=== PATIENT | female | born 1935 | race Caucasian/White ===

== ENCOUNTER 2018-02-09 14:30 | Outpatient (RCR) | payer MEDICARE, SELFPAY ==
--- NOTE | 2018-01-19 15:13 | PTTR_ITS ---
DATE: 01/19/18 SUBJECTIVE: Rosemarie indicates she is noting improvement in her left foot pain , but continues to get the numbness in the leg itself. Unfortunately, had a very bad night with left foot pain last night. Is not sure what caused this. She had been sick with vomiting and cold chills after her last P.T. session, but was better the next day. OBJECTIVE: Manual therapy: ([id number]). Soft tissue stretching of the left hamstrings, IT bands and piriformis. Hook lying lumbar rotational stretch as well as single knee to chest and unilateral leg pulls in supine and soft tissue mobs throughout the left glute medius and QL region. Tendon massage was applied along the lumbar vertebrae, iliac crest and sacral border on the left while in right side lying. Also, rec'd Grade 2 PA mobs throughout the lumbar vertebrae. * x Ultrasound - (x 8 mins) - [id number]: applied to the left glute medius / piriformis region @3 megahertz 50% duty cycle @1.0 watt per cm sq while in right side lying with a pillow between her knees and under her head. * * Ended with moist heat x10 min. to the low back and left buttock while in side lying at no charge. Direct treatment time: 35 min. Total treatment time: 45 min. SG/gc
--- NOTE | 2018-01-23 15:16 | PTTR_ITS ---
DATE: 01/23/18 SUBJECTIVE: Rosemarie reports pain in her left foot as well as her upper back on the left side today. OBJECTIVE: Manual therapy: ([id number]). With patient in supine, performed hamstring, ITB, and piriformis stretching on the left, as well as hooklying lumbar rotation stretching, SKTC stretching, and unilateral leg pulls, bilaterally. With patient in prone, performed STM throughout left lumbar paraspinals, glute med and QL regions. * [X] Ultrasound - (x 8 mins) - [id number][1]: With patient in prone, applied to left glute med and piriformis at 3 MHz, 50% duty cycle, 1.0 w/cm2 x8 minutes. Ends with MHP to low back in seated position x10 minutes, at no charge. Direct treatment time: 40 minutes Total treatment time: 50 minutes
--- NOTE | 2018-01-26 15:05 | PTTR_ITS ---
DATE: 01/26/18 SUBJECTIVE: Rosemarie indicates she has been getting a lot of pain into her left foot again. Is frustrated with this. Had been feeling as though she was doing better. The pain has been particularly worse the past 3 days. OBJECTIVE: Manual therapy: ([id number]). Did receive mobilization of the lumbopelvic region consisting of left hamstring , IT band and piriformis stretching as well as hook lying rotational stretch. Single knee to chest and unilateral leg pulls were performed while in the supine position. She did transition to prone where she received Grade 2 PA mobs to the lumbar vertebrae as well as soft tissue mobilization throughout the left QL and glutes. * x Ultrasound - (x 8 mins) - [id number]: applied to the left piriformis / gluteal region x8 min. @3 megahertz @1.0 watt per cm sq continuous duty cycle. She tolerated this very well today. This was done prior to the soft tissue mobilizations. * Ended with moist heat to the low back while seated at no charge. Direct treatment time: 40 minutes Total treatment time: 50 minutes SG/gc
--- NOTE | 2018-01-31 13:46 | PTTR_ITS ---
DATE: 01/31/18 SUBJECTIVE: Rosemarie states that her back is hurting at times. She continues to have left foot pain/numbness. Reports less twinges in her hip/buttock region. OBJECTIVE: Manual therapy: ([id number]). lumbopelvic stretching including SKTC, rotation in hooklying. Stretching of hamstrings, ITB, piriformis in various positions. LE distractions via leg pulls. She went into prone and received STM of low back and buttock region. CFM over left paraspinals, pelvic brim and sacral border. PRT's of iliocostalis lumborum and glut medius/ piriformis region. Myofascial stretching t/o entire low back and buttock region. She ended with MHP to low back in seated position x 10 min. * x Ultrasound - (x 8 mins) - [id number]: to left glut/ pelvic brim at 3 MHZ and 1.0 w/cm2. Direct treatment time: 45 min Total treatment time: 55 min.
--- NOTE | 2018-02-03 09:52 | PTTR_ITS ---
DATE: 02/03/18 Co treatment with LUCÍA StoverT: OBJECTIVE: Manual therapy: ([id number]). STM t/o left posterior hip with focus on piriformis and glut medius using PRT' s. I also worked into left iliocostalis lumborum. CFM of thoracic and lumbar paraspinals, pelvic brim and sacral border. Myofascial stretching t/o entire low back and pelvic brim. She declined the need for MHP today. Direct treatment time: 20 min Total treatment time: 20 min
--- NOTE | 2018-02-03 11:00 | PN_ITS ---
DATE: February 03, 2018 REFERRING: Dr. Rios REFERRING PROVIDER DIAGNOSIS:: R LBP w/sciatica PHYSICAL THERAPY DIAGNOSIS: REPORTING PERIOD (for progress note and discharge note only): 01/04/18 to SUBJECTIVE: Rosemarie states that she finds greater ease with cleaning the litter box for her cat. Still hasn't done much baking as the weather has been too hot. Does report less intense pain in the L glut. Continues to complain of L thoracolumbar region pain, also continues to complain of L foot discomfort and feeling as though she is rolling on the inside of her arch. Continues to complain of pain and paresthesias in the L foot. OBJECTIVE: See for recheck. ROM: AROM remains unchanged compared to time of I.E. Essentially painfree throughout flexion/extension, sidebending and rotation. She does have great toe extension weakness on the L. Good dorsiflexion and plantar flexion strength. Continues to use her Gabapentin. Treatment: Manual Therapy [id number]: LE distraction via leg pulls on the L, Mulligan style SLR followed by some gentle PA mobs in prone. Then performed Ultrasound [id number]: Applied at 3mhz, 1.0 w/cm2 continuous to the L piriformis. Also fabricated her accommodative type orthotics at no charge incorporating a small scaphoid pad and medial rearfoot post on the L. Standardized Measure: Scores 54% on MOLBPDQ. ASSESSMENT: Overall patient progressing with functional mobility, particularly with changing the litter box which was one of her goals. She has MET STG1-3 established at I.E. (See below). LTG still remains appropriate and she is progressing towards. G-Codes (add modifier after appropriate code): Patient's primary functional limitation is in the category of: __x__ Changing and maintaining body position: [id number] Projected goal: __x__ Changing and maintaining body position: [id number] STG: __6__ weeks. 1: Decrease L buttock pain by 50%. 2: Patient perform sit to stand transfer without pain. 3: Patient independent in a HEP. LTG: __10__ weeks. 1: Independent with self-maintenance program PLAN: Continue with current POC, will integrate more cervical stabilization and hip stabilization strengthening in subsequent visits. She was issued orthotics today and was told how to break them in. Will re-check those when she comes in next visit. MM/dl
--- NOTE | 2018-02-09 11:45 | PTTR_ITS ---
DATE: 02/09/18 SUBJECTIVE: Rosemarie states that she is doing a little better regarding her hip and back. She continues to c/o foot/ ankle pain. She is unable to wear her orthotics as she does not have proper shoes to put them in. I did recommend she purchase a pair of sneakers that tie. OBJECTIVE: Manual therapy: ([id number]). lumbopelvic stretching including SKTC, rotation in hooklying. LE distractions via leg pulls. Stretching of hamstrings, ITB, piriformis. She went into prone and received STM t/o low back and buttock on left. PRT's of iliocostalis lumborum and QL as well as glut medius and piriformis. CFM over pelvic brim, sacral border and bilateral paraspinals. Myofascial stretching t/o entire low back.She declined the need for MHP today. Direct treatment time: 30 min Total treatment time: 30 min.
== END 2018-02-17 23:59 | disposition home or self-care (01) ==
LOC: PT 14:30
PROVIDERS: PCP Family Medicine; Referring Provider Family Medicine; Visit Provider Family Medicine
DX: M54.42 Lumbago with sciatica, left side (principal); M51.16 Intervertebral disc disorders with radiculopathy, lumbar region
CPT/HCPCS: 97035; 97140

== ENCOUNTER 2018-07-17 01:01 | Outpatient (CLI) | payer MEDICARE, SELFPAY ==
--- NOTE | 2018-07-17 08:34 | DI.US_ITS ---
SYMPTOM/DIAGNOSIS: ABD PAIN RT SIDE, WT LOSS R63.4 R10.9 ABDOMEN ULTRASOUND: Comparison is made with CT dated 24 September 2013. There is mild dilatation of the abdominal aorta 2.5 cm There is mural thrombus as well as mural calcifications. There is no significant change from the previous abdomen CT. Numerous tiny cysts are noted in both kidneys. No hydronephrosis is seen. The spleen is normal in size. The gallbladder is unremarkable without evidence of stones or wall thickening. The liver is normal in size and echogenicity. IMPRESSION: abdominal aortic aneurysm containing thrombus measuring 2.5 cm. Bilateral renal cysts.
== END 2018-07-17 01:21 ==
PROVIDERS: PCP Family Medicine; Visit Provider Family Medicine
DX: R63.4 Abnormal weight loss (principal); R10.31 Right lower quadrant pain; I71.4 Abdominal aortic aneurysm, without rupture; N28.1 Cyst of kidney, acquired
CPT/HCPCS: 76700

== ENCOUNTER 2018-09-22 16:46 | Inpatient (IN) | payer MEDICARE, SELFPAY ==
[2018-09-22] VITALS (9 sets, daily range): BP systolic 134–153; BP diastolic 70–90; PULSE 64–94; RESP 4–22; TEMP 36.3–37.2; O2SAT 81–96
--- NOTE | 2018-09-22 17:01 | NUR.NOTE ---
pt seen by dr Rios today fo a followup on pneumonia. PT had increasing shortness of breath and symptoms were not resolving. PT states she was told to go to ED for chest xray
--- NOTE | 2018-09-22 17:06 | DI.RAD_ITS ---
SYMPTOM/DIAGNOSIS: COUGH WITH SPUTUM, SUSPECT PNEUMONIA FRONTAL AND LATERAL CHEST: Comparison is made with 08/23/17. Heart size and pulmonary vasculature appear stable. The lungs are hyperinflated with flattened diaphragms and increased AP diameter consistent with underlying COPD. There are prominent interstitial markings seen in the lungs bilaterally which appear stable and likely reflects chronic interstitial disease. On the lateral view, there is question of an increased opacity in the lung base posteriorly. This may be due to chronic scarring or atelectasis. A developing pneumonia cannot be excluded. Thoracic degenerative changes appear stable. IMPRESSION: Question of a new infiltrate in the lung base posteriorly as appreciated on the lateral view. This may represent atelectasis or scarring. Pneumonia cannot be excluded. Please correlate clinically.
--- NOTE | 2018-09-22 17:14 | W.ED.GENAD ---
Discharge Plan Disposition Patient Disposition: [facility] INPATIENT Condition: Stable Discharge Details Chief Complaint: RespSymp Clinical Impression: Pneumonia Primary Care Provider: Calvin Rios ED Provider: Teodoro Mg Home Meds and New Rx's Prescriptions: No Action Myrbetriq 25 mg tablet extended release 24 hr 25 mg PO DAILY RF: 0 nicotine [Nicoderm CQ] 7 mg/24 hr patch 24 hour 1 patch TD Q24H RF: 0 cefuroxime axetil 250 mg tablet 250 mg PO Q12H Qty: 14 RF: 0 prednisone 20 mg tablet 40 mg PO DAILY Qty: 10 RF: 0 albuterol sulfate [ProAir HFA] 90 mcg/actuation HFA aerosol inhaler 2 puff Inhalation Q4H PRN RF: 0 baclofen 10 mg tablet 5 mg PO QID PRN (Reason: muscle spasm) Qty: 60 RF: 1 lidocaine 5 % ointment 1 applic Topical Q4H Qty: 37.5 RF: 5 triamcinolone acetonide 0.1 % cream 1 applic Topical BID PRN (Reason: eczema) Qty: 45 RF: 1 omeprazole 20 mg capsule,delayed release(DR/EC) 20 mg PO DAILY Qty: 90 RF: 3 cyanocobalamin (vitamin B-12) 1,000 MCG/1 ML solution 1,000 mcg IM Q 2 MOS. RF: 0 aspirin [Aspirin Low-Strength] 81 MG tablet,chewable 81 mg PO DAILY Qty: 90 RF: 4 Compact Compressor Nebulizer 1 EACH kit 1 ea Miscellaneous Q6H PRN Qty: 1 RF: 0 Aerochamber Plus Flow-Vu 1 EACH spacer 1 ea Miscellaneous BID Qty: 1 RF: 0 gabapentin 100 MG capsule 100 mg PO HS RF: 0 trazodone 50 MG tablet 25 mg PO HS PRNQty: 30 RF: 2 benzonatate 100 MG capsule 1 - 2 cap PO TID PRNQty: 30 RF: 1 gabapentin 800 mg tablet 800 mg PO TID Qty: 270 RF: 3 ipratropium-albuterol 0.5 mg-3 mg(2.5 mg base)/3 mL solution for nebulization 3 ml Inhalation Q6H PRN Qty: 90 RF: 4 Medical Decision Making This is a pleasant 83-year-old female with a past medical history of chronic tobacco abuse and COPD who presents with a week of cough with brown and matt colored sputum. She was on 3 days of cefuroxime and steroids by her PCP, but had no improvement of her symptoms with this and was actually worsening. At recheck her O2 was in the 80s, PCP sent her in for further evaluation and admission. Exam demonstrates mild hypoxemia with oxygen at 81 on room air, coarse breath sounds, concern is for COPD as well as pneumonia. We will get a chest x-ray, evaluate for cardiac etiology, treat for COPD exacerbation, and most likely admit pending labs and imaging for failed outpatient management of community-acquired pneumonia. 7:05 PM Patient's laboratory workup has returned, after the breathing treatment she is feeling much better, O2 saturation is now 95% instead of the 81% but it was on arrival. Personal review of the chest x-ray demonstrates what I feel to be pneumonia, she does have normal WBC count, but she does have a left shift, lactate normal, troponin is normal, EKG shows some J-point elevations but no evidence of true STEMI or tombs stoning. I started the patient on Levaquin for her community-acquired pneumonia, I have discussed the case with Dr. Cornelius, he agrees with the assessment and plan. I have extensively reviewed the treatment plan with the patient. I have addressed all patient concerns at this time. I have also discussed the plan with the admitting physician and they agree with the current assessment and plan and have agreed to assume responsibility for the patient. All parties demonstrate verbal understanding and agreement with our assessment and plan at this time. FINDINGS: Lungs: There is stable chronic pulmonary hyperinflation and flattening of the hemidiaphragms. There is stable increased AP diameter of the chest. Findings compatible with COPD. There is increased hyperlucency to the pulmonary parenchyma, stable, and related to emphysema. Stable interstitial pattern, favoring chronic lung changes. There is an area of increased density in the posterior lung base, presumably on the left lower lobe, only seen on the lateral film. No acute interstitial or airspace disease otherwise grossly noted. Pleural space: Unremarkable. No pleural effusion. No pneumothorax. Heart/Mediastinum: Stable cardiac mediastinal silhouette. Bones/joints: No acute skeletal abnormality is grossly noted. IMPRESSION: Area of increased density in the posterior lung base, presumably in the left lower lobe, which could be related to an area of atelectasis or scarring, however developing airspace disease is not excluded and should be entertained in the appropriate clinical setting. Otherwise, stable COPD/emphysema. EKG 17: 45 Rate 88, intervals normal, sinus rhythm, 1 mm elevation in V2 and 2 mm elevation in V3, however these appear to be J-point elevation, with no tombstone, no reciprocal depression, no T wave inversions, no Q waves, in the setting of no chest pain. No evidence of true STEMI, morphology is inconsistent with D Barros waves HPI General Date/Time Provider Initiated Documentation: 09/22/18 17:06. HPI Narrative: This is an 83-year-old female with past medical history of COPD, chronic tobacco use, who presents today for evaluation of cough. Patient states that for the last week she has had a cough with productive brown and matt sputum. She is slightly short of breath with this. She denies any fever or chills. She does admit to mild chest pain in the epigastric region, but denies any cardiac disease. She has been on 3 days of cefuroxime by her PCP, as well as 3 days of steroids and she has had worsening of her symptoms with this. On reevaluation today in the clinic she was noted to be 89% on room air, and he was concerned and sent the patient in for evaluation in the ER for admission. Patient denies any other complaints. She denies any recent admission within the last 90 days. No other modifying factors. She denies any recent surgery, IV illicit drug use or pertinent family history Related Data Home Medications Medication Instructions Recorded Confirmed cyanocobalamin (vitamin B-12) 1,000 mcg IM Q 2 MOS. vial 10/27/12 09/22/18 aspirin [Aspirin Low-Strength] 81 mg PO DAILY #90 tab-cap 08/07/13 09/22/18 Compact Compressor Nebulizer #1 kit 03/11/15 09/22/18 inhalational spacing device #1 misc 09/16/17 09/22/18 [Aerochamber Plus Flow-Vu] gabapentin 100 mg PO HS 12/28/17 09/22/18 benzonatate 1 - 2 cap PO TID PRN #30 tab-cap 01/02/18 09/22/18 trazodone 25 mg PO HS PRN #30 tab-cap 01/02/18 09/22/18 gabapentin 800 mg tablet 800 mg PO TID #270 tab-cap 05/01/18 09/22/18 ipratropium-albuterol 0.5 mg-3 3 ml INHALATION Q6H PRN #90 ml 05/03/18 09/22/18 mg(2.5 mg base)/3 mL nebulization soln baclofen 10 mg tablet 5 mg PO QID PRN #60 tab 05/17/18 09/22/18 lidocaine 5 % topical ointment 1 applic TOPICAL Q4H #37.5 gm 05/17/18 09/22/18 triamcinolone acetonide 0.1 % 1 applic TOPICAL BID PRN #45 gm 05/17/18 09/22/18 topical cream omeprazole 20 mg capsule,delayed 20 mg PO DAILY #90 tab-cap 07/11/18 09/22/18 release cefuroxime axetil 250 mg tablet 250 mg PO Q12H #14 tab 09/19/18 09/22/18 mirabegron ER 25 mg 25 mg PO DAILY tab 09/19/18 09/22/18 tablet,extended release 24 hr nicotine 7 mg/24 hr daily 1 patch TD Q24H each 09/19/18 09/22/18 transdermal patch prednisone 20 mg tablet 40 mg PO DAILY #10 tab 09/19/18 09/22/18 albuterol sulfate HFA 90 2 puff INHALATION Q4H PRN inhaler 09/22/18 09/22/18 mcg/actuation aerosol inhaler Previous Rx's Medication Instructions Recorded inhalational spacing device #1 misc 09/16/17 [Aerochamber Plus Flow-Vu] gabapentin 800 mg tablet 800 mg PO TID #270 tab-cap 05/01/18 ipratropium-albuterol 0.5 mg-3 3 ml INHALATION Q6H PRN #90 ml 05/03/18 mg(2.5 mg base)/3 mL nebulization soln baclofen 10 mg tablet 5 mg PO QID PRN #60 tab 05/17/18 lidocaine 5 % topical ointment 1 applic TOPICAL Q4H #37.5 gm 05/17/18 triamcinolone acetonide 0.1 % 1 applic TOPICAL BID PRN #45 gm 05/17/18 topical cream omeprazole 20 mg capsule,delayed 20 mg PO DAILY #90 tab-cap 07/11/18 release cefuroxime axetil 250 mg tablet 250 mg PO Q12H #14 tab 09/19/18 prednisone 20 mg tablet 40 mg PO DAILY #10 tab 09/19/18 Allergies Allergy/AdvReac Type Severity Reaction Status Date / Time Penicillins Allergy Intermediate Unverified 09/22/18 17:13 roflumilast [From Daliresp] AdvReac Severe H/, Unverified 09/22/18 17:13 STOMACH PAIN, COLD tramadol AdvReac Severe Nausea, Unverified 09/22/18 17:13 dizziness amitriptyline AdvReac Intermediate DROWSINESS Unverified 09/22/18 17:13 fluticasone propionate AdvReac Intermediate EPISTAXIS Unverified 09/22/18 17:13 [From Flonase] hydrocodone AdvReac Intermediate Nausea Unverified 09/22/18 17:13 lorazepam AdvReac Intermediate decreased Unverified 09/22/18 17:13 mental status imipramine AdvReac Mild INSOMNIA Unverified 09/22/18 17:13 clarithromycin AdvReac Unknown INTOLERANT Unverified 09/22/18 17:13 tetracycline AdvReac Unknown INTOLERANT Unverified 09/22/18 17:13 General Stated Complaint: RespSymp MARCIAL: 4 Review of Systems Review of Systems All systems reviewed & are unremarkable except as noted in HPI and below PFSH Medical History COPD (chronic obstructive pulmonary disease) Cataract Closed fracture of clavicle Complex regional pain syndrome i of lower limb, bilateral Degenerative disc disease, cervical Headache Hearing loss History of shingles Idiopathic peripheral neuropathy Perforation of tympanic membrane Peripheral neuralgia Peripheral vascular disease Seborrheic keratosis Skin lesion of face Smoker Tinea unguium Surgical History Abdominal hysterectomy (~1975) Appendectomy Extraction of cataract Social History Smoking/Tobacco Use Status: Current every day Tobacco Type: cigarettes Years smoked: 50 Alcohol Intake: never Drug use: Never Substance use type: does not use Do you feel safe at home: Yes Do you feel safe in your relationship?: Yes Exam Narrative Exam Narrative: 1.Const: Elderly, cachectic appearing. 2.Eyes: PERRL, no conjunctival injection, and symmetrical lids. 3.ENT: Atraumatic external nose and ears. Moist MM. Neck: Symmetric, trachea midline, No thyromegaly. 4.CVS: +S1/S2, No murmurs or gallops. Peripheral pulses 2+ and equal in all extremities. Brisk capillary refill in all extremities. 5.RESP: Notable wheezes and diminished breath sounds throughout, minimal crackles in the bases bilaterally. 6.GI: Soft, Nontender/Nondistended, No hepatosplenomegaly. No guarding or rebound. 7.MSK: Normocephalic/Atraumatic, Extremities w/o deformity or ttp No cyanosis or clubbing, Normal movement of all extremities 8.Skin: Warm, Dry. No rashes or lesions. 9.Neuro: oven drier tender II-XII grossly intact. Sensation grossly intact, no focal neurologic deficits. 10.Psych: (AAO) x3. Appropriate mood and affect Course Vital Signs Temperature 36.6 C 09/22/18 17:03 Pulse 91 H 09/22/18 17:03 Respiratory Rate 22 09/22/18 17:03 Pulse Oximetry 81 L 09/22/18 17:03 Temperature 36.6 C 09/22/18 17:03 Temperature Source Skin 09/22/18 17:03 Pulse 91 H 09/22/18 17:03 Respiratory Rate 22 09/22/18 17:03 Blood Pressure Position Sitting 09/22/18 17:03 Pulse Oximetry 81 L 09/22/18 17:03 Oxygen Delivery Method Room Air 09/22/18 17:03 Oxygen Flow Rate 0 09/22/18 17:03 Pain Level 0 09/22/18 17:03 Comment 09/22/18 17:03 Lab/Test Results Lab/Test Results: 09/22/18 17:07 Blood Blood Culture - Pending 09/22/18 17:07 Blood Blood Culture - Pending
[2018-09-22 17:32] LABS: Lactate-non-spesis 0.9 mmol/l (0.6-1.4)
[2018-09-22 18:00] LABS: Abs Immature Grans 0.01 k/cumm (0.0-0.09); Absolute Basophil Count 0.02 k/cumm (0.0-0.2); Absolute Eosinophil Count 0.03 k/cumm (0.0-0.7); Absolute Lymphocyte Count 0.86 k/cumm (1.2-3.4); Absolute Neutrophil Count 7.29 k/cumm (1.2-6.7); Basophils % 0.2; Eosinophils % 0.3; HCT 47.3 % (36.0-46.0); HGB 15.4 g/dL (12.0-15.5); Immature Grans % 0.1; Lymphocytes % 9.4; Mean Corp. HGB Concentration 32.6 g/dL (32.0-36.0); Mean Corpuscular Hemoglobin 31.4 pg (27.0-33.0); Mean Corpuscular Volume 96.3 fL (80-95); Mean Platelet Volume 10.6 fL (8.0-11.0); Monocytes % 9.9; Neutrophils % 80.1; Platelet Count 169 x1000/uL (130-400); RBC 4.91 m/cumm (4.00-5.20); RBC Distribution Width 13.4 % (11.7-14.6); White Blood Cell Count 9.11 k/cumm (4.4-10.8)
[2018-09-22 18:04] LABS: Troponin I < 0.02 ng/mL (0.00-0.06)
[2018-09-22 18:07] LABS: ALT 25 U/L (12-78); AST 17 U/L (15-37); Albumin 3.3 g/dL (3.4-5.0); Alkaline Phosphatase 102 U/L (46-116); Anion Gap 6.4 mmol/L (3-11); BUN 14 mg/dL (7-18); Bilirubin, Total 0.5 mg/dL (0.2-1.0); CO2 31.6 mmol/L (21.0-32.0); CREATININE 0.61 mg/dL (0.55-1.02); Calcium 9.1 mg/dL (8.5-10.1); Chloride 101 mmol/L (98-107); Glucose 112 mg/dL (70-100); Potassium 3.9 mmol/L (3.5-5.1); Sodium 139 mmol/L (136-145); Total Protein 7.2 g/dL (6.4-8.2)
[2018-09-22] MEDS: Albuterol/Ipratropium 3 ML UPD VIAL UPD ×2 (18:13→22:23)
[2018-09-22] MEDS: methylPREDNISolone SUCC 125 MG VIAL IVP (18:13)
--- NOTE | 2018-09-22 19:05 | DI.VRAD_ITS ---
EXAM: XR Chest, 2 Views EXAM DATE/TIME: 09/22/2018 5:07 PM CLINICAL HISTORY: 83 years old, female; Signs and symptoms; Cough; Patient HX: Cough with sputum for 1 week; Additional info: Suspected pneumonia TECHNIQUE: Imaging protocol: XR of the chest, 2 views. COMPARISON: CR CHEST 2 VIEWS PA,LAT 08/23/2017 11:28 AM FINDINGS: Lungs: There is stable chronic pulmonary hyperinflation and flattening of the hemidiaphragms. There is stable increased AP diameter of the chest. Findings compatible with COPD. There is increased hyperlucency to the pulmonary parenchyma, stable, and related to emphysema. Stable interstitial pattern, favoring chronic lung changes. There is an area of increased density in the posterior lung base, presumably on the left lower lobe, only seen on the lateral film. No acute interstitial or airspace disease otherwise grossly noted. Pleural space: Unremarkable. No pleural effusion. No pneumothorax. Heart/Mediastinum: Stable cardiac mediastinal silhouette. Bones/joints: No acute skeletal abnormality is grossly noted. IMPRESSION: Area of increased density in the posterior lung base, presumably in the left lower lobe, which could be related to an area of atelectasis or scarring, however developing airspace disease is not excluded and should be entertained in the appropriate clinical setting. Otherwise, stable COPD/emphysema. Dictated and Authenticated by: Melvin Fry MD. Ordering:FRANSISCO Valerio MD
--- NOTE | 2018-09-22 19:15 | HPE_ITS ---
Date of service: 09/22/18 Time of Service: 19:14 Assessment and Plan (1) Community acquired pneumonia: Start date: 09/22/18 Current visit: Yes Status: Acute This is an 83-year-old lady who has had a one-week history of worsening respiratory symptoms having failed outpatient therapy for respiratory infection and COPD exacerbation. She has no onset hypoxemia and has been smoking up to her acute illness. She will be admitted for oxygen supplementation as we treat her acute probable left lower lobe community-acquired pneumonia with Levaquin IV. Follow-up chest x-ray will be done as indicated. She is a DNR/DNI this will be respected. Qualifiers: Laterality: left Lung location: lower lobe of lung Qualified Code(s): J18.1 - Lobar pneumonia, unspecified organism (2) COPD (chronic obstructive pulmonary disease): Start date: 09/22/18 Current visit: No Status: Acute Patient will be treated with IV Solu-Medrol and aggressive nebulizer treatments with oxygen supplementation. She will be continued on a NicoDerm patch. Qualifiers: COPD type: COPD with acute exacerbation Qualified Code(s): J44.1 - Chronic obstructive pulmonary disease with (acute) exacerbation (3) Smoker: Current visit: No Status: Chronic NicoDerm patch and expect that the patient will have increase plugging and sputum production having just stopped smoking with his acute illness. Long-term counseling on permanent tobacco cessation before discharge. History of Present Illness Chief Complaint: Hypoxemia with continued cough Narrative: This is an 83-year-old lady who continued to smoke up to 1 week ago who began to have increased cough with production of matt brown sputum and was treated Ceftin and oral steroids for outpatient COPD exacerbation with at least bronchitis. She has multiple allergies prompting the use of the cephalosporin rather than the usual treatment for outpatient bronchitis or pneumonia. Despite treatment she worsened and with follow-up at her PCP office she was noted to be hypoxemic. She was sent to the ED for evaluation and workup revealed possible left lower lobe pneumonia by chest x-ray but no elevation in white count, no fever and minimal tachypnea. On oxygen she was much more comfortable. She was slightly confused at the time I interviewed her but comfortable sitting in a recliner chair. She denies any hemoptysis and did not have respiratory distress. She denies any palpitations or chest pain and had no GI complaints. She has had no fever chills during this last week. In the ED she was on Levaquin IV and admitted with O2 supplement, respiratory treatments and IV steroids. [facility] Medical History COPD (chronic obstructive pulmonary disease) Cataract Closed fracture of clavicle Complex regional pain syndrome i of lower limb, bilateral Degenerative disc disease, cervical Headache Hearing loss History of shingles Idiopathic peripheral neuropathy Perforation of tympanic membrane Peripheral neuralgia Peripheral vascular disease Seborrheic keratosis Skin lesion of face Smoker Tinea unguium Surgical History Abdominal hysterectomy (~1975) Appendectomy Extraction of cataract Social History Smoking/Tobacco Use Status: Current every day Tobacco Type: cigarettes Years smoked: 50 Alcohol Intake: never Drug use: Never Substance use type: does not use Do you feel safe at home: Yes Do you feel safe in your relationship?: Yes Meds Home Medications Medication Instructions Recorded Confirmed Type cyanocobalamin (vitamin B-12) 1,000 mcg IM Q 2 MOS. vial 10/27/12 09/22/18 History aspirin [Aspirin Low-Strength] 81 mg PO DAILY #90 tab-cap 08/07/13 09/22/18 History Compact Compressor Nebulizer #1 kit 03/11/15 09/22/18 History inhalational spacing device #1 misc 09/16/17 09/22/18 Rx [Aerochamber Plus Flow-Vu] gabapentin 100 mg PO HS 12/28/17 09/22/18 History benzonatate 1 - 2 cap PO TID PRN #30 tab-cap 01/02/18 09/22/18 History trazodone 25 mg PO HS PRN #30 tab-cap 01/02/18 09/22/18 History gabapentin 800 mg tablet 800 mg PO TID #270 tab-cap 05/01/18 09/22/18 Rx ipratropium-albuterol 0.5 mg-3 3 ml INHALATION Q6H PRN #90 ml 05/03/18 09/22/18 Rx mg(2.5 mg base)/3 mL nebulization soln baclofen 10 mg tablet 5 mg PO QID PRN #60 tab 05/17/18 09/22/18 Rx lidocaine 5 % topical ointment 1 applic TOPICAL Q4H #37.5 gm 05/17/18 09/22/18 Rx triamcinolone acetonide 0.1 % 1 applic TOPICAL BID PRN #45 gm 05/17/18 09/22/18 Rx topical cream omeprazole 20 mg capsule,delayed 20 mg PO DAILY #90 tab-cap 07/11/18 09/22/18 Rx release cefuroxime axetil 250 mg tablet 250 mg PO Q12H #14 tab 09/19/18 09/22/18 Rx mirabegron ER 25 mg 25 mg PO DAILY tab 09/19/18 09/22/18 History tablet,extended release 24 hr nicotine 7 mg/24 hr daily 1 patch TD Q24H each 09/19/18 09/22/18 History transdermal patch prednisone 20 mg tablet 40 mg PO DAILY #10 tab 09/19/18 09/22/18 Rx albuterol sulfate HFA 90 2 puff INHALATION Q4H PRN inhaler 09/22/18 09/22/18 History mcg/actuation aerosol inhaler Allergies Allergy/AdvReac Type Severity Reaction Status Date / Time Penicillins Allergy Intermediate Unverified 09/22/18 17:13 roflumilast [From Daliresp] AdvReac Severe H/, Unverified 09/22/18 17:13 STOMACH PAIN, COLD tramadol AdvReac Severe Nausea, Unverified 09/22/18 17:13 dizziness amitriptyline AdvReac Intermediate DROWSINESS Unverified 09/22/18 17:13 fluticasone propionate AdvReac Intermediate EPISTAXIS Unverified 09/22/18 17:13 [From Flonase] hydrocodone AdvReac Intermediate Nausea Unverified 09/22/18 17:13 lorazepam AdvReac Intermediate decreased Unverified 09/22/18 17:13 mental status imipramine AdvReac Mild INSOMNIA Unverified 09/22/18 17:13 clarithromycin AdvReac Unknown INTOLERANT Unverified 09/22/18 17:13 tetracycline AdvReac Unknown INTOLERANT Unverified 09/22/18 17:13 Exam Narrative Exam Narrative: General: Patient is pleasantly confused fidgeting with her IV and oxygen tubing at the time of my exam. She is oriented at least to person and place. She is in no acute distress. She appears appropriate for age. HEENT: Patient is wearing a wig, normocephalic, face with coarsened features. Eyes reveal pupils equal and reactive to light symmetrically and extraocular movement intact. Sclera anicteric. Oropharynx with dry oral mucosa. Ears normal. Neck: Supple without JVD. Back: Severely kyphotic with decreased range of motion. No CVA tenderness. Heart: Distant heart sounds, regular rate and rhythm without murmurs or gallops appreciated. Lungs: Poor aeration diffusely with diffuse coarse rhonchi and coarse crackles without focalization. Increased expiratory phase with diffuse expiratory wheeze, especially with cough. Breast: Not examined. Abdomen: Scaphoid, soft and nontender with no palpable masses or hepatosplenomegaly. Bowel sounds positive in all quadrants. Genitalia and rectal exam: Deferred. Extremities: Without clubbing, cyanosis or pitting edema. Muscle wasting diffusely with no joint swelling. Decreased range of motion in all joints. Skin: Decreased turgor, diffuse actinic changes over sun exposed areas with rough texture. Pale, warm and dry. Neuro: Decreased short-term memory, no focalizing motor deficits. Cranial nerves II through XII grossly intact. Results Imaging Imaging Studies: XR Chest, 2 Views EXAM DATE/TIME: 09/22/2018 5:07 PM CLINICAL HISTORY: 83 years old, female; Signs and symptoms; Cough; Patient HX: Cough with sputum for 1 week; Additional info: Suspected pneumonia TECHNIQUE: Imaging protocol: XR of the chest, 2 views. COMPARISON: CR CHEST 2 VIEWS PA,LAT 08/23/2017 11:28 AM FINDINGS: Lungs: There is stable chronic pulmonary hyperinflation and flattening of the hemidiaphragms. There is stable increased AP diameter of the chest. Findings compatible with COPD. There is increased hyperlucency to the pulmonary parenchyma, stable, and related to emphysema. Stable interstitial pattern, favoring chronic lung changes. There is an area of increased density in the posterior lung base, presumably on the left lower lobe, only seen on the lateral film. No acute interstitial or airspace disease otherwise grossly noted. Pleural space: Unremarkable. No pleural effusion. No pneumothorax. Heart/Mediastinum: Stable cardiac mediastinal silhouette. Bones/joints: No acute skeletal abnormality is grossly noted. IMPRESSION: Area of increased density in the posterior lung base, presumably in the left lower lobe, which could be related to an area of atelectasis or scarring, however developing airspace disease is not excluded and should be entertained in the appropriate clinical setting. Otherwise, stable COPD/emphysema. Dictated and Authenticated by: Melvin Fry MD. Labs : 09/22/18 17:36 09/22/18 17:22 Laboratory Results - last 24 hr 09/22/18 09/22/18 09/22/18 17:22 17:22 17:36 WBC 9.11 RBC 4.91 Hgb 15.4 Hct 47.3 H MCV 96.3 H MCH 31.4 MCHC 32.6 RDW 13.4 Plt Count 169 MPV 10.6 Immature Gran % 0.1 Neutrophils % 80.1 Lymphocytes % 9.4 Monocytes % 9.9 Eosinophils % 0.3 Basophils % 0.2 Absolute Neutrophils 7.29 H Absolute Lymphocytes 0.86 L Absolute Monocytes 0.90 H Absolute Eosinophils 0.03 Absolute Basophils 0.02 Sodium 139 Potassium 3.9 Chloride 101 Carbon Dioxide 31.6 Anion Gap 6.4 BUN 14 Creatinine 0.61 Estimated GFR/1.73 m2 >= 60.00 Glucose 112 H Lactate 0.9 Calcium 9.1 Total Bilirubin 0.5 AST 17 ALT 25 Alkaline Phosphatase 102 Troponin I Total Protein 7.2 Albumin 3.3 L 09/22/18 17:36 WBC RBC Hgb Hct MCV MCH MCHC RDW Plt Count MPV Immature Gran % Neutrophils % Lymphocytes % Monocytes % Eosinophils % Basophils % Absolute Neutrophils Absolute Lymphocytes Absolute Monocytes Absolute Eosinophils Absolute Basophils Sodium Potassium Chloride Carbon Dioxide Anion Gap BUN Creatinine Estimated GFR/1.73 m2 Glucose Lactate Calcium Total Bilirubin AST ALT Alkaline Phosphatase Troponin I < 0.02 Total Protein Albumin Last Vital Signs Temp 37.2 C 09/22/18 18:45 Pulse 94 H 09/22/18 18:45 Resp 18 09/22/18 18:45 BP 134/70 09/22/18 18:45 Pulse Ox 95 09/22/18 18:45
[2018-09-22 19:37] LABS: Magnesium 1.8 mg/dL (1.8-2.4)
[2018-09-22] MEDS: levoFLOXacin 750 MG/150 ML BAG 100 MG IVPB (20:13)
[2018-09-22] MEDS: Gabapentin 800 MG TAB PO (22:23)
[2018-09-22] MEDS: Gabapentin 100 MG CAP PO (22:23)
[2018-09-22] MEDS: Heparin 5,000 UNITS/ML VIAL 5000 UNITS SC (22:24)
[2018-09-22] MEDS: Normal Saline 1,000 ML 80 ML IV (22:39)
[2018-09-23] VITALS (11 sets, daily range): BP systolic 106–139; BP diastolic 56–82; PULSE 61–94; RESP 4–20; TEMP 36.1–37; O2SAT 87–96
[2018-09-23] MEDS: methylPREDNISolone SUCC 125 MG VIAL 80 MG IVP ×3 (01:54→19:12)
[2018-09-23] MEDS: Albuterol/Ipratropium 3 ML UPD VIAL UPD ×3 (04:14→18:07)
[2018-09-23] MEDS: Heparin 5,000 UNITS/ML VIAL 5000 UNITS SC ×3 (05:37→21:42)
[2018-09-23 07:02] LABS: HCT 44.5 % (36.0-46.0); HGB 14.1 g/dL (12.0-15.5); Mean Corp. HGB Concentration 31.7 g/dL (32.0-36.0); Mean Corpuscular Hemoglobin 30.8 pg (27.0-33.0); Mean Corpuscular Volume 97.2 fL (80-95); Mean Platelet Volume 10.9 fL (8.0-11.0); Platelet Count 157 x1000/uL (130-400); RBC 4.58 m/cumm (4.00-5.20); RBC Distribution Width 13.2 % (11.7-14.6); White Blood Cell Count 4.81 k/cumm (4.4-10.8)
[2018-09-23 07:14] LABS: ALT 18 U/L (12-78); AST 14 U/L (15-37); Albumin 2.7 g/dL (3.4-5.0); Alkaline Phosphatase 84 U/L (46-116); Anion Gap 6.3 mmol/L (3-11); BUN 16 mg/dL (7-18); Bilirubin, Total 0.4 mg/dL (0.2-1.0); CO2 30.7 mmol/L (21.0-32.0); Calcium 8.5 mg/dL (8.5-10.1); Chloride 104 mmol/L (98-107); Glucose 124 mg/dL (70-100); Potassium 4.2 mmol/L (3.5-5.1); Sodium 141 mmol/L (136-145); Total Protein 6.5 g/dL (6.4-8.2)
[2018-09-23] MEDS: Aspirin 81 MG CHEW PO (08:24)
[2018-09-23] MEDS: Gabapentin 800 MG TAB PO ×3 (08:24→17:58)
[2018-09-23] MEDS: Omeprazole 20 MG CAPCR PO (08:24)
[2018-09-23] MEDS: Normal Saline 1,000 ML 80 ML IV (11:19)
--- NOTE | 2018-09-23 12:23 | PT.INIE ---
Date of service: 09/23/18 Time of Service: 10:45 PT Notes Inpatient Physical Therapy Evaluation Date: 09/23/18 Referring Doctor: Lynne Olivera PT Orders: PT CONSULT: Improve function Precautions: Standard Patient Profile/Admitting Diagnosis: Is received for this 83-year-old female with a history of mild respiratory issues she was being monitored by her primary physician for an acute respiratory illness however after failing with conservative therapy she was admitted for O2 supplementation and monitoring. She was diagnosed with a community-acquired pneumonia. PMHX: Medical History COPD (chronic obstructive pulmonary disease) Cataract Closed fracture of clavicle Complex regional pain syndrome i of lower limb, bilateral Degenerative disc disease, cervical Headache Hearing loss History of shingles Idiopathic peripheral neuropathy Perforation of tympanic membrane Peripheral neuralgia Peripheral vascular disease Seborrheic keratosis Skin lesion of face Smoker Tinea unguium Surgical History Abdominal hysterectomy (~1975) Appendectomy Extraction of cataract Social History/Home Situation: Lives alone in a trailer in [place] Equipment Owned/DME: Patient utilizes a cane at baseline but also has a walker that she utilizes but not that often due to it getting stuck on her rug at times Subjective: Patient states she might be feeling a little bit better today Objective: Patient is sitting in her recliner with an IV present through the upper extremity on supplemental O2 delivered via nasal cannula Mental Status: Well oriented and alert to person place and time Pain: 0 out of 10 ROM: Right Upper Extremity: Within functional limits Left Upper Extremity: Within functional limits Right Lower Extremity: Within functional limits Left Lower Extremity: Within functional limits Strength: Right Upper Extremity: 4Plus out of 5 globally Left Upper Extremity: 4Plus out of 5 globally Right Lower Extremity: 4Plus out of 5 globally Left Lower Extremity: 4Plus out of 5 globally Bed Mobility/Transfers: Applicable as patient was sitting up Sit-stand: Contact-guard assist Stand-sit: Contact-guard assist Gait: Patient ambulates up to 10 feet which is the limit of her in room oxygen hose she utilizes cane in the right upper extremity and is contact-guard Balance: Static Sitting: Normal Dynamic Sitting: Good Static Standing: Good Dynamic Standing: fair Special Tests: Mobility Limitations Standardized Measure [facility]-PAC 6 clicks Basic Mobility Inpatient Short Form: Raw Score: 18 Standardized Score: 43.63 CMS Score: 46.58 CMS Modifier: CK Informed Consent/Education: Patient instructed in purpose of PT consult and plan of care. Treatment: Performing a light exercise program with corrective instruction can observe flow sheet ASSESSMENT: Patient is a 83-year-old female with a history of respiratory issues Admitted with community acquired pneumonia Patient presents with the following impairment level findings: Difficulty with transferring, ambulation intolerance, activity tolerance below baseline Pt will benefit from skilled therapy intervention in order to remedy their functional limitations and restore patient to a more appropriate and stable functional level. Impairments are contributing to the following functional limitations: AMPAC score 46.58% Patient is assessed as a moderate complexity initial evaluation 45648 based on the following: History: see above Examination: see above Presentation: Evolving Decision Making: Moderate based on the AMPAC score of 46.58% Goals: Goals X1 week 1. Supine-Sit independent and restored to baseline 2. Sit-Supine independent and restored to baseline 3. Sit-Stand independent and restored to baseline 4. Stand-Sit independent and restored to baseline 5. Bed-Chair independent and restored to baseline 6. Gait independent to 100 feet with cane and restored to baseline Plan of Care/Treatment Plan: 1-2x/day, 7 days/week x 1 week. Plan of care has been reviewed with the [employer] SAL[employer]GER providing the service under Physical Therapy direction. Initiate Physical Therapy intervention for strengthening, bed mobility, transfers, gait, stairs, balance training, use of assistive device. DISCHARGE RECOMMENDATIONS: To home once medically stable TREATMENT CODE/TIME: Moderate complexity initial evaluation 22591 10:45am 15 minutes of direct patient care
--- NOTE | 2018-09-23 12:32 | PHARADMIT ---
Addendum entered by Darrel Butterfield III 09/27/18 16:42: Pharmacy Note Subjective Objective BP-148/85 HR-96 K+4.5 Mag-1.8 SCr- 0.8 WBC-9.47 Wgt-38.4 kg (up) BM Yesterday Assessment Levaquin continues, Lasix DC'd. Heparin SC for DVT proph Plan Addendum entered by Lisa Waddell 09/25/18 17:10: Pharmacy Note Subjective taking a little longer to bounce back per morning report Objective HR-98 other VS okay mag-2.9(up) WBC-12.58(up) Assessment duonebs changed to Q4H prn furosemide ordered 20 mg IVP BID guaifenesin ordered 600 mg BID levofloxacin continues (day 4) blood cultures no growth @48 hours Plan continue to watch VS labs and for med changes (IV to PO abx) Original Note: Admission Pharmacy Clinical Review CAP, COPD EXACERBATION-Smoker Code Status DNR/DNI Current Weight 36.5 kg Renally Cleared and Narrow Therapeutic Index Meds CrCl~31.24 QTc Value / Action Taken QTC 433: Levaquin/Trazodone BP Control, Fever BP 139/82 Afebrile Electrolytes reviewed K+ 4.2, Mag 1.8 DVT Prophylaxis Heparin SC Opiate Usage / Scheduled Bowel Regimen Ordered none Plt/SCr for Heparin / Enoxaparin Plt 157 SCr 0.7 INR for Warfarin H/H stable, WBC/Bands H/H 14.1/44.5 WBC 4.81 Antibiotic appropriateness Levaquin 750mg IV Q48h (renal adjustment) Cultures and Sensitivities Blood pending Flu: negative Surgical ABX d/c within 24 hr DM control / Insulin Dosing BG 124 Heart Failure (Check EF%) (IDA's, B-Block, Diuretics) none IV to PO Switch Home Meds Reviewed Pt's own Mybertriq 25mg-not here at this time, med IS on order for Tuesday09/25/18 Home Meds Not Ordered Ceftin as outpt recently, Pletal, Vit B12, Comments Nutrition consult for BMI 14.7 IV Steroids reduced today Neurontin dose needs clarification
--- NOTE | 2018-09-23 13:39 | PGE_ITS ---
Date of Service Date of service: 09/23/18 Time of Service: 13:39 Assessment and Plan (1) Community acquired pneumonia: Start date: 09/23/18 Start time: 13:30 Current visit: Yes Status: Acute This is an 83-year-old lady who has had a one-week history of worsening respiratory symptoms having failed outpatient therapy for respiratory infection and COPD exacerbation. She is a smoker last cigarette prior to admission, she was started on levaquin after failing a trial of ceftin on outpatient therapy. She does have non oxygen dependent COPD which is exacerbated at this time with wheezing and SOB. She was started on solumedrol 80 mg IV q 8 hours, updraft q 4 hours with albuterol q2. Wean off of oxygen as she is 93% on 1 L. Qualifiers: Laterality: left Lung location: lower lobe of lung Qualified Code(s): J18.1 - Lobar pneumonia, unspecified organism (2) COPD (chronic obstructive pulmonary disease): Start date: 09/23/18 Start time: 13:35 Current visit: No Status: Acute Patient will be treated with IV Solu-Medrol and aggressive nebulizer treatments. She will be continued on a NicoDerm patch. Qualifiers: COPD type: COPD with acute exacerbation Qualified Code(s): J44.1 - Chronic obstructive pulmonary disease with (acute) exacerbation (3) Smoker: Start date: 09/23/18 Start time: 13:35 Current visit: No Status: Chronic NicoDerm patch and expect that the patient will have increase plugging and sputum production having just stopped smoking with his acute illness. Long-term counseling on permanent tobacco cessation before discharge. (4) Peripheral vascular disease: Start date: 09/23/18 Start time: 13:35 Current visit: No Status: Acute Chronic smoker with numbness and pain to feet and fingers in the setting of PVD. Continue gabapentin for PVD (5) Malnourished: Start date: 09/23/18 Start time: 13:37 Current visit: Yes Status: Acute BMI of 14. She does believe she eats enough however, appears malnourished. Nutrition consult placed. (6) DVT prophylaxis: Start date: 09/23/18 Start time: 13:38 Current visit: Yes Status: Acute Heparin Subcu (7) Advance directive in chart: Start date: 09/23/18 Start time: 13:38 Current visit: Yes Status: Acute DNR/DNI Subjective Patient reports: feels better Interval history since last seen: Ms. Burgess is an 83 y.o F with PMH of COPD, PVD, Tobacco abuse, admitted to [facility] for CAP with COPD exacerbation. After failing outpatient therapy on a course of ceftiane PO for CAP she arrived to [facility] Emergency department SOB with hypoxia. She was admitted and started on levaquin IV with steroids. Today she is feeling much better, she is able to breath better and complete full sentences. She is 93% on 1 liter and we will obtain a RA sat. She smoked up until admission, and is currently wearing a nicoderm patch. Inspiratory and expiratory wheezing heard continue, nebs, updrafts, steroids, and antibiotics. Omeprazole for GERD. She does c/o numbness and pain to toes and fingers she has PVD and currently on gabapentin, continue dose. Exam Const General: cooperative and no acute distress Nutritional Appearance: underweight Orientation: alert, awake and oriented x3 Eyes Pupils: PERRL Neck Lymphatic: no lymphadenopathy noted and no lymphedema noted Chest Chest: normal inspection of the chest Resp Effort & Inspection: able to speak in complete sentences and abnormal respiratory pattern Auscultation: rhonchi and wheezes expiratory wheezes and inspiratory wheezes Cardio Jugular venous pressure: no JVD Rate: regular rate Rhythm: regular rhythm Heart Sounds: S1 normal and S2 normal GI Inspection: normal to inspection Auscultation: hyperactive bowel sounds Skin General skin exam: no rashes or lesions noted Neuro General: alert, awake and oriented x3 Objective Objective Clinical Data: Abnormal lab results 09/22/18 09/22/18 09/23/18 Range/Units 17:22 17:36 06:30 Hct 47.3 H (36.0-46.0) % MCV 96.3 H (80-95) fL MCHC (32.0-36.0) g/dL Absolute Neutrophils 7.29 H (1.2-6.7) k/cumm Absolute Lymphocytes 0.86 L (1.2-3.4) k/cumm Absolute Monocytes 0.90 H (0.11-0.7) k/cumm Glucose 112 H 124 H (70-100) mg/dL AST 14 L (15-37) U/L Albumin 3.3 L 2.7 L (3.4-5.0) g/dL 09/23/18 Range/Units 06:30 Hct (36.0-46.0) % MCV 97.2 H (80-95) fL MCHC 31.7 L (32.0-36.0) g/dL Absolute Neutrophils (1.2-6.7) k/cumm Absolute Lymphocytes (1.2-3.4) k/cumm Absolute Monocytes (0.11-0.7) k/cumm Glucose (70-100) mg/dL AST (15-37) U/L Albumin (3.4-5.0) g/dL Vital Signs Temperature 36.1 C L 09/23/18 07:48 Temperature Source Tympanic 09/23/18 07:48 Pulse 74 09/23/18 07:48 Pulse Rhythm Regular 09/23/18 08:00 Respiratory Rate 18 09/23/18 07:48 Respiratory Effort 09/23/18 08:00 Respiratory Depth Shallow 09/23/18 08:00 Respiratory Pattern Tachypnea 09/23/18 08:00 Blood Pressure 139/82 09/23/18 07:48 Blood Pressure Mean 106 09/22/18 20:02 Blood Pressure Position Sitting 09/22/18 17:03 Pulse Oximetry 93 L 09/23/18 10:35 Oxygen Delivery Method Nasal Cannula 09/23/18 10:35 Oxygen Flow Rate 1 09/23/18 10:35 Pain Level 0 09/22/18 17:03 Comment 09/22/18 17:03 Intake & Output 09/22/18 09/23/18 09/23/18 23:59 11:59 23:59 Intake Total 1500 / 1500 Output Total 300 / 300 600 / 600 Balance -300 / -300 900 / 900 Weight 38.555 kg 36.5 kg Intake: IV 1150 / 1150 Oral 350 / 350 Output: Urine 300 / 300 600 / 600 Other: Urine Color Yellow Yellow Urine Appearance Clear Clear Voiding Methods Bedside Commode Bedside Commode Laboratory Results WBC 4.81 k/cumm (4.4-10.8) D 09/23/18 06:30 RBC 4.58 m/cumm (4.00-5.20) 09/23/18 06:30 Hgb 14.1 g/dL (12.0-15.5) 09/23/18 06:30 Hct 44.5 % (36.0-46.0) 09/23/18 06:30 MCV 97.2 fL (80-95) H 09/23/18 06:30 MCH 30.8 pg (27.0-33.0) 09/23/18 06:30 MCHC 31.7 g/dL (32.0-36.0) L 09/23/18 06:30 RDW 13.2 % (11.7-14.6) 09/23/18 06:30 Plt Count 157 x1000/uL (130-400) 09/23/18 06:30 MPV 10.9 fL (8.0-11.0) 09/23/18 06:30 Immature Gran % 0.1 09/22/18 17:36 Neutrophils % 80.1 09/22/18 17:36 Lymphocytes % 9.4 09/22/18 17:36 Monocytes % 9.9 09/22/18 17:36 Eosinophils % 0.3 09/22/18 17:36 Basophils % 0.2 09/22/18 17:36 Absolute Neutrophils 7.29 k/cumm (1.2-6.7) H 09/22/18 17:36 Absolute Lymphocytes 0.86 k/cumm (1.2-3.4) L 09/22/18 17:36 Absolute Monocytes 0.90 k/cumm (0.11-0.7) H 09/22/18 17:36 Absolute Eosinophils 0.03 k/cumm (0.0-0.7) 09/22/18 17:36 Absolute Basophils 0.02 k/cumm (0.0-0.2) 09/22/18 17:36 Sodium 141 mmol/L (136-145) 09/23/18 06:30 Potassium 4.2 mmol/L (3.5-5.1) 09/23/18 06:30 Chloride 104 mmol/L (98-107) 09/23/18 06:30 Carbon Dioxide 30.7 mmol/L (21.0-32.0) 09/23/18 06:30 Anion Gap 6.3 mmol/L (3-11) 09/23/18 06:30 BUN 16 mg/dL (7-18) 09/23/18 06:30 Creatinine 0.70 mg/dL (0.55-1.02) 09/23/18 06:30 Estimated GFR/1.73 m2 >= 60.00 (mL/min/1.73m2) 09/23/18 06:30 Glucose 124 mg/dL (70-100) H 09/23/18 06:30 Lactate 0.9 mmol/l (0.6-1.4) 09/22/18 17:22 Calcium 8.5 mg/dL (8.5-10.1) 09/23/18 06:30 Magnesium 1.8 mg/dL (1.8-2.4) 09/22/18 17:36 Total Bilirubin 0.4 mg/dL (0.2-1.0) 09/23/18 06:30 AST 14 U/L (15-37) L 09/23/18 06:30 ALT 18 U/L (12-78) 09/23/18 06:30 Alkaline Phosphatase 84 U/L (46-116) 09/23/18 06:30 Troponin I < 0.02 ng/mL (0.00-0.06) 09/22/18 17:36 Total Protein 6.5 g/dL (6.4-8.2) 09/23/18 06:30 Albumin 2.7 g/dL (3.4-5.0) L 09/23/18 06:30
[2018-09-23] MEDS: Milk of Magnesia 30 ML CUP PO (13:43)
[2018-09-23] MEDS: Docusate Sodium 100 MG CAP PO (13:43)
[2018-09-23] MEDS: Benzonatate 200 MG CAP PO (16:30)
[2018-09-23] MEDS: Polyethylene Glycol 3350 17 GM PACKET PO (16:30)
[2018-09-23] MEDS: Acetaminophen 500 MG TAB 1000 MG PO (16:32)
--- NOTE | 2018-09-23 17:20 | PDOC.CMIN ---
Care Management Initial Assess REASON FOR HOSPITALIZATION:: CAP, COPD Exacerbation PAST MEDICAL HISTORY/PAST SURGICAL HISTORY:: COPD, Cataract, Closed fracture of clavicle, Complex regional pain syndrome of lower limb, bilateral, Degenerative disc disease, cervical, Headache, Hearing loss, History of shingles, Idiopathic peripheral neuropathy, Perforation of tympanic membrane, Peripheral neuralgia, Peripheral vascular disease, Seborrheic keratosis, Skin lesion of face, Smoker, Tinea unguium. Abdominal hysterectomy, Appendectomy, Extraction of cataract PREVIOUS FUNCTIONAL STATUS/SOCIAL/FAMILY SUPPORTS:: Daniel resides in her own trailor at [employer] [facility] in [place], [place] with her big orange cat Rommel. She has been for 23 years. She has a son, Bucky who lives in [place], [place] and daughter, Estefania who lives in [facility] and who Rosemarie reports is quite supportive. 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 She has her own car and drove to the doctors office which she shares her provider was not impressed with she reports calling Estefania to drive her to the hospital. Rosemarie reports she has been struggling with not feeling well for the last few monthes and has been able to do less and less with her ADLs. CURRENT FUNCTIONAL STATUS:: Rosemarie is sitting up in her chair, she smiles and is pleasant in interaction. She is forthcoming with information. ADVANCE DIRECTIVES:: None on file at [facility]. Has patient been provided with information about the portal?: Yes Did the patient sign up for the portal?: No CODE STATUS:: DNR/DNI INSURANCE COVERAGE / FINANCIAL ISSUES:: Medicare CURRENT HOME/COMMUNITY SERVICES/EQUIPMENT:: No current services or equipment at this time. PRIMARY CARE PHYSICIAN:: Calvin Rios POTENTIAL DISCHARGE NEEDS:: Follow up appointment with PCP. Evaluation for increased service supports. PATIENT/FAMILY EDUCATION NEEDS:: Review of discharge instructions, discuss Ask Me Three. ANTICIPATED BARRIERS TO DISCHARGE:: None identified at this time. TRANSPORTATION:: Via private vehicle with her daughter, Estefania Roberson. PLAN:: Rosemarie will continue to be closely monitored, and evaluated for further needs. Anticipate she will discharge home when ready per MD. She will follow up with her PCP and plan of care as prescribed. Rosemarie will transport home via private vehicle with her daughter, Estefania.
--- NOTE | 2018-09-23 18:50 | INITIAL_ITS ---
Care Management Initial Assess REASON FOR HOSPITALIZATION:: CAP, COPD Exacerbation PAST MEDICAL HISTORY/PAST SURGICAL HISTORY:: COPD, Cataract, Closed fracture of clavicle, Complex regional pain syndrome of lower limb, bilateral, Degenerative disc disease, cervical, Headache, Hearing loss, History of shingles, Idiopathic peripheral neuropathy, Perforation of tympanic membrane, Peripheral neuralgia, Peripheral vascular disease, Seborrheic keratosis, Skin lesion of face, Smoker, Tinea unguium. Abdominal hysterectomy, Appendectomy, Extraction of cataract PREVIOUS FUNCTIONAL STATUS/SOCIAL/FAMILY SUPPORTS:: Daniel resides in her own trailor at [employer] [facility] in [place], [place] with her big orange cat Rommel. She has been for 23 years. She has a son, Bucky who lives in [place], [place] and daughter, Estefania who lives in [facility] and who Rosemarie reports is quite supportive. 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 She has her own car and drove to the doctors office which she shares her provider was not impressed with she reports calling Estefania to drive her to the hospital. Rosemarie reports she has been struggling with not feeling well for the last few monthes and has been able to do less and less with her ADLs. CURRENT FUNCTIONAL STATUS:: Rosemarie is sitting up in her chair, she smiles and is pleasant in interaction. She is forthcoming with information. ADVANCE DIRECTIVES:: None on file at [facility]. Has patient been provided with information about the portal?: Yes Did the patient sign up for the portal?: No CODE STATUS:: DNR/DNI INSURANCE COVERAGE / FINANCIAL ISSUES:: Medicare CURRENT HOME/COMMUNITY SERVICES/EQUIPMENT:: No current services or equipment at this time. PRIMARY CARE PHYSICIAN:: Calvin Rios POTENTIAL DISCHARGE NEEDS:: Follow up appointment with PCP. Evaluation for increased service supports. PATIENT/FAMILY EDUCATION NEEDS:: Review of discharge instructions, discuss Ask Me Three. ANTICIPATED BARRIERS TO DISCHARGE:: None identified at this time. TRANSPORTATION:: Via private vehicle with her daughter, Estefania Roberson. PLAN:: Rosmearie will continue to be closely monitored, and evaluated for further needs. Anticipate she will discharge home when ready per MD. She will follow up with her PCP and plan of care as prescribed. Rosemarie will transport home via private vehicle with her daughter, Estefania.
[2018-09-23] MEDS: Normal Saline Flush 10 ML SYR IV (19:13)
[2018-09-24] VITALS (11 sets, daily range): BP systolic 106–151; BP diastolic 68–80; PULSE 74–98; RESP 4–28; TEMP 36.3–36.7; O2SAT 90–97
[2018-09-24] MEDS: Normal Saline 1,000 ML 80 ML IV ×2 (00:25→13:29)
[2018-09-24] MEDS: Albuterol/Ipratropium 3 ML UPD VIAL UPD ×5 (04:01→23:51)
[2018-09-24] MEDS: methylPREDNISolone SUCC 125 MG VIAL 80 MG IVP ×3 (04:06→19:26)
[2018-09-24] MEDS: Normal Saline Flush 10 ML SYR IV ×3 (04:06→19:27)
[2018-09-24] MEDS: Heparin 5,000 UNITS/ML VIAL 5000 UNITS SC ×3 (06:40→22:01)
[2018-09-24 07:07] LABS: Abs Immature Grans 0.02 k/cumm (0.0-0.09); Absolute Lymphocyte Count 0.43 k/cumm (1.2-3.4); Absolute Monocyte Count 0.48 k/cumm (0.11-0.7); HCT 43.3 % (36.0-46.0); HGB 13.7 g/dL (12.0-15.5); Immature Grans % 0.2; Lymphocytes % 3.7; Mean Corp. HGB Concentration 31.6 g/dL (32.0-36.0); Mean Corpuscular Hemoglobin 31.1 pg (27.0-33.0); Mean Corpuscular Volume 98.2 fL (80-95); Mean Platelet Volume 10.6 fL (8.0-11.0); Monocytes % 4.2; Neutrophils % 91.9; Platelet Count 166 x1000/uL (130-400); RBC 4.41 m/cumm (4.00-5.20); RBC Distribution Width 13.3 % (11.7-14.6)
[2018-09-24 07:14] LABS: White Blood Cell Count 11.53 k/cumm (4.4-10.8)
[2018-09-24 07:21] LABS: Anion Gap 5.8 mmol/L (3-11); BUN 18 mg/dL (7-18); CO2 29.2 mmol/L (21.0-32.0); CREATININE 0.65 mg/dL (0.55-1.02); Chloride 107 mmol/L (98-107); Glucose 113 mg/dL (70-100); Magnesium 2.1 mg/dL (1.8-2.4); Potassium 4.3 mmol/L (3.5-5.1); Sodium 142 mmol/L (136-145)
[2018-09-24] MEDS: Docusate Sodium 100 MG CAP PO ×2 (07:38→13:39)
[2018-09-24] MEDS: Gabapentin 800 MG TAB PO ×3 (07:38→18:25)
[2018-09-24] MEDS: Aspirin 81 MG CHEW PO (07:38)
[2018-09-24] MEDS: Omeprazole 20 MG CAPCR PO (07:38)
--- NOTE | 2018-09-24 08:25 | PDOC.CMPRO ---
Care Management Progress Note S/O: Rosemarie was sitting in her chair when CM entered the room. She remains pleasant in interaction and reports she does not historically have home O2; she is almost back to baseline and currently weaning off O2. She did become SOB with exertion working with PT and required significant recovery time. She is a current everyday smoker who reports a month of worsening illness. CM will continue to follow. A: 83 year old female admitted to [facility] 09/22/18 for CAP, COPD Exacerbation P: Rosemarie will continue to be closely monitored, and evaluated for further needs. Anticipate she will discharge home when ready per MD. She will follow up with her PCP and plan of care as prescribed. Rosemarie will transport home via private vehicle with her daughter, Estefania.
--- NOTE | 2018-09-24 08:28 | CMPROGNOTE_ITS ---
Care Management Progress Note S/O: Rosemarie was sitting in her chair when CM entered the room. She remains pleasant in interaction and reports she does not historically have home O2; she is almost back to baseline and currently weaning off O2. She did become SOB with exertion working with PT and required significant recovery time. She is a current everyday smoker who reports a month of worsening illness. CM will continue to follow. A: 83 year old female admitted to [facility] 09/22/18 for CAP, COPD Exacerbation P: Rosemarie will continue to be closely monitored, and evaluated for further needs. Anticipate she will discharge home when ready per MD. She will follow up with her PCP and plan of care as prescribed. Rosemarie will transport home via private vehicle with her daughter, Estefania.
--- NOTE | 2018-09-24 12:04 | W.PM.PROGNOT ---
Date of Service Date of service: 09/24/18 Time of Service: 12:16 Assessment and Plan (1) Community acquired pneumonia: Start date: 09/24/18 Start time: 12:06 Current visit: Yes Status: Acute CAP with COPD exacerbation, Levaquin dose 2. Pt does endorse cough with small amount of sputum production. Sputum culture ordered. Blood cultures with no growth after 24 hours continue levaquin, she is requiring 1 L of oxygen at this time and she does appear to have SOB with talking and moving though she states she is breathing better. Purse lipped breathing has been encouraged, symbicort has been added, she is using the acapella, continue IV steroids, nebs and updraft. Qualifiers: Laterality: left Lung location: lower lobe of lung Qualified Code(s): J18.1 - Lobar pneumonia, unspecified organism (2) COPD (chronic obstructive pulmonary disease): Start date: 09/24/18 Start time: 12:15 Current visit: No Status: Acute see above Qualifiers: COPD type: COPD with acute exacerbation Qualified Code(s): J44.1 - Chronic obstructive pulmonary disease with (acute) exacerbation (3) Smoker: Start date: 09/24/18 Start time: 12:15 Current visit: No Status: Chronic NicoDerm patch, continue counseling on smoking cessation (4) Peripheral vascular disease: Start date: 09/24/18 Start time: 12:15 Current visit: No Status: Acute Continue gabapentin for PVD (5) Malnourished: Start date: 09/24/18 Start time: 12:15 Current visit: Yes Status: Acute BMI of 14. She does believe she eats enough however, appears malnourished. Nutrition consult placed. (6) DVT prophylaxis: Start date: 09/24/18 Start time: 12:16 Current visit: Yes Status: Acute Heparin Subcu (7) Advance directive in chart: Start date: 09/24/18 Start time: 12:16 Current visit: Yes Status: Acute DNR/DNI (8) Constipation: Start date: 09/24/18 Start time: 12:16 Current visit: Yes Status: Acute Unable to have a BM. Miralax BID with senokot and hold for loose stools. Subjective Patient reports: feels better Interval history since last seen: Ms. Burgess is an 83 y.o F with PMH of COPD, PVD, Tobacco abuse, admitted to [facility] for CAP with COPD exacerbation. After failing outpatient therapy on a course of ceftiane PO for CAP she arrived to [facility] Emergency department SOB with hypoxia. She was admitted and started on levaquin IV with steroids. Today she states she is feeling better, she did have a bout this am where she became SOB but per her it corrected with 1 L oxygen and she now feeling better. Her lungs have expiratory and inspiratory wheezing, with course rhonchi; she appears to have labored breathing when sitting and after talking though she states she feels better and her breathing is better. Her oxygen level is 90 on RA and 93 on 1 L. Symbicort has been added to her treatment continue with nebs, steroids and updrafts for COPD continue with levaquin for CAP. She did c/o constipation mirlax was scheduled BID, and senakot added until having loose stool. She is denies CP, SOB at this time, n/v/d. Exam Const General: cooperative and no acute distress Nutritional Appearance: underweight Orientation: alert, awake and oriented x3 Eyes Pupils: PERRL Neck Lymphatic: no lymphadenopathy noted and no lymphedema noted Chest Chest: normal inspection of the chest Resp Effort & Inspection: abnormal respiratory pattern, cough and uses accessory muscles Auscultation: rhonchi and wheezes expiratory wheezes and inspiratory wheezes Cardio Jugular venous pressure: no JVD Rate: regular rate Rhythm: regular rhythm Heart Sounds: S1 normal and S2 normal GI Inspection: normal to inspection Auscultation: hyperactive bowel sounds Skin General skin exam: no rashes or lesions noted Neuro General: alert, awake and oriented x3 Objective Objective Clinical Data: Abnormal lab results 09/24/18 09/24/18 Range/Units 06:50 06:50 WBC 11.53 H D (4.4-10.8) k/cumm MCV 98.2 H (80-95) fL MCHC 31.6 L (32.0-36.0) g/dL Absolute Neutrophils 10.60 H (1.2-6.7) k/cumm Absolute Lymphocytes 0.43 L (1.2-3.4) k/cumm Glucose 113 H (70-100) mg/dL Calcium 8.0 L (8.5-10.1) mg/dL Vital Signs Temperature 36.3 C L 09/24/18 07:41 Temperature Source Tympanic 09/24/18 07:41 Pulse 85 09/24/18 07:41 Pulse Rhythm Regular 09/24/18 07:30 Respiratory Rate 18 09/24/18 07:41 Respiratory Effort Incrsd Work of Breathing 09/24/18 07:30 Respiratory Depth Shallow 09/24/18 07:30 Respiratory Pattern Normal 09/24/18 07:30 Blood Pressure 151/76 H 09/24/18 07:41 Blood Pressure Mean 106 09/22/18 20:02 Blood Pressure Position Sitting 09/22/18 17:03 Pulse Oximetry 90 L 09/24/18 08:00 Oxygen Delivery Method Room Air 09/24/18 08:00 Oxygen Flow Rate 0 09/24/18 08:00 Pain Level 0 09/23/18 17:32 Comment 09/22/18 17:03 Intake & Output 09/23/18 09/24/18 09/24/18 23:59 11:59 23:59 Intake Total 2042.000 / 3542.000 280 / 280 Output Total 600 / 600 Balance 2042.000 / 2942.000 -320 / -320 Weight 38.9 kg Intake: IV 1002.000 / 2152.000 Oral 1040 / 1390 280 / 280 Output: Urine 600 / 600 Other: Urine Color Yellow Urine Appearance Clear Urine Odor Normal Comment appeared cloudy but tissuemixed in urine Voiding Methods Bedside Commode Laboratory Results WBC 11.53 k/cumm (4.4-10.8) H D 09/24/18 06:50 RBC 4.41 m/cumm (4.00-5.20) 09/24/18 06:50 Hgb 13.7 g/dL (12.0-15.5) 09/24/18 06:50 Hct 43.3 % (36.0-46.0) 09/24/18 06:50 MCV 98.2 fL (80-95) H 09/24/18 06:50 MCH 31.1 pg (27.0-33.0) 09/24/18 06:50 MCHC 31.6 g/dL (32.0-36.0) L 09/24/18 06:50 RDW 13.3 % (11.7-14.6) 09/24/18 06:50 Plt Count 166 x1000/uL (130-400) 09/24/18 06:50 MPV 10.6 fL (8.0-11.0) 09/24/18 06:50 Immature Gran % 0.2 09/24/18 06:50 Neutrophils % 91.9 09/24/18 06:50 Lymphocytes % 3.7 09/24/18 06:50 Monocytes % 4.2 09/24/18 06:50 Eosinophils % 0.0 09/24/18 06:50 Basophils % 0.0 09/24/18 06:50 Absolute Neutrophils 10.60 k/cumm (1.2-6.7) H 09/24/18 06:50 Absolute Lymphocytes 0.43 k/cumm (1.2-3.4) L 09/24/18 06:50 Absolute Monocytes 0.48 k/cumm (0.11-0.7) 09/24/18 06:50 Absolute Eosinophils 0.00 k/cumm (0.0-0.7) 09/24/18 06:50 Absolute Basophils 0.00 k/cumm (0.0-0.2) 09/24/18 06:50 Sodium 142 mmol/L (136-145) 09/24/18 06:50 Potassium 4.3 mmol/L (3.5-5.1) 09/24/18 06:50 Chloride 107 mmol/L (98-107) 09/24/18 06:50 Carbon Dioxide 29.2 mmol/L (21.0-32.0) 09/24/18 06:50 Anion Gap 5.8 mmol/L (3-11) 09/24/18 06:50 BUN 18 mg/dL (7-18) 09/24/18 06:50 Creatinine 0.65 mg/dL (0.55-1.02) 09/24/18 06:50 Estimated GFR/1.73 m2 >= 60.00 (mL/min/1.73m2) 09/24/18 06:50 Glucose 113 mg/dL (70-100) H 09/24/18 06:50 Lactate 0.9 mmol/l (0.6-1.4) 09/22/18 17:22 Calcium 8.0 mg/dL (8.5-10.1) L 09/24/18 06:50 Magnesium 2.1 mg/dL (1.8-2.4) 09/24/18 06:50 Total Bilirubin 0.4 mg/dL (0.2-1.0) 09/23/18 06:30 AST 14 U/L (15-37) L 09/23/18 06:30 ALT 18 U/L (12-78) 09/23/18 06:30 Alkaline Phosphatase 84 U/L (46-116) 09/23/18 06:30 Troponin I < 0.02 ng/mL (0.00-0.06) 09/22/18 17:36 Total Protein 6.5 g/dL (6.4-8.2) 09/23/18 06:30 Albumin 2.7 g/dL (3.4-5.0) L 09/23/18 06:30
--- NOTE | 2018-09-24 12:20 | PT.INTREAT ---
Date of service: 09/24/18 Time of Service: 12:20 PT Notes Inpatient Physical Therapy Treatment Note [facility] Date: 09/24/18 PRECAUTIONS: Fall SUBJECTIVE: Rosemarie states that she woke up not feeling well this morning, although is agreeable to participate in PT. OBJECTIVE: PAIN: No c/o pain BED MOBILITY/TRANSFERS Sit-stand: SBA Stand-sit: SBA GAIT Assistive Device: IV Pole Weight bearing: Full Assist: CGA Distance: 40' x2 Deviation: Standing rest x3, SOB VITALS: SaO2: 92% on RA at rest; 86-89% on RA with gait; 85-93% on RA after gait THEREX: Refused ASSESSMENT: Patient tolerated session significant c/o SOB with gait training. Patient required significant recovery time for SOB and for vitals signs to normalize. Patient would benefit from continued gait and transfer training as well as general conditioning for improved activity tolerance and mobility. PLAN: Continue with PT's POC TREATMENT CODE/TIME: 15 minutes; [id number]
[2018-09-24] MEDS: Senna TAB 1 TAB PO (13:39)
[2018-09-24] MEDS: Milk of Magnesia 30 ML CUP PO (13:40)
[2018-09-24] MEDS: Budesonide/Formoterol 80/4.5 6.9 GM 60 PUFF INH IH (19:26)
[2018-09-24] MEDS: Polyethylene Glycol 3350 17 GM PACKET PO (19:27)
[2018-09-24] MEDS: levoFLOXacin 750 MG/150 ML BAG 100 MG IVPB (19:37)
[2018-09-25] VITALS (19 sets, daily range): BP systolic 128–162; BP diastolic 72–91; PULSE 56–101; RESP 2–28; TEMP 35.8–36.8; O2SAT 86–100
[2018-09-25] MEDS: Acetaminophen 500 MG TAB 1000 MG PO ×2 (01:25→23:38)
[2018-09-25] MEDS: Milk of Magnesia 30 ML CUP PO (01:25)
[2018-09-25] MEDS: Docusate Sodium 100 MG CAP PO ×2 (01:26→07:28)
[2018-09-25] MEDS: Albuterol 2.5 MG/3 ML INH SOLN VIAL UPD (01:30)
[2018-09-25] MEDS: Normal Saline Flush 10 ML SYR IV ×4 (03:35→19:45)
[2018-09-25] MEDS: methylPREDNISolone SUCC 125 MG VIAL 80 MG IVP ×3 (03:35→19:45)
[2018-09-25] MEDS: Normal Saline 1,000 ML 80 ML IV (03:35)
[2018-09-25] MEDS: Albuterol/Ipratropium 3 ML UPD VIAL UPD ×5 (06:37→22:55)
[2018-09-25 07:10] LABS: Abs Immature Grans 0.05 k/cumm (0.0-0.09); Absolute Lymphocyte Count 0.33 k/cumm (1.2-3.4); Absolute Neutrophil Count 11.79 k/cumm (1.2-6.7); HCT 44.3 % (36.0-46.0); HGB 13.9 g/dL (12.0-15.5); Immature Grans % 0.4; Lymphocytes % 2.6; Mean Corp. HGB Concentration 31.4 g/dL (32.0-36.0); Mean Corpuscular Volume 98.7 fL (80-95); Mean Platelet Volume 10.5 fL (8.0-11.0); Monocytes % 3.3; Neutrophils % 93.7; Platelet Count 180 x1000/uL (130-400); RBC 4.49 m/cumm (4.00-5.20); RBC Distribution Width 13.5 % (11.7-14.6); White Blood Cell Count 12.58 k/cumm (4.4-10.8)
[2018-09-25 07:14] LABS: Absolute Monocyte Count 0.42 k/cumm (0.11-0.7)
[2018-09-25 07:18] LABS: Anion Gap 5.1 mmol/L (3-11); BUN 22 mg/dL (7-18); CO2 30.9 mmol/L (21.0-32.0); CREATININE 0.75 mg/dL (0.55-1.02); Calcium 8.3 mg/dL (8.5-10.1); Chloride 105 mmol/L (98-107); Glucose 146 mg/dL (70-100); Magnesium 2.9 mg/dL (1.8-2.4); Potassium 4.5 mmol/L (3.5-5.1); Sodium 141 mmol/L (136-145)
[2018-09-25] MEDS: Polyethylene Glycol 3350 17 GM PACKET PO ×2 (07:28→19:46)
[2018-09-25] MEDS: Gabapentin 800 MG TAB PO ×3 (07:28→18:04)
[2018-09-25] MEDS: Aspirin 81 MG CHEW PO (07:28)
[2018-09-25] MEDS: Omeprazole 20 MG CAPCR PO (07:28)
[2018-09-25] MEDS: Budesonide/Formoterol 80/4.5 6.9 GM 60 PUFF INH IH ×2 (08:19→19:45)
[2018-09-25] MEDS: guaiFENesin 600 MG TABCR PO ×2 (10:39→19:46)
--- NOTE | 2018-09-25 11:00 | DI.RAD_ITS ---
SYMPTOMS/DIAGNOSIS: RALES, ? PULMONARY EDEMA PORTABLE AP CHEST: Comparison 08/23/17 and 09/22/18. The heart size and pulmonary vasculature are stable. The lungs are hyperinflated consistent with underlying COPD. No infiltrates or effusions are identified. Chronic interstitial disease is present which appears stable given the slight changes in technique. The bones appear intact. IMPRESSION: No acute pulmonary process.
[2018-09-25] MEDS: Furosemide 40 MG/4 ML VIAL IVP (11:32)
--- NOTE | 2018-09-25 11:55 | W.NUTCONSULT ---
Date of service: 09/25/18 Time of Service: 11:55 Nutritional Consult ASSESSMENT: Ms. Burgess is eating 75-100% of her meals on her regular diet. She orders a good balance including sweets. Today she has her regular lunch meal and a piece of chocolate cake. Ms. Burgess orders cola with her meals. In her room, there is a 20 oz. bottle of cola, marshmellow cakes, and a large bag of chips (not from [facility] canned food reconditioning inspector of course) She is 63 and 38.9 kg. Her BMI is 15.7 kg/m2 consistent with underweight. She has obvious loss of muscle mass and fat on appearance. Her estimated energy needs for anabolism as well as her increased needs with COPD are 1556 kcal/day (40 kcal/kg/day). Her estimated protein needs are 58 grams per day (1.5g/kg/day) NUTRITIONAL DIAGNOSIS: Moderate malnutrition based on evidence of fat and muscle wasting using AND/ASPEN guidelines for diagnosing malnutrition. INTERVENTION: Spoke with Ms. Burgess about the importance of prioritizing foods that are nutrient dense and putting the alexandra, chips and pastries aside for after she eats her meal and supplements. We discussed adding magic cups to her trays as well as [employer] Instant Breakfast. She reports that she is amenable to trying these supplements. She states that she understands the rationale for prioritizing nutrient dense foods and saving the less nutrients dense foods for after. Note: magic cups will available to us tomorrow 09/26/18. We will still add high calorie, high protein supplements to her meals throughout today. MONITORING AND EVALUATION: 1. Will monitor her weight and PO intake. Will monitor her acceptance of various supplements including magic cups. 2. Will evaluate nutrition care plan ongoing and adjust as needed. Time Spent in Nutritional Counseling and Treatment: SHIKHA
--- NOTE | 2018-09-25 12:12 | NS.NUTBLAN_ITS ---
Date of service: 09/25/18 Time of Service: 11:55 Nutritional Consult ASSESSMENT: Ms. Burgess is eating 75-100% of her meals on her regular diet. She orders a good balance including sweets. Today she has her regular lunch meal and a piece of chocolate cake. Ms. Burgess orders cola with her meals. In her room, there is a 20 oz. bottle of cola, marshmellow cakes, and a large bag of chips (not from [facility] food crops farm hand of course) She is 63 and 38.9 kg. Her BMI is 15.7 kg/m2 consistent with underweight. She has obvious loss of muscle mass and fat on appearance. Her estimated energy needs for anabolism as well as her increased needs with COPD are 1556 kcal/day (40 kcal/kg/day). Her estimated protein needs are 58 grams per day (1.5g/kg/day) NUTRITIONAL DIAGNOSIS: Moderate malnutrition based on evidence of fat and muscle wasting using AND/ASPEN guidelines for diagnosing malnutrition. INTERVENTION: Spoke with Ms. Burgess about the importance of prioritizing foods that are nutrient dense and putting the alexandra, chips and pastries aside for after she eats her meal and supplements. We discussed adding magic cups to her trays as well as [place] Instant Breakfast. She reports that she is amenable to trying these supplements. She states that she understands the rationale for prioritizing nutrient dense foods and saving the less nutrients dense foods for after. Note: magic cups will available to us tomorrow 09/26/18. We will still add high calorie, high protein supplements to her meals throughout today. MONITORING AND EVALUATION: 1. Will monitor her weight and PO intake. Will monitor her acceptance of various supplements including magic cups. 2. Will evaluate nutrition care plan ongoing and adjust as needed. Time Spent in Nutritional Counseling and Treatment: SHIKHA
--- NOTE | 2018-09-25 12:30 | MERGE_ITS ---
*[facility]* *[facility]* [address] [place] [address] Date of study: 09/25/2018 Transthoracic Echocardiography M-mode, complete 2D, complete spectral Doppler, and color Doppler *STUDY CONCLUSIONS* Summary: 1. Left ventricle: The cavity size was normal. Systolic function was hyperdynamic. The estimated ejection fraction was 65-70%. Diastolic parameters were normal. There was no evidence of elevated ventricular filling pressure by Doppler parameters. 2. Aortic valve: There was very mild stenosis. Peak velocity (S): 1.6m/sec. Mean gradient (S): 5.8mm Hg. VTI ratio of LVOT to aortic valve: 0.58. Valve area (VTI): 1.3cm^2. 3. Mitral valve: There was mild regurgitation. 4. Right ventricle: The cavity size was normal. Wall thickness was normal. Systolic function was normal. 5. Atrial septum: No defect or patent foramen ovale was identified. 6. Tricuspid valve: There was moderate regurgitation. 7. Pulmonary arteries: Pulmonary systolic pressure was in the range of 50mm Hg to 60mm Hg. 8. Inferior vena cava: The vessel was patent and normal in size. The respirophasic diameter changes were in the normal range (greater than or equal to 50%), consistent with normal central venous pressure. *PATIENT PRESENTATION* Height: 157.5cm ((62in) ) S/D Pressure: 160 / 91 Weight: 38.6kg ((84.8lb) ) BSA: 1.29m^2 Test start time: 12:30 PM. Test stop time: 01:40 PM. PERFORMING Unknown CONSULTING Rios, Calvin J. PERFORMING [facility] ORE MINER RT Zenaida (R)(CT), [facility] ORDERING Jarod Lynne REFERRING Lynne Olivera *PROCEDURE DATA* Procedure information: The patient was identified by two identifiers. This study was interpreted by [facility]. Pertinent images and digital data are archived for permanent storage and are available for subsequent review. No prior study was available for comparison. Study status: Routine. Transthoracic echocardiography. M-mode, complete 2D, complete spectral Doppler, and color Doppler. A Transthoracic Echocardiogram was performed. Scanning was performed from the parasternal, apical, subcostal, and suprasternal notch acoustic windows. Images were obtained using an [id number] cardiac ultrasound machine. Image quality was adequate. Study completion: The patient tolerated the procedure well. History: PMH: CHF ?? *CARDIAC ANATOMY* Left ventricle: The cavity size was normal. Systolic function was hyperdynamic. The estimated ejection fraction was 65-70%. The tissue Doppler parameters were normal. Diastolic parameters were normal. There was no evidence of elevated ventricular filling pressure by Doppler parameters. Aortic valve: Mildly thickened, mildly calcified leaflets. Doppler: There was very mild stenosis. There was no regurgitation. VTI ratio of LVOT to aortic valve: 0.58. Valve area (VTI): 1.3cm^2. Indexed valve area (VTI): 1cm^2/m^2. Peak velocity ratio of LVOT to aortic valve: 0.6. Valve area (Vmax): 1.4cm^2. Indexed valve area (Vmax): 1.1cm^2/m^2. Mean velocity ratio of LVOT to aortic valve: 0.63. Valve area (Vmean): 1.4cm^2. Indexed valve area (Vmean): 1.1cm^2/m^2. Mean gradient (S): 5.8mm Hg. Peak gradient (S): 10.6mm Hg. Aorta: Aortic root: The aortic root was normal in size. Mitral valve: Doppler: There was no evidence for stenosis. There was mild regurgitation. Valve area by pressure half-time: 4cm^2. Indexed valve area by pressure half-time: 3.1cm^2/m^2. Peak gradient (D): 2.5mm Hg. Left atrium: The atrium was normal in size. Atrial septum: No defect or patent foramen ovale was identified. Right ventricle: The cavity size was normal. Wall thickness was normal. Systolic function was normal. Pulmonic valve: Doppler: There was no evidence for stenosis. There was mild regurgitation. Peak gradient (S): 5.2mm Hg. Tricuspid valve: Doppler: There was moderate regurgitation. Pulmonary artery: Poorly visualized. Pulmonary systolic pressure was in the range of 50mm Hg to 60mm Hg. Right atrium: The atrium was normal in size. Pericardium: There was no pericardial effusion. Systemic veins: Inferior vena cava: Well visualized. The vessel was patent and normal in size. The respirophasic diameter changes were in the normal range (greater than or equal to 50%), consistent with normal central venous pressure. Measurements Left ventricle Value Reference LV ID, ED, PLAX 3.6 cm 3.5 - 6.0 LV ID, ES, PLAX (L) 1.9 cm 2.1 - 4.0 LV PW thickness, ED, PLAX 0.8 cm LV end-diastolic volume, 1-p A2C 54 ml LV ejection fraction, 1-p A2C 70 % LV end-diastolic volume, 1-p A4C 33 ml LV ejection fraction, 1-p A4C 71 % LV e', lateral 0.102 m/sec LV E/e', lateral 8 LV e', medial 0.082 m/sec LV E/e', medial 10 LV e', average 0.092 m/sec LV E/e', average 9 Ventricular septum Value Reference IVS thickness, ED, PLAX 0.7 cm LVOT Value Reference LVOT ID, A-P 1.7 cm LVOT area 2.3 cm^2 LVOT peak velocity, S 0.98 m/sec LVOT mean velocity, S 0.72 m/sec LVOT VTI, S 19.0 cm LVOT peak gradient, S 3.8 mm Hg LVOT mean gradient, S 2.3 mm Hg Stroke volume (SV), LVOT DP 44 ml Stroke index (SV/bsa), LVOT DP 34 ml/m^2 Aortic valve Value Reference Aortic valve peak velocity, S 1.6 m/sec Aortic valve mean velocity, S 1.14 m/sec Aortic valve VTI, S 33.0 cm Aortic mean gradient, S 5.8 mm Hg Aortic peak gradient, S 10.6 mm Hg VTI ratio, LVOT/AV 0.58 Aortic valve area, VTI 1.3 cm^2 Velocity ratio, peak, LVOT/AV 0.6 Aortic valve area, peak velocity 1.4 cm^2 Velocity ratio, mean, LVOT/AV 0.63 Aortic valve area, mean velocity 1.4 cm^2 Aortic valve area/bsa, mean velocity 1.1 cm^2/m^2 Aorta Value Reference Aortic root ID, ED 2.7 cm Left atrium Value Reference LA ID, A-P, ES 2.8 cm LA ID/bsa, A-P 2.2 cm/m^2 <=2.2 LA area, ES, A4C 17.3 cm^2 8.8 - 23.4 LA area, ES, A2C 15 cm^2 LA volume/bsa, ES, 1-p A4C 38 ml/m^2 LA volume, ES, 2-p 43 ml LA volume/bsa, ES, 2-p 33 ml/m^2 LA/aortic root ratio 1.04 Mitral valve Value Reference Mitral E-wave peak velocity 0.79 m/sec Mitral A-wave peak velocity 0.56 m/sec Mitral deceleration time 189 ms 150 - 230 Mitral pressure half-time 55 ms Mitral peak gradient, D 2.5 mm Hg Mitral E/A ratio, peak 1.41 Mitral valve area, PHT, DP 4 cm^2 Tricuspid valve Value Reference Tricuspid regurg peak velocity 3.7 m/sec Tricuspid peak RV-RA gradient 54.7 mm Hg Right atrium Value Reference RA area, ES, A4C 11.1 cm^2 8.3 - 19.5 Pulmonic valve Value Reference Pulmonic peak gradient, S 5.2 mm Hg Legend: (L) and (H) bijal values outside specified reference range. I have personally reviewed the images and have reviewed and edited the reported findings. Electronically signed by Brandon Mcfarlane MD 09/25/2018 14:24
--- NOTE | 2018-09-25 13:53 | CHAPLAIN ---
Rosemarie was sitting up in her chair when I visited. She said she is worried that her feet are swollen and thinks it's because she hasn't been moving around as much as she does at home. She said her daughter will likely be in after work, and talked about looking forward to getting home after being her for the weekend, although she said she didn't think she'd be discharged today.
[2018-09-25] MEDS: Heparin 5,000 UNITS/ML VIAL 5000 UNITS SC ×2 (14:13→21:32)
--- NOTE | 2018-09-25 14:29 | DI.US_ITS ---
SYMPTOMS/DIAGNOSIS: EDEMA, COMMUNITY-ACQUIRED PNEUMONIA BILATERAL LOWER EXTREMITY ULTRASOUND: The deep veins of both lower extremities were performed. They show normal compression, augmentation and color flow. There is no evidence of a deep venous thrombus in either lower extremity. The saphenofemoral junctions appear unremarkable bilaterally. IMPRESSION: No evidence of a deep venous thrombus in either lower extremity.
--- NOTE | 2018-09-25 15:29 | PDOC.CMPRO ---
Care Management Progress Note S/O: Rosemarie was sitting in her chair when CM entered the room. She continues to be SOB with exertion, requiring significant recovery time. She is a current everyday smoker who reports a month of worsening illness. Per MD, she has worsening CHF and will continue to be closely monitored. CM will continue to follow. A: 83 year old female admitted to [facility] 09/22/18 for CAP, COPD Exacerbation P: Rosemarie will continue to be closely monitored, and evaluated for further needs. Anticipate she will discharge home when ready per MD. She will follow up with her PCP and plan of care as prescribed. Rosemarie will transport home via private vehicle with her daughter, Estefania.
[2018-09-25] MEDS: Furosemide 20 MG/2 ML VIAL IVP (15:57)
--- NOTE | 2018-09-25 15:57 | OT.INIE ---
Occupational Therapy Notes Inpatient Occupational Therapy Evaluation Date: 09/25/18 Referring Doctor:Lynne Olivera NP OT Orders: Improve function Precautions: Fall, Standard PATIENT PROFILE/ADMITTING DIAGNOSIS: Pt is an 83 year old female admitted to [facility] for mild respiratory issues which she was being followed by her PCP for. She was diagnosed with a community-acquired pneumonia. Past Medical History: Medical History COPD (chronic obstructive pulmonary disease) Cataract Closed fracture of clavicle Complex regional pain syndrome i of lower limb, bilateral Degenerative disc disease, cervical Headache Hearing loss History of shingles Idiopathic peripheral neuropathy Perforation of tympanic membrane Peripheral neuralgia Peripheral vascular disease Seborrheic keratosis Skin lesion of face Smoker Tinea unguium Surgical History Abdominal hysterectomy (~1975) Appendectomy Extraction of cataract Social History/Home Situation: Pt lives alone in a mobile home. She has 3 steps to enter with (B) railings. She states that she is totally (I) with all ADLs/IADLs at baseline with tub/shower combination. She is still actively driving in the community. Equipment owned/DME: Cane SUBJECTIVE: Pt was sitting in chair when OT arrived. She states that she is tired and has been through multiple tests today already. She is agreeable to OT session. OBJECTIVE: General Observation: O2 nasal cannula Mental Status: A&Ox3 Pain: no c/o pain ROM: RUE WFL L UE WFL STRENGTH: RUE 4+/5 throughout globally LUE 4+/5 throughout globally FUNCTIONAL MOBILITY/ADLS: Sit-Stand (S) Stand-sit (S) Pt denies ADLs as she has been under going multiple tests today. She states that she is too tired to perform them at this time. BALANCE: Static sitting Normal Dynamic Sitting Normal Static Standing Good Dynamic Standing NT SPECIAL TESTS: Daily Activity Limitations Standardized Measure [facility] AM PAC ?6 clicks? Daily Activity Inpatient Short Form: Raw score: 21 Standardized score: 44.27 CMS score: 32.79% INFORMED CONSENT/EDUCATION: Pt instructed in purpose of OT Consult and plan of care. ASSESSMENT: Patient is a 83-year-old female referred to occupational therapy services with diagnosis of community acquired pneumonia. Patient presents with clinical signs and symptoms consistent with dx, as demonstrated by the following impairment level findings/ functional limitations: decreased functional activity tolerance, O2 nasal cannula for functional mobility, decreased functional mobility, decreased (I) in ADLs in standing position. AMPAC score 21, CMS score 32.79% Patient is assessed as a Moderate 48815 complexity based on the following: History: See Above Examination: See Above Presentation: Evolving Decision Making: AMPAC score 21, CMS score 32.79% GOALS Goals x1 week 1. Transfers (I) 2. Dressing (I) 3. Bathing (I) standing at the sink 4. Toileting (I) on toilet 5. Eating (I) 6. Grooming (I) standing at the sink for teeth and hair brushing PLAN OF CARE/TREATMENT PLAN: 1x/day, 5 days/ week x 1week Initiate Occupational Therapy Services for bathing, dressing, grooming, toileting, eating, transfer training. DISCHARGE RECOMMENDATIONS Home when medically cleared per MD TREATMENT TIME/MINUTES/CODES 99121, 25 minutes (1:35) Yulia Shipley OTR/L [facility]
--- NOTE | 2018-09-25 16:08 | OTIE_ITS ---
Occupational Therapy Notes Inpatient Occupational Therapy Evaluation Date: 09/25/18 Referring Doctor:Lynne Olivera NP OT Orders: Improve function Precautions: Fall, Standard PATIENT PROFILE/ADMITTING DIAGNOSIS: Pt is an 83 year old female admitted to [facility] for mild respiratory issues which she was being followed by her PCP for. She was diagnosed with a community-acquired pneumonia. Past Medical History: Medical History COPD (chronic obstructive pulmonary disease) Cataract Closed fracture of clavicle Complex regional pain syndrome i of lower limb, bilateral Degenerative disc disease, cervical Headache Hearing loss History of shingles Idiopathic peripheral neuropathy Perforation of tympanic membrane Peripheral neuralgia Peripheral vascular disease Seborrheic keratosis Skin lesion of face Smoker Tinea unguium Surgical History Abdominal hysterectomy (~1975) Appendectomy Extraction of cataract Social History/Home Situation: Pt lives alone in a mobile home. She has 3 steps to enter with (B) railings. She states that she is totally (I) with all ADLs/IADLs at baseline with tub/shower combination. She is still actively driving in the community. Equipment owned/DME: Cane SUBJECTIVE: Pt was sitting in chair when OT arrived. She states that she is tired and has been through multiple tests today already. She is agreeable to OT session. OBJECTIVE: General Observation: O2 nasal cannula Mental Status: A&Ox3 Pain: no c/o pain ROM: RUE WFL L UE WFL STRENGTH: RUE 4+/5 throughout globally LUE 4+/5 throughout globally FUNCTIONAL MOBILITY/ADLS: Sit-Stand (S) Stand-sit (S) Pt denies ADLs as she has been under going multiple tests today. She states that she is too tired to perform them at this time. BALANCE: Static sitting Normal Dynamic Sitting Normal Static Standing Good Dynamic Standing NT SPECIAL TESTS: Daily Activity Limitations Standardized Measure [facility] AM PAC ?6 clicks? Daily Activity Inpatient Short Form: Raw score: 21 Standardized score: 44.27 CMS score: 32.79% INFORMED CONSENT/EDUCATION: Pt instructed in purpose of OT Consult and plan of c are. ASSESSMENT: Patient is a 83-year-old female referred to occupational therapy services with diagnosis of community acquired pneumonia. Patient presents with clinical signs and symptoms consistent with dx, as demonstrated by the following impairment level findings/ functional limitations: decreased functional activity tolerance, O2 nasal cannula for functional mobility, decreased functional mobility, decreased (I) in ADLs in standing position. AMPAC score 21, CMS score 32.79% Patient is assessed as a Moderate 97638 complexity based on the following: History: See Above Examination: See Above Presentation: Evolving Decision Making: AMPAC score 21, CMS score 32.79% GOALS Goals x1 week 1. Transfers (I) 2. Dressing (I) 3. Bathing (I) standing at the sink 4. Toileting (I) on toilet 5. Eating (I) 6. Grooming (I) standing at the sink for teeth and hair brushing PLAN OF CARE/TREATMENT PLAN: 1x/day, 5 days/ week x 1week Initiate Occupational Therapy Services for bathing, dressing, grooming, toileting, eating, transfer training. DISCHARGE RECOMMENDATIONS Home when medically cleared per MD TREATMENT TIME/MINUTES/CODES 94357, 25 minutes (1:35) Yulia Shipley OTR/L [facility]
--- NOTE | 2018-09-25 16:08 | PT.INTREAT ---
Date of service: 09/25/18 Time of Service: 16:08 PT Notes 09/25/18 Inpatient Physical Therapy SUBJECTIVE: Rosemarie states that she is not feeling much better today. OBJECTIVE: Patient refused gait training in afternoon. See ther ex portion of this note for ther ex completed in p.m.. PAIN: No c/o pain BED MOBILITY/TRANSFERS Sit-stand: SBA Stand-sit: SBA GAIT Assistive Device: SPC/IV Pole Weight bearing: Full Assist: CGA Distance: 40' Deviation: SOB THEREX: Patient completed an UE and LE strengthening program, in a seated position, as per flow sheet. Patient was able to tolerate a slight progression in her ther ex program. Patient requires rest breaks between exercises due to SOB. VITALS: Session completed in collaboration with Respiratory Therapy, please see their note for specific vital sign details. ASSESSMENT: Patient continues to demonstrate significant SB and increased fatigue with activity. She was able to tolerate a progression in ther ex, although continues to require rest breaks between exercises due to increased fatigue and SOB. Patient would benefit from continued conditioning for improved activity tolerance and cardiovascular endurance. PLAN: Continue with PTs POC TREATMENT CODE/TIME: Session 1: 30 minutes; [id number], [id number] Session 2: 15 minutes; [id number]
--- NOTE | 2018-09-25 16:12 | PTTR_ITS ---
Date of service: 09/25/18 Time of Service: 16:08 PT Notes 09/25/18 Inpatient Physical Therapy SUBJECTIVE: Rosemarie states that she is not feeling much better today. OBJECTIVE: Patient refused gait training in afternoon. See ther ex portion of this note for ther ex completed in p.m.. PAIN: No c/o pain BED MOBILITY/TRANSFERS Sit-stand: SBA Stand-sit: SBA GAIT Assistive Device: SPC/IV Pole Weight bearing: Full Assist: CGA Distance: 40' Deviation: SOB THEREX: Patient completed an UE and LE strengthening program, in a seated position, as per flow sheet. Patient was able to tolerate a slight progression in her ther ex program. Patient requires rest breaks between exercises due to SOB. VITALS: Session completed in collaboration with Respiratory Therapy, please see their note for specific vital sign details. ASSESSMENT: Patient continues to demonstrate significant SB and increased fatigue with activity. She was able to tolerate a progression in ther ex, mariana stewart continues to require rest breaks between exercises due to increased fatigue and SOB. Patient would benefit from continued conditioning for improved activity tolerance and cardiovascular endurance. PLAN: Continue with PTs POC TREATMENT CODE/TIME: Session 1: 30 minutes; [id number], [id number] Session 2: 15 minutes; [id number]
--- NOTE | 2018-09-25 16:54 | PGE_ITS ---
Documented by User: Lynne Olivera NP 09/25/18 17:03 Date of Service Date of service: 09/25/18 Time of Service: 17:03 Assessment and Plan (1) Community acquired pneumonia: Start date: 09/25/18 Start time: 16:43 Current visit: Yes Status: Acute CAP with COPD exacerbation, Levaquin dose 2. Continues to have cough with no sputum production. Afebrile, no growth on blood cultures after 48 hours. 96% at this time on 1 L, RT to wean to room air. Lung sounds with crackles this am, rhonchi, given 40 mg lasix IV, reevaluation of lungs no crackles with scattered wheezing and course rhonchi, continue steroid dose, nebs, updrafts, symbicort. Qualifiers: Laterality: left Lung location: lower lobe of lung Qualified Code(s): J18.1 - Lobar pneumonia, unspecified organism (2) CHF (congestive heart failure): Start date: 09/25/18 Start time: 16:48 Current visit: Yes Status: Chronic RT concerned with patient breathing this am, she had crackles and edema to bilateral ankles, pt evaluated and a stat CXR, echo, doppler U/S, ordered. Telemetry placed, 40 mg IV lasix given. Echo with EF 65-70%. Pulmonary pressure 50-60% with tricuspid regurgitation. D-dimer, bnp, and trops ordered not resulted at this time. CXR not significant for any acute pulmonary process, given pt clinical symptoms and elevated pressure, consider acute diastolic heart failure. Relieve with 40 mg lasix IV, 20 mg IV lasix ordered BID and will titrate up if needed. (3) COPD (chronic obstructive pulmonary disease): Start date: 09/25/18 Start time: 16:54 Current visit: No Status: Acute see above Qualifiers: COPD type: COPD with acute exacerbation Qualified Code(s): J44.1 - Chronic obstructive pulmonary disease with (acute) exacerbation (4) Smoker: Start date: 09/25/18 Start time: 16:58 Current visit: No Status: Chronic NicoDerm patch, continue counseling on smoking cessation (5) Peripheral vascular disease: Start date: 09/25/18 Start time: 16:58 Current visit: No Status: Acute Continue gabapentin for PVD (6) Malnourished: Start date: 09/25/18 Start time: 16:58 Current visit: Yes Status: Acute BMI of 15. She does believe she eats enough however, appears malnourished. Asked for a magic cup on every tray to help with calorie intake. (7) DVT prophylaxis: Start date: 09/25/18 Start time: 17:00 Current visit: Yes Status: Acute Heparin Subcu (8) Advance directive in chart: Start date: 09/25/18 Start time: 17:00 Current visit: Yes Status: Acute DNR/DNI (9) Constipation: Start date: 09/25/18 Start time: 17:01 Current visit: Yes Status: Acute Three large BMs today. Subjective Patient reports: feels better Interval history since last seen: Ms. Burgess is an 83 y.o F with PMH of COPD, PVD, Tobacco abuse, admitted to [facility] for CAP with COPD exacerbation. After failing outpatient therapy on a course of ceftiane PO for CAP she arrived to [facility] Emergency department SOB with hypoxia. She was admitted and started on levaquin IV with steroids. Today she had a bout with severe SOB with Respiratory therapy concerning for fluid overload. She did have crackles bilaterally lungs in all robins, she did have edema to bilateral ankles and feet. A stat CXR was ordered with echo and 40 mg of Lasix IV. She was also placed on daily lasix 20 mg IV bid slowly and will increase if needed. Echo with EF of 65-70%, pulmonary systolic pressure in range of 50-60's with moderate tricuspid regurgitation. Doppler u/s results pending. D-dimer ordered and will follow up when resulted. Telemetry ordered in setting of acute CHF with no history and COPD. Reevaluation of patient after lasix and testing, lung sounds without crackles, breathing better, slight scattered expiratory wheezing. Edema to bilateral extremities decreased, non-pitting. IVF discontinued. Continue steroids at this time. Continue neb treatments, updrafts and levaquin, afebrile, no growth on blood cultures after 48 hours. WBC slightly elevated though patient is on high dose steroids. She denies chest pain, sob, dizziness, n/v/d/. Exam Const General: cooperative and no acute distress Nutritional Appearance: underweight Orientation: alert, awake and oriented x3 Eyes Pupils: PERRL Neck Lymphatic: no lymphadenopathy noted and no lymphedema noted Chest Chest: normal inspection of the chest Resp Effort & Inspection: abnormal respiratory pattern, cough and uses accessory muscles Auscultation: rhonchi and wheezes expiratory wheezes and scattered wheezes Other: Did have crackles that resolved with 40 mg IV lasix Cardio Jugular venous pressure: no JVD Rate: regular rate Rhythm: regular rhythm Heart Sounds: S1 normal and S2 normal GI Inspection: normal to inspection Auscultation: hyperactive bowel sounds Skin General skin exam: no rashes or lesions noted Neuro General: alert, awake and oriented x3 Objective Objective Clinical Data: Abnormal lab results 09/25/18 09/25/18 Range/Units 06:50 06:50 WBC 12.58 H (4.4-10.8) k/cumm MCV 98.7 H (80-95) fL MCHC 31.4 L (32.0-36.0) g/dL Absolute Neutrophils 11.79 H (1.2-6.7) k/cumm Absolute Lymphocytes 0.33 L (1.2-3.4) k/cumm BUN 22 H (7-18) mg/dL Glucose 146 H (70-100) mg/dL Calcium 8.3 L (8.5-10.1) mg/dL Magnesium 2.9 H (1.8-2.4) mg/dL Vital Signs Temperature 36.8 C 09/25/18 16:12 Temperature Source Tympanic 09/25/18 16:12 Pulse 98 H 09/25/18 16:12 Pulse Rhythm Regular 09/25/18 15:15 Respiratory Rate 19 09/25/18 16:12 Respiratory Effort Incrsd Work of Breathing 09/25/18 15:15 Respiratory Depth Deep 09/25/18 15:15 Respiratory Pattern Irregular 09/25/18 15:15 Blood Pressure 137/89 09/25/18 16:12 Blood Pressure Mean 106 09/22/18 20:02 Blood Pressure Position Sitting 09/22/18 17:03 Pulse Oximetry 96 09/25/18 16:12 Oxygen Delivery Method Nasal Cannula 09/25/18 16:12 Oxygen Flow Rate 2 09/25/18 15:15 Pain Level 0 09/23/18 17:32 Comment 09/22/18 17:03 Intake & Output 09/24/18 09/25/18 09/25/18 23:59 11:59 23:59 Intake Total 2884.667 / 3164.667 1075.999 / 1075.999 Output Total 800 / 1400 900 / 1350 450 / 1350 Balance 2084.667 / 1764.667 175.999 / -274.001 -450 / -274.001 Intake: IV 1654.667 / 8867.779 0876.999 / 1075.999 Oral 1230 / 1510 Output: Urine 800 / 1400 900 / 1350 450 / 1350 Other: Urine Color Yellow Yellow Straw Urine Appearance Clear Clear Clear Urine Odor Strong Normal None Comment pt missed the hat with a large void - second hat put in toilet Stool Size Moderate Stool Characteristics Soft Liquid Voiding Methods Toilet Bedside Commode Bedside Commode Laboratory Results WBC 12.58 k/cumm (4.4-10.8) H 09/25/18 06:50 RBC 4.49 m/cumm (4.00-5.20) 09/25/18 06:50 Hgb 13.9 g/dL (12.0-15.5) 09/25/18 06:50 Hct 44.3 % (36.0-46.0) 09/25/18 06:50 MCV 98.7 fL (80-95) H 09/25/18 06:50 MCH 31.0 pg (27.0-33.0) 09/25/18 06:50 MCHC 31.4 g/dL (32.0-36.0) L 09/25/18 06:50 RDW 13.5 % (11.7-14.6) 09/25/18 06:50 Plt Count 180 x1000/uL (130-400) 09/25/18 06:50 MPV 10.5 fL (8.0-11.0) 09/25/18 06:50 Immature Gran % 0.4 09/25/18 06:50 Neutrophils % 93.7 09/25/18 06:50 Lymphocytes % 2.6 09/25/18 06:50 Monocytes % 3.3 09/25/18 06:50 Eosinophils % 0.0 09/25/18 06:50 Basophils % 0.0 09/25/18 06:50 Absolute Neutrophils 11.79 k/cumm (1.2-6.7) H 09/25/18 06:50 Absolute Lymphocytes 0.33 k/cumm (1.2-3.4) L 09/25/18 06:50 Absolute Monocytes 0.42 k/cumm (0.11-0.7) 09/25/18 06:50 Absolute Eosinophils 0.00 k/cumm (0.0-0.7) 09/25/18 06:50 Absolute Basophils 0.00 k/cumm (0.0-0.2) 09/25/18 06:50 Sodium 141 mmol/L (136-145) 09/25/18 06:50 Potassium 4.5 mmol/L (3.5-5.1) 09/25/18 06:50 Chloride 105 mmol/L (98-107) 09/25/18 06:50 Carbon Dioxide 30.9 mmol/L (21.0-32.0) 09/25/18 06:50 Anion Gap 5.1 mmol/L (3-11) 09/25/18 06:50 BUN 22 mg/dL (7-18) H 09/25/18 06:50 Creatinine 0.75 mg/dL (0.55-1.02) 09/25/18 06:50 Estimated GFR/1.73 m2 >= 60.00 (mL/min/1.73m2) 09/25/18 06:50 Glucose 146 mg/dL (70-100) H 09/25/18 06:50 Lactate 0.9 mmol/l (0.6-1.4) 09/22/18 17:22 Calcium 8.3 mg/dL (8.5-10.1) L 09/25/18 06:50 Magnesium 2.9 mg/dL (1.8-2.4) H 09/25/18 06:50 Total Bilirubin 0.4 mg/dL (0.2-1.0) 09/23/18 06:30 AST 14 U/L (15-37) L 09/23/18 06:30 ALT 18 U/L (12-78) 09/23/18 06:30 Alkaline Phosphatase 84 U/L (46-116) 09/23/18 06:30 Troponin I < 0.02 ng/mL (0.00-0.06) 09/22/18 17:36 Total Protein 6.5 g/dL (6.4-8.2) 09/23/18 06:30 Albumin 2.7 g/dL (3.4-5.0) L 09/23/18 06:30 Documented by User: Annie Peguero MD 09/26/18 19:07
[2018-09-25 18:07] LABS: NT-proBNP 1947 pg/mL
[2018-09-25 18:14] LABS: Troponin I < 0.02 ng/mL (0.00-0.06)
[2018-09-25 18:17] LABS: D-Dimer 680 ng/mlFEU (<500)
[2018-09-26] VITALS (16 sets, daily range): BP systolic 112–142; BP diastolic 68–82; PULSE 70–129; RESP 2–19; TEMP 36–37.1; O2SAT 89–94
[2018-09-26] MEDS: Normal Saline Flush 10 ML SYR IV ×4 (02:36→19:13)
[2018-09-26] MEDS: Albuterol/Ipratropium 3 ML UPD VIAL UPD ×6 (02:36→21:57)
[2018-09-26] MEDS: methylPREDNISolone SUCC 125 MG VIAL 80 MG IVP (02:36)
[2018-09-26] MEDS: Heparin 5,000 UNITS/ML VIAL 5000 UNITS SC ×3 (06:34→21:57)
[2018-09-26 07:35] LABS: Abs Immature Grans 0.02 k/cumm (0.0-0.09); Absolute Basophil Count 0.01 k/cumm (0.0-0.2); Absolute Eosinophil Count 0.02 k/cumm (0.0-0.7); Absolute Lymphocyte Count 0.41 k/cumm (1.2-3.4); Absolute Monocyte Count 0.43 k/cumm (0.11-0.7); Absolute Neutrophil Count 8.02 k/cumm (1.2-6.7); Basophils % 0.1; Eosinophils % 0.2; HCT 45.7 % (36.0-46.0); HGB 14.4 g/dL (12.0-15.5); Immature Grans % 0.2; Lymphocytes % 4.6; Mean Corp. HGB Concentration 31.5 g/dL (32.0-36.0); Mean Corpuscular Hemoglobin 30.7 pg (27.0-33.0); Mean Corpuscular Volume 97.4 fL (80-95); Mean Platelet Volume 10.8 fL (8.0-11.0); Monocytes % 4.8; Neutrophils % 90.1; Platelet Count 178 x1000/uL (130-400); RBC 4.69 m/cumm (4.00-5.20); RBC Distribution Width 13.7 % (11.7-14.6); White Blood Cell Count 8.91 k/cumm (4.4-10.8)
[2018-09-26 07:41] LABS: Anion Gap 1.6 mmol/L (3-11); BUN 25 mg/dL (7-18); CO2 37.4 mmol/L (21.0-32.0); CREATININE 0.71 mg/dL (0.55-1.02); Calcium 8.4 mg/dL (8.5-10.1); Chloride 102 mmol/L (98-107); Glucose 149 mg/dL (70-100); Magnesium 2.2 mg/dL (1.8-2.4); Potassium 4.2 mmol/L (3.5-5.1); Sodium 141 mmol/L (136-145)
[2018-09-26] MEDS: Budesonide/Formoterol 80/4.5 6.9 GM 60 PUFF INH IH ×2 (07:49→19:10)
[2018-09-26] MEDS: Furosemide 20 MG/2 ML VIAL IVP ×2 (09:06→15:35)
[2018-09-26] MEDS: guaiFENesin 600 MG TABCR PO ×2 (09:06→19:12)
[2018-09-26] MEDS: Gabapentin 800 MG TAB PO ×3 (09:06→17:34)
[2018-09-26] MEDS: Polyethylene Glycol 3350 17 GM PACKET PO ×2 (09:06→19:12)
[2018-09-26] MEDS: Aspirin 81 MG CHEW PO (09:06)
[2018-09-26] MEDS: Acetaminophen 500 MG TAB 1000 MG PO ×2 (09:06→19:12)
[2018-09-26] MEDS: Omeprazole 20 MG CAPCR PO (09:06)
[2018-09-26] MEDS: Mirabegron 25 MG TABCR PO (10:20)
--- NOTE | 2018-09-26 10:41 | PDOC.CMPRO ---
Care Management Progress Note S/O-Met with Rosemarie today. She was sitting up in her chair having a breathing RX. She reports starting to feel better, but still is SOB with exertion. She reports she does not have O2 at home. Discussion with her re possible short term services from to monitor lung status, and meals on wheels. She has had both of these services in past, and has agreed to both. Contacted [facility] and gave referral information. Referral for MOW faxed to [facility]. A-83 yo woman admitted with CAP, COPD exacerbation. P-She will be discharged home as per MD with referral to HH and MOW. Her daughter Estefania will transport.
--- NOTE | 2018-09-26 10:45 | OT.INTREAT ---
Date of service: 09/26/18 Time of Service: 09:50 Occupational Therapy Notes Occupational Therapy Inpatient Treatment Note Date: 09/26/18 PRECAUTIONS: Fall, Standard SUBJECTIVE: Pt was sitting on the commode when OT arrived. She was agreeable to OT session but states that she would like to go home. OBJECTIVE: FUNCTIONAL MOBILITY Sit-stand: (S) Stand-sit: (S) Bed-Chair: (S) Chair-bed: (S) BATHING: Sitting in chair with max (A) set up was performed with nursing prior to OT arrival. DRESSING: Lower Extremity: In standing pt was able to (I) pull up personal pants with good dynamic standing balance and (I). TOILETING: Device: Commode Assist: (I) ASSESSMENT/PLAN: Pt presents with decreased functional activity tolerance. She is tired and weak after washing up. Functionally, she is able to perform bathing routine in sitting. On the commode she was able to perform this (I) with ideal technique and safety awareness. Pt is overall progressing with (I) in ADLS. OT will continue OT services for increased functional activity tolerance, energy conservation techniques and overall functional (I) in ADLs. TREATMENT CODES/TIME: 31854, 20 minutes (09:50) Yulia Shipley OTR/[facility]
--- NOTE | 2018-09-26 10:51 | OTTR_ITS ---
Date of service: 09/26/18 Time of Service: 09:50 Occupational Therapy Notes Occupational Therapy Inpatient Treatment Note Date: 09/26/18 PRECAUTIONS: Fall, Standard SUBJECTIVE: Pt was sitting on the commode when OT arrived. She was agreeable to OT session but states that she would like to go home. OBJECTIVE: FUNCTIONAL MOBILITY Sit-stand: (S) Stand-sit: (S) Bed-Chair: (S) Chair-bed: (S) BATHING: Sitting in chair with max (A) set up was performed with nursing prior to OT arrival. DRESSING: Lower Extremity: In standing pt was able to (I) pull up personal pants with good dynamic standing balance and (I). TOILETING: Device: Commode Assist: (I) ASSESSMENT/PLAN: Pt presents with decreased functional activity tolerance. She is tired and weak after washing up. Functionally, she is able to perform bathing routine in sitting. On the commode she was able to perform this (I) with ideal technique and safety awareness. Pt is overall progressing with (I) in ADLS. OT will continue OT services for increased functional activity tolerance, energy conservation techniques and overall functional (I) in ADLs. TREATMENT CODES/TIME: 98202, 20 minutes (09:50) Yulia Shipley OTR/[facility]
[2018-09-26] MEDS: methylPREDNISolone SUCC 125 MG VIAL 60 MG IVP (12:26)
--- NOTE | 2018-09-26 13:06 | PT.INNT ---
Date of service: 09/26/18 Time of Service: 13:06 PT Notes 09/26/18 Patient refused morning PT session, stating that she did not feel well. Nsg notified. Will attempt to resume PT services this afternoon.
--- NOTE | 2018-09-26 13:34 | CMPROGNOTE_ITS ---
Care Management Progress Note S/O-Met with Rosemarie today. She was sitting up in her chair having a breathing RX. She reports starting to feel better, but still is SOB with exertion. She reports she does not have O2 at home. Discussion with her re possible short term services from to monitor lung status, and meals on wheels. She has had both of these services in past, and has agreed to both. Contacted [facility] and gave referral information. Referral for MOW faxed to [facility]. A-83 yo woman admitted with CAP, COPD exacerbation. P-She will be discharged home as per MD with referral to HH and MOW. Her daughter Estefania will transport.
--- NOTE | 2018-09-26 15:32 | PT.INTREAT ---
Date of service: 09/26/18 Time of Service: 15:32 PT Notes Inpatient Physical Therapy Treatment Note [facility] Date: 09/26/17 PRECAUTIONS: Fall SUBJECTIVE: Rosemarie reporting that she still does not feel well, that she has a significant headache this afternoon and that she feels hot. OBJECTIVE: PAIN: No c/o pain BED MOBILITY/TRANSFERS Sit-stand: SBA Stand-sit: SBA GAIT Assistive Device: FWW Weight bearing: Full Assist: SBA Distance: 30' x2 Deviation: Seated rest x1, SOB VITALS: SaO2: 92-93% on 1.5L O2 via NC with post-activity THEREX: Refused ASSESSMENT: Patient tolerated session with c/o SOB with activity. Patient would benefit from continued conditioning for improved cardiovascular endurance and activity tolerance. PLAN: Continue with PT's POC TREATMENT CODE/TIME: Session 1: 20 minutes; [id number]
--- NOTE | 2018-09-26 19:07 | W.PM.PROGNOT ---
Date of Service Date of service: 09/26/18 Time of Service: 15:30 Assessment and Plan (1) CHF (congestive heart failure): Current visit: Yes Status: Acute Likely acute/iatrogenic. Echo with preserved EF, and the patient was on IVF. Her pulmonary hypertension, seen on echo, may be an artificial finding in light of fluid overload - she could benefit from repeat Echo as outpatient. For now, I feel she has completed her IV lasix therapy today. Will reassess in am. (2) Community acquired pneumonia: Current visit: Yes Status: Resolved Resolved. Off abx Qualifiers: Laterality: left Lung location: lower lobe of lung Qualified Code(s): J18.1 - Lobar pneumonia, unspecified organism (3) COPD with acute exacerbation: Current visit: Yes Status: Acute Continue to taper steroids. Continue symbicort, scheduled and prn nebs, as well as antitussives. (4) Smoker: Current visit: No Status: Chronic Advised to quit. Provide nicotine replacement (5) Peripheral vascular disease: Current visit: No Status: Acute Smoking cessation essential. Continue asa Check lipids tomorrow am (6) DVT prophylaxis: Current visit: Yes Status: Acute heparin SC (7) Discharge planning issues: Current visit: Yes Status: Acute DNR/DNI Expected to be discharged home tomorrow Subjective Interval history since last seen: Ms Burgess states she is not ready to go home today but will be tomorrow. Her breathing is almost at its baseline. Her legs look a lot better to her. She denies dizziness, chest pain, nausea, vomiting. Exam Narrative Exam Narrative: Genera: frail elderly female, hard of hearing HEENT: EOMI, MMM Heart: RRR, no m/r/g Lungs: Very diminished breath sounds B GI: abdomen is soft, nontender, nondistneded Extremities: trace edema BLE's, no clubbing or cyanosis Objective Objective Clinical Data: Abnormal lab results 09/26/18 09/26/18 Range/Units 06:38 06:38 MCV 97.4 H (80-95) fL MCHC 31.5 L (32.0-36.0) g/dL Absolute Neutrophils 8.02 H (1.2-6.7) k/cumm Absolute Lymphocytes 0.41 L (1.2-3.4) k/cumm Carbon Dioxide 37.4 H (21.0-32.0) mmol/L Anion Gap 1.6 L (3-11) mmol/L BUN 25 H (7-18) mg/dL Glucose 149 H (70-100) mg/dL Calcium 8.4 L (8.5-10.1) mg/dL Vital Signs Temperature 36.3 C L 09/26/18 15:38 Temperature Source Tympanic 09/26/18 15:38 Pulse 102 H 09/26/18 17:00 Pulse Rhythm Regular 09/26/18 15:15 Respiratory Rate 18 09/26/18 15:38 Respiratory Effort 09/26/18 15:15 Respiratory Depth Deep 09/26/18 15:15 Respiratory Pattern Irregular 09/26/18 15:15 Blood Pressure 142/82 H 09/26/18 15:38 Blood Pressure Mean 106 09/22/18 20:02 Blood Pressure Position Sitting 09/22/18 17:03 Pulse Oximetry 94 L 09/26/18 15:38 Oxygen Delivery Method Nasal Cannula 09/26/18 15:38 Oxygen Flow Rate 2 09/26/18 15:38 Pain Level 4 09/26/18 09:06 Comment 09/22/18 17:03 Intake & Output 09/25/18 09/26/18 09/26/18 23:59 11:59 23:59 Intake Total 540 / 1615.999 670 / 1600 930 / 1600 Output Total 850 / 1750 450 / 450 Balance -310 / -134.001 670 / 1150 480 / 1150 Weight 37.4 kg Intake: IV Oral 540 / 540 660 / 1590 930 / 1590 Output: Urine 850 / 1750 450 / 450 Other: Urine Color Straw Yellow Pale Urine Appearance Clear Clear Clear Urine Odor None None Comment pt missed the hat with a large void - second hat put in toilet Stool Size Small Small Stool Characteristics Soft Soft Formed Brown Voiding Methods Toilet Toilet Bedside Commode Laboratory Results WBC 8.91 k/cumm (4.4-10.8) 09/26/18 06:38 RBC 4.69 m/cumm (4.00-5.20) 09/26/18 06:38 Hgb 14.4 g/dL (12.0-15.5) 09/26/18 06:38 Hct 45.7 % (36.0-46.0) 09/26/18 06:38 MCV 97.4 fL (80-95) H 09/26/18 06:38 MCH 30.7 pg (27.0-33.0) 09/26/18 06:38 MCHC 31.5 g/dL (32.0-36.0) L 09/26/18 06:38 RDW 13.7 % (11.7-14.6) 09/26/18 06:38 Plt Count 178 x1000/uL (130-400) 09/26/18 06:38 MPV 10.8 fL (8.0-11.0) 09/26/18 06:38 Immature Gran % 0.2 09/26/18 06:38 Neutrophils % 90.1 09/26/18 06:38 Lymphocytes % 4.6 09/26/18 06:38 Monocytes % 4.8 09/26/18 06:38 Eosinophils % 0.2 09/26/18 06:38 Basophils % 0.1 09/26/18 06:38 Absolute Neutrophils 8.02 k/cumm (1.2-6.7) H 09/26/18 06:38 Absolute Lymphocytes 0.41 k/cumm (1.2-3.4) L 09/26/18 06:38 Absolute Monocytes 0.43 k/cumm (0.11-0.7) 09/26/18 06:38 Absolute Eosinophils 0.02 k/cumm (0.0-0.7) 09/26/18 06:38 Absolute Basophils 0.01 k/cumm (0.0-0.2) 09/26/18 06:38 D-Dimer 680 ng/mlFEU (<500) H 09/25/18 17:03 Sodium 141 mmol/L (136-145) 09/26/18 06:38 Potassium 4.2 mmol/L (3.5-5.1) 09/26/18 06:38 Chloride 102 mmol/L (98-107) 09/26/18 06:38 Carbon Dioxide 37.4 mmol/L (21.0-32.0) H 09/26/18 06:38 Anion Gap 1.6 mmol/L (3-11) L 09/26/18 06:38 BUN 25 mg/dL (7-18) H 09/26/18 06:38 Creatinine 0.71 mg/dL (0.55-1.02) 09/26/18 06:38 Estimated GFR/1.73 m2 >= 60.00 (mL/min/1.73m2) 09/26/18 06:38 Glucose 149 mg/dL (70-100) H 09/26/18 06:38 Lactate 0.9 mmol/l (0.6-1.4) 09/22/18 17:22 Calcium 8.4 mg/dL (8.5-10.1) L 09/26/18 06:38 Magnesium 2.2 mg/dL (1.8-2.4) 09/26/18 06:38 Total Bilirubin 0.4 mg/dL (0.2-1.0) 09/23/18 06:30 AST 14 U/L (15-37) L 09/23/18 06:30 ALT 18 U/L (12-78) 09/23/18 06:30 Alkaline Phosphatase 84 U/L (46-116) 09/23/18 06:30 Troponin I < 0.02 ng/mL (0.00-0.06) 09/25/18 17:03 NT-Pro-B Natriuret Pep 1947 pg/mL (-299) H 09/25/18 17:03 Total Protein 6.5 g/dL (6.4-8.2) 09/23/18 06:30 Albumin 2.7 g/dL (3.4-5.0) L 09/23/18 06:30
[2018-09-27] VITALS (17 sets, daily range): BP systolic 104–146; BP diastolic 65–90; PULSE 64–113; RESP 8–20; TEMP 35.5–36.5; O2SAT 83–98
[2018-09-27] MEDS: Normal Saline Flush 10 ML SYR IV ×2 (00:11→12:02)
[2018-09-27] MEDS: methylPREDNISolone SUCC 125 MG VIAL 60 MG IVP ×2 (00:12→12:01)
[2018-09-27] MEDS: Acetaminophen 500 MG TAB 1000 MG PO ×3 (02:11→15:48)
[2018-09-27] MEDS: Albuterol/Ipratropium 3 ML UPD VIAL UPD ×6 (02:16→21:17)
[2018-09-27] MEDS: Heparin 5,000 UNITS/ML VIAL 5000 UNITS SC ×3 (06:15→21:17)
[2018-09-27 06:52] LABS: Abs Immature Grans 0.03 k/cumm (0.0-0.09); Absolute Lymphocyte Count 0.61 k/cumm (1.2-3.4); Absolute Monocyte Count 0.31 k/cumm (0.11-0.7); Absolute Neutrophil Count 8.52 k/cumm (1.2-6.7); HCT 45.9 % (36.0-46.0); HGB 14.6 g/dL (12.0-15.5); Immature Grans % 0.3; Lymphocytes % 6.4; Mean Corp. HGB Concentration 31.8 g/dL (32.0-36.0); Mean Corpuscular Volume 97.5 fL (80-95); Mean Platelet Volume 10.6 fL (8.0-11.0); Monocytes % 3.3; Platelet Count 183 x1000/uL (130-400); RBC 4.71 m/cumm (4.00-5.20); RBC Distribution Width 13.8 % (11.7-14.6); White Blood Cell Count 9.47 k/cumm (4.4-10.8)
[2018-09-27 07:13] LABS: Anion Gap 4.3 mmol/L (3-11); BUN 34 mg/dL (7-18); CO2 36.7 mmol/L (21.0-32.0); Calcium 8.3 mg/dL (8.5-10.1); Chloride 102 mmol/L (98-107); Cholesterol 161 mg/dL (50-200); Glucose 131 mg/dL (70-100); HDL Cholesterol 62 mg/dL (40-60); LDL CHOLESTEROL 76 mg/dL (<100); Magnesium 1.8 mg/dL (1.8-2.4); Potassium 4.5 mmol/L (3.5-5.1); Sodium 143 mmol/L (136-145); Triglyceride 90 mg/dL (30-150)
[2018-09-27] MEDS: Budesonide/Formoterol 80/4.5 6.9 GM 60 PUFF INH IH ×2 (07:15→19:58)
[2018-09-27] MEDS: Baclofen 10 MG TAB 5 MG PO (08:28)
[2018-09-27] MEDS: Mirabegron 25 MG TABCR PO (08:29)
[2018-09-27] MEDS: Omeprazole 20 MG CAPCR PO (08:29)
[2018-09-27] MEDS: Gabapentin 800 MG TAB PO ×3 (08:29→17:57)
[2018-09-27] MEDS: Aspirin 81 MG CHEW PO (08:29)
[2018-09-27] MEDS: guaiFENesin 600 MG TABCR PO ×2 (08:29→19:58)
--- NOTE | 2018-09-27 10:39 | PDOC.CMPRO ---
Care Management Progress Note S/O: Rosemarie was lying in bed when CM met with her. She reported being agreeable to MOW referral, [facility] skilled services if recommended upon discharge and was unsure if she would require new home O2 upon discharge; as she does continue to require O2 at this time. She also requested support in acquiring a cane. CM will continue to follow. A: 83 year old female admitted to [facility] 09/22/18 for CAP, COPD Exacerbation P: Rosemarie will continue to be closely monitored, and evaluated for further needs. Anticipate she will discharge home when ready per MD. She will follow up with her PCP and plan of care as prescribed. Anticipate new orders for [facility], possible home O2 and MOW. Rosemarie will transport home via private vehicle with her daughter, Estefania.
--- NOTE | 2018-09-27 10:42 | CMPROGNOTE_ITS ---
Care Management Progress Note S/O: Rosemarie was lying in bed when CM met with her. She reported being agreeable to MOW referral, [facility] skilled services if recommended upon discharge and was unsure if she would require new home O2 upon discharge; as she does continue to require O2 at this time. She also requested support in acquiring a cane. CM will continue to follow. A: 83 year old female admitted to [facility] 09/22/18 for CAP, COPD Exacerbation P: Rosemarie will continue to be closely monitored, and evaluated for further needs. Anticipate she will discharge home when ready per MD. She will follow up with her PCP and plan of care as prescribed. Anticipate new orders for [facility], possible home O2 and MOW. Rosemarie will transport home via private vehicle with her daughter, Estefania.
--- NOTE | 2018-09-27 11:46 | OT.INTREAT ---
Date of service: 09/27/18 Time of Service: 09:50 Occupational Therapy Notes Occupational Therapy Inpatient Treatment Note Date: 09/27/18 PRECAUTIONS: Fall, standard SUBJECTIVE: Pt was lying in bed when OT arrived. She was agreeable to OT session and states that she did not sleep well last night. OBJECTIVE: PAIN:c/o pain in her (R) leg and states she feels it from the bed. FUNCTIONAL MOBILITY Sit-stand: (S) Stand-sit: (S) BATHING: Sitting on side of the bed with max (A) set up Upper Body: (I) with increased time for performance. Lower Body: (I) DRESSING: Upper Extremity: (I) donning and doffinghospital gown. Lower Extremity: (I) donning and doffing personal pants x2 GROOMING: Standing at sink with FWW and SBA, pt was able to (I) brush her teeth and hair. ASSESSMENT/PLAN: Pt is demonstrating increased activity tolerance. She is able to perform her ADLs with increased (I) and OT will continue to progress pts ADLs to her baseline level of function. TREATMENT CODES/TIME: 72948, 15 minutes (09:50) Yulia Shipley OTR/[facility]
--- NOTE | 2018-09-27 11:51 | OTTR_ITS ---
Date of service: 09/27/18 Time of Service: 09:50 Occupational Therapy Notes Occupational Therapy Inpatient Treatment Note Date: 09/27/18 PRECAUTIONS: Fall, standard SUBJECTIVE: Pt was lying in bed when OT arrived. She was agreeable to OT session and states that she did not sleep well last night. OBJECTIVE: PAIN:c/o pain in her (R) leg and states she feels it from the bed. FUNCTIONAL MOBILITY Sit-stand: (S) Stand-sit: (S) BATHING: Sitting on side of the bed with max (A) set up Upper Body: (I) with increased time for performance. Lower Body: (I) DRESSING: Upper Extremity: (I) donning and doffinghospital gown. Lower Extremity: (I) donning and doffing personal pants x2 GROOMING: Standing at sink with FWW and SBA, pt was able to (I) brush her teeth and hair. ASSESSMENT/PLAN: Pt is demonstrating increased activity tolerance. She is able to perform her ADLs with increased (I) and OT will continue to progress pts ADLs to her baseline level of function. TREATMENT CODES/TIME: 98689, 15 minutes (09:50) Yulia Shipley OTR/[facility]
[2018-09-27] MEDS: levoFLOXacin 750 MG/150 ML BAG 100 MG IVPB (12:02)
--- NOTE | 2018-09-27 16:29 | PT.INTREAT ---
Date of service: 09/27/18 Time of Service: 16:29 PT Notes Inpatient Physical Therapy Treatment Note [facility] Date: 09/27/18 PRECAUTIONS: Monitor SaO2, Fall SUBJECTIVE: Rosemarie states that she is feeling a little better than yesterday. OBJECTIVE: PAIN: No complaints of pain BED MOBILITY/TRANSFERS Supine-sit: I Sit-supine: I Sit-stand: SBA in a.m.; S in p.m. Stand-sit: SBA in a.m.; S in p.m. GAIT Assistive Device: FWW Weight bearing: Full Assist: SBA Distance: 50' x2 in a.m.; 150' in p.m. Deviation: Slow pace VITALS: Session 1: performed in collaboration with RT, please see their note for specifics; Session 2: SaO2: 88-94% on 2L O2 via NC with activity THEREX: Patient completed a LE strengthening program, as per flow sheet. ASSESSMENT: Patient continues to c/o increased fatigue and SOB with activity. Patient would benefit from continued conditioning for improved cardiovascular endurance and activity tolerance. PLAN: Continue with PTs POC TREATMENT CODE/TIME: Session 1: 25 minutes; 73826, 53388 Session 2: 15 minutes; 41664
--- NOTE | 2018-09-27 16:33 | PTTR_ITS ---
Date of service: 09/27/18 Time of Service: 16:29 PT Notes Inpatient Physical Therapy Treatment Note [facility] Date: 09/27/18 PRECAUTIONS: Monitor SaO2, Fall SUBJECTIVE: Rosemarie states that she is feeling a little better than yesterday. OBJECTIVE: PAIN: No complaints of pain BED MOBILITY/TRANSFERS Supine-sit: I Sit-supine: I Sit-stand: SBA in a.m.; S in p.m. Stand-sit: SBA in a.m.; S in p.m. GAIT Assistive Device: FWW Weight bearing: Full Assist: SBA Distance: 50' x2 in a.m.; 150' in p.m. Deviation: Slow pace VITALS: Session 1: performed in collaboration with RT, please see their note for specifics; Session 2: SaO2: 88-94% on 2L O2 via NC with activity THEREX: Patient completed a LE strengthening program, as per flow sheet. ASSESSMENT: Patient continues to c/o increased fatigue and SOB with activity. Patient would benefit from continued conditioning for improved cardiovascular endurance and activity tolerance. PLAN: Continue with PTs POC TREATMENT CODE/TIME: Session 1: 25 minutes; [id number], [id number] Session 2: 15 minutes; [id number]
--- NOTE | 2018-09-27 17:06 | CHAPLAIN ---
Rosemarie is hoping to be discharged soon. She said she is tried from sitting around. She's been passing the time by watching tv.
[2018-09-27] MEDS: Polyethylene Glycol 3350 17 GM PACKET PO (19:58)
--- NOTE | 2018-09-27 20:17 | W.PM.PROGNOT ---
Date of Service Date of service: 09/27/18 Time of Service: 11:45 Assessment and Plan (1) Nonsustained paroxysmal supraventricular tachycardia: Current visit: Yes Status: Acute D/c symbicort. Start low dose of lopressor. (2) CHF (congestive heart failure): Current visit: Yes Status: Acute Likely acute/iatrogenic. Presently euvolemic. Echo with preserved EF, and the patient was on IVF. Her pulmonary hypertension, seen on echo, may be an artificial finding in light of fluid overload - she could benefit from repeat Echo as outpatient. (3) Community acquired pneumonia: Current visit: Yes Status: Resolved Resolved. Off abx Qualifiers: Laterality: left Lung location: lower lobe of lung Qualified Code(s): J18.1 - Lobar pneumonia, unspecified organism (4) COPD with acute exacerbation: Current visit: Yes Status: Acute Continue to taper steroids. D/c symbicort in light of SVT; continue scheduled and prn nebs, as well as antitussives. (5) Smoker: Current visit: No Status: Chronic Advised to quit. Provide nicotine replacement (6) Peripheral vascular disease: Current visit: No Status: Acute Smoking cessation essential. Continue asa Lipids at goal (7) DVT prophylaxis: Current visit: Yes Status: Acute heparin SC (8) Discharge planning issues: Current visit: Yes Status: Acute DNR/DNI Expected to be discharged home tomorrow Subjective Interval history since last seen: Ms Burgess states she had Left leg pain today - but she admits she has sciatica. She does also endorse a little bit of L-sided lower back pain. She has had several episodes of SVT - one 8 beats, one 9 beats. She was asymptomatic of this. She thinks her breathing is back to her baseline. Denies dizziness, chest pain, nausea, vomiting. She is ok with going home tomorrow. Exam Narrative Exam Narrative: Genera: frail elderly female, hard of hearing HEENT: EOMI, MMM Heart: RRR, no m/r/g Lungs: Very diminished breath sounds B GI: abdomen is soft, nontender, nondistended Extremities: trace edema BLE's, no clubbing or cyanosis Objective Objective Clinical Data: Abnormal lab results 09/27/18 09/27/18 Range/Units 06:15 06:15 MCV 97.5 H (80-95) fL MCHC 31.8 L (32.0-36.0) g/dL Absolute Neutrophils 8.52 H (1.2-6.7) k/cumm Absolute Lymphocytes 0.61 L (1.2-3.4) k/cumm Carbon Dioxide 36.7 H (21.0-32.0) mmol/L BUN 34 H D (7-18) mg/dL Glucose 131 H (70-100) mg/dL Calcium 8.3 L (8.5-10.1) mg/dL HDL Cholesterol 62 H (40-60) mg/dL Vital Signs Temperature 35.7 C L 09/27/18 19:32 Temperature Source Tympanic 09/27/18 19:32 Pulse 90 09/27/18 19:32 Pulse Rhythm Regular 09/27/18 18:21 Respiratory Rate 20 09/27/18 19:32 Respiratory Effort 09/27/18 18:21 Respiratory Depth Shallow 09/27/18 18:21 Respiratory Pattern Normal 09/27/18 18:21 Blood Pressure 138/76 09/27/18 19:32 Blood Pressure Mean 106 09/22/18 20:02 Blood Pressure Position Sitting 09/22/18 17:03 Pulse Oximetry 93 L 09/27/18 19:32 Oxygen Delivery Method Nasal Cannula 09/27/18 19:32 Oxygen Flow Rate 1 09/27/18 19:32 Pain Level 0 09/27/18 14:02 Comment 09/27/18 03:05 Intake & Output 09/26/18 09/27/18 09/27/18 23:59 11:59 23:59 Intake Total 930 / 1600 510 / 1260 750 / 1260 Output Total 450 / 450 600 / 750 150 / 750 Balance 480 / 1150 -90 / 510 600 / 510 Weight 38.4 kg Intake: Oral 930 / 1590 510 / 1260 750 / 1260 Output: Urine 450 / 450 600 / 750 150 / 750 Other: Urine Color Yellow Yellow Straw Urine Appearance Clear Clear Clear Urine Odor None Normal None Comment GUESTIMATED AMT Voiding Methods Bedside Commode Bedside Commode Bedside Commode Laboratory Results WBC 9.47 k/cumm (4.4-10.8) 09/27/18 06:15 RBC 4.71 m/cumm (4.00-5.20) 09/27/18 06:15 Hgb 14.6 g/dL (12.0-15.5) 09/27/18 06:15 Hct 45.9 % (36.0-46.0) 09/27/18 06:15 MCV 97.5 fL (80-95) H 09/27/18 06:15 MCH 31.0 pg (27.0-33.0) 09/27/18 06:15 MCHC 31.8 g/dL (32.0-36.0) L 09/27/18 06:15 RDW 13.8 % (11.7-14.6) 09/27/18 06:15 Plt Count 183 x1000/uL (130-400) 09/27/18 06:15 MPV 10.6 fL (8.0-11.0) 09/27/18 06:15 Immature Gran % 0.3 09/27/18 06:15 Neutrophils % 90.0 09/27/18 06:15 Lymphocytes % 6.4 09/27/18 06:15 Monocytes % 3.3 09/27/18 06:15 Eosinophils % 0.0 09/27/18 06:15 Basophils % 0.0 09/27/18 06:15 Absolute Neutrophils 8.52 k/cumm (1.2-6.7) H 09/27/18 06:15 Absolute Lymphocytes 0.61 k/cumm (1.2-3.4) L 09/27/18 06:15 Absolute Monocytes 0.31 k/cumm (0.11-0.7) 09/27/18 06:15 Absolute Eosinophils 0.00 k/cumm (0.0-0.7) 09/27/18 06:15 Absolute Basophils 0.00 k/cumm (0.0-0.2) 09/27/18 06:15 D-Dimer 680 ng/mlFEU (<500) H 09/25/18 17:03 Sodium 143 mmol/L (136-145) 09/27/18 06:15 Potassium 4.5 mmol/L (3.5-5.1) 09/27/18 06:15 Chloride 102 mmol/L (98-107) 09/27/18 06:15 Carbon Dioxide 36.7 mmol/L (21.0-32.0) H 09/27/18 06:15 Anion Gap 4.3 mmol/L (3-11) 09/27/18 06:15 BUN 34 mg/dL (7-18) H D 09/27/18 06:15 Creatinine 0.80 mg/dL (0.55-1.02) 09/27/18 06:15 Estimated GFR/1.73 m2 >= 60.00 (mL/min/1.73m2) 09/27/18 06:15 Glucose 131 mg/dL (70-100) H 09/27/18 06:15 Lactate 0.9 mmol/l (0.6-1.4) 09/22/18 17:22 Calcium 8.3 mg/dL (8.5-10.1) L 09/27/18 06:15 Magnesium 1.8 mg/dL (1.8-2.4) 09/27/18 06:15 Total Bilirubin 0.4 mg/dL (0.2-1.0) 09/23/18 06:30 AST 14 U/L (15-37) L 09/23/18 06:30 ALT 18 U/L (12-78) 09/23/18 06:30 Alkaline Phosphatase 84 U/L (46-116) 09/23/18 06:30 Troponin I < 0.02 ng/mL (0.00-0.06) 09/25/18 17:03 NT-Pro-B Natriuret Pep 1947 pg/mL (-299) H 09/25/18 17:03 Total Protein 6.5 g/dL (6.4-8.2) 09/23/18 06:30 Albumin 2.7 g/dL (3.4-5.0) L 09/23/18 06:30 Triglycerides 90 mg/dL (30-150) 09/27/18 06:15 Total Cholesterol 161 mg/dL (50-200) 09/27/18 06:15 LDL Cholesterol Direct 76 mg/dL (<100) 09/27/18 06:15 HDL Cholesterol 62 mg/dL (40-60) H 09/27/18 06:15
[2018-09-27] MEDS: Metoprolol 12.5 MG TAB PO (21:17)
[2018-09-28] VITALS (19 sets, daily range): BP systolic 110–133; BP diastolic 67–84; PULSE 68–187; RESP 8–24; TEMP 36–37.3; O2SAT 84–96
[2018-09-28] MEDS: Acetaminophen 500 MG TAB 1000 MG PO (00:06)
[2018-09-28] MEDS: Normal Saline Flush 10 ML SYR IV (00:06)
[2018-09-28] MEDS: methylPREDNISolone SUCC 125 MG VIAL 60 MG IVP (00:07)
[2018-09-28] MEDS: Mylanta Suspension 30 ML CUP PO (02:37)
[2018-09-28] MEDS: Albuterol/Ipratropium 3 ML UPD VIAL UPD ×4 (02:38→16:12)
[2018-09-28] MEDS: Heparin 5,000 UNITS/ML VIAL 5000 UNITS SC ×2 (06:09→15:03)
[2018-09-28 07:09] LABS: Abs Immature Grans 0.05 k/cumm (0.0-0.09); Absolute Lymphocyte Count 0.67 k/cumm (1.2-3.4); Absolute Monocyte Count 0.46 k/cumm (0.11-0.7); Absolute Neutrophil Count 11.48 k/cumm (1.2-6.7); HCT 45.2 % (36.0-46.0); HGB 14.6 g/dL (12.0-15.5); Immature Grans % 0.4; Lymphocytes % 5.3; Mean Corp. HGB Concentration 32.3 g/dL (32.0-36.0); Mean Corpuscular Hemoglobin 31.4 pg (27.0-33.0); Mean Corpuscular Volume 97.2 fL (80-95); Mean Platelet Volume 10.6 fL (8.0-11.0); Monocytes % 3.6; Neutrophils % 90.7; Platelet Count 185 x1000/uL (130-400); RBC 4.65 m/cumm (4.00-5.20); RBC Distribution Width 13.9 % (11.7-14.6); White Blood Cell Count 12.66 k/cumm (4.4-10.8)
[2018-09-28 07:33] LABS: Anion Gap 3.6 mmol/L (3-11); BUN 27 mg/dL (7-18); CO2 33.4 mmol/L (21.0-32.0); CREATININE 0.66 mg/dL (0.55-1.02); Calcium 8.2 mg/dL (8.5-10.1); Chloride 101 mmol/L (98-107); Glucose 132 mg/dL (70-100); Potassium 4.8 mmol/L (3.5-5.1); Sodium 138 mmol/L (136-145)
[2018-09-28] MEDS: Budesonide/Formoterol 80/4.5 6.9 GM 60 PUFF INH IH (08:08)
[2018-09-28] MEDS: Gabapentin 800 MG TAB PO ×3 (08:47→17:24)
[2018-09-28] MEDS: Metoprolol 12.5 MG TAB PO ×2 (08:47→20:50)
[2018-09-28] MEDS: Mirabegron 25 MG TABCR PO (08:47)
[2018-09-28] MEDS: Omeprazole 20 MG CAPCR PO (08:47)
[2018-09-28] MEDS: guaiFENesin 600 MG TABCR PO ×2 (08:47→20:26)
[2018-09-28] MEDS: Aspirin 81 MG CHEW PO (08:47)
[2018-09-28] MEDS: Nicotine 14 MG/24 HR PATCH TD (08:58)
--- NOTE | 2018-09-28 09:54 | PDOC.CMPRO ---
Care Management Progress Note S/O: Rosemarie was lying in bed when CM met with her. She remains agreeable to MOW referral, [facility] skilled services if recommended upon discharge and home O2 upon discharge, if needed. Per MD, Rosemarie remains inpatient due to tachycardia; as MD will order cardiology consult which is unavailable today. CM will continue to follow. A: 83 year old female admitted to [facility] 09/22/18 for CAP, COPD Exacerbation P: Rosemarie will continue to be closely monitored, and evaluated for further needs. Anticipate she will discharge home when ready per MD. She will follow up with her PCP and plan of care as prescribed. Anticipate new orders for [facility], possible home O2 and MOW, FWW per PT and MD recommendations. Rosemarie will transport home via private vehicle with her daughter, Estefania.
--- NOTE | 2018-09-28 10:06 | CMPROGNOTE_ITS ---
Care Management Progress Note S/O: Rosemarie was lying in bed when CM met with her. She remains agreeable to MOW referral, [facility] skilled services if recommended upon discharge and home O2 upon discharge, if needed. Per MD, Rosemarie remains inpatient due to tachycardia; as MD will order cardiology consult which is unavailable today. CM will continue to follow. A: 83 year old female admitted to [facility] 09/22/18 for CAP, COPD Exacerbation P: Rosemarie will continue to be closely monitored, and evaluated for further needs. Anticipate she will discharge home when ready per MD. She will follow up with her PCP and plan of care as prescribed. Anticipate new orders for [facility], possible home O2 and MOW, FWW per PT and MD recommendations. Rosemarie will transport home via private vehicle with her daughter, Estefania.
--- NOTE | 2018-09-28 10:30 | OT.INDS ---
Date of service: 09/28/18 Time of Service: 09:10 Occupational Therapy Notes Occupational Therapy Inpatient Discharge Summary Date: 09/28/18 Dates of Service: 09/25/18-09/28/18 Referring Doctor:Lynne Olivera NP OT Orders: Improve function Precautions: Fall, Standard PATIENT PROFILE/ADMITTING DIAGNOSIS: Pt is an 83 year old female admitted to [facility] for mild respiratory issues which she was being followed by her PCP for. She was diagnosed with a community-acquired pneumonia. Past Medical History: Medical History COPD (chronic obstructive pulmonary disease) Cataract Closed fracture of clavicle Complex regional pain syndrome i of lower limb, bilateral Degenerative disc disease, cervical Headache Hearing loss History of shingles Idiopathic peripheral neuropathy Perforation of tympanic membrane Peripheral neuralgia Peripheral vascular disease Seborrheic keratosis Skin lesion of face Smoker Tinea unguium Surgical History Abdominal hysterectomy (~1975) Appendectomy Extraction of cataract Social History/Home Situation: Pt lives alone in a mobile home. She has 3 steps to enter with (B) railings. She states that she is totally (I) with all ADLs/IADLs at baseline with tub/shower combination. She is still actively driving in the community. Equipment owned/DME: Cane SUBJECTIVE: Pt was standing at her sink in the bathroom with ASSEMBLER MECHANICAL ORDNANCE when OT arrived. She was agreeable to OT session. OBJECTIVE: General Observation: O2 nasal cannula Mental Status: A&Ox3 Pain: no c/o pain ROM: RUE WFL L UE WFL STRENGTH: RUE 4+/5 throughout globally LUE 4+/5 throughout globally FUNCTIONAL MOBILITY/ADLS: Sit-Stand (S) Stand-sit (S) Bathing- Standing at sink with Fww (I) with face, (B) UE, sitting in chair (I) abdomen, (B) LE, max (A) back, min (A) hair. Dressing- (I) don and doff personal shirt with ideal technique in sitting position, (I) donning and doffing (B) LE. Grooming- standing at sink with FWW (I) brushing teeth Toileting- (I) on toilet BALANCE: Static sitting Normal Dynamic Sitting Normal Static Standing Good Dynamic Standing NT ASSESSMENT: Patient is a 83-year-old female referred to occupational therapy services with diagnosis of community acquired pneumonia. Pt was seen for 4 skilled OT services. She is functionally able to perform all ADLs (I). She has decreased functional activity tolerance. She states she is going home today. Pt is receptive to education and training provided. OT did discuss with pt energy conservation techniques which she states she is too tired to worry about at this time but was able to verbalize them post session. Pt states that she is planning to return home today. GOALS- Pt has met all goals. 1. Transfers (I) 2. Dressing (I) 3. Bathing (I) standing at the sink 4. Toileting (I) on toilet 5. Eating (I) 6. Grooming (I) standing at the sink for teeth and hair brushing PLAN OF CARE/TREATMENT PLAN: Discharge photo optics technician OT services. DISCHARGE RECOMMENDATIONS Home when medically cleared per MD TREATMENT TIME/MINUTES/CODES [id number], 25 minutes (09:10) [facility]
--- NOTE | 2018-09-28 10:38 | OTDS_ITS ---
Date of service: 09/28/18 Time of Service: 09:10 Occupational Therapy Notes Occupational Therapy Inpatient Discharge Summary Date: 09/28/18 Dates of Service: 09/25/18-09/28/18 Referring Doctor:Lynne Olivera NP OT Orders: Improve function Precautions: Fall, Standard PATIENT PROFILE/ADMITTING DIAGNOSIS: Pt is an 83 year old female admitted to [facility] for mild respiratory issues which she was being followed by her PCP for. She was diagnosed with a community-acquired pneumonia. Past Medical History: Medical History COPD (chronic obstructive pulmonary disease) Cataract Closed fracture of clavicle Complex regional pain syndrome i of lower limb, bilateral Degenerative disc disease, cervical Headache Hearing loss History of shingles Idiopathic peripheral neuropathy Perforation of tympanic membrane Peripheral neuralgia Peripheral vascular disease Seborrheic keratosis Skin lesion of face Smoker Tinea unguium Surgical History Abdominal hysterectomy (~1975) Appendectomy Extraction of cataract Social History/Home Situation: Pt lives alone in a mobile home. She has 3 steps to enter with (B) railings. She states that she is totally (I) with all ADLs/IADLs at baseline with tub/shower combination. She is still actively driving in the community. Equipment owned/DME: Cane SUBJECTIVE: Pt was standing at her sink in the bathroom with WELCOME DESK AGENT when OT arrived. She was agreeable to OT session. OBJECTIVE: General Observation: O2 nasal cannula Mental Status: A&Ox3 Pain: no c/o pain ROM: RUE WFL L UE WFL STRENGTH: RUE 4+/5 throughout globally LUE 4+/5 throughout globally FUNCTIONAL MOBILITY/ADLS: Sit-Stand (S) Stand-sit (S) Bathing- Standing at sink with Fww (I) with face, (B) UE, sitting in chair (I) abdomen, (B) LE, max (A) back, min (A) hair. Dressing- (I) don and doff personal shirt with ideal technique in sitting position, (I) donning and doffing (B) LE. Grooming- standing at sink with FWW (I) brushing teeth Toileting- (I) on toilet BALANCE: Static sitting Normal Dynamic Sitting Normal Static Standing Good Dynamic Standing NT ASSESSMENT: Patient is a 83-year-old female referred to occupational therapy services with diagnosis of community acquired pneumonia. Pt was seen for 4 skilled OT services. She is functionally able to perform all ADLs (I). She has decreased functional activity tolerance. She states she is going home today. Pt is receptive to education and training provided. OT did discuss with pt energy conservation techniques which she states she is too tired to worry about at this time but was able to verbalize them post session. Pt states that she is planning to return home today. GOALS- Pt has met all goals. 1. Transfers (I) 2. Dressing (I) 3. Bathing (I) standing at the sink 4. Toileting (I) on toilet 5. Eating (I) 6. Grooming (I) standing at the sink for teeth and hair brushing PLAN OF CARE/TREATMENT PLAN: Discharge adaptive physical education specialist OT services. DISCHARGE RECOMMENDATIONS Home when medically cleared per MD TREATMENT TIME/MINUTES/CODES [id number], 25 minutes (09:10) [facility]
--- NOTE | 2018-09-28 14:44 | W.PM.PROGNOT ---
Date of Service Date of service: 09/28/18 Time of Service: 14:44 Assessment and Plan (1) Nonsustained paroxysmal supraventricular tachycardia: Current visit: Yes Status: Acute Two runs of SVT x8 beats each noted on telemetry overnight. She was started on low-dose metoprolol yesterday evening. Continue metoprolol 12.5 mg p.o. twice daily. Discontinue Symbicort. Continue to monitor on telemetry overnight. (2) CHF (congestive heart failure): Current visit: Yes Status: Acute Likely acute/iatrogenic. Presently euvolemic. IV fluids have been discontinued. Echo with preserved LVEF. Pulmonary hypertension noted on echocardiogram may represent fluid overload. She would benefit from repeat echocardiogram as an outpatient. (3) COPD with acute exacerbation: Current visit: Yes Status: Acute She transition to oral steroids today, continue to taper steroids. Symbicort discontinued in light of SVT. Continue as needed nebulizer treatments and antitussives. She has nocturnal oxygen at home. Repeat exercise oximetry prior to discharge to determine oxygen requirement at time of discharge. (4) Community acquired pneumonia: Current visit: Yes Status: Resolved Resolved. Antibiotics discontinued. Probiotics added. Taper steroids as above. Qualifiers: Laterality: left Lung location: lower lobe of lung Qualified Code(s): J18.1 - Lobar pneumonia, unspecified organism (5) Smoker: Current visit: No Status: Chronic Continue to encourage smoking cessation. Provide nicotine replacement. (6) Peripheral vascular disease: Current visit: No Status: Acute Continue aspirin. Lipids at goal. Continue to encourage smoking cessation. (7) DVT prophylaxis: Current visit: Yes Status: Acute Subcutaneous heparin. (8) Discharge planning issues: Current visit: Yes Status: Acute She is a DNR/DNI. She lives alone. This case was discussed with Dr. Peguero who is in agreement. Subjective Interval history since last seen: Rosemarie feels tired, she reports that her breathing is back to her baseline, she does not feel short of breath or wheezy. She continues to cough, it is nonproductive. She had 2 runs of SVT noted on telemetry overnight, 8 beats both times, she was asymptomatic during the episodes. She is denies chest pain, pressure or palpitations, she is eating and drinking and tolerating her diet, no nausea or vomiting. She has had some loose stools today. Given the continued SVT noted on telemetry, she will remain here at the hospital on telemetry overnight, she is agreeable to this plan, although she is looking forward to discharge home in the near future. Exam Narrative Exam Narrative: General: thin, frail elderly female, hard of hearing, lying in bed, in no acute distress, alert and oriented x3, answers questions appropriately. HEENT: EOMI, mucous membranes moist. Neck: Supple, no JVD. Heart: Heart has regular rate and rhythm, no murmur appreciated. Lungs: Respirations even and unlabored, lung sounds diminished throughout, no wheezing or rales. GI: abdomen is soft, nontender, nondistended Extremities: trace pitting edema BLE's, no clubbing or cyanosis Objective Objective Clinical Data: Abnormal lab results 09/28/18 09/28/18 Range/Units 06:40 06:40 WBC 12.66 H D (4.4-10.8) k/cumm MCV 97.2 H (80-95) fL Absolute Neutrophils 11.48 H (1.2-6.7) k/cumm Absolute Lymphocytes 0.67 L (1.2-3.4) k/cumm Carbon Dioxide 33.4 H (21.0-32.0) mmol/L BUN 27 H (7-18) mg/dL Glucose 132 H (70-100) mg/dL Calcium 8.2 L (8.5-10.1) mg/dL Vital Signs Temperature 36.0 C L 09/28/18 11:20 Temperature Source Tympanic 09/28/18 11:20 Pulse 68 09/28/18 11:20 Pulse Rhythm Regular 09/28/18 08:30 Respiratory Rate 18 09/28/18 11:20 Respiratory Effort 09/28/18 08:30 Respiratory Depth Normal 09/28/18 08:30 Respiratory Pattern Normal 09/28/18 08:30 Blood Pressure 133/84 09/28/18 11:20 Blood Pressure Mean 106 09/22/18 20:02 Blood Pressure Position Sitting 09/22/18 17:03 Pulse Oximetry 93 L 09/28/18 11:20 Oxygen Delivery Method Room Air 09/28/18 11:20 Oxygen Flow Rate 0 09/28/18 11:20 Pain Level 0 09/28/18 11:20 Comment 09/27/18 03:05 Intake & Output 09/27/18 09/28/18 09/28/18 23:59 11:59 23:59 Intake Total 750 / 1260 200 / 800 600 / 800 Output Total 600 / 1200 300 / 300 Balance 150 / 60 -100 / 500 600 / 500 Weight 40 kg Intake: Oral 750 / 1260 200 / 800 600 / 800 Output: Urine 600 / 1200 300 / 300 Other: Urine Color Yellow Yellow Urine Appearance Clear Clear Urine Odor Normal Normal Comment voided into toilet Stool Size Moderate Stool Characteristics Formed Voiding Methods Bedside Commode Bedside Commode Laboratory Results WBC 12.66 k/cumm (4.4-10.8) H D 09/28/18 06:40 RBC 4.65 m/cumm (4.00-5.20) 09/28/18 06:40 Hgb 14.6 g/dL (12.0-15.5) 09/28/18 06:40 Hct 45.2 % (36.0-46.0) 09/28/18 06:40 MCV 97.2 fL (80-95) H 09/28/18 06:40 MCH 31.4 pg (27.0-33.0) 09/28/18 06:40 MCHC 32.3 g/dL (32.0-36.0) 09/28/18 06:40 RDW 13.9 % (11.7-14.6) 09/28/18 06:40 Plt Count 185 x1000/uL (130-400) 09/28/18 06:40 MPV 10.6 fL (8.0-11.0) 09/28/18 06:40 Immature Gran % 0.4 09/28/18 06:40 Neutrophils % 90.7 09/28/18 06:40 Lymphocytes % 5.3 09/28/18 06:40 Monocytes % 3.6 09/28/18 06:40 Eosinophils % 0.0 09/28/18 06:40 Basophils % 0.0 09/28/18 06:40 Absolute Neutrophils 11.48 k/cumm (1.2-6.7) H 09/28/18 06:40 Absolute Lymphocytes 0.67 k/cumm (1.2-3.4) L 09/28/18 06:40 Absolute Monocytes 0.46 k/cumm (0.11-0.7) 09/28/18 06:40 Absolute Eosinophils 0.00 k/cumm (0.0-0.7) 09/28/18 06:40 Absolute Basophils 0.00 k/cumm (0.0-0.2) 09/28/18 06:40 D-Dimer 680 ng/mlFEU (<500) H 09/25/18 17:03 Sodium 138 mmol/L (136-145) 09/28/18 06:40 Potassium 4.8 mmol/L (3.5-5.1) 09/28/18 06:40 Chloride 101 mmol/L (98-107) 09/28/18 06:40 Carbon Dioxide 33.4 mmol/L (21.0-32.0) H 09/28/18 06:40 Anion Gap 3.6 mmol/L (3-11) 09/28/18 06:40 BUN 27 mg/dL (7-18) H 09/28/18 06:40 Creatinine 0.66 mg/dL (0.55-1.02) 09/28/18 06:40 Estimated GFR/1.73 m2 >= 60.00 (mL/min/1.73m2) 09/28/18 06:40 Glucose 132 mg/dL (70-100) H 09/28/18 06:40 Lactate 0.9 mmol/l (0.6-1.4) 09/22/18 17:22 Calcium 8.2 mg/dL (8.5-10.1) L 09/28/18 06:40 Magnesium 2.0 mg/dL (1.8-2.4) 09/28/18 06:40 Total Bilirubin 0.4 mg/dL (0.2-1.0) 09/23/18 06:30 AST 14 U/L (15-37) L 09/23/18 06:30 ALT 18 U/L (12-78) 09/23/18 06:30 Alkaline Phosphatase 84 U/L (46-116) 09/23/18 06:30 Troponin I < 0.02 ng/mL (0.00-0.06) 09/25/18 17:03 NT-Pro-B Natriuret Pep 1947 pg/mL (-299) H 09/25/18 17:03 Total Protein 6.5 g/dL (6.4-8.2) 09/23/18 06:30 Albumin 2.7 g/dL (3.4-5.0) L 09/23/18 06:30 Triglycerides 90 mg/dL (30-150) 09/27/18 06:15 Total Cholesterol 161 mg/dL (50-200) 09/27/18 06:15 LDL Cholesterol Direct 76 mg/dL (<100) 09/27/18 06:15 HDL Cholesterol 62 mg/dL (40-60) H 09/27/18 06:15
[2018-09-28] MEDS: Lactobacillus Acidophilus CAP 1 CAP PO ×2 (15:03→20:27)
--- NOTE | 2018-09-28 15:32 | PT.INTREAT ---
Date of service: 09/28/18 Time of Service: 11:00 PT Notes Inpatient Physical Therapy Treatment Note [facility] Date: 09/28/18 PRECAUTIONS: Fall, monitor SaO2 SUBJECTIVE: Rosemarie states that she is feeling better today, she is agreeable to participating in PT. OBJECTIVE: Pain: No complaints of pain BED MOBILITY/TRANSFERS Sit-stand: S Stand-sit: S GAIT Assistive Device: FWW Weight bearing: Full Assist: SBA Distance: 150' x2 VITALS: SaO2: 84-90% on RA with gait training; 88-94% on 2L O2 via NC with gait training. Session was performed in collaboration with RT, please see their note for vital signs specifics. ASSESSMENT: Patient tolerated a progression in gait distance with FWW support. She demonstrates decreased instances of SOB with gait training today versus previous sessions. She would benefit from continued gait training as well as strengthening for improved mobility and and activity tolerance. PLAN: Continue with PTs POC TREATMENT CODE/TIME: Session 1: 25 minutes; [id number] x2
--- NOTE | 2018-09-28 15:36 | PT.INNT ---
Date of service: 09/28/18 Time of Service: 15:36 PT Notes 09/28/18 Patient refused afternoon PT session. Will attempt to resume PT services tomorrow morning.
[2018-09-28] MEDS: predniSONE 20 MG TAB 40 MG PO (20:26)
[2018-09-28] MEDS: Polyethylene Glycol 3350 17 GM PACKET PO (20:26)
[2018-09-29] VITALS (7 sets, daily range): BP systolic 97–108; BP diastolic 61–68; PULSE 50–78; RESP 18–26; TEMP 36.1–37.2; O2SAT 84–94
[2018-09-29] MEDS: Heparin 5,000 UNITS/ML VIAL 5000 UNITS SC ×2 (06:51→15:31)
[2018-09-29 07:27] LABS: Abs Immature Grans 0.06 k/cumm (0.0-0.09); Absolute Basophil Count 0.01 k/cumm (0.0-0.2); Absolute Lymphocyte Count 0.96 k/cumm (1.2-3.4); Absolute Neutrophil Count 11.98 k/cumm (1.2-6.7); Basophils % 0.1; HCT 44.8 % (36.0-46.0); HGB 14.2 g/dL (12.0-15.5); Immature Grans % 0.4; Lymphocytes % 7.1; Mean Corp. HGB Concentration 31.7 g/dL (32.0-36.0); Mean Corpuscular Hemoglobin 30.8 pg (27.0-33.0); Mean Corpuscular Volume 97.2 fL (80-95); Mean Platelet Volume 10.9 fL (8.0-11.0); Monocytes % 3.6; Neutrophils % 88.8; Platelet Count 186 x1000/uL (130-400); RBC 4.61 m/cumm (4.00-5.20); RBC Distribution Width 13.9 % (11.7-14.6); White Blood Cell Count 13.49 k/cumm (4.4-10.8)
[2018-09-29 07:36] LABS: Absolute Monocyte Count 0.49 k/cumm (0.11-0.7)
[2018-09-29 08:18] LABS: Anion Gap 2.5 mmol/L (3-11); BUN 29 mg/dL (7-18); CO2 34.5 mmol/L (21.0-32.0); CREATININE 0.67 mg/dL (0.55-1.02); Calcium 8.2 mg/dL (8.5-10.1); Chloride 104 mmol/L (98-107); Glucose 130 mg/dL (70-100); Magnesium 1.9 mg/dL (1.8-2.4); Potassium 4.8 mmol/L (3.5-5.1); Sodium 141 mmol/L (136-145)
[2018-09-29] MEDS: Polyethylene Glycol 3350 17 GM PACKET PO (08:51)
[2018-09-29] MEDS: Normal Saline Flush 10 ML SYR IV (08:51)
[2018-09-29] MEDS: Mirabegron 25 MG TABCR PO (08:52)
[2018-09-29] MEDS: Omeprazole 20 MG CAPCR PO (08:52)
[2018-09-29] MEDS: predniSONE 20 MG TAB 40 MG PO (08:52)
[2018-09-29] MEDS: Lactobacillus Acidophilus CAP 1 CAP PO ×2 (08:52→15:30)
[2018-09-29] MEDS: guaiFENesin 600 MG TABCR PO (08:52)
[2018-09-29] MEDS: Gabapentin 800 MG TAB PO ×2 (08:52→11:59)
[2018-09-29] MEDS: Aspirin 81 MG CHEW PO (08:52)
[2018-09-29] MEDS: Metoprolol 12.5 MG TAB PO (08:53)
[2018-09-29] MEDS: Acetaminophen 500 MG TAB 1000 MG PO (09:01)
--- NOTE | 2018-09-29 13:14 | DSE_ITS ---
Date of service: 09/29/18 Time of Service: 13:06 DS: Diagnosis Discharge Diagnosis (1) Nonsustained paroxysmal supraventricular tachycardia: Status: Acute (2) CHF (congestive heart failure): Status: Acute (3) COPD with acute exacerbation: Status: Acute (4) Community acquired pneumonia: Status: Resolved (5) Smoker: Status: Chronic (6) Peripheral vascular disease: Status: Acute Discharge Plan Disposition Patient Disposition: HOME W/HOME HEALTH SERVICE Condition: Stable Discharge Details Reason For Visit: COMMUNITY-AQUIRED PNEUMONIA, COPD EXACERBATION Admit Date/Time: 09/22/18 18:55 Admit Provider: Bucky Cornelius Attending Provider: Bucky Cornelius Primary Care Provider: Calvin Rios Hospital Course Hospital Course: Rosemarie Burgess is a very pleasant 83 year old female with a past medical history significant for COPD, PVD and tobacco abuse who presented to the ED with shortness of breath and hypoxia after being treated as an outpatient with Ceftin and oral steroids. In the ED, she had a chest x-ray that was significant for left lower lobe infiltrate. She had mild mental status changes. She was started on IV Levaquin, supplemental oxygen, nebulizer treatments and IV steroids. She was admitted to the med/surg floor. Her sputum culture eventually grew Pseudomonas. Blood cultures were negative. Her pneumonia improved with a complete course of Levaquin, however, she did have an episode of acute diastolic heart failure and required IV lasix. At that time, she had an echocardiogram which revealed LVEF of 65-70%, with elevated pulmonary pressure in the range of 50-60% in the setting of fluid overload. She would benefit from repeat echocardiogram as an outpatient to re-evaluate her pulmonary pressure when she is euvolemic. She was monitored on telemetry and was found to have episodes of SVT. She was initiated on low dose metoprolol and symbicort was discontinued and she had no episodes of SVT overnight the night prior to discharge. She was initially on IV steroids, she was transitioned to oral steroids prior to her discharge. In regard to her COPD exacerbation, she was smoking up until this acute admission. She has been encouraged to quit smoking. She continues to require oxygen and will be set up with home oxygen. Her oxygen saturation was 84% at rest, she requires 2 lpm of oxygen with ambulation to maintain oxygen saturation of 91%. She has been counseled on the risks of smoking with home oxygen and she verbalizes understanding. She is advised not to resume smoking upon discharge home. As above, she will need to continue to taper steroids as an outpatient. She has worked with PT and has been issued at [facility] for her safety upon discharge. She will be set up with home PT/OT/RN. She will follow up with her PCP as scheduled. Home Meds and New Rx's Prescriptions: New nicotine 14 mg/24 hr Patch 24 Hour 14 mg Transdermal DAILY PRN PRNQty: 30 RF: 0 metoprolol tartrate 25 mg Tablet 12.5 mg PO BID Qty: 15 RF: 0 acidophilus-pectin, citrus 25 million cell -100 mg Tablet 1 cap PO TID Qty: 10 RF: 0 guaifenesin [Mucinex] 600 mg Tablet Extended Release 12hr 600 mg PO BID Qty: 10 RF: 0 prednisone 10 mg tablet 10 mg PO DAILY Qty: 29 RF: 0 Continued Myrbetriq 25 mg tablet extended release 24 hr 25 mg PO DAILY RF: 0 nicotine [Nicoderm CQ] 7 mg/24 hr patch 24 hour 1 patch TD Q24H RF: 0 albuterol sulfate [ProAir HFA] 90 mcg/actuation HFA aerosol inhaler 2 puff Inhalation Q4H PRN RF: 0 baclofen 10 mg tablet 5 mg PO QID PRN (Reason: muscle spasm) Qty: 60 RF: 1 lidocaine 5 % ointment 1 applic Topical Q4H Qty: 37.5 RF: 5 triamcinolone acetonide 0.1 % cream 1 applic Topical BID PRN (Reason: eczema) Qty: 45 RF: 1 omeprazole 20 mg capsule,delayed release(DR/EC) 20 mg PO DAILY Qty: 90 RF: 3 cyanocobalamin (vitamin B-12) 1,000 MCG/1 ML solution 1,000 mcg IM Q 2 MOS. RF: 0 aspirin [Aspirin Low-Strength] 81 MG tablet,chewable 81 mg PO DAILY Qty: 90 RF: 4 Compact Compressor Nebulizer 1 EACH kit 1 ea Miscellaneous Q6H PRN Qty: 1 RF: 0 Aerochamber Plus Flow-Vu 1 EACH spacer 1 ea Miscellaneous BID Qty: 1 RF: 0 gabapentin 100 MG capsule 100 mg PO HS RF: 0 trazodone 50 MG tablet 25 mg PO HS PRNQty: 30 RF: 2 benzonatate 100 MG capsule 1 - 2 cap PO TID PRNQty: 30 RF: 1 gabapentin 800 mg tablet 800 mg PO TID Qty: 270 RF: 3 ipratropium-albuterol 0.5 mg-3 mg(2.5 mg base)/3 mL solution for nebulization 3 ml Inhalation Q6H PRN Qty: 90 RF: 4 Discontinued prednisone 20 mg tablet 40 mg PO DAILY Qty: 10 RF: 0 Discharge Instructions Instructions: Using Oxygen at Home (DC), COPD (Chronic Obstructive Pulmonary Disease) (DC), Community Acquired Pneumonia (DC) Additional Instructions: Taper Prednisone as follows: Starting tomorrow morning, take 4 tablets daily for 2 days, then decrease to 3 tablets daily for 3 days then decrease to Stand Alone Forms: Nursing Discharge Form Referrals: Calvin Rios [Primary Care Provider] - 10/13/18 9:40 am Activity:: Activity as Tolerated Equipment/Supplies:: walker and home oxygen Diet:: As Tolerated Discharge Orders Discharge Orders: Discharge Order (Routine); Ordered 09/29/18 Ordered By: Olga Cordova Other Ambulatory Orders: Complete Blood Count No Diff (Routine) Timeframe: 1 Week Location: Determined by Patient Ordered By: Olga Cordova Exam Narrative Exam Narrative: General: thin, frail elderly female, hard of hearing, sitting up in the chair, in no acute distress, alert and oriented x3, answers questions appropriately. HEENT: EOMI, mucous membranes moist. Neck: Supple, no JVD. Heart: Heart has regular rate and rhythm, no murmur appreciated. Lungs: Respirations even and unlabored, lung sounds diminished throughout with faint expiratory wheezing in bilateral upper lobes. GI: abdomen is soft, nontender, nondistended Extremities: trace pitting edema LLE, no clubbing or cyanosis DS: Data Vitals/I&O Vitals and I&O: Vital Signs Temperature 36.2 C L 09/29/18 07:47 Temperature Source Tympanic 09/29/18 07:47 Pulse 50 L 09/29/18 07:47 Pulse Rhythm Regular 09/29/18 08:50 Respiratory Rate 18 09/29/18 07:47 Respiratory Effort 09/29/18 08:50 Respiratory Depth Normal 09/29/18 08:50 Respiratory Pattern Irregular 09/29/18 08:50 Blood Pressure 106/65 09/29/18 07:47 Blood Pressure Mean 106 09/22/18 20:02 Blood Pressure Position Sitting 09/22/18 17:03 Pulse Oximetry 93 L 09/29/18 07:47 Oxygen Delivery Method Nasal Cannula 09/29/18 07:47 Oxygen Flow Rate 1 09/29/18 07:47 Pain Level 1 09/29/18 10:01 Comment 09/27/18 03:05 Intake & Output 09/28/18 09/29/18 09/29/18 23:59 11:59 23:59 Intake Total 600 / 800 620 / 1110 490 / 1110 Output Total 650 / 950 300 / 300 Balance -50 / -150 320 / 810 490 / 810 Weight 37.7 kg Intake: Oral 600 / 800 620 / 1110 490 / 1110 Output: Urine 500 / 800 300 / 300 Stool 150 / 150 Other: Urine Color Yellow Light Cynthia Urine Appearance Clear Clear Urine Odor None Normal Stool Size Small Stool Characteristics Soft Formed Voiding Methods Bedside Commode Bedside Commode Completed studies during hospitalization [Text1]: 09/22/2018: FRONTAL AND LATERAL CHEST: Comparison is made with 08/23/17. Heart size and pulmonary vasculature appear stable. The lungs are hyperinflated with flattened diaphragms and increased AP diameter consistent with underlying COPD. There are prominent interstitial markings seen in the lungs bilaterally which appear stable and likely reflects chronic interstitial disease. On the lateral view, there is question of an increased opacity in the lung base posteriorly. This may be due to chronic scarring or atelectasis. A developing pneumonia cannot be excluded. Thoracic degenerative changes appear stable. IMPRESSION: Question of a new infiltrate in the lung base posteriorly as appreciated on the lateral view. This may represent atelectasis or scarring. Pneumonia cannot be excluded. Please correlate clinically. 09/25/18: PORTABLE AP CHEST: Comparison 08/23/17 and 09/22/18. The heart size and pulmonary vasculature are stable. The lungs are hyperinflated consistent with underlying COPD. No infiltrates or effusions are identified. Chronic interstitial disease is present which appears stable given the slight changes in technique. The bones appear intact. IMPRESSION: No acute pulmonary process. Date of study: 09/25/2018 Transthoracic Echocardiography M-mode, complete 2D, complete spectral Doppler, and color Doppler *STUDY CONCLUSIONS* Summary: 1. Left ventricle: The cavity size was normal. Systolic function was hyperdynamic. The estimated ejection fraction was 65-70%. Diastolic parameters were normal. There was no evidence of elevated ventricular filling pressure by Doppler parameters. 2. Aortic valve: There was very mild stenosis. Peak velocity (S): 1.6m/sec. Mean gradient (S): 5.8mm Hg. VTI ratio of LVOT to aortic valve: 0.58. Valve area (VTI): 1.3cm^2. 3. Mitral valve: There was mild regurgitation. 4. Right ventricle: The cavity size was normal. Wall thickness was normal. Systolic function was normal. 5. Atrial septum: No defect or patent foramen ovale was identified. 6. Tricuspid valve: There was moderate regurgitation. 7. Pulmonary arteries: Pulmonary systolic pressure was in the range of 50mm Hg to 60mm Hg. 8. Inferior vena cava: The vessel was patent and normal in size. The respirophasic diameter changes were in the normal range (greater than or equal to 50%), consistent with normal central venous pressure. BILATERAL LOWER EXTREMITY ULTRASOUND: The deep veins of both lower extremities were performed. They show normal compression, augmentation and color flow. There is no evidence of a deep venous thrombus in either lower extremity. The saphenofemoral junctions appear unremarkable bilaterally. IMPRESSION: No evidence of a deep venous thrombus in either lower extremity. Labs on day of discharge: Labs from last 24 hours 09/29/18 09/29/18 06:25 06:25 WBC 13.49 H RBC 4.61 Hgb 14.2 Hct 44.8 MCV 97.2 H MCH 30.8 MCHC 31.7 L RDW 13.9 Plt Count 186 MPV 10.9 Immature Gran % 0.4 Neutrophils % 88.8 Lymphocytes % 7.1 Monocytes % 3.6 Eosinophils % 0.0 Basophils % 0.1 Absolute Neutrophils 11.98 H Absolute Lymphocytes 0.96 L Absolute Monocytes 0.49 Absolute Eosinophils 0.00 Absolute Basophils 0.01 Sodium 141 Potassium 4.8 Chloride 104 Carbon Dioxide 34.5 H Anion Gap 2.5 L BUN 29 H Creatinine 0.67 Estimated GFR/1.73 m2 >= 60.00 Glucose 130 H Calcium 8.2 L Magnesium 1.9 PFSH Medical History COPD (chronic obstructive pulmonary disease) Cataract Closed fracture of clavicle Complex regional pain syndrome i of lower limb, bilateral Degenerative disc disease, cervical Headache Hearing loss History of shingles Idiopathic peripheral neuropathy Perforation of tympanic membrane Peripheral neuralgia Peripheral vascular disease Seborrheic keratosis Skin lesion of face Smoker Tinea unguium Surgical History Abdominal hysterectomy (~1975) Appendectomy Extraction of cataract Social History Smoking/Tobacco Use Status: Current every day Tobacco Type: cigarettes Alcohol Intake: never Drug use: Never Substance use type: does not use Do you feel safe at home: Yes Do you feel safe in your relationship?: Yes
--- NOTE | 2018-09-29 15:07 | PDOC.CMDIS ---
LACE Index Scoring Tool - Questions: Length of Stay (in days): 7 - 13 Acuity (Admit via E.D.?): Yes Comorbidities: PVD, Chronic Pulmonary Disease E.D. Visits: 1 - Answers: Total Score: 12 Risk of Readmission: High Risk Care Management Discharge Reason for Hospitalization: CAP, COPD Exacerbation Discharge Plan: Rosemarie will discharge home when ready per MD. She will follow up with her PCP and plan of care as prescribed. She will have new orders for [facility]; RN/PT/OT as well as new home O2 and MOW. CM filled precription for FWW per PT and MD recommendations. Rosemarie will transport home via private vehicle with her daughter, Estefania. Patient/Family Education Needs: Review discharge instructions, discuss Ask Me Three. Services Needed at Discharge: DME Agency ([facility] ), Home Delivered Meals, Home Health Care Services (RN/PT/OT), Homemaking Services, Oxygen Therapy
--- NOTE | 2018-09-29 15:09 | HHF2F_ITS ---
1. Encounter Date and Reason I certify that MIRNA [place] was seen by Olga Cordova on 09/29/18 and that I had a [id number] encounter with this patient that meets the physician face to face encounter requirements. 2. Clinical Findings Supporting Skilled Need and Homebound Status I certify that home health services are medically necessary, include either intermittent usp and/or physical/speech therapy, and that this patient is homebound in that absences from the home require considerable and taxing effort and are infrequent or of short duration, or are attributable to the need to receive medical care. [X] (a) Attached documentation from encounter provides clinical findings supporting skilled need and homebound status (including what assistance patient requires to leave the home). The encounter with the patient was in whole, or in part, for the following medical condition, which is the primary reason for home health care: COMMUNITY-AQUIRED PNEUMONIA, COPD EXACERBATION Long-Term: Needed to monitor medical conditions, monitor oxygen saturation and vital signs, medication administration. Physical Therapy: Needed to continue to increase strength and endurance after hospitalization. OT: Needed to evaluate/assess home environment and make recommendations for equipment as needed. Speech Therapy: Homebound: Unable to leave home without assistance. 3. Certification and Authentication I certify that I composed the above information based on my clinical judgement relating to this patient's medical condition and, if applicable, clinical findings communicated to me by the NPP or inpatient physician who performed the Home Health Referral. All further orders will be obtained through ___Dr. Calvin Rios (Community Based Physician - PCP)
--- NOTE | 2018-09-29 17:32 | PT.INDS ---
Date of service: 09/29/18 PT Notes Inpatient Physical Therapy Discharge Summary Dates: 09/29/2018 Dates of Service: 09/23/18 through 09/29/18 Referring Doctor: Lynne Olivera PT Orders: PT CONSULT: Improve function Precautions: Standard Patient Profile/Admitting Diagnosis: Is received for this 83-year-old female with a history of mild respiratory issues she was being monitored by her primary physician for an acute respiratory illness however after failing with conservative therapy she was admitted for O2 supplementation and monitoring. She was diagnosed with a community-acquired pneumonia. PMHX: Medical History COPD (chronic obstructive pulmonary disease) Cataract Closed fracture of clavicle Complex regional pain syndrome i of lower limb, bilateral Degenerative disc disease, cervical Headache Hearing loss History of shingles Idiopathic peripheral neuropathy Perforation of tympanic membrane Peripheral neuralgia Peripheral vascular disease Seborrheic keratosis Skin lesion of face Smoker Tinea unguium Surgical History Abdominal hysterectomy (~1975) Appendectomy Extraction of cataract Social History/Home Situation: Lives alone in a trailer in [place] Equipment Owned/DME: Patient utilizes a cane at baseline but also has a walker that she utilizes but not that often due to it getting stuck on her rug at times This is a clinical summary of physical therapy services provided on the duration of dates listed above. Subjective: Patient states that she did sleep better last night but continues to feel fatigued. Objective: Patient seen lying in bed. Oxygen saturation fluctuating between 86-91% on 1 L via NC. Mental Status: Alert and oriented x3 Pain: 0 out of 10 ROM: Right Upper Extremity: Within functional limits Left Upper Extremity: Within functional limits Right Lower Extremity: Within functional limits Left Lower Extremity: Within functional limits Strength: Right Upper Extremity: 4Plus out of 5 globally Left Upper Extremity: 4Plus out of 5 globally Right Lower Extremity: 4Plus out of 5 globally Left Lower Extremity: 4Plus out of 5 globally Bed Mobility/Transfers: Applicable as patient was sitting up Sit-stand: Contact-guard assist Stand-sit: Contact-guard assist Gait: Patient ambulated 150 feet x2 with oxygen saturation dipping down to 85% on 2 L for each trial of walk, HR 66-75 bpm. Recovery yielded 113/64 mmHg, 97% on 2 L with 66 bpm. Dyspnea on exertion observed. Balance: Static Sitting: Normal Dynamic Sitting: Good Static Standing: Good Dynamic Standing: Fair Special Tests: Mobility Limitations Standardized Measure [facility] AM-PAC 6 clicks Basic Mobility Inpatient Short Form: Raw Score: 18 CMS Score: 46.58% deficit Goals: Goals X1 week 1. Supine-Sit independent and restored to baseline MET 2. Sit-Supine independent and restored to baseline MET 3. Sit-Stand independent and restored to baseline NOT MET 4. Stand-Sit independent and restored to baseline NOT MET 5. Bed-Chair independent and restored to baseline NOT MET 6. Gait independent to 100 feet with cane and restored to baseline NOT MET DISCHARGE RECOMMENDATIONS: Patient will benefit from home health physical therapy services in order to maximize activity tolerance, evaluate home safety, reduce fall risk, and establish/implement a functional maintenance program. Patient will also benefit from a front wheeled walker for energy conservation and full reduction. TREATMENT CODE/TIME: 32973 50 minutes beginning at 10:08 AM.
--- NOTE | 2018-09-29 17:42 | CMDISCH_ITS ---
LACE Index Scoring Tool - Questions: Length of Stay (in days): 7 - 13 Acuity (Admit via E.D.?): Yes Comorbidities: PVD, Chronic Pulmonary Disease E.D. Visits: 1 - Answers: Total Score: 12 Risk of Readmission: High Risk Care Management Discharge Reason for Hospitalization: CAP, COPD Exacerbation Discharge Plan: Rosemarie will discharge home when ready per MD. She will follow up with her PCP and plan of care as prescribed. She will have new orders for [facility]; RN/PT/OT as well as new home O2 and MOW. CM filled precription for FWW per PT and MD recommendations. Rosemarie will transport home via private vehicle with her daughter, Estefania. Patient/Family Education Needs: Review discharge instructions, discuss Ask Me Three. Services Needed at Discharge: DME Agency ([facility] ), Home Delivered Meals, Home Health Care Services (RN/PT/OT), Homemaking Services, Oxygen Therapy
--- NOTE | 2018-09-29 17:45 | INDS_ITS ---
Date of service: 09/29/18 PT Notes Inpatient Physical Therapy Discharge Summary Dates: 09/29/2018 Dates of Service: 09/23/18 through 09/29/18 Referring Doctor: Lynne Olivera PT Orders: PT CONSULT: Improve function Precautions: Standard Patient Profile/Admitting Diagnosis: Is received for this 83-year-old female with a history of mild respiratory issues she was being monitored by her primary physician for an acute respiratory illness however after failing with conservative therapy she was admitted for O2 supplementation and monitoring. She was diagnosed with a community-acquired pneumonia. PMHX: Medical History COPD (chronic obstructive pulmonary disease) Cataract Closed fracture of clavicle Complex regional pain syndrome i of lower limb, bilateral Degenerative disc disease, cervical Headache Hearing loss History of shingles Idiopathic peripheral neuropathy Perforation of tympanic membrane Peripheral neuralgia Peripheral vascular disease Seborrheic keratosis Skin lesion of face Smoker Tinea unguium Surgical History Abdominal hysterectomy (~1975) Appendectomy Extraction of cataract Social History/Home Situation: Lives alone in a trailer in [place] Equipment Owned/DME: Patient utilizes a cane at baseline but also has a walker that she utilizes but not that often due to it getting stuck on her rug at times This is a clinical summary of physical therapy services provided on the duration of dates listed above. Subjective: Patient states that she did sleep better last night but continues to feel fatigued. Objective: Patient seen lying in bed. Oxygen saturation fluctuating between 86- 91% on 1 L via NC. Mental Status: Alert and oriented x3 Pain: 0 out of 10 ROM: Right Upper Extremity: Within functional limits Left Upper Extremity: Within functional limits Right Lower Extremity: Within functional limits Left Lower Extremity: Within functional limits Strength: Right Upper Extremity: 4Plus out of 5 globally Left Upper Extremity: 4Plus out of 5 globally Right Lower Extremity: 4Plus out of 5 globally Left Lower Extremity: 4Plus out of 5 globally Bed Mobility/Transfers: Applicable as patient was sitting up Sit-stand: Contact-guard assist Stand-sit: Contact-guard assist Gait: Patient ambulated 150 feet x2 with oxygen saturation dipping down to 85% on 2 L for each trial of walk, HR 66-75 bpm. Recovery yielded 113/64 mmHg, 97% on 2 L with 66 bpm. Dyspnea on exertion observed. Balance: Static Sitting: Normal Dynamic Sitting: Good Static Standing: Good Dynamic Standing: Fair Special Tests: Mobility Limitations Standardized Measure [facility] AM-PAC 6 clicks Basic Mobility Inpatient Short Form: Raw Score: 18 CMS Score: 46.58% deficit Goals: Goals X1 week 1. Supine-Sit independent and restored to baseline MET 2. Sit-Supine independent and restored to baseline MET 3. Sit-Stand independent and restored to baseline NOT MET 4. Stand-Sit independent and restored to baseline NOT MET 5. Bed-Chair independent and restored to baseline NOT MET 6. Gait independent to 100 feet with cane and restored to baseline NOT MET DISCHARGE RECOMMENDATIONS: Patient will benefit from home health physical therapy services in order to maximize activity tolerance, evaluate home safety, reduce fall risk, and establish/implement a functional maintenance program. Patient will also benefit from a front wheeled walker for energy conservation and full reduction. TREATMENT CODE/TIME: 03609 50 minutes beginning at 10:08 AM.
--- NOTE | 2018-10-13 06:03 | INDS_ITS ---
Date of service: 10/09/18 PT Notes Inpatient Physical Therapy Discharge Summary Dates: 10/09/2018 Dates of Service: 10/07/2018 and 10/09/2018 Referring Doctor: Olga Cordova NP PT Orders: PT CONSULT: HCAP, COPD, malnourished, lives alone, generalized weakness Precautions: Standard Patient Profile/Admitting Diagnosis: 83-year-old female who presented to ER due to increasing weakness, diagnosed with HCAP in the presence of COPD. She had a recent hospitalization from 09/23/18 - 09/30/18. PMHX: COPD (chronic obstructive pulmonary disease) Cataract Closed fracture of clavicle Complex regional pain syndrome i of lower limb, bilateral Degenerative disc disease, cervical Headache Hearing loss History of shingles Idiopathic peripheral neuropathy Perforation of tympanic membrane Peripheral neuralgia Peripheral vascular disease Seborrheic keratosis Skin lesion of face Smoker Tinea unguium Social History/Home Situation: Lives alone in a trailer in [place] Equipment Owned/DME: Patient utilizes a cane at baseline. She owns a 4WW, which she does not typically utilize. She went home from her most recent hospit alization with supplemental O2 for the first time. This is a clinical summary of skilled PT services provided for the duration of days lisinopril. No changes made in the completion of this documentation. Subjective: NT Objective: NT Mental Status: A and O x3 Pain: NT ROM: Right Upper Extremity: Within functional limits Left Upper Extremity: Within functional limits Right Lower Extremity: Within functional limits Left Lower Extremity: Within functional limits Strength: Right Upper Extremity: Shoulder flexion 3/5 bilaterally. Biceps 4-/5 bilaterally. Triceps 4/5 bilaterally. [employer]ator Apprentice is weak but equal Left Upper Extremity: Shoulder flexion 3/5 bilaterally. Biceps 4-/5 bilaterally. Triceps 4/5 bilaterally. [employer]ricator Apprentice is weak but equal Right Lower Extremity: Hip flexion 4/5. Quads 4/5. Ankle dorsiflexion 4+/5. Left Lower Extremity: Hip flexion 4/5. Quads 4/5. Ankle dorsiflexion 3+/5. Bed Mobility/Transfers: supine to sit: supervision Sit-stand: supervision Stand-sit: supervision Gait: Patient ambulates 30 feet which is the limit of her in room oxygen hose. She utilizes FWW and requires CG with cues for safety. She requires assistance for management of lines. SaO2 begins at 92% at rest, and drops to 89% with ambulation; with cues for breathing, she rapidly resaturates to 91%. Balance: Static Sitting: Normal Dynamic Sitting: Normal Static Standing: Good Dynamic Standing: fair ASSESSMENT: Patient is a 83-year-old female with a history of respiratory issues and recent hospitalization. Admitted with decreasing mobility due to healthcare acquired pneumonia and COPD. Patient presents with the following impairment level findings: 1. Decreased activity tolerance 2. Decreased lower extremity strength 3. Decreased upper extremity strength 4. Decreased safety with short distance ambulation, with need for assistance, particularly for management of lines Impairments are contributing following functional limitations 1. Decreased activity tolerance 2. Unable to tolerate community distance ambulation 3. Decreased safety awareness Goals: Goals X1 week 1. Supine-Sit independent and restored to baseline MET 2. Sit-Supine independent and restored to baseline MET 3. Sit-Stand independent and restored to baseline MET 4. Stand-Sit independent and restored to baseline MET 5. Bed-Chair independent and restored to baseline MET 6. Gait independent to 100 feet with cane and restored to baseline NOT MET DISCHARGE RECOMMENDATIONS: To home once medically stable. No anticipated equipment needs TREATMENT CODE/TIME: N/A Eileen Ribeiro, PT, DPT, CLT [facility]
== END 2018-09-29 16:40 | disposition home health service (06) | DRG 177 ==
LOC: ER 20:33 → MS 20:36
PROVIDERS: Nurse Practitioner Family; Admitting Provider Family Medicine; Emergency Provider Student in an Organized Health Care Education/Training Program; PCP Family Medicine; Visit Provider Internal Medicine
DX: J15.1 Pneumonia due to Pseudomonas (principal); I50.31 Acute diastolic (congestive) heart failure; I47.1 Supraventricular tachycardia; J44.0 Chronic obstructive pulmonary disease with (acute) lower respiratory infection; J44.1 Chronic obstructive pulmonary disease with (acute) exacerbation; J98.11 Atelectasis; I73.9 Peripheral vascular disease, unspecified; R41.82 Altered mental status, unspecified; E87.70 Fluid overload, unspecified; E63.9 Nutritional deficiency, unspecified; K59.00 Constipation, unspecified; R60.0 Localized edema; F17.210 Nicotine dependence, cigarettes, uncomplicated; Z71.3 Dietary counseling and surveillance
CPT/HCPCS: 36415; 80048; 80053; 80061; 83721; 85027; 87040; 87077; 87449; 93005; 93306; 94618; 94640; 96375; 97110; 97162; 97166; 97530; 97535; 99223; 99232; 99233; 99239; 99285; 71045; 71046; 83605; 83735; 83880; 84484; 85025; 85379; 87070; 87186; 87205; 93010; 93970; 94664; J1644; J1940; J1941; J1956; J2930; J3490; J7512; J7613; J7620

== ENCOUNTER 2018-10-01 15:52 | Inpatient (IN) | payer MEDICARE, SELFPAY ==
[2018-10-01] VITALS (8 sets, daily range): BP systolic 80–129; BP diastolic 46–72; PULSE 20–80; RESP 4–27; TEMP 36.5–37.4; O2SAT 93–99
--- NOTE | 2018-10-01 16:28 | ED.GENADUL_ITS ---
Discharge Plan Disposition Patient Disposition: [facility] INPATIENT Condition: Stable Discharge Details Chief Complaint: GenMedical Clinical Impression: HCAP (healthcare-associated pneumonia), COPD (chronic obstructive pulmonary disease) Admit Date/Time: 10/01/18 19:19 Admit Provider: Tim Singer Attending Provider: Tim Singer Primary Care Provider: Calvin Rios ED Provider: Mariann Bowers Discharge Data Discharge Date/Time-TO BE ENTERED AT DEPARTURE: 10/01/18 20:18 Medical Decision Making 83-year-old female with a history of CHF, COPD, peripheral vascular disease, hearing loss and chronic tobacco smoker who recently quit who was discharged from here 2 days ago for pneumonia who presents with worsening symptoms and including dizziness, nausea, shortness of breath and fatigue. Patient is very hard of hearing and difficult to obtain history from. Family states that overall she appears more fatigued and short of breath with exertion. Patient was discharged from here 2 days ago and sent home with oxygen and prednisone and Mucinex. Blood pressure on arrival 80/46. O2 sat 94% on 2 L on arrival. Scattered wheezing on lung exam. Abdomen soft and nontender. No lower extremity edema. Differential diagnosis includes worsening pneumonia, CHF, COPD, electrolyte abnormality, arrhythmia. EKG notes a rate of 76, sinus, no acute ST findings. QTc 423. QRS 84. Will place an IV, labs, urinalysis, chest x-ray and DuoNeb and reassess. 1745 --labs and imaging reviewed. White blood cell count 15. Lactate 1.6. Magnesium 1.6. Troponin negative. BNP 348. Lipase within normal limits. Chest x-ray notes a new right upper lobe pneumonia. Suspect with recent hospital admission this is hospital-acquired. UA pending. Pt states she feels a little better. BP improved from arrival, does not appear c/w sepsis, may be partly dehydration. Will admit overnight for observation. Patient has an allergy to penicillin which causes tongue swelling. 1800 --d/w hospitalist - accepts pt for admission. Would like vancomycin and aztreonam. Medical Records Medical records reviewed: Yes I reviewed the patient's medical records. Imaging Data Radiologic Study: Radiologist's impression: XR Chest, 2 Views EXAM DATE/TIME: 10/01/2018 5:50 PM FINDINGS: Lungs: Hyperexpanded lung robins consistent with COPD Opacities in the right upper lobe may represent atelectasis or pneumonia. Pleural space: Unremarkable. No pleural effusion. No pneumothorax. Heart/Mediastinum: Stable cardiac silhouette Bones/joints: Unremarkable. IMPRESSION: Opacities in the right upper lobe may represent atelectasis or pneumonia. Lab Data Lab results reviewed: Yes I reviewed the patient's lab results. 10/01/18 17:04 Blood Blood Culture - Pending 10/01/18 16:15 Blood Blood Culture - Pending Laboratory Tests Range/Units 10/01/18 10/01/18 10/01/18 16:15 16:15 16:15 WBC (4.4-10.8) k/cumm 15.66 H RBC (4.00-5.20) m/cumm 4.51 Hgb (12.0-15.5) g/dL 14.1 Hct (36.0-46.0) % 44.4 MCV (80-95) fL 98.4 H MCH (27.0-33.0) pg 31.3 MCHC (32.0-36.0) g/dL 31.8 L RDW (11.7-14.6) % 14.2 Plt Count (130-400) x1000/uL 218 MPV (8.0-11.0) fL 10.7 Immature Gran % 1.0 Neutrophils % 94.1 Lymphocytes % 3.1 Monocytes % 1.6 Eosinophils % 0.1 Basophils % 0.1 Absolute Neutrophils (1.2-6.7) k/cumm 14.74 H Absolute Lymphocytes (1.2-3.4) k/cumm 0.49 L Absolute Monocytes (0.11-0.7) k/cumm 0.25 Absolute Eosinophils (0.0-0.7) k/cumm 0.02 Absolute Basophils (0.0-0.2) k/cumm 0.02 Sodium (136-145) mmol/L 139 Potassium (3.5-5.1) mmol/L 5.0 Chloride (98-107) mmol/L 104 Carbon Dioxide (21.0-32.0) mmol/L 30.2 Anion Gap (3-11) mmol/L 4.8 BUN (7-18) mg/dL 26 H Creatinine (0.55-1.02) mg/dL 0.79 Estimated GFR/1.73 m2 (mL/min/1.73m2) >= 60.00 Glucose (70-100) mg/dL 184 H Lactate (0.6-1.4) mmol/l 1.6 H Calcium (8.5-10.1) mg/dL 8.0 L Magnesium (1.8-2.4) mg/dL 1.6 L Total Bilirubin (0.2-1.0) mg/dL 0.3 AST (15-37) U/L 25 ALT (12-78) U/L 107 H Alkaline Phosphatase (46-116) U/L 97 Troponin I (0.00-0.06) ng/mL < 0.02 NT-Pro-B Natriuret Pep ( - 299) pg/mL 348 H Total Protein (6.4-8.2) g/dL 6.1 L Albumin (3.4-5.0) g/dL 2.4 L Lipase (73-393) U/L Range/Units 10/01/18 16:15 WBC (4.4-10.8) k/cumm RBC (4.00-5.20) m/cumm Hgb (12.0-15.5) g/dL Hct (36.0-46.0) % MCV (80-95) fL MCH (27.0-33.0) pg MCHC (32.0-36.0) g/dL RDW (11.7-14.6) % Plt Count (130-400) x1000/uL MPV (8.0-11.0) fL Immature Gran % Neutrophils % Lymphocytes % Monocytes % Eosinophils % Basophils % Absolute Neutrophils (1.2-6.7) k/cumm Absolute Lymphocytes (1.2-3.4) k/cumm Absolute Monocytes (0.11-0.7) k/cumm Absolute Eosinophils (0.0-0.7) k/cumm Absolute Basophils (0.0-0.2) k/cumm Sodium (136-145) mmol/L Potassium (3.5-5.1) mmol/L Chloride (98-107) mmol/L Carbon Dioxide (21.0-32.0) mmol/L Anion Gap (3-11) mmol/L BUN (7-18) mg/dL Creatinine (0.55-1.02) mg/dL Estimated GFR/1.73 m2 (mL/min/1.73m2) Glucose (70-100) mg/dL Lactate (0.6-1.4) mmol/l Calcium (8.5-10.1) mg/dL Magnesium (1.8-2.4) mg/dL Total Bilirubin (0.2-1.0) mg/dL AST (15-37) U/L ALT (12-78) U/L Alkaline Phosphatase (46-116) U/L Troponin I (0.00-0.06) ng/mL NT-Pro-B Natriuret Pep ( - 299) pg/mL Total Protein (6.4-8.2) g/dL Albumin (3.4-5.0) g/dL Lipase (73-393) U/L 362 ECG Data Attestation: I personally reviewed and interpreted this ECG (s) as follows: Interpretation: Rate of 76, sinus, no acute ST elevation or depression. QTc 423. QRS 84. HPI General Mode of arrival: ambulatory . Date/Time Provider Initiated Documentation: 10/01/18 16:01 . Limitations to Documentation: no limitations . Information obtained by: patient . HPI Narrative: Patient is an 83-year-old female with a history of COPD who recently quit smoking after a hospital adm ission for pneumonia when she was discharged 2 days ago who presents for worsening symptoms with fatigue, dizziness, nausea and shortness of breath. Family states that patient did eat breakfast and lunch this afternoon but appears more fatigued. Denies any known fevers. Patient has a history of chronic abdominal pain for years which is worse with movement but denies any worsening of this. She denies any chest pain. Related Data Home Medications Medication Instructions Recorded Confirmed cyanocobalamin (vitamin B-12) 1,000 mcg IM Q 2 MOS. vial 10/27/12 10/01/18 aspirin [Aspirin Low-Strength] 81 mg PO DAILY #90 tab-cap 08/07/13 10/01/18 Compact Compressor Nebulizer #1 kit 03/11/15 10/01/18 Aerochamber Plus Flow-Vu #1 misc 09/16/17 10/01/18 gabapentin 100 mg PO HS 12/28/17 10/01/18 benzonatate 1 - 2 cap PO TID PRN #30 tab-cap 01/02/18 10/01/18 trazodone 25 mg PO HS PRN #30 tab-cap 01/02/18 10/01/18 gabapentin 800 mg tablet 800 mg PO TID #270 tab-cap 05/01/18 10/01/18 ipratropium-albuterol 0.5 mg-3 3 ml INHALATION Q6H PRN #90 ml 05/03/18 10/01/18 mg(2.5 mg base)/3 mL nebulization soln baclofen 10 mg tablet 5 mg PO QID PRN #60 tab 05/17/18 10/01/18 lidocaine 5 % topical ointment 1 applic TOPICAL Q4H #37.5 gm 05/17/18 10/01/18 triamcinolone acetonide 0.1 % 1 applic TOPICAL BID PRN #45 gm 05/17/18 10/01/18 topical cream omeprazole 20 mg capsule,delayed 20 mg PO DAILY #90 tab-cap 07/11/18 10/01/18 release mirabegron ER 25 mg 25 mg PO DAILY tab 09/19/18 10/01/18 tablet,extended release 24 hr nicotine 7 mg/24 hr daily 1 patch TD Q24H each 09/19/18 10/01/18 transdermal patch albuterol sulfate HFA 90 2 puff INHALATION Q4H PRN inhaler 09/22/18 10/01/18 mcg/actuation aerosol inhaler acidophilus-pectin, citrus 1 cap PO TID #10 tab 09/29/18 10/01/18 guaifenesin [Mucinex] 600 mg PO BID #10 tab 09/29/18 10/01/18 metoprolol tartrate 12.5 mg PO BID #15 tab 09/29/18 10/01/18 nicotine 14 mg TRANSDERMAL DAILY PRN PRN 09/29/18 10/01/18 #30 ea prednisone 10 mg PO DAILY #29 tab 09/29/18 10/01/18 Previous Rx's Medication Instructions Recorded Aerochamber Plus Flow-Vu #1 misc 09/16/17 gabapentin 800 mg tablet 800 mg PO TID #270 tab-cap 05/01/18 ipratropium-albuterol 0.5 mg-3 3 ml INHALATION Q6H PRN #90 ml 05/03/18 mg(2.5 mg base)/3 mL nebulization soln baclofen 10 mg tablet 5 mg PO QID PRN #60 tab 05/17/18 lidocaine 5 % topical ointment 1 applic TOPICAL Q4H #37.5 gm 05/17/18 triamcinolone acetonide 0.1 % 1 applic TOPICAL BID PRN #45 gm 05/17/18 topical cream omeprazole 20 mg capsule,delayed 20 mg PO DAILY #90 tab-cap 07/11/18 release acidophilus-pectin, citrus 1 cap PO TID #10 tab 09/29/18 guaifenesin [Mucinex] 600 mg PO BID #10 tab 09/29/18 metoprolol tartrate 12.5 mg PO BID #15 tab 09/29/18 nicotine 14 mg TRANSDERMAL DAILY PRN PRN 09/29/18 #30 ea prednisone 10 mg PO DAILY #29 tab 09/29/18 Allergies Allergy/AdvReac Type Severity Reaction Status Date / Time Penicillins Allergy Intermediate Unverified 10/01/18 16:11 roflumilast [From Daliresp] AdvReac Severe H/, Unverified 10/01/18 16:11 STOMACH PAIN, COLD tramadol AdvReac Severe Nausea, Unverified 10/01/18 16:11 dizziness amitriptyline AdvReac Intermediate DROWSINESS Unverified 10/01/18 16:11 fluticasone propionate AdvReac Intermediate EPISTAXIS Unverified 10/01/18 16:11 [From Flonase] hydrocodone AdvReac Intermediate Nausea Unverified 10/01/18 16:11 lorazepam AdvReac Intermediate decreased Unverified 10/01/18 16:11 mental status imipramine AdvReac Mild INSOMNIA Unverified 10/01/18 16:11 clarithromycin AdvReac Unknown INTOLERANT Unverified 10/01/18 16:11 tetracycline AdvReac Unknown INTOLERANT Unverified 10/01/18 16:11 General Stated Complaint: GenMedical MARCIAL: 3 Review of Systems Review of Systems All systems reviewed & are unremarkable except as noted in HPI and below Constitutional Reports as per HPI, Denies chills, Reports fatigue, Denies fever(s) and Reports weakness Eyes Denies blurry vision ENT Reports dizziness, Denies sore throat and Denies throat swelling Cardiovascular Denies chest pain and Reports dyspnea Respiratory Reports cough and Reports dyspnea Gastrointestinal Denies abdominal pain, Denies diarrhea and Denies vomiting Genitourinary Denies hematuria and Denies dysuria Musculoskeletal Denies back pain and Denies numbness Integumentary/Breasts Denies lesions and Denies rash Neurologic Reports dizziness, Denies focal weakness, Denies numbness and Reports weakness Endocrine Reports fatigue Allergic/Immunologic Denies throat swelling PFSH Medical History Pulmonary hypertension (Acute ~09/25/18) COPD (chronic obstructive pulmonary disease) Cataract Closed fracture of clavicle Complex regional pain syndrome i of lower limb, bilateral Degenerative disc disease, cervical Headache Hearing loss History of shingles Idiopathic peripheral neuropathy Perforation of tympanic membrane Peripheral neuralgia Peripheral vascular disease Seborrheic keratosis Skin lesion of face Smoker Tinea unguium Surgical History Abdominal hysterectomy (~1975) Appendectomy Extraction of cataract Social History Smoking/Tobacco Use Status: Former Tobacco Use Quit Date: 09/24/18 Alcohol Intake: never Drug use: Never Substance use type: does not use Do you feel safe at home: Yes Do you feel safe in your relationship?: Yes Exam Const General: cooperative and healthy appearing Orientation: alert and awake HENMT Head: normal to inspection Ears: hearing grossly normal bilaterally, external ears normal and TM's normal bilaterally General nose exam: external nose normal Face and sinus: normal facial exam Mouth: oral mucosae normal Teeth and gingiva: dentition normal Throat: posterior oropharynx normal Eyes General: appearance normal, both eyes and all related structures Eyelids: eyelids normal EOM: EOM intact bilaterally Neck Neck: normal visual inspection Lymphatic: no lymphadenopathy noted Chest Chest: normal inspection of the chest Resp Effort & Inspection: normal respiratory effort and able to speak in complete sentences Auscultation: wheezes scattered wheezes Cardio Rate: regular rate Rhythm: regular rhythm GI Inspection: normal to inspection Palpation: soft, not firm, no guarding, no hepatosplenomegaly, no masses and nontender Auscultation: normal bowel sounds Back/Spine/Pelvis Back: no CVA tenderness Skin General skin exam: no rashes or lesions noted Neuro General: alert and awake Cognition: normal cognition Speech: speech normal Gait: normal gait Motor: muscle tone normal throughout Sensory Exam: no sensory deficits noted Extrem General: normal to inspection, full ROM, normal capillary refill and no edema Psych Appearance: grossly normal Mental Status: mental status grossly normal Speech and Movement: speech and movement normal Affect: normal affect Thought Process: normal Course Vital Signs Temperature 99.3 F 10/01/18 16:08 Pulse 80 10/01/18 16:08 Respiratory Rate 24 10/01/18 16:08 Blood Pressure 80/46 L 10/01/18 16:08 Pulse Oximetry 94 L 10/01/18 16:08 Temperature 99.3 F 10/01/18 16:08 Pulse 80 10/01/18 16:08 Respiratory Rate 27 H 10/01/18 16:13 Respiratory Effort Non-Labored 10/01/18 16:13 Respiratory Depth Shallow 10/01/18 16:13 Respiratory Pattern Tachypnea 10/01/18 16:13 Blood Pressure 80/46 L 10/01/18 16:08 Pulse Oximetry 94 L 10/01/18 16:08 Oxygen Delivery Method Nasal Cannula 10/01/18 16:08 Oxygen Flow Rate 2 10/01/18 16:08
[2018-10-01 16:45] LABS: Lactate-non-spesis 1.6 mmol/l (0.6-1.4)
[2018-10-01 16:48] LABS: Abs Immature Grans 0.15 k/cumm (0.0-0.09); Absolute Basophil Count 0.02 k/cumm (0.0-0.2); Absolute Eosinophil Count 0.02 k/cumm (0.0-0.7); Absolute Lymphocyte Count 0.49 k/cumm (1.2-3.4); Absolute Monocyte Count 0.25 k/cumm (0.11-0.7); Absolute Neutrophil Count 14.74 k/cumm (1.2-6.7); Basophils % 0.1; Eosinophils % 0.1; HCT 44.4 % (36.0-46.0); HGB 14.1 g/dL (12.0-15.5); Lymphocytes % 3.1; Mean Corp. HGB Concentration 31.8 g/dL (32.0-36.0); Mean Corpuscular Hemoglobin 31.3 pg (27.0-33.0); Mean Corpuscular Volume 98.4 fL (80-95); Mean Platelet Volume 10.7 fL (8.0-11.0); Monocytes % 1.6; Neutrophils % 94.1; Platelet Count 218 x1000/uL (130-400); RBC 4.51 m/cumm (4.00-5.20); RBC Distribution Width 14.2 % (11.7-14.6); White Blood Cell Count 15.66 k/cumm (4.4-10.8)
[2018-10-01] MEDS: Albuterol/Ipratropium 3 ML UPD VIAL UPD ×2 (16:49→17:07)
[2018-10-01 17:09] LABS: ALT 107 U/L (12-78); AST 25 U/L (15-37); Albumin 2.4 g/dL (3.4-5.0); Alkaline Phosphatase 97 U/L (46-116); Anion Gap 4.8 mmol/L (3-11); BUN 26 mg/dL (7-18); Bilirubin, Total 0.3 mg/dL (0.2-1.0); CO2 30.2 mmol/L (21.0-32.0); CREATININE 0.79 mg/dL (0.55-1.02); Chloride 104 mmol/L (98-107); Glucose 184 mg/dL (70-100); Magnesium 1.6 mg/dL (1.8-2.4); NT-proBNP 348 pg/mL; Sodium 139 mmol/L (136-145); Total Protein 6.1 g/dL (6.4-8.2); Troponin I < 0.02 ng/mL (0.00-0.06)
--- NOTE | 2018-10-01 17:52 | DI.RAD_ITS ---
SYMPTOM/DIAGNOSIS: SOB, WEAKNESS, RECENT PNEUMONIA AP AND LATERAL CHEST: The examination is compared with previous examinations including 09/25/18 and 09/22/18. The patient has severe chronic bilateral pulmonary interstitial changes. On today's examination, there is some question of subtle increase in radiodensity over the right upper lung field in comparison with recent previous examinations. No gross pleural effusion is seen. CONCLUSION: Severe COPD and fibrosis. Question new superimposed right upper lobe pneumonia.
[2018-10-01 18:01] LABS: Lipase 362 U/L (73-393)
--- NOTE | 2018-10-01 18:04 | DI.VRAD_ITS ---
EXAM: XR Chest, 2 Views EXAM DATE/TIME: 10/01/2018 5:50 PM CLINICAL HISTORY: 83 years old, female; Signs and symptoms; Shortness of breath TECHNIQUE: Imaging protocol: XR of the chest, 2 views. COMPARISON: CR XR PORTABLE CHEST AP 09/25/2018 10:51 AM FINDINGS: Lungs: Hyperexpanded lung robins consistent with COPD Opacities in the right upper lobe may represent atelectasis or pneumonia. Pleural space: Unremarkable. No pleural effusion. No pneumothorax. Heart/Mediastinum: Stable cardiac silhouette Bones/joints: Unremarkable. IMPRESSION: Opacities in the right upper lobe may represent atelectasis or pneumonia. Dictated and Authenticated by: Ryne Pollard MD. Ordering:KYLIE Waite MD
--- NOTE | 2018-10-01 20:26 | W.PM.HP.N ---
Date of service: 10/01/18 Time of Service: 20:27 Assessment and Plan (1) HCAP (healthcare-associated pneumonia): Current visit: Yes Status: Acute Broad spectrum antibiotics including Vancomycin and Aztreonam. Note patient previously treated w/ 7days of Levaquin and now readmitted two days post discharge w/ new infiltrate. Previous sputum culture was positive for Pseudomonas aeruginosa that was sensitive to Ceftazidime, Cipro, Imipenem, Zosyn and Tobramycin but intermediate to Gentamicin. Given that she has developed new infiltrates I am going to cover her for Staph w/ Vancomycin and use Aztreonam in place of the Levaquin. She should be treated for minimum of 14 days for the Pseudomonas. We will attempt to recheck her sputum cultures although she is having trouble mobilizing this. Prior to discharge there was documentation of clearing of her prior LLL infiltrate on 09/25. I will continue iv corticosteroid, aerosolized bronchodilators on prn basis (I did not put her on scheduled treatment d/t her prior runs of PSVT while on DuoNeb even though she uses ipatroprium/albuterol at home. Also I have ordered her prn immediate acting bronchodilator to be xopenex. She says that she is up to date on her influenza and her pneumonia vaccines. (2) COPD with acute exacerbation: Current visit: No Status: Acute As above. Patient has been counseled on quitting smoking and in fact says that she quit after her most recent hospitalization. History of Present Illness Chief Complaint: generalized weakness, dyspnea, dizziness Narrative: 83 yr old female w/ H COPD, smoker who was discharged from [facility] 09/29/2018 after treatment for Pseudomonas aeruginosa pneumonia (LLL) and COPD exacerbation from 09/22-09/29 with Levaquin 750 mg IV and with radiologic clearance of her infiltrate as of 09/25/2018, and clinical improvement but was still requiring oxygen. Patient was discharged home on supplemental oxygen and steroid taper but not on antibiotics. Patient returned to the ER today because of generalized weakness, fatigue, worsening dypsnea and dizziness and nausea. On arrival she was hypotensive w/ BP 80/46 with HR in 70's, oxygen saturation 94% on 2 LPM oxygen. Patient was given bolus of iv fluids with increase in her BP to 129/72. Workup in the ER included routine labs including CBC (no anemia but increased WBC 15,600 while on prednisone), CMP with elevated BUN 26, creatinine 0.79, elevated glucose 184, elevated lactate 1.6, low calcium 8.0 and low albumin 2.4, low Mg 1.6 AND ELEVATED alt 107. Normal troponin <0.02, elevated but improved BNP 348 (during last admission she was treated w/ lasix for diastolic CHF w/ pro BNP 1947, of note her LVEF 65-70% w/ normal diastolic parameters but moderate PHTN and severe TR; she also had PSVT for which her Symbicort was dc'ed). CXR demonstrated new RUL infiltrate. Blood cultures were obtained and patient was started on Aztreonam and Vancomycin to cover HCAP including Pseudomonas. She has hx of PCN allergy including angioedema. She is now admitted to med/surg for prolonged iv antibiotic treatment for HCAP. Review of Systems Review of Systems All systems reviewed & are unremarkable except as noted in HPI and below PFSH Medical History Pulmonary hypertension (Acute ~09/25/18) COPD (chronic obstructive pulmonary disease) Cataract Closed fracture of clavicle Complex regional pain syndrome i of lower limb, bilateral Degenerative disc disease, cervical Headache Hearing loss History of shingles Idiopathic peripheral neuropathy Perforation of tympanic membrane Peripheral neuralgia Peripheral vascular disease Seborrheic keratosis Skin lesion of face Smoker Tinea unguium Surgical History Abdominal hysterectomy (~1975) Appendectomy Extraction of cataract Social History Smoking/Tobacco Use Status: Former Tobacco Use Quit Date: 09/24/18 Alcohol Intake: never Drug use: Never Substance use type: does not use Do you feel safe at home: Yes Do you feel safe in your relationship?: Yes Meds Home Medications Medication Instructions Recorded Confirmed Type cyanocobalamin (vitamin B-12) 1,000 mcg IM Q 2 MOS. vial 10/27/12 10/01/18 History aspirin [Aspirin Low-Strength] 81 mg PO DAILY #90 tab-cap 08/07/13 10/01/18 History Compact Compressor Nebulizer #1 kit 03/11/15 10/01/18 History Aerochamber Plus Flow-Vu #1 misc 09/16/17 10/01/18 Rx gabapentin 100 mg PO HS 12/28/17 10/01/18 History benzonatate 1 - 2 cap PO TID PRN #30 tab-cap 01/02/18 10/01/18 History trazodone 25 mg PO HS PRN #30 tab-cap 01/02/18 10/01/18 History gabapentin 800 mg tablet 800 mg PO TID #270 tab-cap 05/01/18 10/01/18 Rx ipratropium-albuterol 0.5 mg-3 3 ml INHALATION Q6H PRN #90 ml 05/03/18 10/01/18 Rx mg(2.5 mg base)/3 mL nebulization soln baclofen 10 mg tablet 5 mg PO QID PRN #60 tab 05/17/18 10/01/18 Rx lidocaine 5 % topical ointment 1 applic TOPICAL Q4H #37.5 gm 05/17/18 10/01/18 Rx triamcinolone acetonide 0.1 % 1 applic TOPICAL BID PRN #45 gm 05/17/18 10/01/18 Rx topical cream omeprazole 20 mg capsule,delayed 20 mg PO DAILY #90 tab-cap 07/11/18 10/01/18 Rx release mirabegron ER 25 mg 25 mg PO DAILY tab 09/19/18 10/01/18 History tablet,extended release 24 hr nicotine 7 mg/24 hr daily 1 patch TD Q24H each 09/19/18 10/01/18 History transdermal patch albuterol sulfate HFA 90 2 puff INHALATION Q4H PRN inhaler 09/22/18 10/01/18 History mcg/actuation aerosol inhaler acidophilus-pectin, citrus 1 cap PO TID #10 tab 09/29/18 10/01/18 Rx guaifenesin [Mucinex] 600 mg PO BID #10 tab 09/29/18 10/01/18 Rx metoprolol tartrate 12.5 mg PO BID #15 tab 09/29/18 10/01/18 Rx nicotine 14 mg TRANSDERMAL DAILY PRN PRN 09/29/18 10/01/18 Rx #30 ea prednisone 10 mg PO DAILY #29 tab 09/29/18 10/01/18 Rx Allergies Allergy/AdvReac Type Severity Reaction Status Date / Time Penicillins Allergy Intermediate Unverified 10/01/18 16:11 roflumilast [From Daliresp] AdvReac Severe H/, Unverified 10/01/18 16:11 STOMACH PAIN, COLD tramadol AdvReac Severe Nausea, Unverified 10/01/18 16:11 dizziness amitriptyline AdvReac Intermediate DROWSINESS Unverified 10/01/18 16:11 fluticasone propionate AdvReac Intermediate EPISTAXIS Unverified 10/01/18 16:11 [From Flonase] hydrocodone AdvReac Intermediate Nausea Unverified 10/01/18 16:11 lorazepam AdvReac Intermediate decreased Unverified 10/01/18 16:11 mental status imipramine AdvReac Mild INSOMNIA Unverified 10/01/18 16:11 clarithromycin AdvReac Unknown INTOLERANT Unverified 10/01/18 16:11 tetracycline AdvReac Unknown INTOLERANT Unverified 10/01/18 16:11 Exam Const General: cooperative, well groomed and ill appearing chronically Nutritional Appearance: thin and underweight Orientation: alert, awake and oriented x3 HENMT Head: normal to inspection, no palpable skull fracture, normocephalic and atraumatic Mouth: oral mucosae normal, lip normal, tongue normal, oropharynx normal and moist mucous membranes Teeth and gingiva: dentures Neck Neck: normal visual inspection, full ROM, no lymphadenopathy, trachea midline, supple and no JVD Thyroid: thyroid normal Carotids: normal carotid upstroke Lymphatic: no lymphadenopathy noted Chest Chest: normal inspection of the chest and normal palpation of entire chest wall Resp Effort & Inspection: normal respiratory effort and able to speak in complete sentences Auscultation: bronchovesicular breath sounds on the right and diminished lung sounds bilaterally Cardio Jugular venous pressure: no JVD Palpation: normal PMI Rate: regular rate Rhythm: regular rhythm Heart Sounds: S1 normal, S2 normal and murmur diastolic early, II/ and at the right sternal border Bruits: abdominal aortic bruit Pulses: posterior tibial pulses present bilaterally 1+ and diminished and dorsalis pedis pulses present bilaterally 1+ and diminished GI Inspection: scaphoid Palpation: soft and no hepatosplenomegaly Percussion: normal to percussion Auscultation: normal bowel sounds Skin General skin exam: no rashes or lesions noted Neuro General: alert, awake, oriented x3, moves all extremities and no focal motor deficits Cognition: normal cognition Speech: speech normal Motor: muscle tone normal throughout Sensory Exam: no sensory deficits noted Extrem General: normal to inspection, full ROM, no joint enlargement and no clubbing, cyanosis or edema Psych Appearance: grossly normal Mental Status: mental status grossly normal Speech and Movement: speech and movement normal Mood: congruent mood Affect: normal affect Attitude: cooperative Thought Process: normal Thought Content: normal Insight: insight good Judgment: judgment good Results Imaging Chest x-ray: report reviewed (IMPRESSION: Opacities in the right upper lobe may represent atelectasis or pneumonia. Dictated and Authenticated by: Ryne Pollard MD.) and image reviewed Labs : 10/01/18 16:15 10/01/18 16:15 Laboratory Results - last 24 hr 10/01/18 10/01/18 10/01/18 16:15 16:15 16:15 WBC 15.66 H RBC 4.51 Hgb 14.1 Hct 44.4 MCV 98.4 H MCH 31.3 MCHC 31.8 L RDW 14.2 Plt Count 218 MPV 10.7 Immature Gran % 1.0 Neutrophils % 94.1 Lymphocytes % 3.1 Monocytes % 1.6 Eosinophils % 0.1 Basophils % 0.1 Absolute Neutrophils 14.74 H Absolute Lymphocytes 0.49 L Absolute Monocytes 0.25 Absolute Eosinophils 0.02 Absolute Basophils 0.02 Sodium 139 Potassium 5.0 Chloride 104 Carbon Dioxide 30.2 Anion Gap 4.8 BUN 26 H Creatinine 0.79 Estimated GFR/1.73 m2 >= 60.00 Glucose 184 H Lactate 1.6 H Calcium 8.0 L Magnesium 1.6 L Total Bilirubin 0.3 AST 25 ALT 107 H Alkaline Phosphatase 97 Troponin I < 0.02 NT-Pro-B Natriuret Pep 348 H Total Protein 6.1 L Albumin 2.4 L Lipase 10/01/18 16:15 WBC RBC Hgb Hct MCV MCH MCHC RDW Plt Count MPV Immature Gran % Neutrophils % Lymphocytes % Monocytes % Eosinophils % Basophils % Absolute Neutrophils Absolute Lymphocytes Absolute Monocytes Absolute Eosinophils Absolute Basophils Sodium Potassium Chloride Carbon Dioxide Anion Gap BUN Creatinine Estimated GFR/1.73 m2 Glucose Lactate Calcium Magnesium Total Bilirubin AST ALT Alkaline Phosphatase Troponin I NT-Pro-B Natriuret Pep Total Protein Albumin Lipase 362 Last Vital Signs Temp 37.4 C 10/01/18 16:08 Pulse 20 L 10/01/18 17:17 Resp 18 10/01/18 17:17 BP 80/46 L 10/01/18 16:08 Pulse Ox 99 10/01/18 17:17
[2018-10-01] MEDS: VANCOMYCIN 750 MG in Normal Saline 250 ML 250 MG IV (21:18)
[2018-10-01] MEDS: VANCOMYCIN 750 MG in Normal Saline 250 ML 166.6666 MG IVPB (21:22)
[2018-10-01] MEDS: methylPREDNISolone SUCC 125 MG VIAL IVP (22:22)
[2018-10-01] MEDS: Enoxaparin 30 MG/0.3 ML SYR SC (22:22)
[2018-10-01] MEDS: Benzonatate 200 MG CAP PO (22:22)
[2018-10-01] MEDS: MAGNESIUM SULFATE 2 GM/50 ML BAG IVPB (22:23)
[2018-10-01] MEDS: Normal Saline Flush 10 ML SYR IVP (22:24)
[2018-10-01] MEDS: guaiFENesin 600 MG TABCR 1200 MG PO (22:27)
[2018-10-01 23:03] LABS: Lactate 1.9 mmol/L (0.6-1.4)
[2018-10-01 23:14] LABS: Bilirubin Negative (Negative); Blood Negative (Negative); Clarity Clear; Glucose Negative (Negative); Ketones Negative (Negative); Leukocyte Esterase Trace (Negative); Nitrite Negative (Negative); Specific Gravity 1.025 (1.005-1.025); Urobilinogen 0.2 EU/dL (Up TO 0.2)
[2018-10-01 23:27] LABS: Bacteria Few HPF (Negative); Casts Negative LPF (Negative); Crystals Negative HPF (Negative); Epithelial Cells Moderate HPF (Negative); Mucus Negative (Negative); Other Cells Negative (Negative)
[2018-10-01 23:28] LABS: C & S Indicated? No/Sq. Contamination
--- NOTE | 2018-10-01 23:58 | NUR.NOTE ---
Patient is an admission from the Emergency Room this evening. She was discharged 2 days prior. But started feeling sick and symptoms worsened since today. She complaint of nausea, fatigue, dizziness, and SOB while at home. She was brought by her daughter to the subsequently to the hospital for treatment. on assessment elderly female in not apparent respiratory or painful distress at this time. She is using 2L oxygen via nasal cannula. Lungs sounds diminishes, fine rhonchi heard to the right posterior lobe. No evidence of increased work of breathing noted at this time. Abdomen soft flat and none tender when light palpated at this time. patient made comfortable in bed and oriented to room.
[2018-10-02] VITALS (7 sets, daily range): BP systolic 118–128; BP diastolic 68–76; PULSE 69–71; RESP 8–20; TEMP 36.2–36.7; O2SAT 86–96
[2018-10-02] MEDS: Water,Injection,Bacteriostatic 30 ML VIAL (05:47)
[2018-10-02] MEDS: Normal Saline 100 ML 200 ML (05:47)
[2018-10-02] MEDS: methylPREDNISolone SUCC 40 MG VIAL 80 MG IVP ×2 (05:48→13:18)
[2018-10-02] MEDS: Normal Saline Flush 10 ML SYR IVP ×4 (05:49→17:12)
[2018-10-02] MEDS: Acetaminophen 325 MG TAB PO ×3 (06:05→21:48)
[2018-10-02 07:45] LABS: Abs Immature Grans 0.09 k/cumm (0.0-0.09); Absolute Basophil Count 0.01 k/cumm (0.0-0.2); Absolute Lymphocyte Count 0.55 k/cumm (1.2-3.4); Absolute Monocyte Count 0.19 k/cumm (0.11-0.7); Basophils % 0.1; HCT 40.3 % (36.0-46.0); HGB 12.9 g/dL (12.0-15.5); Immature Grans % 0.8; Lymphocytes % 4.7; Mean Corpuscular Hemoglobin 31.4 pg (27.0-33.0); Mean Corpuscular Volume 98.1 fL (80-95); Mean Platelet Volume 10.2 fL (8.0-11.0); Monocytes % 1.6; Neutrophils % 92.8; Platelet Count 198 x1000/uL (130-400); RBC 4.11 m/cumm (4.00-5.20); RBC Distribution Width 14.2 % (11.7-14.6)
[2018-10-02 07:52] LABS: Absolute Neutrophil Count 10.95 k/cumm (1.2-6.7)
[2018-10-02 07:59] LABS: Anion Gap 4.3 mmol/L (3-11); BUN 19 mg/dL (7-18); CO2 30.7 mmol/L (21.0-32.0); CREATININE 0.69 mg/dL (0.55-1.02); Calcium 8.2 mg/dL (8.5-10.1); Chloride 104 mmol/L (98-107); Glucose 153 mg/dL (70-100); Potassium 4.6 mmol/L (3.5-5.1); Sodium 139 mmol/L (136-145)
--- NOTE | 2018-10-02 08:05 | PDOC.CMIN ---
Care Management Initial Assess REASON FOR HOSPITALIZATION:: HCAP PAST MEDICAL HISTORY/PAST SURGICAL HISTORY:: COPD, Cataract, Closed fracture of clavicle, Complex regional pain syndrome of lower limb, bilateral, Degenerative disc disease, cervical, Headache, Hearing loss, History of shingles, Idiopathic peripheral neuropathy, Perforation of tympanic membrane, Peripheral neuralgia, Peripheral vascular disease, Seborrheic keratosis, Skin lesion of face, Smoker, Tinea unguium. Abdominal hysterectomy, Appendectomy, Extraction of cataract PREVIOUS FUNCTIONAL STATUS/SOCIAL/FAMILY SUPPORTS:: Daniel resides in her own trailor at [employer] in [place], [place] with her big orange cat Rommel. She has been for 23 years. She has a son, Bucky who lives in [place], [place] and daughter, Estefania who lives in [facility] and who Rosemarie reports is quite supportive. 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 She has her own car and drove to the doctors office which she shares her provider was not impressed with she reports calling Estefania to drive her to the hospital. Rosemarie reports she has been struggling with not feeling well for the last few monthes and has been able to do less and less with her ADLs. CURRENT FUNCTIONAL STATUS:: Rosemarie was sitting up in her chair when CM met with her. She was pleasant in interaction and forthcoming with information. She reported ongoing weakness and dizziness were the primary reasons for her presenting to [facility] ED yesterday. ADVANCE DIRECTIVES:: None on file at [facility]. Has patient been provided with information about the portal?: Yes Did the patient sign up for the portal?: No CODE STATUS:: DNR/DNI INSURANCE COVERAGE / FINANCIAL ISSUES:: Medicare CURRENT HOME/COMMUNITY SERVICES/EQUIPMENT:: Rosemarie just discharged home before the weekend with new VNA orders, FWW, home O2 PRIMARY CARE PHYSICIAN:: Calvin Rios POTENTIAL DISCHARGE NEEDS:: Resume community based supports. Follow up appointments with PCP. PATIENT/FAMILY EDUCATION NEEDS:: Review of discharge instructions, discuss Ask Me Three. ANTICIPATED BARRIERS TO DISCHARGE:: None identified at this time. TRANSPORTATION:: Via private vehicle with family. PLAN:: Rosemarie will discharge home when ready per MD. CM will continue to follow. Readmission - Within the Past 30 Days Yes or No: Y - Date of First Admission Date of 1st Admission: 09/22/18 - Date of this Admission Date of Admission: 10/01/18 - Office Visit Since 1st Admission Have you seen your PCP in the office since discharge?: No - If the patient had a VNA ordered Did the patient have a VNA order?: Yes Did you call the VNA before you came?: No Did the VNA tell you to come to the hospital?: No Do you know if the VNA called your physician?: No - Assessment for Readmission Summary of readmission circumstances, based upon interviews: Rosemarie left Tuesday with new referrals for services upon discharge including [facility] RN/PT/OT, MOW, New home O2, [facility] Mod, FWW, [facility]. She reports new oxygen was delivered Tuesday night and [facility] services began on Tuesday. She reports re-presenting to [facility] due to weakness and feeling dizzy. She is now being treated for HCAP.
--- NOTE | 2018-10-02 08:19 | INITIAL_ITS ---
Care Management Initial Assess REASON FOR HOSPITALIZATION:: HCAP PAST MEDICAL HISTORY/PAST SURGICAL HISTORY:: COPD, Cataract, Closed fracture of clavicle, Complex regional pain syndrome of lower limb, bilateral, Degenerative disc disease, cervical, Headache, Hearing loss, History of shingles, Idiopathic peripheral neuropathy, Perforation of tympanic membrane, Peripheral neuralgia, Peripheral vascular disease, Seborrheic keratosis, Skin lesion of face, Smoker, Tinea unguium. Abdominal hysterectomy, Appendectomy, Extraction of cataract PREVIOUS FUNCTIONAL STATUS/SOCIAL/FAMILY SUPPORTS:: Daniel resides in her own trailor at [employer] [facility] in [place], [place] with her big orange cat Rommel. She has been for 23 years. She has a son, Bucky who lives in [place], [place] and daughter, Estefania who lives in [facility] and who Rosemarie reports is quite supportive. 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 She has her own car and drove to the doctors office which she shares her provider was not impressed with she reports calling Estefania to drive her to the hospital. Rosemarie reports she has been struggling with not feeling well for the last few monthes and has been able to do less and less with her ADLs. CURRENT FUNCTIONAL STATUS:: Rosemarie was sitting up in her chair when CM met with her. She was pleasant in interaction and forthcoming with information. She reported ongoing weakness and dizziness were the primary reasons for her pres enting to [facility] ED yesterday. ADVANCE DIRECTIVES:: None on file at [facility]. Has patient been provided with information about the portal?: Yes Did the patient sign up for the portal?: No CODE STATUS:: DNR/DNI INSURANCE COVERAGE / FINANCIAL ISSUES:: Medicare CURRENT HOME/COMMUNITY SERVICES/EQUIPMENT:: Rosemarie just discharged home before the weekend with new VNA orders, FWW, home O2 PRIMARY CARE PHYSICIAN:: Calvin Rios POTENTIAL DISCHARGE NEEDS:: Resume community based supports. Follow up appointments with PCP. PATIENT/FAMILY EDUCATION NEEDS:: Review of discharge instructions, discuss Ask Me Three. ANTICIPATED BARRIERS TO DISCHARGE:: None identified at this time. TRANSPORTATION:: Via private vehicle with family. PLAN:: Rosemarie will discharge home when ready per MD. CM will continue to follow. Readmission - Within the Past 30 Days Yes or No: Y - Date of First Admission Date of 1st Admission: 09/22/18 - Date of this Admission Date of Admission: 10/01/18 - Office Visit Since 1st Admission Have you seen your PCP in the office since discharge?: No - If the patient had a VNA ordered Did the patient have a VNA order?: Yes Did you call the VNA before you came?: No Did the VNA tell you to come to the hospital?: No Do you know if the VNA called your physician?: No - Assessment for Readmission Summary of readmission circumstances, based upon interviews: Rosemarie left Tuesday with new referrals for services upon discharge including [facility] RN/PT/OT, MOW, New home O2, [facility] Mod, FWW, [facility]. She reports new oxygen was delivered Tuesday night and [facility] services began on Tuesday. She reports re-presenting to [facility] due to weakness and feeling dizzy. She is now being treated for HCAP.
[2018-10-02] MEDS: guaiFENesin 600 MG TABCR 1200 MG PO ×2 (08:26→19:50)
[2018-10-02] MEDS: Aspirin 81 MG CHEW PO (08:26)
[2018-10-02] MEDS: Benzonatate 200 MG CAP PO ×3 (08:26→19:50)
[2018-10-02] MEDS: Metoprolol 25 MG TAB 12.5 MG PO ×2 (08:26→19:50)
[2018-10-02] MEDS: Lactobacillus Acidophilus CAP 1 CAP PO ×3 (08:26→19:50)
[2018-10-02] MEDS: Mirabegron 25 MG TABCR PO (08:26)
[2018-10-02] MEDS: Gabapentin 800 MG TAB PO ×3 (08:27→19:50)
[2018-10-02] MEDS: Omeprazole 20 MG CAPCR PO (08:27)
[2018-10-02] MEDS: levoFLOXacin 750 MG/150 ML BAG 100 MG IVPB (11:02)
[2018-10-02 12:19] LABS: Magnesium 2.2 mg/dL (1.8-2.4)
[2018-10-02] MEDS: VANCOMYCIN 500 MG in Normal Saline 100 ML 100 MG IV ×2 (12:33→21:48)
[2018-10-02] MEDS: Normal Saline 250 ML 500 ML IV (12:53)
[2018-10-02] MEDS: Normal Saline 1,000 ML 75 ML IV (12:55)
[2018-10-02 13:34] LABS: NT-proBNP 486 pg/mL
--- NOTE | 2018-10-02 13:44 | W.PM.PROGNOT ---
Date of Service Date of service: 10/02/18 Time of Service: 13:53 Assessment and Plan (1) HCAP (healthcare-associated pneumonia): Current visit: Yes Status: Acute Started on vanco, azotrenam after being discharged 2 days [employer] and returning with worsening symptoms. She received a 7 day dose of levaquin on last admission with +psuedmonas growing in her sputum. She will be on broad spectrum antibiotics with additional psuedamonas coverage. Updraft, xoponex given her SVT runs, steroids. Lactate today was 2.0 she was given a 500 bolus with NS started at 75 an hour while monitoring for fluid overload if she appears overloaded consider lasix her renal function is within normal limits. Blood cultures pending and will adjust antibiotics accordingly. (2) COPD with acute exacerbation: Start date: 10/02/18 Start time: 13:50 Current visit: No Status: Acute As above. Recently discharged home from hospital on oxygen, for severe exacerbation. Requiring oxygen 2 lpm at this time. (3) DVT prophylaxis: Start date: 10/02/18 Start time: 13:51 Current visit: No Status: Acute enoxaparin renally dosed. (4) Malnourished: Start date: 10/02/18 Start time: 13:52 Current visit: No Status: Acute added magic cups to every tray for extra calories. BMI 15.8 (5) Peripheral vascular disease: Start date: 10/02/18 Start time: 13:52 Current visit: No Status: Chronic Chronic tobacco abuse. continue neurontin for PVD. (6) Back pain: Start date: 10/02/18 Start time: 13:53 Current visit: Yes Status: Acute appears to be chronic in nature. States heat pack usually works. Ordered lidoderm patch with heat for comfort. Subjective Patient reports: no new complaints Interval history since last seen: Mrs. Burgess was admitted from [facility] emergency department last night after being discharged home with oxygen for CAP. On discharge her CXR showed no acute process. She returns to [facility] emergency department with worsening SOB and admitted after cxr revealed new superimposed right upper lobe pneumonia; she was admitted with HCAP and COPD exacerbation. When she was discharged she was oxygen dependent. She is requiring oxygen 2lpm at this time and will continue to monitor. She was started on vanco, aztronem and levaquin, her sputum grew pseudomonas on last admission. She is receiving double coverage for pseudomonas continue with steroids, nebs, updrafts, xoponex due to PSVT last admission. Sputum culture pending and blood cultures pending at this time. She did c/o of some back pain, which she states is chronic; a lidoderm patch was ordered with urmila lópez as she states the heat helps. Her lactate on admission was 1.9 recheck this am was 2.0. 500 ns bolus over 2 hours with NS@ 75 was started. Monitor for signs of volume overload. She did have an echo last admission with EF 60-75%, increased pulmonary artery pressure 50-60mm, if she appears symptomatic will dc IVF and consider a dose of lasix. She denies CP, SOB, n/v/d. Exam Const General: cooperative, well groomed and ill appearing chronically Nutritional Appearance: thin and underweight Orientation: alert, awake and oriented x3 HENMT Head: normal to inspection, no palpable skull fracture, normocephalic and atraumatic Mouth: oral mucosae normal, lip normal, tongue normal, oropharynx normal and moist mucous membranes Teeth and gingiva: dentures Neck Neck: normal visual inspection, full ROM, no lymphadenopathy, trachea midline, supple and no JVD Thyroid: thyroid normal Carotids: normal carotid upstroke Lymphatic: no lymphadenopathy noted Chest Chest: normal inspection of the chest and normal palpation of entire chest wall Resp Effort & Inspection: normal respiratory effort, able to speak in complete sentences and cough Auscultation: bronchovesicular breath sounds on the right and diminished lung sounds bilaterally Cardio Jugular venous pressure: no JVD Palpation: normal PMI Rate: regular rate Rhythm: regular rhythm Heart Sounds: S1 normal, S2 normal and murmur diastolic Bruits: abdominal aortic bruit Pulses: posterior tibial pulses present bilaterally and dorsalis pedis pulses present bilaterally GI Inspection: scaphoid Palpation: soft and no hepatosplenomegaly Percussion: normal to percussion Auscultation: normal bowel sounds Skin General skin exam: no rashes or lesions noted Neuro General: alert, awake, oriented x3, moves all extremities and no focal motor deficits Cognition: normal cognition Speech: speech normal Motor: muscle tone normal throughout Sensory Exam: no sensory deficits noted Extrem General: normal to inspection, full ROM, no joint enlargement and no clubbing, cyanosis or edema Psych Appearance: grossly normal Mental Status: mental status grossly normal Speech and Movement: speech and movement normal Mood: congruent mood Affect: normal affect Attitude: cooperative Thought Process: normal Thought Content: normal Insight: insight good Judgment: judgment good Objective Objective Clinical Data: Abnormal lab results 10/01/18 10/01/18 10/01/18 Range/Units 16:15 16:15 16:15 WBC 15.66 H (4.4-10.8) k/cumm MCV 98.4 H (80-95) fL MCHC 31.8 L (32.0-36.0) g/dL Absolute Neutrophils 14.74 H (1.2-6.7) k/cumm Absolute Lymphocytes 0.49 L (1.2-3.4) k/cumm BUN 26 H (7-18) mg/dL Glucose 184 H (70-100) mg/dL Lactate 1.6 H (0.6-1.4) mmol/l Calcium 8.0 L (8.5-10.1) mg/dL Magnesium 1.6 L (1.8-2.4) mg/dL ALT 107 H (12-78) U/L NT-Pro-B Natriuret Pep 348 H ( - 299) pg/mL Total Protein 6.1 L (6.4-8.2) g/dL Albumin 2.4 L (3.4-5.0) g/dL Ur Leukocyte Esterase (Negative) Urine RBC (0-2) 10/01/18 10/01/18 10/02/18 Range/Units 22:56 22:56 07:30 WBC (4.4-10.8) k/cumm MCV (80-95) fL MCHC (32.0-36.0) g/dL Absolute Neutrophils (1.2-6.7) k/cumm Absolute Lymphocytes (1.2-3.4) k/cumm BUN 19 H D (7-18) mg/dL Glucose 153 H (70-100) mg/dL Lactate 1.9 H (0.6-1.4) mmol/l Calcium 8.2 L (8.5-10.1) mg/dL Magnesium (1.8-2.4) mg/dL ALT (12-78) U/L NT-Pro-B Natriuret Pep ( - 299) pg/mL Total Protein (6.4-8.2) g/dL Albumin (3.4-5.0) g/dL Ur Leukocyte Esterase Trace H (Negative) Urine RBC 3-5 H (0-2) 10/02/18 10/02/18 10/02/18 Range/Units 07:30 10:48 13:05 WBC 11.80 H (4.4-10.8) k/cumm MCV 98.1 H (80-95) fL MCHC (32.0-36.0) g/dL Absolute Neutrophils 10.95 H (1.2-6.7) k/cumm Absolute Lymphocytes 0.55 L (1.2-3.4) k/cumm BUN (7-18) mg/dL Glucose (70-100) mg/dL Lactate 2.0 H (0.6-1.4) mmol/l Calcium (8.5-10.1) mg/dL Magnesium (1.8-2.4) mg/dL ALT (12-78) U/L NT-Pro-B Natriuret Pep 486 H ( - 299) pg/mL Total Protein (6.4-8.2) g/dL Albumin (3.4-5.0) g/dL Ur Leukocyte Esterase (Negative) Urine RBC (0-2) Vital Signs Temperature 36.3 C L 10/02/18 06:55 Temperature Source Tympanic 10/02/18 06:55 Pulse 71 10/02/18 06:55 Pulse Rhythm Regular 10/02/18 09:34 Respiratory Rate 20 10/02/18 06:55 Respiratory Effort Non-Labored 10/02/18 09:34 Respiratory Depth Normal 10/02/18 09:34 Respiratory Pattern Normal 10/02/18 09:34 Blood Pressure 118/69 10/02/18 06:55 Pulse Oximetry 93 L 10/02/18 08:05 Oxygen Delivery Method Nasal Cannula 10/02/18 08:05 Oxygen Flow Rate 1 10/02/18 08:05 Pain Level 0 10/02/18 06:55 Intake & Output 10/01/18 10/02/18 10/02/18 23:59 11:59 23:59 Intake Total 500 / 500 530 / 530 Output Total 250 / 250 650 / 800 150 / 800 Balance 250 / 250 -120 / -270 -150 / -270 Weight 39.1 kg 39.1 kg Intake: IV 500 / 500 290 / 290 Oral 240 / 240 Output: Urine 250 / 250 650 / 800 150 / 800 Other: Urine Color Pale Yellow Yellow Yellow Urine Appearance Clear Clear Clear Urine Odor None None Comment passes urine freely without difficulties Stool Size Moderate Stool Characteristics Hard Brown Voiding Methods Bedside Commode Laboratory Results WBC 11.80 k/cumm (4.4-10.8) H 10/02/18 07:30 RBC 4.11 m/cumm (4.00-5.20) 10/02/18 07:30 Hgb 12.9 g/dL (12.0-15.5) 10/02/18 07:30 Hct 40.3 % (36.0-46.0) 10/02/18 07:30 MCV 98.1 fL (80-95) H 10/02/18 07:30 MCH 31.4 pg (27.0-33.0) 10/02/18 07:30 MCHC 32.0 g/dL (32.0-36.0) 10/02/18 07:30 RDW 14.2 % (11.7-14.6) 10/02/18 07:30 Plt Count 198 x1000/uL (130-400) 10/02/18 07:30 MPV 10.2 fL (8.0-11.0) 10/02/18 07:30 Immature Gran % 0.8 10/02/18 07:30 Neutrophils % 92.8 10/02/18 07:30 Lymphocytes % 4.7 10/02/18 07:30 Monocytes % 1.6 10/02/18 07:30 Eosinophils % 0.0 10/02/18 07:30 Basophils % 0.1 10/02/18 07:30 Absolute Neutrophils 10.95 k/cumm (1.2-6.7) H 10/02/18 07:30 Absolute Lymphocytes 0.55 k/cumm (1.2-3.4) L 10/02/18 07:30 Absolute Monocytes 0.19 k/cumm (0.11-0.7) 10/02/18 07:30 Absolute Eosinophils 0.00 k/cumm (0.0-0.7) 10/02/18 07:30 Absolute Basophils 0.01 k/cumm (0.0-0.2) 10/02/18 07:30 Sodium 139 mmol/L (136-145) 10/02/18 07:30 Potassium 4.6 mmol/L (3.5-5.1) 10/02/18 07:30 Chloride 104 mmol/L (98-107) 10/02/18 07:30 Carbon Dioxide 30.7 mmol/L (21.0-32.0) 10/02/18 07:30 Anion Gap 4.3 mmol/L (3-11) 10/02/18 07:30 BUN 19 mg/dL (7-18) H D 10/02/18 07:30 Creatinine 0.69 mg/dL (0.55-1.02) 10/02/18 07:30 Estimated GFR/1.73 m2 >= 60.00 (mL/min/1.73m2) 10/02/18 07:30 Glucose 153 mg/dL (70-100) H 10/02/18 07:30 Lactate 2.0 mmol/l (0.6-1.4) H 10/02/18 10:48 Calcium 8.2 mg/dL (8.5-10.1) L 10/02/18 07:30 Magnesium 2.2 mg/dL (1.8-2.4) 10/02/18 07:30 Total Bilirubin 0.3 mg/dL (0.2-1.0) 10/01/18 16:15 AST 25 U/L (15-37) 10/01/18 16:15 ALT 107 U/L (12-78) H 10/01/18 16:15 Alkaline Phosphatase 97 U/L (46-116) 10/01/18 16:15 Troponin I < 0.02 ng/mL (0.00-0.06) 10/01/18 16:15 NT-Pro-B Natriuret Pep 486 pg/mL (-299) H 10/02/18 13:05 Total Protein 6.1 g/dL (6.4-8.2) L 10/01/18 16:15 Albumin 2.4 g/dL (3.4-5.0) L 10/01/18 16:15 Lipase 362 U/L (73-393) 10/01/18 16:15 Urine Color Yellow (Yellow) 10/01/18 22:56 Urine Clarity Clear 10/01/18 22:56 Urine pH 6.0 (5-8) 10/01/18 22:56 Ur Specific [place] 1.025 (1.005-1.025) 10/01/18 22:56 Urine Protein Negative mg/dL (Negative) 10/01/18 22:56 Urine Ketones Negative mg/dL (Negative) 10/01/18 22:56 Urine Blood Negative (Negative) 10/01/18 22:56 Urine Nitrite Negative (Negative) 10/01/18 22:56 Urine Bilirubin Negative (Negative) 10/01/18 22:56 Urine Urobilinogen 0.2 EU/dL (Up TO 0.2) 10/01/18 22:56 Ur Leukocyte Esterase Trace (Negative) H 10/01/18 22:56 Urine RBC 3-5 (0-2) H 10/01/18 22:56 Urine WBC 5-10 HPF (0-5) 10/01/18 22:56 Ur Epithelial Cells Moderate HPF (Negative) 10/01/18 22:56 Urine Crystals Negative HPF (Negative) 10/01/18 22:56 Urine Bacteria Few HPF (Negative) 10/01/18 22:56 Urine Casts Negative LPF (Negative) 10/01/18 22:56 Urine Mucus Negative (Negative) 10/01/18 22:56 Urine Other Negative (Negative) 10/01/18 22:56 Ur Culture Indicated? No/sq. contamination 10/01/18 22:56 Urine Glucose Negative mg/dL (Negative) 10/01/18 22:56
--- NOTE | 2018-10-02 15:08 | NS.NUTBLAN_ITS ---
Date of service: 10/02/18 Time of Service: 14:53 Nutritional Consult ASSESSMENT: Ms. Burgess returns with pneumonia and her COPD complications. Her weight is stable at 39.1 kg. Her BMI is 15.8 kg/m2 which is consistent with underweight. She has obvious loss of muscle mass and fat mass. She continues to have an excellent appetite eating 75-100% of large meals and eating foods from home. She is ordered for heart healthy nutrition therapy with magic cups. She tried the magic cups on her last admission and she refused to eat them. She reported that she did not like them at all. She states she will drink [place] Instant Breakfast. Her estimated energy needs are 1550 kcal/day (40 kcal/kg/day) for anabolism as well as her increased needs with COPD. Her estimated protein needs are 60 grams per day (1.5g/kg/day). NUTRITIONAL DIAGNOSIS: Moderate malnutrition in the setting of chronic illness based on evidenced of fat and muscle wasting using AND/ASPEN guidelines for diagnosing malnutrition. INTERVENTION: Would recommend limiting Ms. Burgess's dietary restrictions to perhaps just low sodium so that we are not restricted with what we can send her. She currently is taking in at least 100% of her estimated calorie and protein needs with just her meals, however we will send her oral nutritional supplements that she will eat or drink such as [place] Instant Breakfast as well. MONITORING AND EVALUATION: 1. Will monitor her progress, weight, and PO. 2. Will evaluate nutrition care plan ongoing and adjust as needed. Time Spent in Nutritional Counseling and Treatment: SHIKHA
--- NOTE | 2018-10-02 15:58 | CHAPLAIN ---
Rosemarie had two visitors with her, one was he son, when stopped in. Rosemarie was sitting up in her chair. She sounded discouraged to be back in the hospital so quickly, but her female visitor said you're better off here. Rosemarie had some cans of coke that her son brought her and I put her stickers on them and put them in the refrigerator. I will continue to visit.
[2018-10-02] MEDS: Baclofen 10 MG TAB 5 MG PO ×2 (16:03→21:49)
[2018-10-02] MEDS: Lidocaine 5% Patch 1 PATCH TP (17:12)
[2018-10-02] MEDS: Mylanta Suspension 30 ML CUP PO (17:15)
[2018-10-02] MEDS: Albuterol/Ipratropium 3 ML UPD VIAL UPD (17:58)
[2018-10-02] MEDS: Enoxaparin 30 MG/0.3 ML SYR SC (21:48)
[2018-10-03 01:24] LABS: Lactate 1.5 mmol/L (0.6-1.4)
[2018-10-03 01:34] VITALS: BP 105/56; PULSE 65; RESP 19; TEMP 36.4; O2SAT 97
[2018-10-03] MEDS: methylPREDNISolone SUCC 125 MG VIAL 80 MG IVP ×2 (01:42→14:35)
[2018-10-03] MEDS: Normal Saline 1,000 ML 75 ML IV (05:36)
[2018-10-03] MEDS: Lidocaine Patch Removal 1 EACH TD (06:36)
[2018-10-03 07:30] VITALS: BP 130/74; PULSE 58; RESP 19; TEMP 36.9; O2SAT 95
[2018-10-03 07:44] LABS: Abs Immature Grans 0.11 k/cumm (0.0-0.09); Absolute Monocyte Count 0.39 k/cumm (0.11-0.7); Basophils % 0.1; Eosinophils % 0.2; HCT 38.7 % (36.0-46.0); HGB 12.4 g/dL (12.0-15.5); Immature Grans % 0.6; Lymphocytes % 3.3; Mean Corpuscular Hemoglobin 31.6 pg (27.0-33.0); Mean Corpuscular Volume 98.5 fL (80-95); Mean Platelet Volume 10.3 fL (8.0-11.0); Monocytes % 2.2; Neutrophils % 93.6; Platelet Count 232 x1000/uL (130-400); RBC 3.93 m/cumm (4.00-5.20); RBC Distribution Width 14.3 % (11.7-14.6); White Blood Cell Count 17.53 k/cumm (4.4-10.8)
[2018-10-03 07:50] LABS: Absolute Basophil Count 0.02 k/cumm (0.0-0.2); Absolute Eosinophil Count 0.04 k/cumm (0.0-0.7); Absolute Lymphocyte Count 0.58 k/cumm (1.2-3.4); Absolute Neutrophil Count 16.41 k/cumm (1.2-6.7)
[2018-10-03 07:52] LABS: Anion Gap 7.5 mmol/L (3-11); BUN 25 mg/dL (7-18); CO2 26.5 mmol/L (21.0-32.0); CREATININE 0.61 mg/dL (0.55-1.02); Calcium 7.8 mg/dL (8.5-10.1); Chloride 108 mmol/L (98-107); Glucose 134 mg/dL (70-100); Magnesium 1.6 mg/dL (1.8-2.4); Potassium 4.4 mmol/L (3.5-5.1); Sodium 142 mmol/L (136-145)
--- NOTE | 2018-10-03 07:58 | PDOC.CMPRO ---
Care Management Progress Note S/O: Rosemarie was sitting up in bed when CM met with her. She shared no concerns at this time and was pleasant in interaction. She was having lunch and content with her food options. CM had relayed information to staff that Rosemarie did not care for Magic Cups yesterday and she laughed while telling CM that much to her contentment they had been discontinued from her diet. A: 83 year old female re-admitted to [facility] 10/01/18 for HCAP P: Rosemarie will discharge home with resumption of [facility] RN, addition of PT, OT when ready per MD. MOW to begin post discharge. Rosemarie will also follow up with [facility] for Options Counseling as planned upon her previous discharge. CM will continue to follow.
[2018-10-03] MEDS: Omeprazole 20 MG CAPCR PO (08:07)
[2018-10-03] MEDS: Metoprolol 25 MG TAB 12.5 MG PO ×2 (08:07→20:21)
[2018-10-03] MEDS: guaiFENesin 600 MG TABCR 1200 MG PO ×2 (08:07→20:20)
--- NOTE | 2018-10-03 08:07 | CMPROGNOTE_ITS ---
Care Management Progress Note S/O: Rosemarie was sitting up in bed when CM met with her. She shared no concerns at this time and was pleasant in interaction. She was having lunch and content with her food options. CM had relayed information to staff that Rosemarie did not care for Magic Cups yesterday and she laughed while telling CM that much to her contentment they had been discontinued from her diet. A: 83 year old female re-admitted to [facility] 10/01/18 for HCAP P: Rosemarie will discharge home with resumption of [facility] RN, addition of PT, OT when ready per MD. MOW to begin post discharge. Rosemarie will also follow up with [facility] for Options Counseling as planned upon her previous discharge. CM will continue to follow.
[2018-10-03] MEDS: Gabapentin 800 MG TAB PO ×3 (08:08→20:20)
[2018-10-03] MEDS: VANCOMYCIN 500 MG in Normal Saline 100 ML 100 MG IV ×2 (08:08→20:23)
[2018-10-03] MEDS: Lactobacillus Acidophilus CAP 1 CAP PO ×3 (08:08→20:20)
[2018-10-03] MEDS: Benzonatate 200 MG CAP PO ×3 (08:08→20:20)
[2018-10-03] MEDS: Aspirin 81 MG CHEW PO (08:08)
[2018-10-03] MEDS: Mirabegron 25 MG TABCR PO (08:08)
[2018-10-03] MEDS: Magnesium Oxide 400 MG TAB PO ×2 (09:55→22:20)
[2018-10-03 10:26] VITALS: RESP 8
[2018-10-03] MEDS: Albuterol/Ipratropium 3 ML UPD VIAL UPD ×2 (10:26→20:19)
[2018-10-03 10:30] VITALS: O2SAT 95
--- NOTE | 2018-10-03 11:47 | PHARADMIT ---
Addendum entered by Darrel Butterfield III 10/06/18 15:22: Pharmacy Note Subjective HAP: Improving, blood culture (-)/72hrs. Aztreonam,Vancomycin dc'd. Levaquin IV to PO Objective VS-OK K+4.9 Mag-1.8 WBC-15.35 SCr,H&H,Plts-OK Wgt-44.1kg Had BM Assessment Steroids decreased, Toradol IV prn for pain. Vancomycin trough was low 10.9, dose was adjusted, then DC'd per provider. Plan Receiving PT & OT while here for strength/endurance Addendum entered by Renay Seth 10/04/18 16:19: Pharmacy Note Subjective HCAP may need 2 weeks treatment, Md will be checking with ID at [facility] Objective vs ok, Scr 0.65 Assessment continue adjusted dose for levofloxacin Plan MD will get abx regimen from ID after sputum culture back Original Note: Admission Pharmacy Clinical Review HCAP Code Status DNR/DNI Current Weight 39.1 kg Renally Cleared and Narrow Therapeutic Index Meds Crcl ~43.9 using actual body weight -gabapentin and aztreonam should be dose differently based on renal function; admitting provider aware but wanted to continue with home dose of gabapentin and Q6H dosing of aztreonam per [facility] pharmacist note -baclofen should be 2.5 mg Q8H for Crcl 30-50 mL/min QTc Value / Action Taken QTc 423 BP Control, Fever BP 105/56 afebrile Electrolytes reviewed Cl 108 mag 1.6 DVT Prophylaxis enoxaparin Opiate Usage / Scheduled Bowel Regimen Ordered no/prn Plt/SCr for Heparin / Enoxaparin plt 232 SCr 0.61 INR for Warfarin n/a H/H stable, WBC/Bands h/h 12.4/38.7 Antibiotic appropriateness vanco, aztreonam and levofloxacin (double coverage for pseudomonas per MD due to pts previous visit) Cultures and Sensitivities blood cultures-no growth @24 hours sputum culture pending Surgical ABX d/c within 24 hr n/a DM control / Insulin Dosing BG 134 none Heart Failure (Check EF%) (IDA's, B-Block, Diuretics) metoprolol IV to PO Switch n/a Home Meds Reviewed -omeprazole may increase the serum concentration of cilostazol; consider dose reduction of cilostazol to 50 mg BID Home Meds Not Ordered albuterol(levalbuterol ordered), cilostazol, prednisone(methylprednisolone ordered) Comments watch renal function, mention adjusting levofloxacin dose if renal function improves vanco trough this afternoon, will adjust dose accordingly
--- NOTE | 2018-10-03 12:48 | PT.INIE ---
Date of service: 10/03/18 Time of Service: 12:30 PT Notes Inpatient Physical Therapy Evaluation Date: 10/03/18 Referring Doctor: Olga Cordova NP PT Orders: PT CONSULT: HCAP, COPD, malnourished, lives alone, generalized weakness Precautions: Standard Patient Profile/Admitting Diagnosis: 83-year-old female who presented to ER due to increasing weakness, diagnosed with HCAP in the presence of COPD. She had a recent hospitalization from 09/23/18 - 09/30/18. PMHX: COPD (chronic obstructive pulmonary disease) Cataract Closed fracture of clavicle Complex regional pain syndrome i of lower limb, bilateral Degenerative disc disease, cervical Headache Hearing loss History of shingles Idiopathic peripheral neuropathy Perforation of tympanic membrane Peripheral neuralgia Peripheral vascular disease Seborrheic keratosis Skin lesion of face Smoker Tinea unguium Social History/Home Situation: Lives alone in a trailer in [place] Equipment Owned/DME: Patient utilizes a cane at baseline. She owns a 4WW, which she does not typically utilize. She went home from her most recent hospitalization with supplemental O2 for the first time. Subjective: Patient states she is feeling well. She is just eaten lunch, and is agreeable to PT consultation. Objective: Patient is sitting up in bed, IV present in left upper extremity on supplemental O2 delivered via nasal cannula Mental Status: A and O x3 Pain: reports pain in left foot, which she states is chronic ROM: Right Upper Extremity: Within functional limits Left Upper Extremity: Within functional limits Right Lower Extremity: Within functional limits Left Lower Extremity: Within functional limits Strength: Right Upper Extremity: Shoulder flexion 3/5 bilaterally. Biceps 4-/5 bilaterally. Triceps 4/5 bilaterally. Reflexologist is weak but equal Left Upper Extremity: Shoulder flexion 3/5 bilaterally. Biceps 4-/5 bilaterally. Triceps 4/5 bilaterally. Reflexologist is weak but equal Right Lower Extremity: Hip flexion 4/5. Quads 4/5. Ankle dorsiflexion 4+/5. Left Lower Extremity: Hip flexion 4/5. Quads 4/5. Ankle dorsiflexion 3+/5. Bed Mobility/Transfers: supine to sit: supervision Sit-stand: supervision Stand-sit: supervision Gait: Patient ambulates 30 feet which is the limit of her in room oxygen hose. She utilizes FWW and requires CG with cues for safety. She requires assistance for management of lines. SaO2 begins at 92% at rest, and drops to 89% with ambulation; with cues for breathing, she rapidly resaturates to 91%. Balance: Static Sitting: Normal Dynamic Sitting: Normal Static Standing: Good Dynamic Standing: fair Special Tests: Mobility Limitations Standardized Measure [facility] AM-PAC 6 clicks Basic Mobility Inpatient Short Form: Raw Score: 21 CMS Score: 33% deficit Informed Consent/Education: Patient instructed in purpose of PT consult and plan of care. Treatment: Today's session consisted of evaluation, followed by instruction in early exercise program, as noted on flowsheet. SaO2 was monitored throughout, with patient remaining in 90s during seated exercise. ASSESSMENT: Patient is a 83-year-old female with a history of respiratory issues and recent hospitalization. Admitted with decreasing mobility due to healthcare acquired pneumonia and COPD. Patient presents with the following impairment level findings: 1. Decreased activity tolerance 2. Decreased lower extremity strength 3. Decreased upper extremity strength 4. Decreased safety with short distance ambulation, with need for assistance, particularly for management of lines Impairments are contributing following functional limitations 1. Decreased activity tolerance 2. Unable to tolerate community distance ambulation 3. Decreased safety awareness Patient is assessed as a moderate complexity initial evaluation [id number] based on the following: History: 83-year-old female admitted for management of healthcare acquired pneumonia and COPD after recent hospitalization. Patient has recently been placed on supplemental oxygen, and demonstrates limited safety awareness with ambulation. She has a complicated medical history, including PVD, COPD, CHF. Examination: see above for functional limitations Presentation: Evolving Decision Making: Moderate based on the [facility] score of 33 % Goals: Goals X1 week 1. Supine-Sit independent and restored to baseline 2. Sit-Supine independent and restored to baseline 3. Sit-Stand independent and restored to baseline 4. Stand-Sit independent and restored to baseline 5. Bed-Chair independent and restored to baseline 6. Gait independent to 100 feet with cane and restored to baseline Plan of Care/Treatment Plan: 1-2x/day, 7 days/week x 1 week. Plan of care has been reviewed with the WEIGHTS AND MEASURES SEALER providing the service under Physical Therapy direction. Initiate Physical Therapy intervention for strengthening, bed mobility, transfers, gait, stairs, balance training, use of assistive device. DISCHARGE RECOMMENDATIONS: To home once medically stable. No anticipated equipment needs TREATMENT CODE/TIME: Moderate complexity initial evaluation [id number] 12:30pm; 20 minutes of direct patient care Meera Jones, PT, DPT [facility]
--- NOTE | 2018-10-03 13:00 | IN_ITS ---
Date of service: 10/03/18 Time of Service: 12:30 PT Notes Inpatient Physical Therapy Evaluation Date: 10/03/18 Referring Doctor: Olga Cordova NP PT Orders: PT CONSULT: HCAP, COPD, malnourished, lives alone, generalized weakness Precautions: Standard Patient Profile/Admitting Diagnosis: 83-year-old female who presented to ER due to increasing weakness, diagnosed with HCAP in the presence of COPD. She had a recent hospitalization from 09/23/18 - 09/30/18. PMHX: COPD (chronic obstructive pulmonary disease) Cataract Closed fracture of clavicle Complex regional pain syndrome i of lower limb, bilateral Degenerative disc disease, cervical Headache Hearing loss History of shingles Idiopathic peripheral neuropathy Perforation of tympanic membrane Peripheral neuralgia Peripheral vascular disease Seborrheic keratosis Skin lesion of face Smoker Tinea unguium Social History/Home Situation: Lives alone in a trailer in [place] Equipment Owned/DME: Patient utilizes a cane at baseline. She owns a 4WW, which she does not typically utilize. She went home from her most recent hospitalization with supplemental O2 for the first time. Subjective: Patient states she is feeling well. She is just eaten lunch, and is agreeable to PT consultation. Objective: Patient is sitting up in bed, IV present in left upper extremity on supplemental O2 delivered via nasal cannula Mental Status: A and O x3 Pain: reports pain in left foot, which she states is chronic ROM: Right Upper Extremity: Within functional limits Left Upper Extremity: Within functional limits Right Lower Extremity: Within functional limits Left Lower Extremity: Within functional limits Strength: Right Upper Extremity: Shoulder flexion 3/5 bilaterally. Biceps 4-/5 bilaterally. Triceps 4/5 bilaterally. Director Of Outpatient Services is weak but equal Left Upper Extremity: Shoulder flexion 3/5 bilaterally. Biceps 4-/5 bilaterally. Triceps 4/5 bilaterally. Director Of Outpatient Services is weak but equal Right Lower Extremity: Hip flexion 4/5. Quads 4/5. Ankle dorsiflexion 4+/5. Left Lower Extremity: Hip flexion 4/5. Quads 4/5. Ankle dorsiflexion 3+/5. Bed Mobility/Transfers: supine to sit: supervision Sit-stand: supervision Stand-sit: supervision Gait: Patient ambulates 30 feet which is the limit of her in room oxygen hose. She utilizes FWW and requires CG with cues for safety. She requires assistance for management of lines. SaO2 begins at 92% at rest, and drops to 89% with ambulation; with cues for breathing, she rapidly resaturates to 91%. Balance: Static Sitting: Normal Dynamic Sitting: Normal Static Standing: Good Dynamic Standing: fair Special Tests: Mobility Limitations Standardized Measure [facility] AM-PAC 6 clicks Basic Mobility Inpatient Short Form: Raw Score: 21 CMS Score: 33% deficit Informed Consent/Education: Patient instructed in purpose of PT consult and plan of care. Treatment: Today's session consisted of evaluation, followed by instruction in early exercise program, as noted on flowsheet. SaO2 was monitored throughout, with patient remaining in 90s during seated exercise. ASSESSMENT: Patient is a 83-year-old female with a history of respiratory issues and recent hospitalization. Admitted with decreasing mobility due to healthcare acquired pneumonia and COPD. Patient presents with the following impairment level findings: 1. Decreased activity tolerance 2. Decreased lower extremity strength 3. Decreased upper extremity strength 4. Decreased safety with short distance ambulation, with need for assistance, particularly for management of lines Impairments are contributing following functional limitations 1. Decreased activity tolerance 2. Unable to tolerate community distance ambulation 3. Decreased safety awareness Patient is assessed as a moderate complexity initial evaluation [id number] based on the following: History: 83-year-old female admitted for management of healthcare acquired pneumonia and COPD after recent hospitalization. Patient has recently been placed on supplemental oxygen, and demonstrates limited safety awareness with ambulation. She has a complicated medical history, including PVD, COPD, CHF. Examination: see above for functional limitations Presentation: Evolving Decision Making: Moderate based on the [facility] score of 33 % Goals: Goals X1 week 1. Supine-Sit independent and restored to baseline 2. Sit-Supine independent and restored to baseline 3. Sit-Stand independent and restored to baseline 4. Stand-Sit independent and restored to baseline 5. Bed-Chair independent and restored to baseline 6. Gait independent to 100 feet with cane and restored to baseline Plan of Care/Treatment Plan: 1-2x/day, 7 days/week x 1 week. Plan of care has been reviewed with the CLUB MANAGER providing the service under Physical Therapy direction. Initiate Physical Therapy intervention for strengthening, bed mobility, transfers, gait, stairs, balance training, use of assistive device. DISCHARGE RECOMMENDATIONS: To home once medically stable. No anticipated equipment needs TREATMENT CODE/TIME: Moderate complexity initial evaluation [id number] 12:30pm; 20 minutes of direct patient care Meera Jones, PT, DPT [facility]
[2018-10-03] MEDS: Normal Saline Flush 10 ML SYR IVP ×3 (14:36→20:23)
[2018-10-03 15:26] VITALS: BP 106/64; PULSE 70; RESP 18; TEMP 36.2; O2SAT 95
--- NOTE | 2018-10-03 15:56 | W.PM.PROGNOT ---
Date of Service Date of service: 10/03/18 Time of Service: 15:56 Assessment and Plan (1) HCAP (healthcare-associated pneumonia): Current visit: Yes Status: Acute Improving. Afebrile, white blood cell count higher today in the setting of IV steroids, lactate improving, blood cultures have yielded no growth at 24 hours. Begin to taper steroids. Recent sputum culture with Pseudomonas. Continue IV vancomycin, Levaquin and aztreonam. Continue nebulizer treatments, schedule nebs for now, continue supplemental oxygen. Appears euvolemic, Discontinue IV fluids and continue to monitor. Repeat complete blood count in the morning. (2) COPD with acute exacerbation: Current visit: No Status: Acute As above. (3) Back pain: Current visit: Yes Status: Acute Appears chronic, continue aqua K pad for comfort, Tylenol and Lidoderm patch for pain. (4) Malnourished: Current visit: No Status: Acute BMI 15.8. Continue to add supplements for added calories. (5) Peripheral vascular disease: Current visit: No Status: Chronic Continue to encourage smoking cessation, continue aspirin, continue gabapentin for pain. (6) Tobacco abuse: Current visit: Yes Status: Acute Continue nicotine replacement. Continue to encourage smoking cessation. (7) DVT prophylaxis: Current visit: No Status: Acute Subcutaneous Lovenox. (8) Discharge planning issues: Current visit: Yes Status: Acute She is a DNR/DNI. She lives at home alone. Consult PT/OT to continue to work on strength and endurance while hospitalized. This case was discussed with Dr. García who is in agreement. Subjective Interval history since last seen: Mrs. Burgess reports feeling better today. She continues to have shortness of breath with activity, she occasionally feels wheezy, she is coughing less, however, her cough remains productive of thick yellow sputum. She denies chest pain/pressure, palpitations, nausea, vomiting, diarrhea. She feels hungry and is tolerating her diet. She is having normal bowel movements. She continues to report chronic low back pain, it is improved with aqua K pack. She had leg pain, but reports improvement today. Tylenol is helping her back pain and leg pain. Her generalized weakness is improving. Her family is requesting physical therapy and occupational therapy. Exam Narrative Exam Narrative: General: Thin, frail, elderly female, sitting up in bed, eating lunch. In no acute distress. Speaking in complete sentences with no shortness of breath. HEENT: Normocephalic, atraumatic, pupils equal and round, mucous membranes moist. Neck: supple, no JVD. Cardiovascular: heart has regular rate and rhythm, no murmur appreciated. Respiratory: Diminished lung sounds with faint expiratory wheezing bilaterally. Gastrointestinal: Normoactive bowel sounds throughout, abdomen soft, nontender on palpation, no masses appreciated. Extremities: No clubbing, cyanosis or edema. Pedal pulses faint but palpable bilaterally. Objective Objective Clinical Data: Abnormal lab results 10/03/18 10/03/18 10/03/18 Range/Units 01:17 07:25 07:25 WBC 17.53 H D (4.4-10.8) k/cumm RBC 3.93 L (4.00-5.20) m/cumm MCV 98.5 H (80-95) fL Absolute Neutrophils 16.41 H (1.2-6.7) k/cumm Absolute Lymphocytes 0.58 L (1.2-3.4) k/cumm Chloride 108 H (98-107) mmol/L BUN 25 H (7-18) mg/dL Glucose 134 H (70-100) mg/dL Lactate 1.5 H (0.6-1.4) mmol/L Calcium 7.8 L (8.5-10.1) mg/dL Magnesium 1.6 L (1.8-2.4) mg/dL Vital Signs Temperature 36.2 C L 10/03/18 15:26 Temperature Source Tympanic 10/03/18 15:26 Pulse 70 10/03/18 15:26 Pulse Rhythm Regular 10/03/18 15:04 Respiratory Rate 18 10/03/18 15:26 Respiratory Effort Non-Labored 10/03/18 15:04 Respiratory Depth Normal 10/03/18 15:04 Respiratory Pattern Normal 10/03/18 15:04 Blood Pressure 106/64 10/03/18 15:26 Pulse Oximetry 95 10/03/18 15:26 Oxygen Delivery Method Nasal Cannula 10/03/18 15:26 Oxygen Flow Rate 1 10/03/18 15:26 Pain Level 2 10/03/18 15:26 Intake & Output 10/02/18 10/03/18 10/03/18 23:59 11:59 23:59 Intake Total 2490.00 / 3020.00 1140 / 1380 240 / 1380 Output Total 300 / 950 350 / 550 200 / 550 Balance 2190.00 / 2070.00 790 / 830 40 / 830 Weight 39.1 kg Intake: IV 1530.00 / 1820.00 570 / 570 Oral 960 / 1200 570 / 810 240 / 810 Output: Urine 300 / 950 350 / 550 200 / 550 Other: Urine Color Yellow Light Cynthia Urine Appearance Clear Clear Clear Stool Size Large Stool Characteristics Soft Formed Voiding Methods Bedside Commode Toilet Bedside Commode Laboratory Results WBC 17.53 k/cumm (4.4-10.8) H D 10/03/18 07:25 RBC 3.93 m/cumm (4.00-5.20) L 10/03/18 07:25 Hgb 12.4 g/dL (12.0-15.5) 10/03/18 07:25 Hct 38.7 % (36.0-46.0) 10/03/18 07:25 MCV 98.5 fL (80-95) H 10/03/18 07:25 MCH 31.6 pg (27.0-33.0) 10/03/18 07:25 MCHC 32.0 g/dL (32.0-36.0) 10/03/18 07:25 RDW 14.3 % (11.7-14.6) 10/03/18 07:25 Plt Count 232 x1000/uL (130-400) 10/03/18 07:25 MPV 10.3 fL (8.0-11.0) 10/03/18 07:25 Immature Gran % 0.6 10/03/18 07:25 Neutrophils % 93.6 10/03/18 07:25 Lymphocytes % 3.3 10/03/18 07:25 Monocytes % 2.2 10/03/18 07:25 Eosinophils % 0.2 10/03/18 07:25 Basophils % 0.1 10/03/18 07:25 Absolute Neutrophils 16.41 k/cumm (1.2-6.7) H 10/03/18 07:25 Absolute Lymphocytes 0.58 k/cumm (1.2-3.4) L 10/03/18 07:25 Absolute Monocytes 0.39 k/cumm (0.11-0.7) 10/03/18 07:25 Absolute Eosinophils 0.04 k/cumm (0.0-0.7) 10/03/18 07:25 Absolute Basophils 0.02 k/cumm (0.0-0.2) 10/03/18 07:25 Sodium 142 mmol/L (136-145) 10/03/18 07:25 Potassium 4.4 mmol/L (3.5-5.1) 10/03/18 07:25 Chloride 108 mmol/L (98-107) H 10/03/18 07:25 Carbon Dioxide 26.5 mmol/L (21.0-32.0) 10/03/18 07:25 Anion Gap 7.5 mmol/L (3-11) 10/03/18 07:25 BUN 25 mg/dL (7-18) H 10/03/18 07:25 Creatinine 0.61 mg/dL (0.55-1.02) 10/03/18 07:25 Estimated GFR/1.73 m2 >= 60.00 (mL/min/1.73m2) 10/03/18 07:25 Glucose 134 mg/dL (70-100) H 10/03/18 07:25 Lactate 1.5 mmol/L (0.6-1.4) H 10/03/18 01:17 Calcium 7.8 mg/dL (8.5-10.1) L 10/03/18 07:25 Magnesium 1.6 mg/dL (1.8-2.4) L 10/03/18 07:25 Total Bilirubin 0.3 mg/dL (0.2-1.0) 10/01/18 16:15 AST 25 U/L (15-37) 10/01/18 16:15 ALT 107 U/L (12-78) H 10/01/18 16:15 Alkaline Phosphatase 97 U/L (46-116) 10/01/18 16:15 Troponin I < 0.02 ng/mL (0.00-0.06) 10/01/18 16:15 NT-Pro-B Natriuret Pep 486 pg/mL (-299) H 10/02/18 13:05 Total Protein 6.1 g/dL (6.4-8.2) L 10/01/18 16:15 Albumin 2.4 g/dL (3.4-5.0) L 10/01/18 16:15 Lipase 362 U/L (73-393) 10/01/18 16:15 Urine Color Yellow (Yellow) 10/01/18 22:56 Urine Clarity Clear 10/01/18 22:56 Urine pH 6.0 (5-8) 10/01/18 22:56 Ur Specific [place] 1.025 (1.005-1.025) 10/01/18 22:56 Urine Protein Negative mg/dL (Negative) 10/01/18 22:56 Urine Ketones Negative mg/dL (Negative) 10/01/18 22:56 Urine Blood Negative (Negative) 10/01/18 22:56 Urine Nitrite Negative (Negative) 10/01/18 22:56 Urine Bilirubin Negative (Negative) 10/01/18 22:56 Urine Urobilinogen 0.2 EU/dL (Up TO 0.2) 10/01/18 22:56 Ur Leukocyte Esterase Trace (Negative) H 10/01/18 22:56 Urine RBC 3-5 (0-2) H 10/01/18 22:56 Urine WBC 5-10 HPF (0-5) 10/01/18 22:56 Ur Epithelial Cells Moderate HPF (Negative) 10/01/18 22:56 Urine Crystals Negative HPF (Negative) 10/01/18 22:56 Urine Bacteria Few HPF (Negative) 10/01/18 22:56 Urine Casts Negative LPF (Negative) 10/01/18 22:56 Urine Mucus Negative (Negative) 10/01/18 22:56 Urine Other Negative (Negative) 10/01/18 22:56 Ur Culture Indicated? No/sq. contamination 10/01/18 22:56 Urine Glucose Negative mg/dL (Negative) 10/01/18 22:56
[2018-10-03] MEDS: Acetaminophen 325 MG TAB PO (16:37)
[2018-10-03] MEDS: Baclofen 10 MG TAB 5 MG PO (16:37)
[2018-10-03] MEDS: Lidocaine 5% Patch 1 PATCH TP (17:29)
[2018-10-03 17:59] LABS: Vancomycin, Trough 12.4 ug/mL (10.0-20.0)
[2018-10-03] MEDS: Enoxaparin 30 MG/0.3 ML SYR SC (22:20)
[2018-10-03 23:59] VITALS: BP 117/68; PULSE 67; RESP 20; TEMP 36.6; O2SAT 96
[2018-10-04] MEDS: Normal Saline Flush 10 ML SYR IVP ×3 (01:22→14:27)
[2018-10-04] MEDS: methylPREDNISolone SUCC 125 MG VIAL 60 MG IVP ×2 (01:22→14:28)
[2018-10-04] MEDS: Albuterol/Ipratropium 3 ML UPD VIAL UPD ×4 (02:35→17:26)
[2018-10-04] MEDS: VANCOMYCIN 500 MG in Normal Saline 100 ML 100 MG IV ×2 (03:25→14:20)
[2018-10-04] MEDS: Lidocaine Patch Removal 1 EACH TD (06:04)
[2018-10-04 07:08] LABS: Abs Immature Grans 0.12 k/cumm (0.0-0.09); Absolute Lymphocyte Count 0.54 k/cumm (1.2-3.4); Anion Gap 2.9 mmol/L (3-11); BUN 23 mg/dL (7-18); Basophils % 0.1; CO2 30.1 mmol/L (21.0-32.0); CREATININE 0.65 mg/dL (0.55-1.02); Calcium 7.9 mg/dL (8.5-10.1); Chloride 109 mmol/L (98-107); Glucose 129 mg/dL (70-100); HCT 40.4 % (36.0-46.0); HGB 12.8 g/dL (12.0-15.5); Immature Grans % 0.8; Lymphocytes % 3.5; Magnesium 1.7 mg/dL (1.8-2.4); Mean Corp. HGB Concentration 31.7 g/dL (32.0-36.0); Mean Corpuscular Hemoglobin 31.1 pg (27.0-33.0); Mean Corpuscular Volume 98.1 fL (80-95); Mean Platelet Volume 10.4 fL (8.0-11.0); Monocytes % 1.8; Neutrophils % 93.8; Platelet Count 250 x1000/uL (130-400); Potassium 4.3 mmol/L (3.5-5.1); RBC 4.12 m/cumm (4.00-5.20); RBC Distribution Width 14.6 % (11.7-14.6); Sodium 142 mmol/L (136-145); White Blood Cell Count 15.33 k/cumm (4.4-10.8)
[2018-10-04 07:09] LABS: Absolute Basophil Count 0.02 k/cumm (0.0-0.2); Absolute Monocyte Count 0.28 k/cumm (0.11-0.7); Absolute Neutrophil Count 14.38 k/cumm (1.2-6.7)
[2018-10-04 07:16] VITALS: BP 115/61; PULSE 67; RESP 18; TEMP 36.2; O2SAT 95
[2018-10-04] MEDS: Aspirin 81 MG CHEW PO (07:49)
[2018-10-04] MEDS: Gabapentin 800 MG TAB PO ×3 (07:49→19:30)
[2018-10-04] MEDS: Lactobacillus Acidophilus CAP 1 CAP PO ×3 (07:49→19:30)
[2018-10-04] MEDS: Omeprazole 20 MG CAPCR PO (07:50)
[2018-10-04] MEDS: guaiFENesin 600 MG TABCR 1200 MG PO ×2 (07:50→19:30)
[2018-10-04] MEDS: Benzonatate 200 MG CAP PO ×3 (07:50→19:30)
[2018-10-04] MEDS: Metoprolol 25 MG TAB 12.5 MG PO ×2 (07:50→19:30)
[2018-10-04] MEDS: Mirabegron 25 MG TABCR PO (07:50)
--- NOTE | 2018-10-04 08:35 | CMPROGNOTE_ITS ---
Care Management Progress Note S/O: Rosemarie was ambulating with her FWW and PT in the hallway when CM greeted her, she remains pleasant in interaction. Rosemarie requested commode coordination support; CM reviewed Medicare requirements, and limitations. Anticipate Rosemarie will remain inpatient until Tuesday. CM continues to follow. A: 83 year old female re-admitted to [facility] 10/01/18 for HCAP P: Rosemarie will discharge home with resumption of [facility] RN, addition of PT, OT when ready per MD. MOW to begin post discharge. Rosemarie will also follow up with [facility] for [facility] Counseling as planned upon her previous discharge. CM will continue to follow.
[2018-10-04 09:35] VITALS: O2SAT 94
--- NOTE | 2018-10-04 11:48 | PT.INTREAT ---
Date of service: 10/04/18 Time of Service: 11:48 PT Notes Inpatient Physical Therapy Treatment Note [facility] Date: 10/04/18 PRECAUTIONS: Fall SUBJECTIVE: Rosemarie is agreeable to participating in PT this morning. OBJECTIVE: PAIN: Patient c/o L foot pain with weight bearing in p.m. BED MOBILITY/TRANSFERS Supine-sit: S Sit-stand: S Stand-sit: S GAIT Assistive Device: FWW Weight bearing:Full Assist: SBA Distance: 100' x2 in a.m.; 70' + 50' in p.m. Deviation: SOB, c/o L foot pain in p.m.; slow pace, seated rest x1 in both a.m. and p.m. THEREX: Patient completed several LE strengthening exercises, in a seated position, as per flow sheet. STAIRS: Up/down 3x4 and 2x6 using 1 rail and a step-to pattern with SBA VITALS: SaO2: 86-94% on 1L O2 via NC with gait training ASSESSMENT: Patient tolerated session well with some c/o SOB and increased fatigue with gait training. She was able to tolerate a progression in gait distance with FWW support and SBA, although demonstrates a slow pace and SOB, requiring seated rest for recovery. She would benefit from continued strengthening and gait training for improved activity tolerance and cardiovascular endurance. PLAN: Continue with PT's POC TREATMENT CODE/TIME: Session 1: 25 minutes; 36420 x2 Session 2: 30 minutes; [id number], [id number]
[2018-10-04] MEDS: levoFLOXacin 750 MG/150 ML BAG 100 MG IVPB (11:53)
[2018-10-04] MEDS: Magnesium Oxide 400 MG TAB PO ×2 (11:53→22:23)
[2018-10-04 13:03] VITALS: RESP 8
--- NOTE | 2018-10-04 13:49 | PGE_ITS ---
Date of Service Date of service: 10/04/18 Time of Service: 13:46 Assessment and Plan (1) HCAP (healthcare-associated pneumonia): Current visit: Yes Status: Acute Improving. Afebrile, white blood cell count improving, blood cultures have yielded no growth at 48 hours. Continue IV steroids. Recent sputum culture with Pseudomonas. Current sputum culture pending. Continue IV vancom ycin, Levaquin and aztreonam. Continue scheduled nebulizer treatments, continue supplemental oxygen. No longer on IV fluids. Repeat complete blood count in the morning. Consult ID for antibiotic regimen recommendations when sputum culture results available. (2) COPD with acute exacerbation: Current visit: No Status: Acute As above. (3) Back pain: Current visit: Yes Status: Acute Appears chronic, continue aqua K pad for comfort, Tylenol and Lidoderm patch for pain. (4) Malnourished: Current visit: No Status: Acute BMI 15.8. Continue to add supplements for added calories. (5) Peripheral vascular disease: Current visit: No Status: Chronic Continue to encourage smoking cessation, continue aspirin, continue gabapentin for pain. (6) Tobacco abuse: Current visit: Yes Status: Acute Continue nicotine replacement. Continue to encourage smoking cessation. (7) Hypomagnesemia: Current visit: Yes Status: Acute Replete and monitor. (8) DVT prophylaxis: Current visit: No Status: Acute Subcutaneous Lovenox. (9) Discharge planning issues: Current visit: Yes Status: Acute She is a DNR/DNI. She lives at home alone. Continue PT/OT for strength and endurance training while hospitalized. This case was discussed with Dr. García who is in agreement. Subjective Interval history since last seen: Mrs. Burgess reports feeling better today. She denies shortness of breath at rest or with activity, she does not feel wheezy, she did cough more last night, the cough remains nonproductive. She reports improved appetite, she is eating and drinking and tolerating her diet. She is sleeping well. Her chronic low back pain feels better at this time. She denies fever, chills, chest pain/pressure, palpitations, nausea, vomiting, diarrhea. She feels less fatigued today. Exam Narrative Exam Narrative: General: Thin, frail, elderly female, sitting up in bed, conversing with visitors in her room. In no acute distress. Speaking in complete sentences with no shortness of breath. HEENT: Normocephalic, atraumatic, pupils equal and round, mucous membranes moist. Neck: supple, no JVD. Cardiovascular: heart has regular rate and rhythm, no murmur appreciated. Respiratory: Respirations even and unlabored, lung sounds diminished throughout, no wheezing, on oxygen, no coughing during exam. Gastrointestinal: Normoactive bowel sounds throughout, abdomen soft, nontender on palpation, no masses appreciated. Extremities: No clubbing, cyanosis or edema. Pedal pulses faint but palpable bilaterally. Objective Objective Clinical Data: Abnormal lab results 10/04/18 10/04/18 Range/Units 06:15 06:15 WBC 15.33 H (4.4-10.8) k/cumm MCV 98.1 H (80-95) fL MCHC 31.7 L (32.0-36.0) g/dL Absolute Neutrophils 14.38 H (1.2-6.7) k/cumm Absolute Lymphocytes 0.54 L (1.2-3.4) k/cumm Chloride 109 H (98-107) mmol/L Anion Gap 2.9 L (3-11) mmol/L BUN 23 H (7-18) mg/dL Glucose 129 H (70-100) mg/dL Calcium 7.9 L (8.5-10.1) mg/dL Magnesium 1.7 L (1.8-2.4) mg/dL Vital Signs Temperature 36.2 C L 10/04/18 07:16 Temperature Source Tympanic 10/04/18 07:16 Pulse 67 10/04/18 07:16 Pulse Rhythm Regular 10/04/18 07:40 Respiratory Rate 18 10/04/18 07:16 Respiratory Effort Non-Labored 10/04/18 07:40 Respiratory Depth Normal 10/04/18 07:40 Respiratory Pattern Normal 10/04/18 07:40 Blood Pressure 115/61 10/04/18 07:16 Pulse Oximetry 95 10/04/18 07:16 Oxygen Delivery Method Nasal Cannula 10/04/18 07:16 Oxygen Flow Rate 1 10/04/18 07:16 Pain Level 2 10/03/18 17:37 Intake & Output 10/03/18 10/04/18 10/04/18 23:59 11:59 23:59 Intake Total 1645.00 / 2785.00 640 / 640 Output Total 400 / 750 Balance 1245.00 / 2035.00 640 / 640 Weight 44.5 kg Intake: IV 1045.00 / 1615.00 200 / 200 Oral 600 / 1170 440 / 440 Output: Urine 400 / 750 Other: Urine Color Yellow Yellow Yellow Urine Appearance Clear Clear Clear Comment Urine mixed with stool could not measure Stool Size Small Small Stool Characteristics Soft Soft Formed Formed Brown Voiding Methods Bedside Commode Toilet Bedside Commode Laboratory Results WBC 15.33 k/cumm (4.4-10.8) H 10/04/18 06:15 RBC 4.12 m/cumm (4.00-5.20) 10/04/18 06:15 Hgb 12.8 g/dL (12.0-15.5) 10/04/18 06:15 Hct 40.4 % (36.0-46.0) 10/04/18 06:15 MCV 98.1 fL (80-95) H 10/04/18 06:15 MCH 31.1 pg (27.0-33.0) 10/04/18 06:15 MCHC 31.7 g/dL (32.0-36.0) L 10/04/18 06:15 RDW 14.6 % (11.7-14.6) 10/04/18 06:15 Plt Count 250 x1000/uL (130-400) 10/04/18 06:15 MPV 10.4 fL (8.0-11.0) 10/04/18 06:15 Immature Gran % 0.8 10/04/18 06:15 Neutrophils % 93.8 10/04/18 06:15 Lymphocytes % 3.5 10/04/18 06:15 Monocytes % 1.8 10/04/18 06:15 Eosinophils % 0.0 10/04/18 06:15 Basophils % 0.1 10/04/18 06:15 Absolute Neutrophils 14.38 k/cumm (1.2-6.7) H 10/04/18 06:15 Absolute Lymphocytes 0.54 k/cumm (1.2-3.4) L 10/04/18 06:15 Absolute Monocytes 0.28 k/cumm (0.11-0.7) 10/04/18 06:15 Absolute Eosinophils 0.00 k/cumm (0.0-0.7) 10/04/18 06:15 Absolute Basophils 0.02 k/cumm (0.0-0.2) 10/04/18 06:15 Sodium 142 mmol/L (136-145) 10/04/18 06:15 Potassium 4.3 mmol/L (3.5-5.1) 10/04/18 06:15 Chloride 109 mmol/L (98-107) H 10/04/18 06:15 Carbon Dioxide 30.1 mmol/L (21.0-32.0) 10/04/18 06:15 Anion Gap 2.9 mmol/L (3-11) L 10/04/18 06:15 BUN 23 mg/dL (7-18) H 10/04/18 06:15 Creatinine 0.65 mg/dL (0.55-1.02) 10/04/18 06:15 Estimated GFR/1.73 m2 >= 60.00 (mL/min/1.73m2) 10/04/18 06:15 Glucose 129 mg/dL (70-100) H 10/04/18 06:15 Lactate 1.5 mmol/L (0.6-1.4) H 10/03/18 01:17 Calcium 7.9 mg/dL (8.5-10.1) L 10/04/18 06:15 Magnesium 1.7 mg/dL (1.8-2.4) L 10/04/18 06:15 Total Bilirubin 0.3 mg/dL (0.2-1.0) 10/01/18 16:15 AST 25 U/L (15-37) 10/01/18 16:15 ALT 107 U/L (12-78) H 10/01/18 16:15 Alkaline Phosphatase 97 U/L (46-116) 10/01/18 16:15 Troponin I < 0.02 ng/mL (0.00-0.06) 10/01/18 16:15 NT-Pro-B Natriuret Pep 486 pg/mL (-299) H 10/02/18 13:05 Total Protein 6.1 g/dL (6.4-8.2) L 10/01/18 16:15 Albumin 2.4 g/dL (3.4-5.0) L 10/01/18 16:15 Lipase 362 U/L (73-393) 10/01/18 16:15 Urine Color Yellow (Yellow) 10/01/18 22:56 Urine Clarity Clear 10/01/18 22:56 Urine pH 6.0 (5-8) 10/01/18 22:56 Ur Specific [place] 1.025 (1.005-1.025) 10/01/18 22:56 Urine Protein Negative mg/dL (Negative) 10/01/18 22:56 Urine Ketones Negative mg/dL (Negative) 10/01/18 22:56 Urine Blood Negative (Negative) 10/01/18 22:56 Urine Nitrite Negative (Negative) 10/01/18 22:56 Urine Bilirubin Negative (Negative) 10/01/18 22:56 Urine Urobilinogen 0.2 EU/dL (Up TO 0.2) 10/01/18 22:56 Ur Leukocyte Esterase Trace (Negative) H 10/01/18 22:56 Urine RBC 3-5 (0-2) H 10/01/18 22:56 Urine WBC 5-10 HPF (0-5) 10/01/18 22:56 Ur Epithelial Cells Moderate HPF (Negative) 10/01/18 22:56 Urine Crystals Negative HPF (Negative) 10/01/18 22:56 Urine Bacteria Few HPF (Negative) 10/01/18 22:56 Urine Casts Negative LPF (Negative) 10/01/18 22:56 Urine Mucus Negative (Negative) 10/01/18 22:56 Urine Other Negative (Negative) 10/01/18 22:56 Ur Culture Indicated? No/sq. contamination 10/01/18 22:56 Urine Glucose Negative mg/dL (Negative) 10/01/18 22:56 Vancomycin Trough 12.4 ug/mL (10.0-20.0) 10/03/18 17:15
[2018-10-04 16:48] VITALS: BP 107/54; PULSE 70; RESP 17; TEMP 35.2; O2SAT 95
[2018-10-04 17:01] LABS: Vancomycin, Trough 24.3 ug/mL (10.0-20.0)
[2018-10-04] MEDS: Lidocaine 5% Patch 1 PATCH TP (17:26)
[2018-10-04 17:56] VITALS: RESP 8
[2018-10-04] MEDS: Enoxaparin 30 MG/0.3 ML SYR SC (22:24)
[2018-10-04 23:38] VITALS: O2SAT 94
[2018-10-05] VITALS (9 sets, daily range): BP systolic 108–133; BP diastolic 56–71; PULSE 68–90; RESP 2–28; TEMP 36.2–37.2; O2SAT 95–98
[2018-10-05] MEDS: Albuterol/Ipratropium 3 ML UPD VIAL UPD ×2 (00:11→18:15)
[2018-10-05] MEDS: VANCOMYCIN 500 MG in Normal Saline 100 ML 100 MG IV ×2 (01:40→14:13)
[2018-10-05] MEDS: Normal Saline Flush 10 ML SYR IVP ×3 (01:40→23:56)
[2018-10-05] MEDS: methylPREDNISolone SUCC 125 MG VIAL 60 MG IVP ×2 (01:41→14:12)
[2018-10-05] MEDS: Hyaluronidase 150 UNITS VIAL 20 UNITS IJ (04:37)
[2018-10-05] MEDS: Lidocaine Patch Removal 1 EACH TD (06:22)
[2018-10-05 07:32] LABS: Abs Immature Grans 0.08 k/cumm (0.0-0.09); Absolute Basophil Count 0.01 k/cumm (0.0-0.2); Absolute Lymphocyte Count 0.32 k/cumm (1.2-3.4); Absolute Monocyte Count 0.26 k/cumm (0.11-0.7); Absolute Neutrophil Count 12.31 k/cumm (1.2-6.7); Basophils % 0.1; HCT 41.3 % (36.0-46.0); HGB 13.1 g/dL (12.0-15.5); Immature Grans % 0.6; Lymphocytes % 2.5; Mean Corp. HGB Concentration 31.7 g/dL (32.0-36.0); Mean Corpuscular Hemoglobin 30.9 pg (27.0-33.0); Mean Corpuscular Volume 97.4 fL (80-95); Mean Platelet Volume 10.2 fL (8.0-11.0); Neutrophils % 94.8; Platelet Count 248 x1000/uL (130-400); RBC 4.24 m/cumm (4.00-5.20); RBC Distribution Width 14.6 % (11.7-14.6); White Blood Cell Count 12.99 k/cumm (4.4-10.8)
[2018-10-05 07:46] LABS: Anion Gap 3.3 mmol/L (3-11); BUN 25 mg/dL (7-18); CO2 29.7 mmol/L (21.0-32.0); CREATININE 0.68 mg/dL (0.55-1.02); Chloride 108 mmol/L (98-107); Glucose 134 mg/dL (70-100); Magnesium 1.9 mg/dL (1.8-2.4); Potassium 4.6 mmol/L (3.5-5.1); Sodium 141 mmol/L (136-145)
[2018-10-05] MEDS: guaiFENesin 600 MG TABCR 1200 MG PO ×2 (07:46→20:21)
[2018-10-05] MEDS: Mirabegron 25 MG TABCR PO (07:46)
[2018-10-05] MEDS: Lactobacillus Acidophilus CAP 1 CAP PO ×3 (07:46→20:21)
[2018-10-05] MEDS: Aspirin 81 MG CHEW PO (07:46)
[2018-10-05] MEDS: Gabapentin 800 MG TAB PO ×3 (07:46→20:21)
[2018-10-05] MEDS: Omeprazole 20 MG CAPCR PO (07:47)
[2018-10-05] MEDS: Benzonatate 200 MG CAP PO ×3 (07:47→20:21)
--- NOTE | 2018-10-05 08:58 | PDOC.CMPRO ---
Care Management Progress Note S/O: Rosemarie remains inpatient. She remains pleasant in interaction and has been ambulating through the hallways with PT. CM continues to follow. A: 83 year old female re-admitted to [facility] 10/01/18 for HCAP P: Rosemarie will discharge home with resumption of [facility] RN, addition of PT, OT when ready per MD. MOW to begin post discharge. Rosemarie will also follow up with [facility] for [facility]ing as planned upon her previous discharge. CM will continue to follow.
--- NOTE | 2018-10-05 09:02 | CMPROGNOTE_ITS ---
Care Management Progress Note S/O: Rosemarie remains inpatient. She remains pleasant in interaction and has been ambulating through the hallways with PT. CM continues to follow. A: 83 year old female re-admitted to [facility] 10/01/18 for HCAP P: Rosemarie will discharge home with resumption of [facility] RN, addition of PT, OT when ready per MD. MOW to begin post discharge. Rosemarie will also follow up with [facility] for [facility] Counseling as planned upon her previous discharge. CM will continue to follow.
[2018-10-05] MEDS: Magnesium Oxide 400 MG TAB PO ×2 (09:38→22:46)
--- NOTE | 2018-10-05 10:04 | PT.INTREAT ---
Date of service: 10/05/18 Time of Service: 10:04 PT Notes Inpatient Physical Therapy Treatment Note [facility] Date: 10/05/18 PRECAUTIONS: Fall SUBJECTIVE: Rosemarie is agreeable to participating in PT this morning. OBJECTIVE: PAIN: Patient c/o L foot pain with weight bearing in p.m. BED MOBILITY/TRANSFERS Sit-supine: I with HOB flat Sit-stand: S Stand-sit: S GAIT Assistive Device: FWW Weight bearing:Full Assist: S Distance: 100' x2 in a.m.; in p.m. Deviation: SOB, slow pace, seated rest x1 in both a.m. and p.m. THEREX: Patient completed functional [id number] exercise x6 requiring U UE push from chair, followed by 5 minute seated rest for recovery from SOB. VITALS: SaO2: 90-96% on 1L O2 via NC with gait training ASSESSMENT: Patient tolerated session well with some c/o SOB and increased fatigue with gait training. She was able to tolerate gait training with FWW support and S, although demonstrates a slow pace and SOB, requiring seated rest for recovery. She would benefit from continued strengthening and gait training for improved activity tolerance and cardiovascular endurance. PLAN: Continue with PT's POC TREATMENT CODE/TIME: Session 1: 30 minutes; [id number] x2 Session 2: minutes; [id number], [id number]
--- NOTE | 2018-10-05 10:09 | PTTR_ITS ---
Date of service: 10/05/18 Time of Service: 10:04 PT Notes Inpatient Physical Therapy Treatment Note [facility] Date: 10/05/18 PRECAUTIONS: Fall SUBJECTIVE: Rosemarie is agreeable to participating in PT this morning. OBJECTIVE: PAIN: Patient c/o L foot pain with weight bearing in p.m. BED MOBILITY/TRANSFERS Sit-supine: I with HOB flat Sit-stand: S Stand-sit: S GAIT Assistive Device: FWW Weight bearing:Full Assist: S Distance: 100' x2 in a.m.; in p.m. Deviation: SOB, slow pace, seated rest x1 in both a.m. and p.m. THEREX: Patient completed functional [id number] exercise x6 requiring U UE push from chair, followed by 5 minute seated rest for recovery from SOB. VITALS: SaO2: 90-96% on 1L O2 via NC with gait training ASSESSMENT: Patient tolerated session well with some c/o SOB and increased fa tigue with gait training. She was able to tolerate gait training with FWW support and S, although demonstrates a slow pace and SOB, requiring seated rest for recovery. She would benefit from continued strengthening and gait training for improved activity tolerance and cardiovascular endurance. PLAN: Continue with PT's POC TREATMENT CODE/TIME: Session 1: 30 minutes; [id number] x2 Session 2: minutes; [id number], [id number]
[2018-10-05] MEDS: Acetaminophen 325 MG TAB PO ×2 (12:54→17:17)
--- NOTE | 2018-10-05 15:34 | PGE_ITS ---
Date of Service Date of service: 10/05/18 Time of Service: 15:31 Assessment and Plan (1) HCAP (healthcare-associated pneumonia): Current visit: Yes Status: Acute Improving. Afebrile, white blood cell count improving, blood cultures have yielded no growth at 72 hours. Continue IV steroids. Recent sputum culture with Pseudomonas. Current sputum culture growing normal mendez. Continue IV vancomycin, Levaquin and aztreonam. Continue scheduled nebulizer treatments, continue to wean oxygen. No longer on IV fluids. Repeat complete blood count in the morning. Consult ID for antibiotic regimen recommendations when sputum culture results available. (2) COPD with acute exacerbation: Current visit: No Status: Acute As above. (3) Back pain: Current visit: Yes Status: Acute Appears chronic, continue aqua K pad for comfort, Tylenol and Lidoderm patch for pain. (4) Malnourished: Current visit: No Status: Acute BMI 15.8. Continue to add supplements for added calories. (5) Peripheral vascular disease: Current visit: No Status: Chronic Continue to encourage smoking cessation, continue aspirin, continue gabapentin for pain. (6) Tobacco abuse: Current visit: Yes Status: Acute Continue nicotine replacement. Continue to encourage smoking cessation. (7) Hypomagnesemia: Current visit: Yes Status: Acute Improved. Conintue to monitor. (8) DVT prophylaxis: Current visit: No Status: Acute Subcutaneous Lovenox. (9) Discharge planning issues: Current visit: Yes Status: Acute She is a DNR/DNI. She lives at home alone. Continue PT/OT for strength and endurance training while hospitalized. This case was discussed with Dr. García who is in agreement. Subjective Interval history since last seen: Mrs. Burgess reports that she did not sleep well last night. She has shortness of breath with exertion, she recovers quickly. Her cough is improving, she is producing thin, light sexton sputum. She is still on oxygen. She is not wheezing. She denies dizziness, chills, chest pain/pressure, palpitations, nausea, vomiting, diarrhea. She is eating and drinking and tolerating her diet. She denies any pain or lower extremity edema. Exam Narrative Exam Narrative: General: Thin, frail, elderly female, sitting up in bed. In no acute distress. HEENT: Normocephalic, atraumatic, pupils equal and round, mucous membranes moist. Neck: supple, no JVD. Cardiovascular: heart has regular rate and rhythm, no murmur appreciated. Respiratory: Respirations even and unlabored, lung sounds diminished throughout, no wheezing, on oxygen, no coughing during exam. Gastrointestinal: Normoactive bowel sounds throughout, abdomen soft, nontender on palpation, no masses appreciated. Extremities: No clubbing, cyanosis or edema. Pedal pulses faint but palpable bilaterally. Objective Objective Clinical Data: Abnormal lab results 10/04/18 10/05/18 10/05/18 Range/Units 13:57 06:46 06:46 WBC 12.99 H (4.4-10.8) k/cumm MCV 97.4 H (80-95) fL MCHC 31.7 L (32.0-36.0) g/dL Absolute Neutrophils 12.31 H (1.2-6.7) k/cumm Absolute Lymphocytes 0.32 L (1.2-3.4) k/cumm Chloride 108 H (98-107) mmol/L BUN 25 H (7-18) mg/dL Glucose 134 H (70-100) mg/dL Calcium 8.0 L (8.5-10.1) mg/dL Vancomycin Trough 24.3 H* (10.0-20.0) ug/mL Vital Signs Temperature 36.7 C 10/05/18 07:57 Temperature Source Tympanic 10/05/18 07:57 Pulse 70 10/05/18 07:57 Pulse Rhythm Regular 10/05/18 07:41 Respiratory Rate 16 10/05/18 07:57 Respiratory Effort Non-Labored 10/05/18 07:41 Respiratory Depth Normal 10/05/18 07:41 Respiratory Pattern Normal 10/05/18 07:41 Blood Pressure 108/59 L 10/05/18 07:57 Pulse Oximetry 95 10/05/18 09:05 Oxygen Delivery Method Nasal Cannula 10/05/18 09:05 Oxygen Flow Rate 1 10/05/18 09:05 Pain Level 2 10/03/18 17:37 Intake & Output 10/04/18 10/05/18 10/05/18 23:59 11:59 23:59 Intake Total 370 / 1110 790 / 1150 360 / 1150 Output Total 300 / 300 Balance 70 / 810 790 / 1150 360 / 1150 Weight 44.3 kg Intake: IV 370 / 670 300 / 420 120 / 420 Oral 490 / 730 240 / 730 Output: Urine 300 / 300 Other: Urine Color Yellow Yellow Urine Appearance Clear Clear Urine Odor Normal Comment Urine mixed with stool could not measure Pt voiding independently in toilet. Hat removed by pt; no measurement. Stool Size Small Stool Characteristics Soft Formed Voiding Methods Bedside Commode Toilet Laboratory Results WBC 12.99 k/cumm (4.4-10.8) H 10/05/18 06:46 RBC 4.24 m/cumm (4.00-5.20) 10/05/18 06:46 Hgb 13.1 g/dL (12.0-15.5) 10/05/18 06:46 Hct 41.3 % (36.0-46.0) 10/05/18 06:46 MCV 97.4 fL (80-95) H 10/05/18 06:46 MCH 30.9 pg (27.0-33.0) 10/05/18 06:46 MCHC 31.7 g/dL (32.0-36.0) L 10/05/18 06:46 RDW 14.6 % (11.7-14.6) 10/05/18 06:46 Plt Count 248 x1000/uL (130-400) 10/05/18 06:46 MPV 10.2 fL (8.0-11.0) 10/05/18 06:46 Immature Gran % 0.6 10/05/18 06:46 Neutrophils % 94.8 10/05/18 06:46 Lymphocytes % 2.5 10/05/18 06:46 Monocytes % 2.0 10/05/18 06:46 Eosinophils % 0.0 10/05/18 06:46 Basophils % 0.1 10/05/18 06:46 Absolute Neutrophils 12.31 k/cumm (1.2-6.7) H 10/05/18 06:46 Absolute Lymphocytes 0.32 k/cumm (1.2-3.4) L 10/05/18 06:46 Absolute Monocytes 0.26 k/cumm (0.11-0.7) 10/05/18 06:46 Absolute Eosinophils 0.00 k/cumm (0.0-0.7) 10/05/18 06:46 Absolute Basophils 0.01 k/cumm (0.0-0.2) 10/05/18 06:46 Sodium 141 mmol/L (136-145) 10/05/18 06:46 Potassium 4.6 mmol/L (3.5-5.1) 10/05/18 06:46 Chloride 108 mmol/L (98-107) H 10/05/18 06:46 Carbon Dioxide 29.7 mmol/L (21.0-32.0) 10/05/18 06:46 Anion Gap 3.3 mmol/L (3-11) 10/05/18 06:46 BUN 25 mg/dL (7-18) H 10/05/18 06:46 Creatinine 0.68 mg/dL (0.55-1.02) 10/05/18 06:46 Estimated GFR/1.73 m2 >= 60.00 (mL/min/1.73m2) 10/05/18 06:46 Glucose 134 mg/dL (70-100) H 10/05/18 06:46 Lactate 1.5 mmol/L (0.6-1.4) H 10/03/18 01:17 Calcium 8.0 mg/dL (8.5-10.1) L 10/05/18 06:46 Magnesium 1.9 mg/dL (1.8-2.4) 10/05/18 06:46 Total Bilirubin 0.3 mg/dL (0.2-1.0) 10/01/18 16:15 AST 25 U/L (15-37) 10/01/18 16:15 ALT 107 U/L (12-78) H 10/01/18 16:15 Alkaline Phosphatase 97 U/L (46-116) 10/01/18 16:15 Troponin I < 0.02 ng/mL (0.00-0.06) 10/01/18 16:15 NT-Pro-B Natriuret Pep 486 pg/mL (-299) H 10/02/18 13:05 Total Protein 6.1 g/dL (6.4-8.2) L 10/01/18 16:15 Albumin 2.4 g/dL (3.4-5.0) L 10/01/18 16:15 Lipase 362 U/L (73-393) 10/01/18 16:15 Urine Color Yellow (Yellow) 10/01/18 22:56 Urine Clarity Clear 10/01/18 22:56 Urine pH 6.0 (5-8) 10/01/18 22:56 Ur Specific [place] 1.025 (1.005-1.025) 10/01/18 22:56 Urine Protein Negative mg/dL (Negative) 10/01/18 22:56 Urine Ketones Negative mg/dL (Negative) 10/01/18 22:56 Urine Blood Negative (Negative) 10/01/18 22:56 Urine Nitrite Negative (Negative) 10/01/18 22:56 Urine Bilirubin Negative (Negative) 10/01/18 22:56 Urine Urobilinogen 0.2 EU/dL (Up TO 0.2) 10/01/18 22:56 Ur Leukocyte Esterase Trace (Negative) H 10/01/18 22:56 Urine RBC 3-5 (0-2) H 10/01/18 22:56 Urine WBC 5-10 HPF (0-5) 10/01/18 22:56 Ur Epithelial Cells Moderate HPF (Negative) 10/01/18 22:56 Urine Crystals Negative HPF (Negative) 10/01/18 22:56 Urine Bacteria Few HPF (Negative) 10/01/18 22:56 Urine Casts Negative LPF (Negative) 10/01/18 22:56 Urine Mucus Negative (Negative) 10/01/18 22:56 Urine Other Negative (Negative) 10/01/18 22:56 Ur Culture Indicated? No/sq. contamination 10/01/18 22:56 Urine Glucose Negative mg/dL (Negative) 10/01/18 22:56 Vancomycin Trough 24.3 ug/mL (10.0-20.0) H* 10/04/18 13:57
[2018-10-05] MEDS: Lidocaine 5% Patch 1 PATCH TP (18:06)
[2018-10-05] MEDS: Metoprolol 25 MG TAB 12.5 MG PO (20:21)
[2018-10-05] MEDS: Enoxaparin 30 MG/0.3 ML SYR SC (22:31)
[2018-10-06] VITALS (8 sets, daily range): BP systolic 112–115; BP diastolic 63–68; PULSE 67–79; RESP 1–24; TEMP 36.5–37.5; O2SAT 94–95
[2018-10-06] MEDS: Albuterol/Ipratropium 3 ML UPD VIAL UPD ×4 (00:02→17:41)
[2018-10-06] MEDS: VANCOMYCIN 500 MG in Normal Saline 100 ML 100 MG IV (01:36)
[2018-10-06] MEDS: methylPREDNISolone SUCC 125 MG VIAL 60 MG IVP (01:36)
[2018-10-06] MEDS: Lidocaine Patch Removal 1 EACH TD (05:35)
[2018-10-06 07:11] LABS: Abs Immature Grans 0.07 k/cumm (0.0-0.09); Absolute Lymphocyte Count 0.31 k/cumm (1.2-3.4); Absolute Monocyte Count 0.48 k/cumm (0.11-0.7); Absolute Neutrophil Count 14.49 k/cumm (1.2-6.7); HCT 39.9 % (36.0-46.0); HGB 12.7 g/dL (12.0-15.5); Immature Grans % 0.5; Mean Corp. HGB Concentration 31.8 g/dL (32.0-36.0); Mean Corpuscular Hemoglobin 31.1 pg (27.0-33.0); Mean Corpuscular Volume 97.6 fL (80-95); Monocytes % 3.1; Neutrophils % 94.4; Platelet Count 255 x1000/uL (130-400); RBC 4.09 m/cumm (4.00-5.20); RBC Distribution Width 14.6 % (11.7-14.6); White Blood Cell Count 15.35 k/cumm (4.4-10.8)
[2018-10-06 07:20] LABS: Anion Gap 2.1 mmol/L (3-11); BUN 26 mg/dL (7-18); CO2 31.9 mmol/L (21.0-32.0); CREATININE 0.59 mg/dL (0.55-1.02); Calcium 7.8 mg/dL (8.5-10.1); Chloride 106 mmol/L (98-107); Glucose 123 mg/dL (70-100); Magnesium 1.8 mg/dL (1.8-2.4); Potassium 4.9 mmol/L (3.5-5.1); Sodium 140 mmol/L (136-145)
[2018-10-06] MEDS: Acetaminophen 325 MG TAB PO ×2 (07:54→22:30)
[2018-10-06] MEDS: Gabapentin 800 MG TAB PO ×3 (08:08→20:32)
[2018-10-06] MEDS: Metoprolol 25 MG TAB 12.5 MG PO ×2 (08:08→20:32)
[2018-10-06] MEDS: Lactobacillus Acidophilus CAP 1 CAP PO ×3 (08:09→20:33)
[2018-10-06] MEDS: Aspirin 81 MG CHEW PO (08:09)
[2018-10-06] MEDS: Benzonatate 200 MG CAP PO ×3 (08:09→20:32)
[2018-10-06] MEDS: guaiFENesin 600 MG TABCR 1200 MG PO ×2 (08:09→20:32)
[2018-10-06] MEDS: Mirabegron 25 MG TABCR PO (08:09)
[2018-10-06] MEDS: Omeprazole 20 MG CAPCR PO (08:10)
--- NOTE | 2018-10-06 08:40 | PDOC.CMPRO ---
Care Management Progress Note S/O: Rosemarie remains inpatient. She remains pleasant in interaction and has been ambulating through the hallways with PT. Per MD, planned discussion with ID today will inform needed antibiotic therapy including frequency and duration. CM continues to follow. A: 83 year old female re-admitted to [facility] 10/01/18 for HCAP P: Rosemarie will discharge home with resumption of [facility] RN, addition of PT, OT when ready per MD. MOW to begin post discharge. Rosemarie will also follow up with [facility] for [facility] as planned upon her previous discharge. CM will continue to follow.
--- NOTE | 2018-10-06 08:43 | CMPROGNOTE_ITS ---
Care Management Progress Note S/O: Rosemarie remains inpatient. She remains pleasant in interaction and has been ambulating through the hallways with PT. Per MD, planned discussion with ID today will inform needed antibiotic therapy including frequency and duration. CM continues to follow. A: 83 year old female re-admitted to [facility] 10/01/18 for HCAP P: Rosemarie will discharge home with resumption of [facility] RN, addition of PT, OT when ready per MD. MOW to begin post discharge. Rosemarie will also follow up with [facility] for [facility] as planned upon her previous discharge. CM will continue to follow.
[2018-10-06] MEDS: Normal Saline Flush 10 ML SYR IVP ×3 (10:03→14:41)
[2018-10-06] MEDS: levoFLOXacin 750 MG/150 ML BAG 100 MG IVPB (10:04)
[2018-10-06] MEDS: Magnesium Oxide 400 MG TAB PO ×2 (10:04→22:17)
[2018-10-06] MEDS: Baclofen 10 MG TAB 5 MG PO (11:46)
[2018-10-06 13:41] LABS: Vancomycin, Trough 10.9 ug/mL (10.0-20.0)
--- NOTE | 2018-10-06 13:47 | PT.INTREAT ---
Date of service: 10/06/18 Time of Service: 01:05 PT Notes Inpatient Physical Therapy Treatment Note [facility] Date: 10/06/18 PRECAUTIONS: FAll and Standard SUBJECTIVE: Pt reports that she is tired and that her right hand is really sore since they took blood from it. OBJECTIVE: Sit-stand: SBA Stand-sit: SBA GAIT Assistive Device: FWW Weight bearing: Full Assist: SBA Distance: 50ft x2 with 1 seated rest VITALS: Oxygen with 1L 88-92% THEREX: Pt completed LE ther ex as per flow sheet while seated. Pt was not able to complete UE ther ex do to her hand bothering her. STAIRS:[] ASSESSMENT: Pt was fatigued today and did require rests throughout her session today. PLAN: Cont as per PT POC. TREATMENT CODE/TIME: 1:05-1:25 (25) ADEEL MARIE
--- NOTE | 2018-10-06 14:21 | W.PM.PROGNOT ---
Date of Service Date of service: 10/06/18 Time of Service: 14:21 Assessment and Plan (1) HCAP (healthcare-associated pneumonia): Current visit: Yes Status: Acute Improving. Afebrile, white blood cell count improving, blood cultures have yielded no growth at 72 hours. Continue IV steroids. Recent sputum culture with Pseudomonas. Current sputum culture growing normal mendez. She has been treated with IV vancomycin, Levaquin and aztreonam to cover for possible ongoing pseudomonas infection as well as HAP. Dr. García discussed her case with ID at [facility]. Today she completes 5 days of HAP coverage. Discontinue Vancomycin and Aztreonam after last doses today. Continue Levaquin to complete full 14 day course (9 more days) to ensure clearance of pseudomonas. Continue scheduled nebulizer treatments, continue to wean oxygen. No longer on IV fluids. Repeat complete blood count in the morning. (2) COPD with acute exacerbation: Current visit: No Status: Acute As above. (3) Back pain: Current visit: Yes Status: Acute Chronic, continue aqua K pad for comfort, Tylenol and Lidoderm patch for pain. (4) Malnourished: Current visit: No Status: Acute BMI 15.8. Continue to add supplements for added calories. (5) Peripheral vascular disease: Current visit: No Status: Chronic Continue to encourage smoking cessation, continue aspirin, continue gabapentin for pain. (6) Tobacco abuse: Current visit: Yes Status: Acute Continue nicotine replacement. Continue to encourage smoking cessation. (7) Hypomagnesemia: Current visit: Yes Status: Acute Improved. Continue to monitor. (8) DVT prophylaxis: Current visit: No Status: Acute Subcutaneous Lovenox. (9) Discharge planning issues: Current visit: Yes Status: Acute She is a DNR/DNI. She lives at home alone. Continue PT/OT for strength and endurance training while hospitalized. This case was discussed with Dr. García who is in agreement. Subjective Interval history since last seen: Mrs. Burgess reports feeling tired today. She continues to have shortness of breath with exertion, she recovers quickly. She continues to cough occasionally, producing thin light sexton sputum. She is still on oxygen, she does not feel wheezy. She is working with PT. She had a midline placed yesterday and has been experiencing right hand pain since that time. She is eating and drinking and tolerating her diet. She denies dizziness, chills, chest pain/pressure, palpitations, nausea, vomiting, diarrhea. She denies any pain or lower extremity edema. Exam Narrative Exam Narrative: General: Thin, frail, elderly female, sitting up in the chair. In no acute distress. Speaking in complete sentences with no shortness of breath. HEENT: Normocephalic, atraumatic, pupils equal and round, mucous membranes moist. Neck: supple, no JVD. Cardiovascular: heart has regular rate and rhythm, no murmur appreciated. Respiratory: Respirations even and unlabored, lung sounds diminished throughout, no wheezing or rales, on oxygen, no coughing during exam. Gastrointestinal: Normoactive bowel sounds throughout, abdomen soft, nontender on palpation, no masses appreciated. Extremities: No clubbing, cyanosis or edema. Pedal pulses faint but palpable bilaterally. Objective Objective Clinical Data: Abnormal lab results 10/06/18 10/06/18 Range/Units 06:20 06:20 WBC 15.35 H (4.4-10.8) k/cumm MCV 97.6 H (80-95) fL MCHC 31.8 L (32.0-36.0) g/dL Absolute Neutrophils 14.49 H (1.2-6.7) k/cumm Absolute Lymphocytes 0.31 L (1.2-3.4) k/cumm Anion Gap 2.1 L (3-11) mmol/L BUN 26 H (7-18) mg/dL Glucose 123 H (70-100) mg/dL Calcium 7.8 L (8.5-10.1) mg/dL Vital Signs Temperature 36.5 C 10/06/18 08:32 Temperature Source Tympanic 10/06/18 08:32 Pulse 75 10/06/18 08:32 Pulse Rhythm Regular 10/06/18 08:20 Respiratory Rate 18 10/06/18 08:32 Respiratory Effort Non-Labored 10/06/18 08:20 Respiratory Depth Normal 10/06/18 08:20 Respiratory Pattern Normal 10/06/18 08:20 Blood Pressure 112/63 10/06/18 08:32 Pulse Oximetry 94 L 10/06/18 08:32 Oxygen Delivery Method Nasal Cannula 10/06/18 08:32 Oxygen Flow Rate 2 10/06/18 08:32 Pain Level 7 10/06/18 07:54 Comment 10/06/18 08:32 Intake & Output 10/05/18 10/06/18 10/06/18 23:59 11:59 23:59 Intake Total 800 / 1590 910 / 1150 240 / 1150 Output Total 450 / 450 Balance 350 / 1140 910 / 1150 240 / 1150 Weight 44.1 kg Intake: IV 320 / 620 550 / 550 Oral 480 / 970 360 / 600 240 / 600 Output: Urine 450 / 450 Other: Urine Color Yellow Straw Urine Appearance Clear Clear Stool Size Small Stool Characteristics Formed Hard Brown Voiding Methods Bedside Commode Laboratory Results WBC 15.35 k/cumm (4.4-10.8) H 10/06/18 06:20 RBC 4.09 m/cumm (4.00-5.20) 10/06/18 06:20 Hgb 12.7 g/dL (12.0-15.5) 10/06/18 06:20 Hct 39.9 % (36.0-46.0) 10/06/18 06:20 MCV 97.6 fL (80-95) H 10/06/18 06:20 MCH 31.1 pg (27.0-33.0) 10/06/18 06:20 MCHC 31.8 g/dL (32.0-36.0) L 10/06/18 06:20 RDW 14.6 % (11.7-14.6) 10/06/18 06:20 Plt Count 255 x1000/uL (130-400) 10/06/18 06:20 MPV 10.0 fL (8.0-11.0) 10/06/18 06:20 Immature Gran % 0.5 10/06/18 06:20 Neutrophils % 94.4 10/06/18 06:20 Lymphocytes % 2.0 10/06/18 06:20 Monocytes % 3.1 10/06/18 06:20 Eosinophils % 0.0 10/06/18 06:20 Basophils % 0.0 10/06/18 06:20 Absolute Neutrophils 14.49 k/cumm (1.2-6.7) H 10/06/18 06:20 Absolute Lymphocytes 0.31 k/cumm (1.2-3.4) L 10/06/18 06:20 Absolute Monocytes 0.48 k/cumm (0.11-0.7) 10/06/18 06:20 Absolute Eosinophils 0.00 k/cumm (0.0-0.7) 10/06/18 06:20 Absolute Basophils 0.00 k/cumm (0.0-0.2) 10/06/18 06:20 Sodium 140 mmol/L (136-145) 10/06/18 06:20 Potassium 4.9 mmol/L (3.5-5.1) 10/06/18 06:20 Chloride 106 mmol/L (98-107) 10/06/18 06:20 Carbon Dioxide 31.9 mmol/L (21.0-32.0) 10/06/18 06:20 Anion Gap 2.1 mmol/L (3-11) L 10/06/18 06:20 BUN 26 mg/dL (7-18) H 10/06/18 06:20 Creatinine 0.59 mg/dL (0.55-1.02) 10/06/18 06:20 Estimated GFR/1.73 m2 >= 60.00 (mL/min/1.73m2) 10/06/18 06:20 Glucose 123 mg/dL (70-100) H 10/06/18 06:20 Lactate 1.5 mmol/L (0.6-1.4) H 10/03/18 01:17 Calcium 7.8 mg/dL (8.5-10.1) L 10/06/18 06:20 Magnesium 1.8 mg/dL (1.8-2.4) 10/06/18 06:20 Total Bilirubin 0.3 mg/dL (0.2-1.0) 10/01/18 16:15 AST 25 U/L (15-37) 10/01/18 16:15 ALT 107 U/L (12-78) H 10/01/18 16:15 Alkaline Phosphatase 97 U/L (46-116) 10/01/18 16:15 Troponin I < 0.02 ng/mL (0.00-0.06) 10/01/18 16:15 NT-Pro-B Natriuret Pep 486 pg/mL (-299) H 10/02/18 13:05 Total Protein 6.1 g/dL (6.4-8.2) L 10/01/18 16:15 Albumin 2.4 g/dL (3.4-5.0) L 10/01/18 16:15 Lipase 362 U/L (73-393) 10/01/18 16:15 Urine Color Yellow (Yellow) 10/01/18 22:56 Urine Clarity Clear 10/01/18 22:56 Urine pH 6.0 (5-8) 10/01/18 22:56 Ur Specific [place] 1.025 (1.005-1.025) 10/01/18 22:56 Urine Protein Negative mg/dL (Negative) 10/01/18 22:56 Urine Ketones Negative mg/dL (Negative) 10/01/18 22:56 Urine Blood Negative (Negative) 10/01/18 22:56 Urine Nitrite Negative (Negative) 10/01/18 22:56 Urine Bilirubin Negative (Negative) 10/01/18 22:56 Urine Urobilinogen 0.2 EU/dL (Up TO 0.2) 10/01/18 22:56 Ur Leukocyte Esterase Trace (Negative) H 10/01/18 22:56 Urine RBC 3-5 (0-2) H 10/01/18 22:56 Urine WBC 5-10 HPF (0-5) 10/01/18 22:56 Ur Epithelial Cells Moderate HPF (Negative) 10/01/18 22:56 Urine Crystals Negative HPF (Negative) 10/01/18 22:56 Urine Bacteria Few HPF (Negative) 10/01/18 22:56 Urine Casts Negative LPF (Negative) 10/01/18 22:56 Urine Mucus Negative (Negative) 10/01/18 22:56 Urine Other Negative (Negative) 10/01/18 22:56 Ur Culture Indicated? No/sq. contamination 10/01/18 22:56 Urine Glucose Negative mg/dL (Negative) 10/01/18 22:56 Vancomycin Trough 10.9 ug/mL (10.0-20.0) 10/06/18 13:10
[2018-10-06] MEDS: VANCOMYCIN 750 MG in Normal Saline 250 ML 166.667 MG IVPB (14:42)
[2018-10-06] MEDS: Lidocaine 5% Patch 1 PATCH TP (18:23)
[2018-10-06] MEDS: predniSONE 20 MG TAB 40 MG PO (20:33)
[2018-10-06] MEDS: Enoxaparin 30 MG/0.3 ML SYR SC (22:17)
[2018-10-07] VITALS (8 sets, daily range): BP systolic 113–121; BP diastolic 68–75; PULSE 74–81; RESP 1–20; TEMP 36.5–37.2; O2SAT 92–98
[2018-10-07] MEDS: Albuterol/Ipratropium 3 ML UPD VIAL UPD ×5 (00:03→23:21)
[2018-10-07] MEDS: Ketorolac 15 MG/ML VIAL IVP ×2 (01:15→09:57)
[2018-10-07] MEDS: Normal Saline Flush 10 ML SYR IVP ×3 (01:16→09:58)
[2018-10-07] MEDS: Lidocaine Patch Removal 1 EACH TD (05:49)
[2018-10-07 06:09] LABS: Abs Immature Grans 0.05 k/cumm (0.0-0.09); Absolute Basophil Count 0.01 k/cumm (0.0-0.2); Absolute Monocyte Count 0.27 k/cumm (0.11-0.7); Basophils % 0.1; HCT 38.7 % (36.0-46.0); HGB 12.4 g/dL (12.0-15.5); Immature Grans % 0.3; Lymphocytes % 2.4; Mean Corpuscular Hemoglobin 31.2 pg (27.0-33.0); Mean Corpuscular Volume 97.5 fL (80-95); Monocytes % 1.9; Neutrophils % 95.3; Platelet Count 234 x1000/uL (130-400); RBC 3.97 m/cumm (4.00-5.20); RBC Distribution Width 14.6 % (11.7-14.6); White Blood Cell Count 14.38 k/cumm (4.4-10.8)
[2018-10-07 06:13] LABS: Absolute Lymphocyte Count 0.35 k/cumm (1.2-3.4)
[2018-10-07 06:19] LABS: Anion Gap 1.3 mmol/L (3-11); BUN 29 mg/dL (7-18); CO2 32.7 mmol/L (21.0-32.0); CREATININE 0.64 mg/dL (0.55-1.02); Calcium 7.7 mg/dL (8.5-10.1); Chloride 105 mmol/L (98-107); Glucose 143 mg/dL (70-100); Magnesium 1.9 mg/dL (1.8-2.4); Potassium 5.1 mmol/L (3.5-5.1); Sodium 139 mmol/L (136-145)
--- NOTE | 2018-10-07 08:05 | PDOC.CMPRO ---
- If Service Date Differs Date of service: 10/07/18 Time of Service: 08:05 Care Management Progress Note S/O: Rosemarie is sitting up in the chair in her room. She is alert and engaged with CM during assessment. She is receiving oral antibiotics at this time. She is complaining of right arm pain which she states started after insertion of her PICC line. Ultrasound has been ordered to rule out DVT. She states her breathing has improved she is currently not on oxygen while sitting up in her chair. She is worried about being discharged over the weekend [place] and likely would not be able to get into her home. She is not ready for discharge today due to the right arm pain, swelling and availability of U/S today. She is being treated with weight based Lovenox. A: 83 year old female re-admitted to [facility] 10/01/18 for HCAP with a history of chronic lung disease (COPD), and tobacco use. Rosemarie is now using home oxygen since last admission 08/2018. P: Rosemarie will discharge home with resumption of [facility] RN, addition of PT, OT when ready per . MOW to begin post discharge. Rosemarie will also follow up with [facility] for [facility] as planned upon her previous discharge. CM will continue to follow.
[2018-10-07] MEDS: Mirabegron 25 MG TABCR PO (08:33)
[2018-10-07] MEDS: Omeprazole 20 MG CAPCR PO (08:33)
[2018-10-07] MEDS: Lactobacillus Acidophilus CAP 1 CAP PO ×3 (08:33→20:27)
[2018-10-07] MEDS: predniSONE 20 MG TAB 40 MG PO ×2 (08:33→20:27)
[2018-10-07] MEDS: Metoprolol 25 MG TAB 12.5 MG PO ×2 (08:33→20:27)
[2018-10-07] MEDS: Benzonatate 200 MG CAP PO ×3 (08:33→20:28)
[2018-10-07] MEDS: Gabapentin 800 MG TAB PO ×3 (08:34→20:27)
[2018-10-07] MEDS: levoFLOXacin 500 MG TAB PO (08:34)
[2018-10-07] MEDS: guaiFENesin 600 MG TABCR 1200 MG PO ×2 (08:34→20:27)
[2018-10-07] MEDS: Acetaminophen 325 MG TAB PO ×2 (08:35→22:15)
[2018-10-07] MEDS: Aspirin 81 MG CHEW PO (08:36)
[2018-10-07] MEDS: Magnesium Oxide 400 MG TAB PO ×2 (11:35→22:15)
--- NOTE | 2018-10-07 12:49 | PT.INTREAT ---
Date of service: 10/07/18 Time of Service: 09:20 PT Notes Inpatient Physical Therapy Treatment Note [facility] Date: 10/07/18 PRECAUTIONS:Fall and standard SUBJECTIVE: Indicated the IV in her right arm is very painful at times, would like to have it removed. This information was discussed with nursing staff. Stated she was informed [place] with all the rain we have gotten, is concerned her home with be damaged. OBJECTIVE: PAIN: Right arm pain that is severe at times. Almost cried due to pain when she moved to sit in her chair after walking in [place]. BED MOBILITY/TRANSFERS Sit-stand: SBA Stand-sit: SBA GAIT Assistive Device: FWW Weight bearing: Full Assist: SBA Distance: 50ft x 2 with one 3 minute sit down rest THEREX: See flow sheet for details. Performed AP, LAQs, seated hip flexion and seated hip abd/adduction for 10 to 20 reps each. Vitals : On 1 L O2 supplement with O2 reading of 97% and HR of 88b/m after ther exercises ASSESSMENT: Tolerated today's PT session well with good effort given, but very frustrated with pain in right UE. PLAN: Continue to encourage ambulation and strengthening for improved ADL function. TREATMENT CODE/TIME: 9:20 to 9:45 (25'), TP x 1 /TA x 1
--- NOTE | 2018-10-07 13:20 | W.PM.PROGNOT ---
Date of Service Date of service: 10/07/18 Time of Service: 13:34 Assessment and Plan (1) HCAP (healthcare-associated pneumonia): Start date: 10/07/18 Start time: 13:21 Current visit: Yes Status: Acute Improving. Afebrile, tranisitioned to PO levaquin, Continue steroids transitioned to PO prednisone BID and taper over long course. WBC improving. Blood cultures with no growth. Complete 14 day course of levaquin per prior providers note after speaking to [facility]. Day 6 of levaquin. Requires 2L oxygen when exercising and ambulating or sleeping. Continue nebs and updraft. No wheezing, rhonchi or crackles in the lung robins. (2) COPD with acute exacerbation: Start date: 10/07/18 Start time: 13:26 Current visit: No Status: Acute As above. (3) Right arm pain: Start date: 10/07/18 Start time: 13:30 Current visit: Yes Status: Acute Pt c/o right arm pain, PICC in place in brachial vein, concern for DVT in arm. Fingers are swollen and pt c/o numbness to fingers with pain, not her normal neuropathy pain. U/S ordered, they are unable to do the u/s until Tuesday. Pt placed on Lovenox 1mg/kg bid for questionable DVT. Continue treatment until DVT r/o. (4) Back pain: Start date: 10/07/18 Start time: 13:27 Current visit: Yes Status: Acute Chronic, continue aqua K pad for comfort, Tylenol and Lidoderm patch for pain. (5) Malnourished: Start date: 10/07/18 Start time: 13:29 Current visit: No Status: Acute D/c magic cups as potassium is creeping up. (6) Peripheral vascular disease: Start date: 10/07/18 Start time: 13:29 Current visit: No Status: Chronic Continue to encourage smoking cessation, continue aspirin, continue gabapentin for pain. (7) Tobacco abuse: Start date: 10/07/18 Start time: 13:29 Current visit: Yes Status: Acute Continue nicotine replacement. Continue to encourage smoking cessation. (8) Hypomagnesemia: Start date: 10/07/18 Start time: 13:29 Current visit: Yes Status: Acute Resolved. Continue to monitor. (9) DVT prophylaxis: Start date: 10/07/18 Start time: 13:30 Current visit: No Status: Acute Subcutaneous Lovenox. (10) Discharge planning issues: Start date: 10/07/18 Start time: 13:30 Current visit: Yes Status: Acute She is a DNR/DNI. She lives at home alone. Continue PT/OT for strength and endurance training while hospitalized. Subjective Patient reports: other Interval history since last seen: Mrs. Burgess is sounding better. She is c/o right arm pain with intermittent numbness and her fingers are swollen on that hand. She does have a PICC in the right brachial of that arm. DVT needs to be r/o. U/S can not be preformed until Tuesday. We will treat as though she does have a DVT based on symptoms and assessment. Enoxaparin 1mg/kg BID and follow up with u/s result. Her lungs are diminished without crackles, rhonchi, or wheezing. She is afebrile with no growth on blood culture after 120 hours. She was transitioned to PO levaquin today and she was started on PO prednisone yesterday. Continue to monitor, labs and symptoms. She does require 2 L of oxygen at this time when ambulating or exercising. She denies SOB, CP, n/v/d Exam Const General: cooperative, well groomed and ill appearing chronically Nutritional Appearance: thin and underweight Orientation: alert, awake and oriented [facility]3 [facility]: normal to inspection, no palpable skull fracture, normocephalic and atraumatic Mouth: oral mucosae normal, lip normal, tongue normal, oropharynx normal and moist mucous membranes Teeth and gingiva: dentures Neck Neck: normal visual inspection, full ROM, no lymphadenopathy, trachea midline, supple and no JVD Thyroid: thyroid normal Carotids: normal carotid upstroke Lymphatic: no lymphadenopathy noted Chest Chest: normal inspection of the chest and normal palpation of entire chest wall Resp Effort & Inspection: normal respiratory effort and able to speak in complete sentences Auscultation: diminished lung sounds bilaterally Cardio Jugular venous pressure: no JVD Palpation: normal PMI Rate: regular rate Rhythm: regular rhythm Heart Sounds: S1 normal, S2 normal and murmur diastolic Bruits: abdominal aortic bruit Pulses: posterior tibial pulses present bilaterally and dorsalis pedis pulses present bilaterally GI Inspection: scaphoid Palpation: soft and no hepatosplenomegaly Percussion: normal to percussion Auscultation: normal bowel sounds Skin General skin exam: no rashes or lesions noted Neuro General: alert, awake, oriented x3, moves all extremities and no focal motor deficits Cognition: normal cognition Speech: speech normal Motor: muscle tone normal throughout Sensory Exam: no sensory deficits noted Extrem General: normal to inspection, full ROM, no joint enlargement and no clubbing, cyanosis or edema Other: right hand with swollen fingers and pain with intermittent numbness. Psych Appearance: grossly normal Mental Status: mental status grossly normal Speech and Movement: speech and movement normal Mood: congruent mood Affect: normal affect Attitude: cooperative Thought Process: normal Thought Content: normal Insight: insight good Judgment: judgment good Objective Objective Clinical Data: Abnormal lab results 10/07/18 10/07/18 Range/Units 05:45 05:45 WBC 14.38 H (4.4-10.8) k/cumm RBC 3.97 L (4.00-5.20) m/cumm MCV 97.5 H (80-95) fL Absolute Neutrophils 13.70 H (1.2-6.7) k/cumm Absolute Lymphocytes 0.35 L (1.2-3.4) k/cumm Carbon Dioxide 32.7 H (21.0-32.0) mmol/L Anion Gap 1.3 L (3-11) mmol/L BUN 29 H (7-18) mg/dL Glucose 143 H (70-100) mg/dL Calcium 7.7 L (8.5-10.1) mg/dL Vital Signs Temperature 36.5 C 10/07/18 07:11 Temperature Source Tympanic 10/07/18 07:11 Pulse 75 10/07/18 07:11 Pulse Rhythm Regular 10/07/18 07:40 Respiratory Rate 19 10/07/18 07:11 Respiratory Effort Non-Labored 10/07/18 07:40 Respiratory Depth Normal 10/07/18 07:40 Respiratory Pattern Normal 10/07/18 07:40 Blood Pressure 121/75 10/07/18 07:11 Pulse Oximetry 98 10/07/18 07:11 Oxygen Delivery Method Nasal Cannula 10/07/18 07:11 Oxygen Flow Rate 1 10/07/18 07:11 Pain Level 6 10/07/18 09:57 Comment 10/06/18 08:32 Intake & Output 10/06/18 10/07/18 10/07/18 23:59 11:59 23:59 Intake Total 930 / 1840 930 / 930 Output Total 350 / 350 500 / 500 Balance 580 / 1490 430 / 430 Weight 45 kg Intake: IV 450 / 1000 30 / 30 Oral 480 / 840 900 / 900 Output: Urine 350 / 350 500 / 500 Other: Urine Color Yellow Yellow Urine Appearance Clear Clear Urine Odor Normal Comment Hat placed in toilet at this time. Stool Size Small Small Stool Characteristics Formed Soft Brown Brown Voiding Methods Bedside Commode Bedside Commode Laboratory Results WBC 14.38 k/cumm (4.4-10.8) H 10/07/18 05:45 RBC 3.97 m/cumm (4.00-5.20) L 10/07/18 05:45 Hgb 12.4 g/dL (12.0-15.5) 10/07/18 05:45 Hct 38.7 % (36.0-46.0) 10/07/18 05:45 MCV 97.5 fL (80-95) H 10/07/18 05:45 MCH 31.2 pg (27.0-33.0) 10/07/18 05:45 MCHC 32.0 g/dL (32.0-36.0) 10/07/18 05:45 RDW 14.6 % (11.7-14.6) 10/07/18 05:45 Plt Count 234 x1000/uL (130-400) 10/07/18 05:45 MPV 10.0 fL (8.0-11.0) 10/07/18 05:45 Immature Gran % 0.3 10/07/18 05:45 Neutrophils % 95.3 10/07/18 05:45 Lymphocytes % 2.4 10/07/18 05:45 Monocytes % 1.9 10/07/18 05:45 Eosinophils % 0.0 10/07/18 05:45 Basophils % 0.1 10/07/18 05:45 Absolute Neutrophils 13.70 k/cumm (1.2-6.7) H 10/07/18 05:45 Absolute Lymphocytes 0.35 k/cumm (1.2-3.4) L 10/07/18 05:45 Absolute Monocytes 0.27 k/cumm (0.11-0.7) 10/07/18 05:45 Absolute Eosinophils 0.00 k/cumm (0.0-0.7) 10/07/18 05:45 Absolute Basophils 0.01 k/cumm (0.0-0.2) 10/07/18 05:45 Sodium 139 mmol/L (136-145) 10/07/18 05:45 Potassium 5.1 mmol/L (3.5-5.1) 10/07/18 05:45 Chloride 105 mmol/L (98-107) 10/07/18 05:45 Carbon Dioxide 32.7 mmol/L (21.0-32.0) H 10/07/18 05:45 Anion Gap 1.3 mmol/L (3-11) L 10/07/18 05:45 BUN 29 mg/dL (7-18) H 10/07/18 05:45 Creatinine 0.64 mg/dL (0.55-1.02) 10/07/18 05:45 Estimated GFR/1.73 m2 >= 60.00 (mL/min/1.73m2) 10/07/18 05:45 Glucose 143 mg/dL (70-100) H 10/07/18 05:45 Lactate 1.5 mmol/L (0.6-1.4) H 10/03/18 01:17 Calcium 7.7 mg/dL (8.5-10.1) L 10/07/18 05:45 Magnesium 1.9 mg/dL (1.8-2.4) 10/07/18 05:45 Total Bilirubin 0.3 mg/dL (0.2-1.0) 10/01/18 16:15 AST 25 U/L (15-37) 10/01/18 16:15 ALT 107 U/L (12-78) H 10/01/18 16:15 Alkaline Phosphatase 97 U/L (46-116) 10/01/18 16:15 Troponin I < 0.02 ng/mL (0.00-0.06) 10/01/18 16:15 NT-Pro-B Natriuret Pep 486 pg/mL (-299) H 10/02/18 13:05 Total Protein 6.1 g/dL (6.4-8.2) L 10/01/18 16:15 Albumin 2.4 g/dL (3.4-5.0) L 10/01/18 16:15 Lipase 362 U/L (73-393) 10/01/18 16:15 Urine Color Yellow (Yellow) 10/01/18 22:56 Urine Clarity Clear 10/01/18 22:56 Urine pH 6.0 (5-8) 10/01/18 22:56 Ur Specific [place] 1.025 (1.005-1.025) 10/01/18 22:56 Urine Protein Negative mg/dL (Negative) 10/01/18 22:56 Urine Ketones Negative mg/dL (Negative) 10/01/18 22:56 Urine Blood Negative (Negative) 10/01/18 22:56 Urine Nitrite Negative (Negative) 10/01/18 22:56 Urine Bilirubin Negative (Negative) 10/01/18 22:56 Urine Urobilinogen 0.2 EU/dL (Up TO 0.2) 10/01/18 22:56 Ur Leukocyte Esterase Trace (Negative) H 10/01/18 22:56 Urine RBC 3-5 (0-2) H 10/01/18 22:56 Urine WBC 5-10 HPF (0-5) 10/01/18 22:56 Ur Epithelial Cells Moderate HPF (Negative) 10/01/18 22:56 Urine Crystals Negative HPF (Negative) 10/01/18 22:56 Urine Bacteria Few HPF (Negative) 10/01/18 22:56 Urine Casts Negative LPF (Negative) 10/01/18 22:56 Urine Mucus Negative (Negative) 10/01/18 22:56 Urine Other Negative (Negative) 10/01/18 22:56 Ur Culture Indicated? No/sq. contamination 10/01/18 22:56 Urine Glucose Negative mg/dL (Negative) 10/01/18 22:56 Vancomycin Trough 10.9 ug/mL (10.0-20.0) 10/06/18 13:10
[2018-10-07] MEDS: Enoxaparin 30 MG/0.3 ML SYR 45 MG SC ×2 (13:59→23:22)
[2018-10-07] MEDS: Lidocaine 5% Patch 1 PATCH TP (17:26)
[2018-10-07] MEDS: traZODone 50 MG TAB 25 MG PO (23:35)
[2018-10-08] VITALS (12 sets, daily range): BP systolic 110–117; BP diastolic 66–76; PULSE 68–99; RESP 2–20; TEMP 36–37.4; O2SAT 83–100
[2018-10-08] MEDS: Albuterol/Ipratropium 3 ML UPD VIAL UPD ×4 (06:35→23:18)
[2018-10-08] MEDS: Lidocaine Patch Removal 1 EACH TD (06:38)
[2018-10-08] MEDS: Acetaminophen 325 MG TAB PO (06:57)
[2018-10-08] MEDS: Omeprazole 20 MG CAPCR PO (08:06)
[2018-10-08] MEDS: Metoprolol 25 MG TAB 12.5 MG PO ×2 (08:06→19:52)
[2018-10-08] MEDS: Gabapentin 800 MG TAB PO ×3 (08:06→19:52)
[2018-10-08] MEDS: Benzonatate 200 MG CAP PO ×3 (08:06→19:54)
[2018-10-08] MEDS: guaiFENesin 600 MG TABCR 1200 MG PO ×2 (08:07→19:54)
[2018-10-08] MEDS: Aspirin 81 MG CHEW PO (08:08)
[2018-10-08] MEDS: Mirabegron 25 MG TABCR PO (08:08)
[2018-10-08] MEDS: predniSONE 20 MG TAB 40 MG PO ×2 (08:08→19:54)
[2018-10-08] MEDS: Lactobacillus Acidophilus CAP 1 CAP PO ×3 (08:08→19:52)
[2018-10-08] MEDS: levoFLOXacin 500 MG TAB PO (08:08)
[2018-10-08 09:22] LABS: Anion Gap 4.5 mmol/L (3-11); BUN 27 mg/dL (7-18); CO2 31.5 mmol/L (21.0-32.0); CREATININE 0.65 mg/dL (0.55-1.02); Calcium 7.6 mg/dL (8.5-10.1); Chloride 103 mmol/L (98-107); Glucose 117 mg/dL (70-100); Magnesium 1.9 mg/dL (1.8-2.4); Sodium 139 mmol/L (136-145)
[2018-10-08 09:23] LABS: Abs Immature Grans 0.07 k/cumm (0.0-0.09); Absolute Lymphocyte Count 0.57 k/cumm (1.2-3.4); Basophils % 0.1; HCT 37.5 % (36.0-46.0); HGB 12.4 g/dL (12.0-15.5); Immature Grans % 0.5; Lymphocytes % 3.8; Mean Corp. HGB Concentration 33.1 g/dL (32.0-36.0); Mean Corpuscular Volume 96.6 fL (80-95); Monocytes % 3.6; Platelet Count 225 x1000/uL (130-400); RBC 3.88 m/cumm (4.00-5.20); RBC Distribution Width 14.5 % (11.7-14.6); White Blood Cell Count 15.13 k/cumm (4.4-10.8)
[2018-10-08 09:26] LABS: Absolute Basophil Count 0.02 k/cumm (0.0-0.2); Absolute Monocyte Count 0.54 k/cumm (0.11-0.7); Absolute Neutrophil Count 13.92 k/cumm (1.2-6.7)
[2018-10-08] MEDS: Magnesium Oxide 400 MG TAB PO ×2 (10:20→21:11)
[2018-10-08] MEDS: Bacitracin 1 PACKET ×2 (10:21→11:12)
[2018-10-08] MEDS: Enoxaparin 30 MG/0.3 ML SYR 45 MG SC ×2 (12:04→23:17)
--- NOTE | 2018-10-08 12:51 | W.PM.PROGNOT ---
Date of Service Date of service: 10/08/18 Time of Service: 13:05 Assessment and Plan (1) HCAP (healthcare-associated pneumonia): Start date: 10/08/18 Start time: 12:52 Current visit: Yes Status: Acute Improving. On PO levaquin with improvement, continue nebs, po steroids tapering dose, continue nebs, updraft. Currently not requiring oxygen when nonambulatory. Recheck exercise oximetery for saturation. (2) COPD with acute exacerbation: Start date: 10/08/18 Start time: 12:53 Current visit: No Status: Acute As above. improving and continue to monitor oxygen level (3) Right arm pain: Start date: 10/08/18 Start time: 12:54 Current visit: Yes Status: Acute Right arm pain with digit swelling and intermittent numbness. Midline pulled. U/S scheduled for tomorrow. Treated with lovenox for questionable DVT. Radial pulse strong and bounding. Continue to montior arm (4) Back pain: Start date: 10/08/18 Start time: 12:57 Current visit: Yes Status: Acute Chronic, continue aqua K pad for comfort, Tylenol and Lidoderm patch for pain. (5) Malnourished: Start date: 10/08/18 Start time: 12:57 Current visit: No Status: Acute BMI is higher than previous admission, continue to monitor status and increase caloric intake (6) Peripheral vascular disease: Start date: 10/08/18 Start time: 12:58 Current visit: No Status: Chronic Continue to encourage smoking cessation, continue aspirin, continue gabapentin for pain. (7) Tobacco abuse: Start date: 10/08/18 Start time: 12:58 Current visit: Yes Status: Acute Continue nicotine replacement. Continue to encourage smoking cessation. (8) Hypomagnesemia: Start date: 10/08/18 Start time: 12:58 Current visit: Yes Status: Acute Resolved. Continue to monitor. (9) DVT prophylaxis: Start date: 10/08/18 Start time: 12:58 Current visit: No Status: Acute Subcutaneous Lovenox. (10) Discharge planning issues: Start date: 10/08/18 Start time: 12:58 Current visit: Yes Status: Acute She is a DNR/DNI. She lives at home alone. Continue PT/OT for strength and endurance training while hospitalized. Subjective Patient reports: other Interval history since last seen: Mrs. Burgess is doing better. She is not requiring oxygen while at rest at this time. Exercise oximetery has been ordered. She is on PO levaquin and afebrile, wbc at 15 she is on a tapering steroid dose. Continue to monitor wbc. Her lungs are diminished. She denies wheezing and SOB. She is still c/o right arm pain where the midline is in place. Midline dcd, radial pulse is strong and regular. Her fingers are swollen, consider DVT in that arm it is bruised, red and warm to touch, treatment for DVT lovenox BID until u/s tomorrow with results. Exam Const General: cooperative, well groomed and ill appearing chronically Nutritional Appearance: thin and underweight Orientation: alert, awake and oriented x3 [facility] Head: normal to inspection, no palpable skull fracture, normocephalic and atraumatic Mouth: oral mucosae normal, lip normal, tongue normal, oropharynx normal and moist mucous membranes Teeth and gingiva: dentures Neck Neck: normal visual inspection, full ROM, no lymphadenopathy, trachea midline, supple and no JVD Thyroid: thyroid normal Carotids: normal carotid upstroke Lymphatic: no lymphadenopathy noted Chest Chest: normal inspection of the chest and normal palpation of entire chest wall Resp Effort & Inspection: normal respiratory effort and able to speak in complete sentences Auscultation: diminished lung sounds bilaterally Cardio Jugular venous pressure: no JVD Palpation: normal PMI Rate: regular rate Rhythm: regular rhythm Heart Sounds: S1 normal, S2 normal and murmur diastolic Bruits: abdominal aortic bruit Pulses: posterior tibial pulses present bilaterally and dorsalis pedis pulses present bilaterally GI Inspection: scaphoid Palpation: soft and no hepatosplenomegaly Percussion: normal to percussion Auscultation: normal bowel sounds Skin General skin exam: no rashes or lesions noted Neuro General: alert, awake, oriented x3, moves all extremities and no focal motor deficits Cognition: normal cognition Speech: speech normal Motor: muscle tone normal throughout Sensory Exam: no sensory deficits noted Extrem General: normal to inspection, full ROM, no joint enlargement and no clubbing, cyanosis or edema Right upper extremity: edema Other: Right upper extremity warm to touch, swollen and ecchymotic. Psych Appearance: grossly normal Mental Status: mental status grossly normal Speech and Movement: speech and movement normal Mood: congruent mood Affect: normal affect Attitude: cooperative Thought Process: normal Thought Content: normal Insight: insight good Judgment: judgment good Objective Objective Clinical Data: Abnormal lab results 10/08/18 10/08/18 Range/Units 08:32 08:32 WBC 15.13 H (4.4-10.8) k/cumm RBC 3.88 L (4.00-5.20) m/cumm MCV 96.6 H (80-95) fL Absolute Neutrophils 13.92 H (1.2-6.7) k/cumm Absolute Lymphocytes 0.57 L (1.2-3.4) k/cumm BUN 27 H (7-18) mg/dL Glucose 117 H (70-100) mg/dL Calcium 7.6 L (8.5-10.1) mg/dL Vital Signs Temperature 36.6 C 10/08/18 07:14 Temperature Source Tympanic 10/08/18 07:14 Pulse 68 10/08/18 07:14 Pulse Rhythm Regular 10/08/18 09:05 Respiratory Rate 18 10/08/18 07:14 Respiratory Effort Non-Labored 10/08/18 09:05 Respiratory Depth Normal 10/08/18 09:05 Respiratory Pattern Normal 10/08/18 09:05 Blood Pressure 110/66 10/08/18 07:14 Pulse Oximetry 97 10/08/18 07:14 Oxygen Delivery Method Nasal Cannula 10/08/18 07:14 Oxygen Flow Rate 2 10/08/18 07:14 Pain Level 6 10/08/18 07:57 Comment 10/06/18 08:32 Intake & Output 10/07/18 10/08/18 10/08/18 23:59 11:59 23:59 Intake Total 720 / 1650 540 / 540 Output Total 450 / 950 1000 / 1000 Balance 270 / 700 -460 / -460 Weight 44.2 kg Intake: Oral 720 / 1620 540 / 540 Output: Urine 450 / 950 1000 / 1000 Other: Urine Color Yellow Yellow Reserve Urine Appearance Clear Clear Urine Odor Normal Stool Size Small Small Stool Characteristics Soft Hard Formed Brown Brown Voiding Methods Toilet Toilet Laboratory Results WBC 15.13 k/cumm (4.4-10.8) H 10/08/18 08:32 RBC 3.88 m/cumm (4.00-5.20) L 10/08/18 08:32 Hgb 12.4 g/dL (12.0-15.5) 10/08/18 08:32 Hct 37.5 % (36.0-46.0) 10/08/18 08:32 MCV 96.6 fL (80-95) H 10/08/18 08:32 MCH 32.0 pg (27.0-33.0) 10/08/18 08:32 MCHC 33.1 g/dL (32.0-36.0) 10/08/18 08:32 RDW 14.5 % (11.7-14.6) 10/08/18 08:32 Plt Count 225 x1000/uL (130-400) 10/08/18 08:32 MPV 10.0 fL (8.0-11.0) 10/08/18 08:32 Immature Gran % 0.5 10/08/18 08:32 Neutrophils % 92.0 10/08/18 08:32 Lymphocytes % 3.8 10/08/18 08:32 Monocytes % 3.6 10/08/18 08:32 Eosinophils % 0.0 10/08/18 08:32 Basophils % 0.1 10/08/18 08:32 Absolute Neutrophils 13.92 k/cumm (1.2-6.7) H 10/08/18 08:32 Absolute Lymphocytes 0.57 k/cumm (1.2-3.4) L 10/08/18 08:32 Absolute Monocytes 0.54 k/cumm (0.11-0.7) 10/08/18 08:32 Absolute Eosinophils 0.00 k/cumm (0.0-0.7) 10/08/18 08:32 Absolute Basophils 0.02 k/cumm (0.0-0.2) 10/08/18 08:32 Sodium 139 mmol/L (136-145) 10/08/18 08:32 Potassium 5.0 mmol/L (3.5-5.1) 10/08/18 08:32 Chloride 103 mmol/L (98-107) 10/08/18 08:32 Carbon Dioxide 31.5 mmol/L (21.0-32.0) 10/08/18 08:32 Anion Gap 4.5 mmol/L (3-11) 10/08/18 08:32 BUN 27 mg/dL (7-18) H 10/08/18 08:32 Creatinine 0.65 mg/dL (0.55-1.02) 10/08/18 08:32 Estimated GFR/1.73 m2 >= 60.00 (mL/min/1.73m2) 10/08/18 08:32 Glucose 117 mg/dL (70-100) H 10/08/18 08:32 Lactate 1.5 mmol/L (0.6-1.4) H 10/03/18 01:17 Calcium 7.6 mg/dL (8.5-10.1) L 10/08/18 08:32 Magnesium 1.9 mg/dL (1.8-2.4) 10/08/18 08:32 Total Bilirubin 0.3 mg/dL (0.2-1.0) 10/01/18 16:15 AST 25 U/L (15-37) 10/01/18 16:15 ALT 107 U/L (12-78) H 10/01/18 16:15 Alkaline Phosphatase 97 U/L (46-116) 10/01/18 16:15 Troponin I < 0.02 ng/mL (0.00-0.06) 10/01/18 16:15 NT-Pro-B Natriuret Pep 486 pg/mL (-299) H 10/02/18 13:05 Total Protein 6.1 g/dL (6.4-8.2) L 10/01/18 16:15 Albumin 2.4 g/dL (3.4-5.0) L 10/01/18 16:15 Lipase 362 U/L (73-393) 10/01/18 16:15 Urine Color Yellow (Yellow) 10/01/18 22:56 Urine Clarity Clear 10/01/18 22:56 Urine pH 6.0 (5-8) 10/01/18 22:56 Ur Specific [place] 1.025 (1.005-1.025) 10/01/18 22:56 Urine Protein Negative mg/dL (Negative) 10/01/18 22:56 Urine Ketones Negative mg/dL (Negative) 10/01/18 22:56 Urine Blood Negative (Negative) 10/01/18 22:56 Urine Nitrite Negative (Negative) 10/01/18 22:56 Urine Bilirubin Negative (Negative) 10/01/18 22:56 Urine Urobilinogen 0.2 EU/dL (Up TO 0.2) 10/01/18 22:56 Ur Leukocyte Esterase Trace (Negative) H 10/01/18 22:56 Urine RBC 3-5 (0-2) H 10/01/18 22:56 Urine WBC 5-10 HPF (0-5) 10/01/18 22:56 Ur Epithelial Cells Moderate HPF (Negative) 10/01/18 22:56 Urine Crystals Negative HPF (Negative) 10/01/18 22:56 Urine Bacteria Few HPF (Negative) 10/01/18 22:56 Urine Casts Negative LPF (Negative) 10/01/18 22:56 Urine Mucus Negative (Negative) 10/01/18 22:56 Urine Other Negative (Negative) 10/01/18 22:56 Ur Culture Indicated? No/sq. contamination 10/01/18 22:56 Urine Glucose Negative mg/dL (Negative) 10/01/18 22:56 Vancomycin Trough 10.9 ug/mL (10.0-20.0) 10/06/18 13:10
--- NOTE | 2018-10-08 13:18 | PDOC.CMPRO ---
- If Service Date Differs Date of service: 10/08/18 Time of Service: 13:18 Care Management Progress Note S/O: Rosemarie is alert sitting up in bed. No changes in her status today. She is not ready for discharge today due to the right arm pain, swelling and availability of U/S today. She is being treated with weight based Lovenox and will have an upper extremity ultra sound on Tuesday. She continues to complain on pain and numbness in her right arm. A: 83 year old female re-admitted to [facility] 10/01/18 for HCAP with a history of chronic lung disease (COPD), and tobacco use. Rosemarie is now using home oxygen since last admission 08/2018. P: Rosemarie will discharge home with resumption of [facility] RN, addition of PT, OT when ready per MD. MOW to begin post discharge. Rosemarie will also follow up with [facility] for [facility] as planned upon her previous discharge. CM will continue to follow.
[2018-10-08] MEDS: Lidocaine 5% Patch 1 PATCH TP (17:17)
[2018-10-09 00:12] VITALS: BP 120/71; PULSE 71; RESP 19; TEMP 36.6; O2SAT 100
[2018-10-09 03:50] VITALS: BP 106/65; PULSE 73; RESP 16; TEMP 36.9; O2SAT 95
[2018-10-09 05:41] VITALS: PULSE 71; RESP 2; RESP 4; O2SAT 95
[2018-10-09] MEDS: Albuterol/Ipratropium 3 ML UPD VIAL UPD ×2 (05:41→13:46)
[2018-10-09] MEDS: Lidocaine Patch Removal 1 EACH TD (05:47)
--- NOTE | 2018-10-09 07:00 | DI.US_ITS ---
SYMPTOM/DIAGNOSIS: INCREASED SWELLING AND PAIN IN PICC, ARM ULTRASOUND RIGHT UPPER EXTREMITY: Superficial thrombosis is seen in the right medial cubital vein. No additional thrombus is visualized. The axillary, subclavian and internal jugular veins appear patent. IMPRESSION: superficial thrombophlebitis of the right medial cubital vein. No evidence of deep venous thrombosis in the upper arm.
--- NOTE | 2018-10-09 07:00 | DI.RAD_ITS ---
SYMPTOM/DIAGNOSIS: PNEUMONIA, F/U PA AND LATERAL CHEST: Comparison is made with 01 October 2018. There are small bilateral pleural effusions, left greater than right, increasing from the previous exam. The previously noted right upper lobe infiltrate is no longer seen. The heart size is normal. There are again noted to be underlying emphysematous and fibrotic changes. IMPRESSION: Small bilateral pleural effusions. Resolution of previously noted right upper lobe infiltrate.
[2018-10-09 07:05] VITALS: BP 115/64; PULSE 71; RESP 16; TEMP 36.7; O2SAT 93
[2018-10-09 08:08] LABS: Abs Immature Grans 0.06 k/cumm (0.0-0.09); Absolute Basophil Count 0.01 k/cumm (0.0-0.2); Absolute Lymphocyte Count 0.63 k/cumm (1.2-3.4); Absolute Monocyte Count 0.49 k/cumm (0.11-0.7); Basophils % 0.1; HCT 35.4 % (36.0-46.0); HGB 11.5 g/dL (12.0-15.5); Immature Grans % 0.5; Lymphocytes % 5.3; Mean Corp. HGB Concentration 32.5 g/dL (32.0-36.0); Mean Corpuscular Hemoglobin 31.4 pg (27.0-33.0); Mean Corpuscular Volume 96.7 fL (80-95); Mean Platelet Volume 9.8 fL (8.0-11.0); Monocytes % 4.1; Platelet Count 219 x1000/uL (130-400); RBC 3.66 m/cumm (4.00-5.20); RBC Distribution Width 14.7 % (11.7-14.6); White Blood Cell Count 11.83 k/cumm (4.4-10.8)
[2018-10-09 08:11] LABS: BUN 29 mg/dL (7-18); CREATININE 0.62 mg/dL (0.55-1.02); Calcium 7.7 mg/dL (8.5-10.1); Chloride 103 mmol/L (98-107); Glucose 107 mg/dL (70-100); Magnesium 1.9 mg/dL (1.8-2.4); Potassium 4.7 mmol/L (3.5-5.1); Sodium 139 mmol/L (136-145)
[2018-10-09 08:13] LABS: Absolute Neutrophil Count 10.65 k/cumm (1.2-6.7)
--- NOTE | 2018-10-09 08:37 | PDOC.CMPRO ---
Care Management Progress Note S/O: Rosemarie continues to be treated with weight based Lovenox and will have an upper extremity ultra sound on today. She continues to complain on pain and numbness in her right arm. CM continues to follow. A: 83 year old female re-admitted to [facility] 10/01/18 for HCAP with a history of chronic lung disease (COPD), and tobacco use. Rosemarie is now using home oxygen since last admission 08/2018. P: Rosemarie will discharge home with resumption of [facility] RN, addition of PT, OT when ready per MD. MOW to begin post discharge. Rosemarie will also follow up with [facility] for [facility] Counsel[facility] as planned upon her previous discharge. CM will continue to follow.
[2018-10-09] MEDS: Gabapentin 800 MG TAB PO (10:00)
[2018-10-09] MEDS: Lactobacillus Acidophilus CAP 1 CAP PO (10:00)
[2018-10-09] MEDS: guaiFENesin 600 MG TABCR 1200 MG PO (10:00)
[2018-10-09] MEDS: Benzonatate 200 MG CAP PO (10:00)
[2018-10-09] MEDS: Metoprolol 25 MG TAB 12.5 MG PO (10:00)
[2018-10-09] MEDS: Omeprazole 20 MG CAPCR PO (10:01)
[2018-10-09] MEDS: Mirabegron 25 MG TABCR PO (10:01)
[2018-10-09] MEDS: levoFLOXacin 500 MG TAB PO (10:02)
[2018-10-09] MEDS: Aspirin 81 MG CHEW PO (10:02)
[2018-10-09] MEDS: predniSONE 20 MG TAB 40 MG PO (11:27)
[2018-10-09] MEDS: Enoxaparin 30 MG/0.3 ML SYR 45 MG SC (11:31)
[2018-10-09] MEDS: Magnesium Oxide 400 MG TAB PO (11:33)
--- NOTE | 2018-10-09 12:13 | OT.INIE ---
Occupational Therapy Notes Inpatient Occupational Therapy Evaluation Date: 10/09/18 Referring Doctor:Olga Cordova NP OT Orders: HAP, COPD, Malnourished, lives alone, generalized weakness Precautions: Fall, Standard PATIENT PROFILE/ADMITTING DIAGNOSIS: Pt is an 83 year old female admitted to [facility] for mild respiratory issues which she was being followed by her PCP for. She was diagnosed with a community-acquired pneumonia. Pt was discharged on 10/06/18 and was admitted again through the ER on 10/08/18 for HCAP and COPD. Past Medical History: Medical History COPD (chronic obstructive pulmonary disease) Cataract Closed fracture of clavicle Complex regional pain syndrome i of lower limb, bilateral Degenerative disc disease, cervical Headache Hearing loss History of shingles Idiopathic peripheral neuropathy Perforation of tympanic membrane Peripheral neuralgia Peripheral vascular disease Seborrheic keratosis Skin lesion of face Smoker Tinea unguium Surgical History Abdominal hysterectomy (~1975) Appendectomy Extraction of cataract Social History/Home Situation: Pt lives alone in a mobile home. She has 3 steps to enter with (B) railings. She states that she is totally (I) with all ADLs/IADLs at baseline with tub/shower combination. She is still actively driving in the community but states that she went to see her PCP last week. She reports that she drove herself to her appt and then her PCP called her daughter to pick her up and was told not to drive. Equipment owned/DME: Cane SUBJECTIVE: Pt was sitting in her chair when OT arrived. She reports that she is going home today and does not feel like she needs OT services but is agreeable to consult. OBJECTIVE: General Observation: O2 nasal cannula Mental Status: A&Ox3 Pain: no c/o pain ROM: RUE WFL L UE WFL STRENGTH: RUE 4+/5 throughout globally LUE 4+/5 throughout globally FUNCTIONAL MOBILITY/ADLS: Sit-Stand (S) Stand-sit (S) Pt denies ADLs at todays session, she reports that she is going home and that she will get cleaned up once she gets there. BALANCE: Static sitting Normal Dynamic Sitting Normal Static Standing Good Dynamic Standing Good SPECIAL TESTS: Daily Activity Limitations Standardized Measure [employer] AM -PAC ?6 clicks? Daily Activity Inpatient Short Form: Raw score: 22 Standardized score:47.10 CMS score: 25.80% INFORMED CONSENT/EDUCATION: Pt instructed in purpose of OT Consult and plan of care. ASSESSMENT: Patient is a 83-year-old female referred to occupational therapy services with diagnosis of community acquired pneumonia. She is functionally able to perform all ADLs (I). She has decreased functional activity tolerance. She states she is going home today. She denies the need for OT services. OT does recommend that pt return home when medically cleared per MD. She will have MOW when D/C. Patient is assessed as a Low 67725 complexity based on the following: History: See Eval Examination: See Eval Presentation: Evolving Decision Making: AMPAC score 22, CMS score 25.80% GOALS- N/A PLAN OF CARE/TREATMENT PLAN: Discharge pt from skilled OT services. DISCHARGE RECOMMENDATIONS Home when medically cleared per MD TREATMENT TIME/MINUTES/CODES 01605, 15 minutes (10:10) Yulia Shipley, OTR/L [facility]
--- NOTE | 2018-10-09 12:36 | W.PM.DS.N ---
Date of service: 10/09/18 Time of Service: 12:36 DS: Diagnosis Discharge Diagnosis (1) HCAP (healthcare-associated pneumonia): Status: Acute (2) COPD with acute exacerbation: Status: Acute (3) Right arm pain: Status: Acute (4) Back pain: Status: Acute (5) Malnourished: Status: Acute (6) Peripheral vascular disease: Status: Chronic (7) Tobacco abuse: Status: Acute (8) Hypomagnesemia: Status: Acute (9) DVT prophylaxis: Status: Acute (10) Discharge planning issues: Status: Acute Discharge Plan Disposition Patient Disposition: HOME Condition: Improving Discharge Details Reason For Visit: HCAP Admit Date/Time: 10/01/18 19:19 Admit Provider: Tim Singer Attending Provider: Tim Singer Primary Care Provider: Calvin Rios Hospital Course Hospital Course: 83 yr old female w/ PMH COPD, smoker who was discharged from [facility] 09/29/2018 after treatment for Pseudomonas aeruginosa pneumonia (LLL) and COPD exacerbation from 09/22-09/29 with Levaquin 750 mg IV and with radiologic clearance of her infiltrate as of 09/25/2018, and clinical improvement but was still requiring oxygen. Patient was discharged home on supplemental oxygen and steroid taper but not on antibiotics. Patient returned to the ER today because of generalized weakness, fatigue, worsening dypsnea and dizziness and nausea. On arrival she was hypotensive w/ BP 80/46 with HR in 70's, oxygen saturation 94% on 2 LPM oxygen. Patient was given bolus of iv fluids with increase in her BP to 129/72. Workup in the ER included routine labs including CBC (no anemia but increased WBC 15,600 while on prednisone), CMP with elevated BUN 26, creatinine 0.79, elevated glucose 184, elevated lactate 1.6, low calcium 8.0 and low albumin 2.4, low Mg 1.6 AND ELEVATED alt 107. Normal troponin <0.02, elevated but improved BNP 348 (during last admission she was treated w/ lasix for diastolic CHF w/ pro BNP 1947, of note her LVEF 65-70% w/ normal diastolic parameters but moderate PHTN and severe TR; she also had PSVT for which her Symbicort was dc'ed). CXR demonstrated new RUL infiltrate. Blood cultures were obtained and patient was started on Aztreonam and Vancomycin to cover HCAP including Pseudomonas. She has hx of PCN allergy including angioedema. She is now admitted to med/surg for prolonged iv antibiotic treatment for HCAP. She is c/o right arm pain with intermittent numbness and her fingers are swollen on that hand. She does have a PICC in the right brachial of that arm. DVT needs to be r/o. U/S can not be preformed until Tuesday. We will treat as though she does have a DVT based on symptoms and assessment. Enoxaparin 1mg/kg BID and follow up with u/s result. U/S superficial thrombophlebitis of the right medial cubital vein. No evidence of deep venous thrombosis in the upper arm, enoxaparin dcd. Today she looks well and is ready to go home. Repeat CXR today revealed Small bilateral pleural effusions. Resolution of previously noted right upper lobe infiltrate. She will go home on a steroid taper with 6 day course of Levaquin to finish out the remaining 14 day course recommended by ID. She is still requiring oxygen 2 L on excertion, she will need to follow up with her PCP in 1 week. She will have resumption of home health nursing and PT/OT. 1) HCAP (healthcare-associated pneumonia): Improving. On PO levaquin with improvement, continue nebs, po steroids tapering dose, continue nebs, updraft. Currently not requiring oxygen when nonambulatory. Recheck exercise oximetery for saturation. (2) COPD with acute exacerbation: As above. improving and continue to monitor oxygen level (3) Right arm pain: Right arm pain with digit swelling and intermittent numbness. Midline pulled. U/S scheduled for tomorrow. Treated with lovenox for questionable DVT. Radial pulse strong and bounding. Continue to montior arm (4) Back pain: Chronic, continue aqua K pad for comfort, Tylenol and Lidoderm patch for pain. (5) Malnourished: BMI is higher than previous admission, continue to monitor status and increase caloric intake (6) Peripheral vascular disease: Continue to encourage smoking cessation, continue aspirin, continue gabapentin for pain. (7) Tobacco abuse: Continue nicotine replacement. Continue to encourage smoking cessation. (8) Hypomagnesemia: Status: Acute Resolved. Continue to monitor. (9) DVT prophylaxis: Status: Acute Subcutaneous Lovenox. (10) Discharge planning issues: She is a DNR/DNI. Home Meds and New Rx's Prescriptions: New levofloxacin [Levaquin] 500 mg tablet 500 mg PO DAILY Qty: 6 RF: 0 prednisone 10 mg tablet 10 mg PO DAILY Qty: 32 RF: 0 Continued nicotine [Nicoderm CQ] 7 mg/24 hr patch 24 hour 1 patch TD Q24H RF: 0 albuterol sulfate [ProAir HFA] 90 mcg/actuation HFA aerosol inhaler 2 puff Inhalation Q4H PRN RF: 0 baclofen 10 mg tablet 5 mg PO QID PRN (Reason: muscle spasm) Qty: 60 RF: 1 lidocaine 5 % ointment 1 applic Topical Q4H Qty: 37.5 RF: 5 triamcinolone acetonide 0.1 % cream 1 applic Topical BID PRN (Reason: eczema) Qty: 45 RF: 1 omeprazole 20 mg capsule,delayed release(DR/EC) 20 mg PO DAILY Qty: 90 RF: 3 cyanocobalamin (vitamin B-12) 1,000 MCG/1 ML solution 1,000 mcg IM Q 2 MOS. RF: 0 aspirin [Aspirin Low-Strength] 81 MG tablet,chewable 81 mg PO DAILY Qty: 90 RF: 4 gabapentin 100 MG capsule 100 mg PO HS RF: 0 trazodone 50 MG tablet 25 mg PO HS PRNQty: 30 RF: 2 benzonatate 100 MG capsule 1 - 2 cap PO TID PRNQty: 30 RF: 1 gabapentin 800 mg tablet 800 mg PO TID Qty: 270 RF: 3 ipratropium-albuterol 0.5 mg-3 mg(2.5 mg base)/3 mL solution for nebulization 3 ml Inhalation Q6H PRN Qty: 90 RF: 4 metoprolol tartrate 25 mg Tablet 12.5 mg PO BID Qty: 15 RF: 0 acidophilus-pectin, citrus 25 million cell -100 mg Tablet 1 cap PO TID Qty: 10 RF: 0 guaifenesin [Mucinex] 600 mg Tablet Extended Release 12hr 600 mg PO BID Qty: 10 RF: 0 Discontinued nicotine 14 mg/24 hr Patch 24 Hour 14 mg Transdermal DAILY PRN PRNQty: 30 RF: 0 prednisone 10 mg tablet 10 mg PO DAILY Qty: 29 RF: 0 No Action Myrbetriq 25 mg tablet extended release 24 hr 25 mg PO DAILY RF: 0 Compact Compressor Nebulizer 1 EACH kit 1 ea Miscellaneous Q6H PRN Qty: 1 RF: 0 Aerochamber Plus Flow-Vu 1 EACH spacer 1 ea Miscellaneous BID Qty: 1 RF: 0 Discharge Instructions Instructions: Chronic Lung Disease and Infection Prevention (GEN), Hospital Acquired Pneumonia (GEN) Additional Instructions: Follow up with your PCP in 1 week. Take all medications as prescribed. Take NSAIDs to help with the arm pain, take with food or use warm compresses to alleviate pain. Use oxygen when moving around or sleeping. DO NOT SMOKE especially when using oxygen. If you have chest pain, increased shortness of breath, calf pain, fevers, or chills, report to the emergency room immediately. Resume home health nursing and PT/OT Stand Alone Forms: Nursing Discharge Form Referrals: Calvin Rios [Primary Care Provider] - 10/13/18 9:40 am Activity:: Activity as Tolerated Equipment/Supplies:: Resume home health nursing and PT/OT Diet:: As Tolerated Discharge Orders Discharge Orders: Discharge Order (Routine); Ordered 10/09/18 Ordered By: Lynne Olivera Exam Narrative Exam Narrative: General: Thin, frail, elderly female, sitting up in the chair. In no acute distress. Speaking in complete sentences with no shortness of breath. HEENT: Normocephalic, atraumatic, pupils equal and round, mucous membranes moist. Neck: supple, no JVD. Cardiovascular: heart has regular rate and rhythm, no murmur appreciated. Respiratory: Respirations even and unlabored, lung sounds diminished throughout, no wheezing or rales, on oxygen, no coughing during exam. Gastrointestinal: Normoactive bowel sounds throughout, abdomen soft, nontender on palpation, no masses appreciated. Extremities: No clubbing, cyanosis or edema. Pedal pulses faint but palpable bilaterally. DS: Data Vitals/I&O Vitals and I&O: Vital Signs Temperature 36.7 C 10/09/18 07:05 Temperature Source Tympanic 10/09/18 07:05 Pulse 71 10/09/18 07:05 Pulse Rhythm Regular 10/08/18 21:47 Respiratory Rate 16 10/09/18 07:05 Respiratory Effort Non-Labored 10/08/18 21:47 Respiratory Depth Normal 10/08/18 21:47 Respiratory Pattern Normal 10/08/18 21:47 Blood Pressure 115/64 10/09/18 07:05 Pulse Oximetry 93 L 10/09/18 07:05 Oxygen Delivery Method Room Air 10/09/18 07:05 Oxygen Flow Rate 0 10/09/18 07:05 Pain Level 0 10/09/18 07:05 Comment 10/09/18 03:50 Intake & Output 10/08/18 10/09/18 10/09/18 23:59 11:59 23:59 Intake Total 480 / 1020 300 / 300 Output Total 500 / 1500 1250 / 1250 Balance -20 / -480 -950 / -950 Weight 44.6 kg Intake: Oral 480 / 1020 300 / 300 Output: Urine 500 / 1500 1250 / 1250 Other: Urine Color Light Cynthia Pale Yellow Urine Appearance Clear Clear Urine Odor Normal Normal Stool Size Small Stool Characteristics Soft Formed Brown Voiding Methods Toilet Toilet Completed studies during hospitalization [Text1]: EXAM DATE/TIME: 10/01/2018 5:50 PM CLINICAL HISTORY: 83 years old, female; Signs and symptoms; Shortness of breath TECHNIQUE: Imaging protocol: XR of the chest, 2 views. COMPARISON: CR XR PORTABLE CHEST AP 09/25/2018 10:51 AM FINDINGS: Lungs: Hyperexpanded lung robins consistent with COPD Opacities in the right upper lobe may represent atelectasis or pneumonia. Pleural space: Unremarkable. No pleural effusion. No pneumothorax. Heart/Mediastinum: Stable cardiac silhouette Bones/joints: Unremarkable. IMPRESSION: Opacities in the right upper lobe may represent atelectasis or pneumonia. Exam(s) a RAD:XR chest 2V PA & lateral SYMPTOM/DIAGNOSIS: SOB, WEAKNESS, RECENT PNEUMONIA AP AND LATERAL CHEST: The examination is compared with previous examinations including 09/25/18 and 09/22/18. The patient has severe chronic bilateral pulmonary interstitial changes. On today's examination, there is some question of subtle increase in radiodensity over the right upper lung field in comparison with recent previous examinations. No gross pleural effusion is seen. CONCLUSION: Severe COPD and fibrosis. Question new superimposed right upper lobe pneumonia. Ordered By: Mariann Bowers DO Exam(s) a US:US upper extremity venous RT SYMPTOM/DIAGNOSIS: INCREASED SWELLING AND PAIN IN PICC, ARM ULTRASOUND RIGHT UPPER EXTREMITY: Superficial thrombosis is seen in the right medial cubital vein. No additional thrombus is visualized. The axillary, subclavian and internal jugular veins appear patent. IMPRESSION: superficial thrombophlebitis of the right medial cubital vein. No evidence of deep venous thrombosis in the upper arm. Ordered By: Lynne Olivera NP Exam(s) a RAD:XR chest 2V PA & lateral SYMPTOM/DIAGNOSIS: PNEUMONIA, F/U PA AND LATERAL CHEST: Comparison is made with 01 October 2018. There are small bilateral pleural effusions, left greater than right, increasing from the previous exam. The previously noted right upper lobe infiltrate is no longer seen. The heart size is normal. There are again noted to be underlying emphysematous and fibrotic changes. IMPRESSION: Small bilateral pleural effusions. Resolution of previously noted right upper lobe infiltrate. Labs on day of discharge: Labs from last 24 hours 10/09/18 10/09/18 07:37 07:37 WBC 11.83 H RBC 3.66 L Hgb 11.5 L Hct 35.4 L MCV 96.7 H MCH 31.4 MCHC 32.5 RDW 14.7 H Plt Count 219 MPV 9.8 Immature Gran % 0.5 Neutrophils % 90.0 Lymphocytes % 5.3 Monocytes % 4.1 Eosinophils % 0.0 Basophils % 0.1 Absolute Neutrophils 10.65 H Absolute Lymphocytes 0.63 L Absolute Monocytes 0.49 Absolute Eosinophils 0.00 Absolute Basophils 0.01 Sodium 139 Potassium 4.7 Chloride 103 Carbon Dioxide 31.0 Anion Gap 5.0 BUN 29 H Creatinine 0.62 Estimated GFR/1.73 m2 >= 60.00 Glucose 107 H Calcium 7.7 L Magnesium 1.9 Preliminary micro results at discharge 10/04/18 09:40 Sputum Culture - Preliminary Sputum Pseudomonas aeruginosa Normal [place] [facility] Medical History Pulmonary hypertension (Acute ~09/25/18) COPD (chronic obstructive pulmonary disease) Cataract Closed fracture of clavicle Complex regional pain syndrome i of lower limb, bilateral Degenerative disc disease, cervical Headache Hearing loss History of shingles Idiopathic peripheral neuropathy Perforation of tympanic membrane Peripheral neuralgia Peripheral vascular disease Seborrheic keratosis Skin lesion of face Smoker Tinea unguium Surgical History Abdominal hysterectomy (~1975) Appendectomy Extraction of cataract Social History Smoking/Tobacco Use Status: Former Tobacco Use Quit Date: 09/24/18 Alcohol Intake: never Drug use: Never Substance use type: does not use Do you feel safe at home: Yes Do you feel safe in your relationship?: Yes
--- NOTE | 2018-10-09 12:47 | PDOC.CMDIS ---
LACE Index Scoring Tool - Questions: Length of Stay (in days): 7 - 13 Acuity (Admit via E.D.?): Yes Comorbidities: Chronic Pulmonary Disease E.D. Visits: 2 - Answers: Total Score: 12 Risk of Readmission: High Risk Care Management Discharge Reason for Hospitalization: HCAP Discharge Plan: Rosemarie will discharge home with resumption of [facility] RN, addition of PT, OT when ready per MD. MOW to begin post discharge; CM left VM at [facility]. Rosemarie will also follow up with [facility] for Options Counseling as planned upon her previous discharge and resume her new Oxygen and home making and using her FWW at home. She will transport via private vehicle with her daughter. CM will continue to follow. Patient/Family Education Needs: Review discharge instructions; discuss Ask Me Three. Services Needed at Discharge: DME Agency, Home Delivered Meals, Home Health Care Services, Homemaking Services, Oxygen Therapy
--- NOTE | 2018-10-09 12:54 | CMDISCH_ITS ---
LACE Index Scoring Tool - Questions: Length of Stay (in days): 7 - 13 Acuity (Admit via E.D.?): Yes Comorbidities: Chronic Pulmonary Disease E.D. Visits: 2 - Answers: Total Score: 12 Risk of Readmission: High Risk Care Management Discharge Reason for Hospitalization: HCAP Discharge Plan: Rosemarie will discharge home with resumption of [facility] RN, addition of PT, OT when ready per MD. MOW to begin post discharge; CM left VM at [facility]. Rosemarie will also follow up with [facility] for Options Counseling as planned upon her previous discharge and resume her new Oxygen and home making and using her FWW at home. She will transport via private vehicle with her daughter. CM will continue to follow. Patient/Family Education Needs: Review discharge instructions; discuss Ask Me Three. Services Needed at Discharge: DME Agency, Home Delivered Meals, Home Health Care Services, Homemaking Services, Oxygen Therapy
--- NOTE | 2018-10-09 13:27 | PTTR_ITS ---
Date of service: 10/09/18 Time of Service: 13:27 PT Notes Inpatient Physical Therapy Treatment Note [facility] Date: 10/09/18 PRECAUTIONS: Fall SUBJECTIVE: Rosemarie states that she is excited to be going home today. She reports that she feels better today. OBJECTIVE: PAIN: Patient c/o R foot discomfort due to edema BED MOBILITY/TRANSFERS Sit-stand: I Stand-sit: I GAIT Assistive Device: FWW Weight bearing: Full Assist: S Distance: 150' Deviation: No rest, minimal SOB on 1L O2 via NC ASSESSMENT: Patient tolerated sessions well with minimal c/o SOB with gait training without requiring rest. She would benefit from continued strengtheni ng, as well as gait training for improved activity tolerance and mobility. PLAN: As per primary PT TREATMENT CODE/TIME: Session 1: 10 minutes; [id number]
[2018-10-09 13:46] VITALS: PULSE 75; RESP 16; O2SAT 89
[2018-10-09 13:52] VITALS: RESP 5
== END 2018-10-09 14:10 | disposition home or self-care (01) | DRG 190 ==
LOC: ER 19:04 → MS 20:19
PROVIDERS: Internal Medicine; Nurse Practitioner Family; Admitting Provider Internal Medicine; Emergency Provider Physician Assistant; PCP Family Medicine; Visit Provider Internal Medicine
DX: J44.0 Chronic obstructive pulmonary disease with (acute) lower respiratory infection (principal); J15.1 Pneumonia due to Pseudomonas; E46 Unspecified protein-calorie malnutrition; J90 Pleural effusion, not elsewhere classified; Y95 Nosocomial condition; J44.1 Chronic obstructive pulmonary disease with (acute) exacerbation; M79.601 Pain in right arm; R20.0 Anesthesia of skin; I73.9 Peripheral vascular disease, unspecified; E83.42 Hypomagnesemia; I95.9 Hypotension, unspecified; I80.8 Phlebitis and thrombophlebitis of other sites; I27.20 Pulmonary hypertension, unspecified; I07.1 Rheumatic tricuspid insufficiency; M54.5 Low back pain; Z71.3 Dietary counseling and surveillance; Z99.81 Dependence on supplemental oxygen; Z87.891 Personal history of nicotine dependence
CPT/HCPCS: 36410; 36415; 36569; 80048; 80053; 83690; 87040; 87077; 93005; 94618; 94640; 97110; 97162; 97165; 97530; 99223; 99232; 99233; 99239; 99285; 71046; 80202; 81003; 81015; 83605; 83735; 83880; 84484; 85025; 87070; 87186; 87205; 93010; 93971; J1650; J1885; J1956; J2930; J3470; J3490; J7512; J7620

== ENCOUNTER 2018-10-13 10:50 | Outpatient (CLI) | payer MEDICARE, SELFPAY ==
--- NOTE | 2018-10-13 11:00 | DI.US_ITS ---
SYMPTOMS/DIAGNOSIS: LEFT LEG SWELLING, R79.89, POSITIVE D-DIMER LEFT LOWER EXTREMITY ULTRASOUND: The femoral and popliteal veins are freely compressible. No thrombus is visible. The Doppler venous waveform augments normally. No superficial thrombophlebitis is identified. There is some edema in the lower leg. IMPRESSION: No evidence of DVT.
== END 2018-10-13 11:10 ==
PROVIDERS: PCP Family Medicine; Visit Provider Family Medicine
DX: R22.42 Localized swelling, mass and lump, left lower limb (principal); M79.89 Other specified soft tissue disorders; R79.1 Abnormal coagulation profile
CPT/HCPCS: 93971

== ENCOUNTER 2019-01-25 11:24 | Outpatient (CLI) | payer MEDICARE, SELFPAY ==
[2019-01-25 12:59] LABS: Abs Immature Grans 0.02 k/cumm (0.0-0.09); Absolute Basophil Count 0.05 k/cumm (0.0-0.2); Absolute Eosinophil Count 0.11 k/cumm (0.0-0.7); Absolute Monocyte Count 0.73 k/cumm (0.11-0.7); Absolute Neutrophil Count 5.41 k/cumm (1.2-6.7); Basophils % 0.6; Eosinophils % 1.4; HCT 47.1 % (36.0-46.0); HGB 14.4 g/dL (12.0-15.5); Immature Grans % 0.2; Lymphocytes % 22.2; Mean Corp. HGB Concentration 30.6 g/dL (32.0-36.0); Mean Corpuscular Hemoglobin 29.1 pg (27.0-33.0); Mean Corpuscular Volume 95.3 fL (80-95); Mean Platelet Volume 10.9 fL (8.0-11.0); Neutrophils % 66.6; Platelet Count 229 x1000/uL (130-400); RBC 4.94 m/cumm (4.00-5.20); RBC Distribution Width 13.8 % (11.7-14.6); White Blood Cell Count 8.12 k/cumm (4.4-10.8)
[2019-01-25 13:12] LABS: ALT 17 U/L (12-78); AST 19 U/L (15-37); Albumin 3.1 g/dL (3.4-5.0); Alkaline Phosphatase 93 U/L (46-116); Anion Gap 4.5 mmol/L (3-11); BUN 12 mg/dL (7-18); Bilirubin, Total 0.4 mg/dL (0.2-1.0); CO2 34.5 mmol/L (21.0-32.0); CREATININE 0.72 mg/dL (0.55-1.02); Chloride 104 mmol/L (98-107); Glucose 93 mg/dL (70-100); Sodium 143 mmol/L (136-145); Total Protein 6.8 g/dL (6.4-8.2)
[2019-01-25 13:41] LABS: Bilirubin Negative (Negative); Blood Negative (Negative); Clarity Clear (Clear); Glucose Negative (Negative); Ketones Negative (Negative); Leukocyte Esterase Negative (Negative); Nitrite Negative (Negative)
== END 2019-01-25 11:44 ==
PROVIDERS: PCP Family Medicine; Visit Provider Family Medicine
DX: R53.81 Other malaise (principal); R10.11 Right upper quadrant pain; R35.0 Frequency of micturition
CPT/HCPCS: 36415; 80053; 81003; 85025

== ENCOUNTER 2019-04-17 11:26 | Outpatient (CLI) | payer MEDICARE, SELFPAY ==
[2019-04-17 13:40] LABS: Vitamin B12 > 2000 pg/mL (193-986)
== END 2019-04-17 11:46 ==
PROVIDERS: PCP Family Medicine; Visit Provider Family Medicine
DX: R53.83 Other fatigue (principal)
CPT/HCPCS: 36415; 82607

== ENCOUNTER 2019-04-28 12:01 | Emergency (ER) | payer MEDICARE, SELFPAY ==
[2019-04-28] VITALS (17 sets, daily range): BP systolic 117–179; BP diastolic 68–102; PULSE 67–87; RESP 2–24; TEMP 36.5–36.9; O2SAT 91–99
--- NOTE | 2019-04-28 12:18 | ED.GENADUL_ITS ---
Discharge Plan Disposition Patient Disposition: HOME Condition: Improving Discharge Details Chief Complaint: SOB Clinical Impression: COPD (chronic obstructive pulmonary disease) Primary Care Provider: Calvin Rios ED Provider: Kevin Ordaz Home Meds and New Rx's Prescriptions: New prednisone 20 mg tablet 40 mg PO DAILY 5 Days Qty: 10 RF: 0 levofloxacin [Levaquin] 500 mg tablet 500 mg PO DAILY Qty: 9 RF: 0 Continued albuterol sulfate [ProAir HFA] 90 mcg/actuation HFA aerosol inhaler 2 puff Inhalation Q4H PRN RF: 0 ranitidine HCl 150 mg tablet 150 mg PO DAILY Qty: 90 RF: 1 lidocaine 5 % ointment 1 applic Topical Q4H Qty: 37.5 RF: 5 triamcinolone acetonide 0.1 % cream 1 applic TP BID PRN (Reason: leg rash) Qty: 30 RF: 1 cyanocobalamin (vitamin B-12) 1,000 mcg tablet 1,000 mcg PO DAILY Qty: 90 RF: 3 metoprolol tartrate 25 mg tablet 12.5 mg PO BID Qty: 90 RF: 3 cyanocobalamin (vitamin B-12) 1,000 mcg/mL solution 1,000 mcg IM .q 2 months Qty: 2 RF: 0 aspirin [Aspirin Low-Strength] 81 MG tablet,chewable 81 mg PO DAILY Qty: 90 RF: 4 (DME) Compact Compressor Nebulizer 1 EACH kit 1 ea Miscellaneous Q6H PRN Qty: 1 RF: 0 Pulmicort Flexhaler 180 mcg/actuation aerosol powdr breath activated 2 inh IH BID Qty: 1 RF: 5 ipratropium-albuterol 0.5 mg-3 mg(2.5 mg base)/3 mL solution for nebulization 3 ml Inhalation Q6H PRN Qty: 90 RF: 4 (DME) Aerochamber Plus Flow-Vu Spacer 1 ea Miscellaneous BID Qty: 1 RF: 0 gabapentin 400 mg capsule 800 mg PO TID Qty: 180 RF: 5 guaifenesin [Mucinex] 600 mg tablet extended release 12hr 600 mg PO BID PRN (Reason: cold symptoms) Qty: 30 RF: 2 Discharge Instructions Instructions: COPD (Chronic Obstructive Pulmonary Disease) (ED) Additional Instructions: Please take prednisone as prescribed. May continue your previously prescribed inhalers and nebulizers. Please take antibiotics as prescribed. As we discussed you may have a small early pneumonia as seen on the CAT scan. Follow-up with Dr. Lu for recheck of not improving in 5 days time. Return to the emergency department for any acute concern. Medical Decision Making 84-year-old female smoker with longstanding COPD that is now oxygen dependent. She presents from home with her daughter. She has had 2 days of progressive shortness of breath that does seem to be worsened by exertion. It has not been associated with chest pain nor fever. She arrives temp 36.5 pulse 67, blood pressure 128/85. 91% sat on 1 L oxygen, home level. Her exam is primarily notable for diminished breath sounds with end expiratory wheezes bilaterally. DuoNeb initiated, patient given parenteral steroids for COPD exacerbation. Differential diagnosis would also include a pneumonitis. Referred for chest x-ray which reveals hyperexpanded lung robins, 12 mm right midlung nodule and prominence of the right hilum. CT recommended. Laboratory with a white count 8, hematocrit 45, platelets 253. Sodium 144, potassium 4.8, chloride 106, bicarb 32, BUN 11, creatinine 0.7, troponin negative, BNP 787. CT scan: No evidence of PE, no aortic acute abnormalities. Consolidation in the medial left upper lobe, may reflect atelectasis or pneumonia. No mass noted. Improved following DuoNeb x2. I will place her on a burst of steroid, she will require antibiotics for question developing infiltrate. She has normal renal function. She has tolerated quinolones well in the past and has intolerances to tetracyclines and penicillins. I discussed with she and her daughter home care as well as follow-up/return precautions. ECG Data Attestation: I personally reviewed and interpreted this ECG (s) as follows: Prior ECG tracings: available for review Interpretation: EKG reveals normal sinus rhythm, rate of 73, enlarged P wave, rightward axis, no ST segment elevation, similar to previous dated June 07, 2016 HPI General Mode of arrival: ambulatory . Date/Time Provider Initiated Documentation: 04/28/19 12:04 . Limitations to Documentation: no limitations . Information obtained by: patient and family . History of Present Illness 84 year old F presents to the emergency department with the chief complaint of Shortness of breath, described as moderate, Quality is described as dull, and is localized to the chest. Patient reports no radiation. Patient started experiencing this hour(s) and it has been constant. Rest improves symptom( s), Movement worsens symptoms . Patient notes cough; denies chest pain and fever/chills. Patient did receive the following treatments prior to arrival, none Related Data Home Medications Medication Instructions Recorded Confirmed aspirin [Aspirin Low-Strength] 81 mg PO DAILY #90 tab-cap 08/07/13 04/28/19 Compact Compressor Nebulizer #1 kit 03/11/15 04/17/19 lidocaine 5 % topical ointment 1 applic TOPICAL Q4H #37.5 gm 05/17/18 04/28/19 albuterol sulfate 90 mcg/actuation 2 puff INHALATION Q4H PRN inhaler 09/22/18 04/28/19 aerosol inhaler budesonide 180 mcg/actuation 2 inh IH BID #1 each 11/08/18 04/28/19 breath activated powder inhaler triamcinolone acetonide 0.1 % 1 applic TP BID PRN #30 gm 11/24/18 04/28/19 topical cream ranitidine HCl 150 mg tablet 150 mg PO DAILY #90 tab 01/17/19 04/28/19 gabapentin 400 mg capsule 800 mg PO TID #180 cap 02/21/19 04/28/19 guaifenesin 600 mg tablet, 600 mg PO BID PRN #30 tab 02/21/19 04/28/19 extended release 12 hr inhalational spacing device #1 misc 02/21/19 04/17/19 ipratropium-albuterol 0.5 mg-3 3 ml INHALATION Q6H PRN #90 ml 02/21/19 04/28/19 mg(2.5 mg base)/3 mL nebulization soln cyanocobalamin (vitamin B-12) 1,000 mcg PO DAILY #90 tab 03/06/19 04/17/19 1,000 mcg tablet metoprolol tartrate 25 mg tablet 12.5 mg PO BID #90 tab 03/06/19 04/28/19 cyanocobalamin (vitamin B-12) 1,000 mcg IM .q 2 months #2 vial 04/17/19 04/28/19 1,000 mcg/mL injection solution levofloxacin [Levaquin] 500 mg PO DAILY #9 tab 04/28/19 prednisone 40 mg PO DAILY 5 Days #10 tab 04/28/19 Previous Rx's Medication Instructions Recorded lidocaine 5 % topical ointment 1 applic TOPICAL Q4H #37.5 gm 05/17/18 budesonide 180 mcg/actuation 2 inh IH BID #1 each 11/08/18 breath activated powder inhaler triamcinolone acetonide 0.1 % 1 applic TP BID PRN #30 gm 11/24/18 topical cream ranitidine HCl 150 mg tablet 150 mg PO DAILY #90 tab 01/17/19 gabapentin 400 mg capsule 800 mg PO TID #180 cap 02/21/19 guaifenesin 600 mg tablet, 600 mg PO BID PRN #30 tab 02/21/19 extended release 12 hr inhalational spacing device #1 misc 02/21/19 ipratropium-albuterol 0.5 mg-3 3 ml INHALATION Q6H PRN #90 ml 02/21/19 mg(2.5 mg base)/3 mL nebulization soln cyanocobalamin (vitamin B-12) 1,000 mcg PO DAILY #90 tab 03/06/19 1,000 mcg tablet metoprolol tartrate 25 mg tablet 12.5 mg PO BID #90 tab 03/06/19 cyanocobalamin (vitamin B-12) 1,000 mcg IM .q 2 months #2 vial 04/17/19 1,000 mcg/mL injection solution levofloxacin [Levaquin] 500 mg PO DAILY #9 tab 04/28/19 prednisone 40 mg PO DAILY 5 Days #10 tab 04/28/19 Allergies Allergy/AdvReac Type Severity Reaction Status Date / Time Penicillins Allergy Intermediate Unverified 04/28/19 12:13 roflumilast [From Daliresp] AdvReac Severe H/, Unverified 04/28/19 12:13 STOMACH PAIN, COLD tramadol AdvReac Severe Nausea, Unverified 04/28/19 12:13 dizziness amitriptyline AdvReac Intermediate DROWSINESS Unverified 04/28/19 12:13 fluticasone propionate AdvReac Intermediate EPISTAXIS Unverified 04/28/19 12:13 [From Flonase] hydrocodone AdvReac Intermediate Nausea Unverified 04/28/19 12:13 lorazepam AdvReac Intermediate decreased Unverified 04/28/19 12:13 mental status imipramine AdvReac Mild INSOMNIA Unverified 04/28/19 12:13 clarithromycin AdvReac Unknown INTOLERANT Unverified 04/28/19 12:13 tetracycline AdvReac Unknown INTOLERANT Unverified 04/28/19 12:13 General Stated Complaint: SOB MARCIAL: 2 Review of Systems Narrative: 6 systems reviewed and otherwise negative. [facility] Medical History Cataract Closed fracture of clavicle Complex regional pain syndrome i of lower limb, bilateral COPD (chronic obstructive pulmonary disease) Degenerative disc disease, cervical Headache Hearing loss History of shingles Idiopathic peripheral neuropathy Perforation of tympanic membrane Peripheral neuralgia Peripheral vascular disease Pulmonary hypertension (Acute ~09/25/18) echocardiogram normal LVEF 65-70%, normal diastolic parameters, mild , mild MR, RV size and function normal, PAP 50-60, mod. TR Seborrheic keratosis Skin lesion of face Smoker Tinea unguium Surgical History Abdominal hysterectomy (~1975) Appendectomy Extraction of cataract O.D. Social History Smoking/Tobacco Use Status: Former Tobacco Use Quit Date: 09/24/18 Alcohol Intake: never Drug use: Never Substance use type: does not use Do you feel safe at home: Yes Do you feel safe in your relationship?: Yes Exam Narrative Exam Narrative: GEN: awake, alert, oriented 3. Pleasant, well groomed, interactive. HEAD: Normocephalic, atraumatic ENT: Mucous membranes moist, oropharynx unremarkable, External ear exam unremarkable EYES: PERRL, EOMI NECK: Full ROM, no ARTURO, no menigismus CHEST/RESP: Thin with barrel chest nontender, diminished bilaterally with end expiratory wheeze. CARDIOVASCULAR: RRR, no murmur, rub vinnie. 2+ Rad pulse bilateral ABDOMEN: Soft, nontender, no mass. +Bowel sounds EXT: Full ROM, no edema, no rash Neuro: Grossly normal neurologic exam, conversant, interactive. Psych: Speech fluent, thoughts congruent, affect normal Course Vital Signs Vital signs: Vital Signs Temperature 36.5 C 04/28/19 12:09 Pulse 67 04/28/19 12:09 Respiratory Rate 24 04/28/19 12:09 Blood Pressure 128/85 04/28/19 12:09 Pulse Oximetry 91 L 04/28/19 12:09 Temperature 36.5 C 04/28/19 12:09 Temperature Source Skin 04/28/19 12:09 Pulse 67 04/28/19 12:09 Respiratory Rate 24 04/28/19 12:09 Blood Pressure 128/85 04/28/19 12:09 Blood Pressure Position Supine 04/28/19 12:09 Pulse Oximetry 91 L 04/28/19 12:09 Oxygen Delivery Method Nasal Cannula 04/28/19 12:09 Oxygen Flow Rate 1.5 04/28/19 12:09 Pain Level 0 04/28/19 12:09 Comment 04/28/19 12:09
[2019-04-28 12:41] LABS: Abs Immature Grans 0.01 k/cumm (0.0-0.09); Absolute Basophil Count 0.04 k/cumm (0.0-0.2); Absolute Eosinophil Count 0.08 k/cumm (0.0-0.7); Absolute Monocyte Count 0.74 k/cumm (0.11-0.7); Absolute Neutrophil Count 5.75 k/cumm (1.2-6.7); Basophils % 0.5; HCT 45.1 % (36.0-46.0); HGB 14.1 g/dL (12.0-15.5); Immature Grans % 0.1; Lymphocytes % 18.5; Mean Corp. HGB Concentration 31.3 g/dL (32.0-36.0); Mean Corpuscular Hemoglobin 29.5 pg (27.0-33.0); Mean Corpuscular Volume 94.4 fL (80-95); Mean Platelet Volume 9.6 fL (8.0-11.0); Monocytes % 9.1; Neutrophils % 70.8; Platelet Count 253 x1000/uL (130-400); RBC 4.78 m/cumm (4.00-5.20); White Blood Cell Count 8.12 k/cumm (4.4-10.8)
[2019-04-28] MEDS: Albuterol/Ipratropium 3 ML UPD VIAL UPD ×2 (12:43→15:27)
[2019-04-28] MEDS: methylPREDNISolone SUCC 125 MG VIAL IVP (12:43)
--- NOTE | 2019-04-28 13:00 | DI.RAD_ITS ---
EXAM: XR CHEST 2V PA LATERAL INDICATION: copd, sob. COMPARISON: XR CHEST 2V PA LATERAL from 10/09/2018 TECHNIQUE: 2D digital imaging was performed. FINDINGS: The heart size is within normal limits. There is unchanged prominence of the pulmonary vasculature. This may reflect some degree of pulmonary artery hypertension. There is a new opacity in the left upper lobe medially. No other focal consolidating infiltrates are seen. No effusions or pneumothoraces are identified. The lungs are hyperinflated consistent with underlying COPD. Degenerative changes are seen in the spine. There is prominence of the kyphosis of the thoracic spin e. Bilateral nipple shadows are present. IMPRESSION: New opacity in the left upper lobe medially. Differential considerations include pneumonia, atelecta sis or mass. CT scan is recommended for further evaluation.
[2019-04-28 13:04] LABS: ALT 18 U/L (14-59); AST 11 U/L (15-37); Albumin 3.1 g/dL (3.4-5.0); Alkaline Phosphatase 92 U/L (46-116); Anion Gap 5.1 mmol/L (3-11); BUN 11 mg/dL (7-18); Bilirubin, Total 0.4 mg/dL (0.2-1.0); CO2 32.9 mmol/L (21.0-32.0); CREATININE 0.79 mg/dL (0.55-1.02); Calcium 8.9 mg/dL (8.5-10.1); Chloride 106 mmol/L (98-107); Glucose 92 mg/dL (70-100); Magnesium 1.8 mg/dL (1.8-2.4); NT-proBNP 787 pg/mL; Potassium 4.8 mmol/L (3.5-5.1); Sodium 144 mmol/L (136-145); Total Protein 7.2 g/dL (6.4-8.2)
[2019-04-28 13:07] LABS: Troponin I < 0.05 ng/mL (0.00-0.06)
--- NOTE | 2019-04-28 13:25 | DI.VRAD_ITS ---
Addendum created by Ryne Pollard MD on 04/28/2019 1:27:50 PM EST THIS REPORT CONTAINS FINDINGS THAT MAY BE CRITICAL TO PATIENT CARE. The findings were verbally communicated via telephone conference with JACKIE HELMS at 1:27 PM EST on 04/28/2019. The findings were acknowledged and understood. Initial report created on 04/28/2019 1:25:22 PM EST PROCEDURE INFORMATION: Exam: XR Chest, 2 Views Exam date and time: 04/28/2019 12:28 PM Clinical history: 84 years old, female; Shortness of breath and other: Copd TECHNIQUE: Imaging protocol: XR of the chest Views: 2 views. COMPARISON: CR XR CHEST 2V PA LATERAL 10/09/2018 9:25 AM FINDINGS: Lungs: Hyperexpanded lung robins consistent with COPD 12 mm nodule in the right midlung. Not present on the prior study. Consider chest CT for further evaluation Pleural space: Unremarkable. No pleural effusion. No pneumothorax. Heart/Mediastinum: Stable cardiac silhouette Prominence of the right hilum has increased since the prior study. Recommend chest CT for further evaluation. Bones/joints: Unremarkable. IMPRESSION: 1. 12 mm nodule in the right midlung. Not present on the prior study. Consider chest CT for further evaluation. 2. Prominence of the right hilum has increased since the prior study. Recommend chest CT for further evaluation. Dictated and Authenticated by: Ryne Pollard MD. Ordering:SHANTELLE Brown MD
[2019-04-28] MEDS: Normal Saline 250 ML IV (13:43)
--- NOTE | 2019-04-28 14:05 | DI.CT_ITS ---
EXAM: CT CHEST PE CTA CLINICAL HISTORY: Short of breath, smoker, COPD, question hilar mass TECHNIQUE: Axial CT angiography was performed with multi-slice acquisition and multi-planar and/or 3 D reconstructions. COMPARISON: XR CHEST 2V PA LATERAL from 04/28/2019 FINDINGS: There is no evidence of a pulmonary embolus. The thoracic aorta is intact. There is no evidence of thoracic aortic dissection or aneurysm. There is prominence of the pulmonary arteries which may reflect pulmonary artery hypertension. Heart size is within normal limits. No pericardial effusion is seen. No evidence of right heart str ain is present. Coronary artery calcifications are present. There is no significant thoracic adenopathy, pleural effusion or pneumothorax. Moderate emphysematous changes are seen in the lungs. There is an infiltrate seen in the left upper lobe medially. This may represent atelectasis or pneumonia. No pulmonary nodule is identified. Degenerative changes are seen in the spine. There are mild compression deformities in the mid thorac ic spine of unknown age. IMPRESSION: 1. No evidence of pulmonary embolus., thoracic aortic dissection or aneurysm. 2. Infiltrate in the left upper lobe medially. This may represent atelectasis or pneumonia. 3. COPD.
[2019-04-28] MEDS: Omnipaque 350 MG/ML 100 ML BTL IJ (14:06)
[2019-04-28] MEDS: Normal Saline Flush 10 ML SYR IVP (14:06)
--- NOTE | 2019-04-28 14:32 | DI.VRAD_ITS ---
PROCEDURE INFORMATION: Exam: CT Angiography Chest With Contrast Exam date and time: 04/28/2019 1:35 PM Clinical history: 84 years old, female; Shortness of breath and other: Smoker, copd, question hilar mass TECHNIQUE: Imaging protocol: Computed tomographic angiography of the chest with intravenous contrast. 3D rendering: MIP reconstructed images were created and reviewed. Contrast material: OMNIPAQUE 350; Contrast volume: 70 ml; Contrast route: 20G LT AC; COMPARISON: XR CHEST 2V PA LATERAL 04/28/2019 12:58 PM FINDINGS: Pulmonary arteries: No evidence of pulmonary embolus to the segmental level. Prominent hilar regions reflect prominent descending pulmonary arteries bilaterally. Aorta: No aneurysm of the aorta. No dissection of the aorta. Lungs: Consolidation in the medial aspect of the left upper lobe. Mild to moderate panlobular emphysematous changes Pleural space: Unremarkable. No pneumothorax. No pleural effusion. Heart: Unremarkable. No cardiomegaly. No pericardial effusion. Lymph nodes: Unremarkable. No enlarged lymph nodes. Bones/joints: Mild Midthoracic compression fractures of unknown age Soft tissues: Unremarkable. IMPRESSION: 1. No evidence of pulmonary embolus to the segmental level. 2. No aneurysm of the aorta. 3. No dissection of the aorta. 4. Consolidation in the medial aspect of the left upper lobe. May reflect atelectasis or pneumonia 5. Prominent hilar regions reflect prominent descending pulmonary arteries bilaterally. Dictated and Authenticated by: Ryne Pollard MD. Ordering:SHANTELLE Brown MD
[2019-04-28] MEDS: levoFLOXacin 500 MG TAB PO (16:02)
== END 2019-04-28 16:13 | disposition home or self-care (01) ==
PROVIDERS: Emergency Provider Emergency Medicine; PCP Family Medicine
DX: J44.9 Chronic obstructive pulmonary disease, unspecified (principal); Z99.81 Dependence on supplemental oxygen; Z87.891 Personal history of nicotine dependence
CPT/HCPCS: 36415; 71275; 80053; 93005; 94640; 96361; 96374; 96375; 99285; 71046; 83735; 83880; 84484; 85025; 93010; 99284; J2930; J3490; J7620

== ENCOUNTER 2019-05-05 20:38 | Emergency (ER) | payer MEDICARE, SELFPAY ==
[2019-05-05 20:45] VITALS: PULSE 89; RESP 20; TEMP 36.5; O2SAT 88
--- NOTE | 2019-05-05 20:56 | NUR.NOTE ---
pt arrives 88% on RA. Per daughter pt wears 1L O2 at baseline, was up to 2L today.
--- NOTE | 2019-05-05 21:02 | ED.GENADUL_ITS ---
Discharge Plan Disposition Patient Disposition: HOME Discharge Details Chief Complaint: RespSymp Clinical Impression: Acute exacerbation of chronic obstructive pulmonary disease Primary Care Provider: Calvin Rios ED Provider: Juan C Griffith Home Meds and New Rx's Prescriptions: Continued ranitidine HCl 150 mg tablet 150 mg PO DAILY Qty: 90 RF: 1 lidocaine 5 % ointment 1 applic Topical Q4H Qty: 37.5 RF: 5 triamcinolone acetonide 0.1 % cream 1 applic TP BID PRN (Reason: leg rash) Qty: 30 RF: 1 metoprolol tartrate 25 mg tablet 12.5 mg PO BID Qty: 90 RF: 3 aspirin [Aspirin Low-Strength] 81 MG tablet,chewable 81 mg PO DAILY Qty: 90 RF: 4 (DME) Compact Compressor Nebulizer 1 EACH kit 1 ea Miscellaneous Q6H PRN Qty: 1 RF: 0 ipratropium-albuterol 0.5 mg-3 mg(2.5 mg base)/3 mL solution for nebulization 3 ml Inhalation Q6H PRN Qty: 90 RF: 4 (DME) Aerochamber Plus Flow-Vu Spacer 1 ea Miscellaneous BID Qty: 1 RF: 0 gabapentin 400 mg capsule 800 mg PO TID Qty: 180 RF: 5 No Action albuterol sulfate [ProAir HFA] 90 mcg/actuation HFA aerosol inhaler 2 puff Inhalation Q4H PRN RF: 0 cyanocobalamin (vitamin B-12) 1,000 mcg/mL solution 1,000 mcg IM .q 2 months RF: 0 prednisone 10 mg tablet See Rx Instructions .ROUTE .COMPLEX RF: 0 Incruse Ellipta 62.5 mcg/actuation blister with device 1 inh IH DAILY Qty: 30 RF: 5 guaifenesin [Mucinex] 600 mg tablet extended release 12hr 600 mg PO BID PRN (Reason: cold symptoms) Qty: 30 RF: 2 Breo Ellipta 100-25 mcg/dose blister with device 1 inh IH Q24H Qty: 28 RF: 5 alprazolam 0.25 mg tablet 0.25 mg PO DAILY Qty: 30 RF: 0 Spiriva with HandiHaler 18 mcg capsule, w/inhalation device 1 cap IH DAILY Qty: 90 RF: 4 Discharge Instructions Instructions: COPD (Chronic Obstructive Pulmonary Disease) (ED) Additional Instructions: Please use your nebulizer every 4 hours as needed for wheezing or shortness of breath. Take prednisone taper as prescribed. Please follow-up with your doctor this week for follow-up visit. You may also benefit from seeing respiratory therapy for COPD clinic. Please contact your primary care physician to arrange follow-up - call Tuesday. Return to the ER for any worsening or new concerning symptoms. Referrals: Calvin Rios [Primary Care Provider] - Discharge Data Discharge Date/Time-TO BE ENTERED AT DEPARTURE: 05/05/19 22:55 Medical Decision Making 21:05 -- 84-year-old female smoker with history of COPD, recently seen and treated for COPD exacerbation with prednisone burst and Levaquin, returns now having completed prednisone with worsening shortness of breath today. Plan to treat with Solu-Medrol IV and DuoNeb treatment. Will obtain chest x-ray and compared to imaging from 04/28/2019. 22:19 -- Chest x-ray was reviewed and interpreted by radiology: Severe COPD. Apical scar as well as nodular opacity in the left apex which has been recently better characterize by CT scan. No short-term interval change. Labs reviewed and nondiagnostic. ECG was reviewed and interpreted by me: Sinus rhythm 73 bpm, normal axis, short KS syndrome with KS interval of 117, nondiagnostic. Patient reassessed and feels much better. Patient is moving more air bilaterally. Plan will be to continue short course of prednisone and for patient to follow-up with her primary care physician this week and to return for any worsening or new concerning symptoms. I will also refer the patient to respiratory therapy COPD clinic. Disposition decision was made weighing the risks and benefits of hospitalization versus outpatient treatment, the risk for further decompensation, and the patient's wishes. The patient was stable and requested discharge. Prior to discharge, my usual and customary return precautions were reviewed with the patient - this included follow-up instructions and reason to return to the emergency department if condition worsens, does not improve as expected, or other new concerns arise. HPI General Mode of arrival: ambulatory . Date/Time Provider Initiated Documentation: 05/05/19 20:41 . Limitations to Documentation: no limitations . Information obtained by: patient . HPI Narrative: 84-year-old female smoker with longstanding COPD, now oxygen dependent on nasal cannula 1 L intermittently, here with chief complaint of shortness of breath. Patient notes progressive shortness of breath over the past 2 days. Shortness of breath was severe tonight. EMS was called and she received a breathing treatment and was feeling better and decided to refuse EMS transportation but to come by private vehicle with her daughter. Patient notes associated intermittent left-sided yifan st discomfort. She denies significant cough. Of note, patient was seen here in the emergency department for extensive work-up for shortness of breath on 04/28/2019. She had nondiagnostic laboratory work-up, CT of the chest that showed no evidence of PE or aortic abnormalities but did reveal consolidation in the medial left upper lobe. She was started on Levaquin and burst steroid which she has been taking as prescribed. She notes she was feeling better until couple days ago when prednisone course finished. She is on her last dose of Levaquin tomorrow. Related Data Home Medications Medication Instructions Recorded Confirmed aspirin [Aspirin Low-Strength] 81 mg PO DAILY #90 tab-cap 08/07/13 05/30/19 Compact Compressor Nebulizer #1 kit 03/11/15 05/30/19 lidocaine 5 % topical ointment 1 applic TOPICAL Q4H #37.5 gm 05/17/18 05/30/19 triamcinolone acetonide 0.1 % 1 applic TP BID PRN #30 gm 11/24/18 05/30/19 topical cream ranitidine HCl 150 mg tablet 150 mg PO DAILY #90 tab 01/17/19 05/30/19 gabapentin 400 mg capsule 800 mg PO TID #180 cap 02/21/19 05/30/19 guaifenesin 600 mg tablet, 600 mg PO BID PRN #30 tab 02/21/19 05/30/19 extended release 12 hr inhalational spacing device #1 misc 02/21/19 05/30/19 ipratropium-albuterol 0.5 mg-3 3 ml INHALATION Q6H PRN #90 ml 02/21/19 05/30/19 mg(2.5 mg base)/3 mL nebulization soln metoprolol tartrate 25 mg tablet 12.5 mg PO BID #90 tab 03/06/19 05/30/19 albuterol sulfate 90 mcg/actuation 2 puff INHALATION Q4H PRN inhaler 05/08/19 05/30/19 aerosol inhaler cyanocobalamin (vitamin B-12) 1,000 mcg IM .q 2 months vial 05/08/19 05/30/19 1,000 mcg/mL injection solution fluticasone furoate 100 1 inh IH Q24H #28 each 05/09/19 05/30/19 mcg-vilanterol 25 mcg/dose inhalation powder alprazolam 0.25 mg tablet 0.25 mg PO DAILY #30 tab 05/16/19 05/30/19 prednisone 10 mg tablet See Rx Instructions .ROUTE 05/30/19 05/30/19 .COMPLEX tab umeclidinium 62.5 mcg/actuation 1 inh IH DAILY #30 each 05/30/19 05/30/19 blister powder for inhalation tiotropium bromide 18 mcg capsule 1 cap IH DAILY #90 inh 05/31/19 with inhalation device Previous Rx's Medication Instructions Recorded lidocaine 5 % topical ointment 1 applic TOPICAL Q4H #37.5 gm 05/17/18 triamcinolone acetonide 0.1 % 1 applic TP BID PRN #30 gm 11/24/18 topical cream ranitidine HCl 150 mg tablet 150 mg PO DAILY #90 tab 01/17/19 gabapentin 400 mg capsule 800 mg PO TID #180 cap 02/21/19 guaifenesin 600 mg tablet, 600 mg PO BID PRN #30 tab 02/21/19 extended release 12 hr inhalational spacing device #1 misc 02/21/19 ipratropium-albuterol 0.5 mg-3 3 ml INHALATION Q6H PRN #90 ml 02/21/19 mg(2.5 mg base)/3 mL nebulization soln metoprolol tartrate 25 mg tablet 12.5 mg PO BID #90 tab 03/06/19 fluticasone furoate 100 1 inh IH Q24H #28 each 05/09/19 mcg-vilanterol 25 mcg/dose inhalation powder alprazolam 0.25 mg tablet 0.25 mg PO DAILY #30 tab 05/16/19 umeclidinium 62.5 mcg/actuation 1 inh IH DAILY #30 each 05/30/19 blister powder for inhalation tiotropium bromide 18 mcg capsule 1 cap IH DAILY #90 inh 05/31/19 with inhalation device Allergies Allergy/AdvReac Type Severity Reaction Status Date / Time Penicillins Allergy Intermediate Verified 05/30/19 10:28 roflumilast [From Daliresp] AdvReac Severe H/, Verified 05/30/19 10:28 STOMACH PAIN, COLD tramadol AdvReac Severe Nausea, Verified 05/30/19 10:28 dizziness amitriptyline AdvReac Intermediate DROWSINESS Verified 05/30/19 10:28 fluticasone propionate AdvReac Intermediate EPISTAXIS Verified 05/30/19 10:28 [From Flonase] hydrocodone AdvReac Intermediate Nausea Verified 05/30/19 10:28 lorazepam AdvReac Intermediate decreased Verified 05/30/19 10:28 mental status imipramine AdvReac Mild INSOMNIA Verified 05/30/19 10:28 clarithromycin AdvReac Unknown INTOLERANT Verified 05/30/19 10:28 tetracycline AdvReac Unknown INTOLERANT Verified 05/30/19 10:28 General Stated Complaint: RespSymp MARCIAL: 2 Review of Systems All systems reviewed & are unremarkable except as noted in HPI and below Cardiovascular Cardiovascular: Denies chest pain Respiratory Respiratory: Reports cough PFSH Medical History Cataract Closed fracture of clavicle Complex regional pain syndrome i of lower limb, bilateral COPD (chronic obstructive pulmonary disease) Degenerative disc disease, cervical Headache Hearing loss History of shingles Idiopathic peripheral neuropathy Perforation of tympanic membrane Peripheral neuralgia Peripheral vascular disease Pulmonary hypertension (Acute ~09/25/18) echocardiogram normal LVEF 65-70%, normal diastolic parameters, mild , mild MR, RV size and function normal, PAP 50-60, mod. TR Seborrheic keratosis Skin lesion of face Smoker Tinea unguium Surgical History Abdominal hysterectomy (~1975) Appendectomy Extraction of cataract O.D. Social History Smoking/Tobacco Use Status: Current-Occasional Tobacco Type: cigarettes Years smoked: 50 Alcohol Intake: never Drug use: Never Substance use type: does not use Do you feel safe at home: Yes Do you feel safe in your relationship?: Yes Exam Const General: cooperative and no acute distress HENMT Head: normocephalic Mouth: moist mucous membranes Eyes Conjunctivae: normal conjunctivae Sclera: normal sclerae Neck Neck: trachea midline, supple and no JVD Resp Effort & Inspection: not labored and no respiratory distress Auscultation: diminished lung sounds bilaterally, no rales, no rhonchi and wheezes right lower Cardio Jugular venous pressure: no JVD Rate: regular rate and not tachycardic Rhythm: regular rhythm GI Palpation: soft, not firm, no guarding, no masses, not rigid and nontender Skin General skin exam: no rashes or lesions noted Neuro General: alert, awake, oriented x3 and tone normal Extrem General: no calf tenderness and no edema Psych Appearance: grossly normal Mental Status: mental status grossly normal Course Vital Signs Vital signs: Vital Signs Temperature 36.5 C 05/05/19 20:45 Pulse 89 05/05/19 20:45 Respiratory Rate 20 05/05/19 20:45 Pulse Oximetry 88 L 05/05/19 20:45 Temperature 36.5 C 05/05/19 20:45 Temperature Source Skin 05/05/19 20:45 Pulse 89 05/05/19 20:45 Respiratory Rate 20 05/05/19 20:45 Respiratory Effort 05/05/19 20:53 Respiratory Depth Normal 05/05/19 20:53 Blood Pressure Position Supine 05/05/19 20:45 Pulse Oximetry 88 L 05/05/19 20:45 Oxygen Delivery Method Room Air 05/05/19 20:45 Oxygen Flow Rate 0 05/05/19 20:45
[2019-05-05 21:08] VITALS: RESP 8; O2SAT 99
[2019-05-05] MEDS: Albuterol/Ipratropium 3 ML UPD VIAL UPD ×2 (21:08→21:15)
[2019-05-05] MEDS: methylPREDNISolone SUCC 125 MG VIAL 60 MG IVP (21:09)
[2019-05-05 21:21] LABS: Abs Immature Grans 0.07 k/cumm (0.0-0.09); Absolute Basophil Count 0.02 k/cumm (0.0-0.2); Absolute Eosinophil Count 0.13 k/cumm (0.0-0.7); Absolute Monocyte Count 0.94 k/cumm (0.11-0.7); Absolute Neutrophil Count 6.69 k/cumm (1.2-6.7); Basophils % 0.2; Eosinophils % 1.3; HCT 46.5 % (36.0-46.0); HGB 14.6 g/dL (12.0-15.5); Immature Grans % 0.7; Lymphocytes % 19.5; Mean Corp. HGB Concentration 31.4 g/dL (32.0-36.0); Mean Corpuscular Hemoglobin 29.7 pg (27.0-33.0); Mean Corpuscular Volume 94.7 fL (80-95); Mean Platelet Volume 10.1 fL (8.0-11.0); Monocytes % 9.6; Neutrophils % 68.7; Platelet Count 225 x1000/uL (130-400); RBC 4.91 m/cumm (4.00-5.20); RBC Distribution Width 14.4 % (11.7-14.6); White Blood Cell Count 9.75 k/cumm (4.4-10.8)
--- NOTE | 2019-05-05 21:21 | NUR.NOTE ---
Arrives with daughter from home with c/o SOB. Pt seen last week for similar complaint, was placed on prednisone and levaquin, finished prednisone on 05/03, has 2 pills left of levaquin. Used nebs at home today, continued to have SOB. LS diminished throughout, L worse than R. #18 RAC, labs drawn. Med a/o.
[2019-05-05 21:38] VITALS: PULSE 74; RESP 19; RESP 8; O2SAT 99
[2019-05-05 21:38] LABS: Anion Gap 4.3 mmol/L (3-11); BUN 16 mg/dL (7-18); CO2 32.7 mmol/L (21.0-32.0); CREATININE 0.73 mg/dL (0.55-1.02); Calcium 8.8 mg/dL (8.5-10.1); Chloride 104 mmol/L (98-107); Glucose 104 mg/dL (70-100); NT-proBNP 372 pg/mL; Potassium 4.5 mmol/L (3.5-5.1); Sodium 141 mmol/L (136-145)
[2019-05-05 21:39] VITALS: RESP 8
[2019-05-05 21:46] LABS: Troponin I < 0.05 ng/mL (0.00-0.06)
--- NOTE | 2019-05-05 21:49 | DI.RAD_ITS ---
EXAM: XR CHEST 2V PA LATERAL INDICATION: sob, recent abnormal cxr and ct. COMPARISON: CT CHEST PE CTA from 04/28/2019 XR CHEST 2V PA LATERAL from 04/28/2019 TECHNIQUE: 2D digital imaging was performed. FINDINGS: The heart size is normal. The lungs are again noted to be markedly hyperinflated, particularly at th e lung bases. There are underlying fibrotic changes. There has been some interval clearing of the pr eviously noted infiltrate in the medial left upper lobe. No new infiltrate or effusion is seen. The re is stable mild compression fractures in the mid thoracic spine. IMPRESSION: Interval clearing of left upper lobe infiltrate. A chest CT could be performed to exclude a mass fol lowing treatment.
--- NOTE | 2019-05-05 22:01 | DI.VRAD_ITS ---
PROCEDURE INFORMATION: Exam: XR Chest, 2 Views Exam date and time: 05/05/2019 9:49 PM Clinical history: 84 years old, female; Other: SOB, recent abnormal cxr and CT TECHNIQUE: Imaging protocol: XR of the chest Views: 2 views. COMPARISON: XR CHEST 2V PA LATERAL 04/28/2019 12:58 PM FINDINGS: Lungs: Lungs very hyperinflated. Scarring in the apices. Nodular opacity in the left apex. Pleural space: Unremarkable. No evidence of pneumothorax. Heart/Mediastinum: Unremarkable. Heart size within normal limits for technique. Bones/joints: Unremarkable. IMPRESSION: Severe COPD. Apical scar as well as a nodular opacity in the left apex which has been recently better characterized by CT scan. No short-term interval change. Dictated and Authenticated by: Mati Velasquez MD. Ordering:YANELY Irizarry MD
[2019-05-05 22:23] VITALS: BP 132/65; PULSE 79; RESP 18; TEMP 36.6; O2SAT 98
--- NOTE | 2019-05-05 22:47 | NUR.NOTE ---
Pt feels breathing improved after meds. OK for DC home. Discharge instructions reviewed with pt and daughter with verbal understanding. aware to [facility] p[facility] and COPD clinic this week. Prednisone script givne. To exit via [place].
== END 2019-05-05 22:55 | disposition home or self-care (01) ==
PROVIDERS: Emergency Provider Student in an Organized Health Care Education/Training Program; PCP Family Medicine
DX: R09.02 Hypoxemia (principal); J44.1 Chronic obstructive pulmonary disease with (acute) exacerbation; F17.210 Nicotine dependence, cigarettes, uncomplicated; Z99.81 Dependence on supplemental oxygen
CPT/HCPCS: 36415; 80048; 93005; 94640; 96374; 99285; 71046; 83880; 84484; 85025; 93010; 99284; J2930; J7620

== ENCOUNTER 2019-05-13 17:09 | Emergency (ER) | payer MEDICARE, SELFPAY ==
[2019-05-13] VITALS (19 sets, daily range): BP systolic 116–145; BP diastolic 77–117; PULSE 82–96; RESP 1–27; TEMP 36.6–37.1; O2SAT 94–100
--- NOTE | 2019-05-13 17:13 | DI.RAD_ITS ---
EXAM: XR CHEST 2V PA LATERAL INDICATION: shortness of breath. COMPARISON: CT CHEST PE CTA from 04/28/2019 XR CHEST 2V PA LATERAL from 05/05/2019 TECHNIQUE: 2D digital imaging was performed. FINDINGS: The heart size is normal. The lungs show underlying fibrotic changes. No focal infiltrate, effusion or pneumothorax is seen. There is no evidence of pulmonary edema. IMPRESSION: Emphysematous and fibrotic changes. No acute abnormality.
--- NOTE | 2019-05-13 17:13 | W.ED.GENAD ---
Discharge Plan Disposition Patient Disposition: HOME Condition: Stable Discharge Details Chief Complaint: RespSymp Clinical Impression: COPD (chronic obstructive pulmonary disease) Primary Care Provider: Calvin Rios ED Provider: Brandon Loyd Home Meds and New Rx's Prescriptions: New prednisone 20 mg tablet 60 mg PO DAILY 2 Days Qty: 6 RF: 0 Continued albuterol sulfate [ProAir HFA] 90 mcg/actuation HFA aerosol inhaler 2 puff Inhalation Q4H PRN RF: 0 ranitidine HCl 150 mg tablet 150 mg PO DAILY Qty: 90 RF: 1 lidocaine 5 % ointment 1 applic Topical Q4H Qty: 37.5 RF: 5 triamcinolone acetonide 0.1 % cream 1 applic TP BID PRN (Reason: leg rash) Qty: 30 RF: 1 metoprolol tartrate 25 mg tablet 12.5 mg PO BID Qty: 90 RF: 3 cyanocobalamin (vitamin B-12) 1,000 mcg/mL solution 1,000 mcg IM .q 2 months RF: 0 alprazolam 0.25 mg tablet 0.25 mg PO BID PRN (Reason: anxiety) Qty: 10 RF: 0 aspirin [Aspirin Low-Strength] 81 MG tablet,chewable 81 mg PO DAILY Qty: 90 RF: 4 (DME) Compact Compressor Nebulizer 1 EACH kit 1 ea Miscellaneous Q6H PRN Qty: 1 RF: 0 ipratropium-albuterol 0.5 mg-3 mg(2.5 mg base)/3 mL solution for nebulization 3 ml Inhalation Q6H PRN Qty: 90 RF: 4 (DME) Aerochamber Plus Flow-Vu Spacer 1 ea Miscellaneous BID Qty: 1 RF: 0 gabapentin 400 mg capsule 800 mg PO TID Qty: 180 RF: 5 guaifenesin [Mucinex] 600 mg tablet extended release 12hr 600 mg PO BID PRN (Reason: cold symptoms) Qty: 30 RF: 2 Breo Ellipta 100-25 mcg/dose blister with device 1 inh IH Q24H Qty: 28 RF: 5 Discharge Instructions Instructions: COPD (Chronic Obstructive Pulmonary Disease) (ED) Additional Instructions: I have placed you on our follow up list to meet with palliative care if you feel more ill, have worsening shortness of breath or fevers return to the emergency department. Follow up with your primary care provider within 1 week Medical Decision Making 84 yo female with hx of copd on home o2 intermittently, who recently just finished steroids and abx for copd exacerbation comes in with worsening shortness of breath and reportedly anxiety per daughter for several days. No fevers, chest pain, vomit, abdominal pain. She was given 2 nebs and feels better per patient. She has wheezing at the bases bilaterally with no jvd or pedal edema. suspect copd exacerbation and will tx with another neb and steroids. Will obtain xray to eval for pna. No evidence of dvt on exam and exam consistent with copd so doubt PE. No chest pain or pressure so doubt acs at this time pt's labs and imaging show no acute findings. She feels much better and remains hd stable and feels well enough to go home. Given she just came off abx and no changes on xray do not feel retreatment with abx indicated. Will provide a few more days of steroids. They are interested in meeting with palliative care given her end stage copd and frequent ED visits because of this. Will d/c home and return precautions given Differential Diagnosis Differential Diagnosis: copd, pna, chf Imaging Data Radiologic Study: Attestation: I personally reviewed and interpreted this imaging study as follows: Imaging: X-Ray Radiologist's impression: IMPRESSION: 1. Severe emphysema with probable chronic bronchitis and sequela of old infection. 2. No new air space consolidation to suggest pneumonia on plain film. 3. Chronic PA hypertension again seen. Lab Data Lab results reviewed: Yes I reviewed the patient's lab results. ECG Data Attestation: I personally reviewed and interpreted this ECG (s) as follows: Prior ECG tracings: available for review Interpretation: sinus rhythm, rate of 87, pr 108, qtc 438, no acute st t wave ischemic findings HPI General Mode of arrival: EMS. Date/Time Provider Initiated Documentation: 05/13/19 17:12. Limitations to Documentation: no limitations. Information obtained by: patient, family and EMS. History of Present Illness 84 year old F presents to the emergency department with the chief complaint of shortness of breath, described as moderate, other things that improve symptom(s), (nebulizers) No exacerbating factors reported . Patient notes cough; denies fever/chills. Patient did receive the following treatments prior to arrival, none Related Data Home Medications Medication Instructions Recorded Confirmed aspirin [Aspirin Low-Strength] 81 mg PO DAILY #90 tab-cap 08/07/13 05/08/19 Compact Compressor Nebulizer #1 kit 03/11/15 05/13/19 lidocaine 5 % topical ointment 1 applic TOPICAL Q4H #37.5 gm 05/17/18 05/13/19 triamcinolone acetonide 0.1 % 1 applic TP BID PRN #30 gm 11/24/18 05/13/19 topical cream ranitidine HCl 150 mg tablet 150 mg PO DAILY #90 tab 01/17/19 05/08/19 gabapentin 400 mg capsule 800 mg PO TID #180 cap 02/21/19 05/13/19 guaifenesin 600 mg tablet, 600 mg PO BID PRN #30 tab 02/21/19 05/08/19 extended release 12 hr inhalational spacing device #1 misc 02/21/19 05/13/19 ipratropium-albuterol 0.5 mg-3 3 ml INHALATION Q6H PRN #90 ml 02/21/19 05/13/19 mg(2.5 mg base)/3 mL nebulization soln metoprolol tartrate 25 mg tablet 12.5 mg PO BID #90 tab 03/06/19 05/13/19 albuterol sulfate 90 mcg/actuation 2 puff INHALATION Q4H PRN inhaler 05/08/19 05/13/19 aerosol inhaler alprazolam 0.25 mg tablet 0.25 mg PO BID PRN #10 tab 05/08/19 05/13/19 cyanocobalamin (vitamin B-12) 1,000 mcg IM .q 2 months vial 05/08/19 05/08/19 1,000 mcg/mL injection solution fluticasone furoate 100 1 inh IH Q24H #28 each 05/09/19 05/13/19 mcg-vilanterol 25 mcg/dose inhalation powder prednisone 60 mg PO DAILY 2 Days #6 tab 05/13/19 Previous Rx's Medication Instructions Recorded lidocaine 5 % topical ointment 1 applic TOPICAL Q4H #37.5 gm 05/17/18 triamcinolone acetonide 0.1 % 1 applic TP BID PRN #30 gm 11/24/18 topical cream ranitidine HCl 150 mg tablet 150 mg PO DAILY #90 tab 01/17/19 gabapentin 400 mg capsule 800 mg PO TID #180 cap 02/21/19 guaifenesin 600 mg tablet, 600 mg PO BID PRN #30 tab 02/21/19 extended release 12 hr inhalational spacing device #1 misc 02/21/19 ipratropium-albuterol 0.5 mg-3 3 ml INHALATION Q6H PRN #90 ml 02/21/19 mg(2.5 mg base)/3 mL nebulization soln metoprolol tartrate 25 mg tablet 12.5 mg PO BID #90 tab 03/06/19 alprazolam 0.25 mg tablet 0.25 mg PO BID PRN #10 tab 05/08/19 fluticasone furoate 100 1 inh IH Q24H #28 each 05/09/19 mcg-vilanterol 25 mcg/dose inhalation powder prednisone 60 mg PO DAILY 2 Days #6 tab 05/13/19 Allergies Allergy/AdvReac Type Severity Reaction Status Date / Time Penicillins Allergy Intermediate Unverified 05/13/19 17:15 roflumilast [From Daliresp] AdvReac Severe H/, Unverified 05/13/19 17:15 STOMACH PAIN, COLD tramadol AdvReac Severe Nausea, Unverified 05/13/19 17:15 dizziness amitriptyline AdvReac Intermediate DROWSINESS Unverified 05/13/19 17:15 fluticasone propionate AdvReac Intermediate EPISTAXIS Unverified 05/13/19 17:15 [From Flonase] hydrocodone AdvReac Intermediate Nausea Unverified 05/13/19 17:15 lorazepam AdvReac Intermediate decreased Unverified 05/13/19 17:15 mental status imipramine AdvReac Mild INSOMNIA Unverified 05/13/19 17:15 clarithromycin AdvReac Unknown INTOLERANT Unverified 05/13/19 17:15 tetracycline AdvReac Unknown INTOLERANT Unverified 05/13/19 17:15 General Stated Complaint: RespSymp MARCIAL: 3 Review of Systems All systems reviewed & are unremarkable except as noted in HPI and below Constitutional Constitutional: Denies chills, Denies fever(s) and Denies weakness Cardiovascular Cardiovascular: Denies chest pain Gastrointestinal Gastrointestinal: Denies abdominal pain, Denies nausea and Denies vomiting Musculoskeletal Musculoskeletal: Denies joint swelling Neurologic Neurologic: Denies weakness Psychiatric Psychiatric: Denies depression [facility] Social History Smoking/Tobacco Use Status: Current-Occasional Tobacco Type: cigarettes Years smoked: 50 Alcohol Intake: never Drug use: Never Substance use type: does not use Do you feel safe at home: Yes Do you feel safe in your relationship?: Yes Exam Const General: no acute distress Orientation: alert HENMT Head: normal to inspection Ears: external ears normal General nose exam: external nose normal Mouth: moist mucous membranes Eyes General: appearance normal, both eyes and all related structures Neck Neck: normal visual inspection Resp Effort & Inspection: normal respiratory effort and able to speak in complete sentences Cardio Rate: regular rate Skin General skin exam: no rashes or lesions noted Neuro General: alert and oriented x3 Extrem General: normal to inspection Psych Mental Status: mental status grossly normal Course Vital Signs Vital signs: Vital Signs Temperature 36.6 C 05/13/19 16:59 Pulse 89 05/13/19 16:59 Respiratory Rate 22 05/13/19 16:59 Blood Pressure 138/88 05/13/19 16:59 Pulse Oximetry 96 05/13/19 16:59 Temperature 36.6 C 05/13/19 16:59 Temperature Source Temporal Artery Scan 05/13/19 16:59 Pulse 89 05/13/19 16:59 Respiratory Rate 22 05/13/19 16:59 Blood Pressure 138/88 05/13/19 16:59 Blood Pressure Position Sitting 05/13/19 16:59 Pulse Oximetry 96 05/13/19 16:59 Oxygen Delivery Method Nasal Cannula 05/13/19 16:59 Oxygen Flow Rate 2 05/13/19 16:59 Pain Level 0 05/13/19 16:59
[2019-05-13 17:28] LABS: Abs Immature Grans 0.06 k/cumm (0.0-0.09); Absolute Eosinophil Count 0.03 k/cumm (0.0-0.7); Absolute Lymphocyte Count 0.95 k/cumm (1.2-3.4); Absolute Monocyte Count 0.53 k/cumm (0.11-0.7); Basophils % 0.1; Eosinophils % 0.2; HCT 45.3 % (36.0-46.0); HGB 14.3 g/dL (12.0-15.5); Immature Grans % 0.4; Lymphocytes % 6.1; Mean Corp. HGB Concentration 31.6 g/dL (32.0-36.0); Mean Corpuscular Hemoglobin 30.3 pg (27.0-33.0); Mean Platelet Volume 9.7 fL (8.0-11.0); Monocytes % 3.4; Neutrophils % 89.8; Platelet Count 212 x1000/uL (130-400); RBC 4.72 m/cumm (4.00-5.20); RBC Distribution Width 15.2 % (11.7-14.6); White Blood Cell Count 15.63 k/cumm (4.4-10.8)
[2019-05-13] MEDS: Normal Saline Flush 10 ML SYR IVP (17:28)
[2019-05-13 17:33] LABS: Absolute Basophil Count 0.02 k/cumm (0.0-0.2); Absolute Neutrophil Count 14.04 k/cumm (1.2-6.7)
[2019-05-13] MEDS: Albuterol/Ipratropium 3 ML UPD VIAL UPD (17:34)
[2019-05-13 17:43] LABS: PTT Activated 22.6 sec (21.0-31.4); Prothrombin Time 9.9 sec (9.3-11.0)
[2019-05-13 17:53] LABS: ALT 52 U/L (14-59); AST 26 U/L (15-37); Alkaline Phosphatase 96 U/L (46-116); Anion Gap 5.1 mmol/L (3-11); BUN 17 mg/dL (7-18); Bilirubin, Total 0.3 mg/dL (0.2-1.0); CO2 32.9 mmol/L (21.0-32.0); CREATININE 0.75 mg/dL (0.55-1.02); Calcium 8.7 mg/dL (8.5-10.1); Chloride 105 mmol/L (98-107); Glucose 116 mg/dL (74-106); Magnesium 1.9 mg/dL (1.8-2.4); NT-proBNP 398 pg/mL (<300); Potassium 5.1 mmol/L (3.5-5.1); Sodium 143 mmol/L (136-145); Total Protein 6.7 g/dL (6.4-8.2); Troponin I < 0.05 ng/Ml (<0.06)
[2019-05-13] MEDS: methylPREDNISolone SUCC 125 MG VIAL IVP (17:55)
--- NOTE | 2019-05-13 18:29 | DI.VRAD_ITS ---
PROCEDURE INFORMATION: Exam: XR Chest, 2 Views Exam date and time: 05/13/2019 17:14 Age: 84 years old Clinical history: Other: Shortness of breath TECHNIQUE: Imaging protocol: XR of the chest Views: 2 views. COMPARISON: CR XR CHEST 2V PA LATERAL 05/05/2019 21:44 FINDINGS: Lungs: Severe emphysema with probable chronic bronchitis. Patchy nodular opacities in the apices are similar probably reflecting old infection. No new air space consolidation to suggest pneumonia on plain film. Pleural space: No pleural effusion. No pneumothorax. Heart/Mediastinum: Main pulmonary arteries are enlarged as on the previous study. Vasculature: Tortuous aorta. Atherosclerosis. Bones/joints: No acute fracture. Other findings: Chronic PA hypertension again seen. IMPRESSION: 1. Severe emphysema with probable chronic bronchitis and sequela of old infection. 2. No new air space consolidation to suggest pneumonia on plain film. 3. Chronic PA hypertension again seen. Dictated and Authenticated by: Iris Charles MD. Ordering:KARSTEN Taylor MD
--- NOTE | 2019-05-14 14:42 | PDOC.ERCMPRO ---
Care Management Progress Note Per MD request received, CM coordinated outpatient referral to Palliative Care for Rosemarie. Referral faxed to office 05/14/19@[id number]
== END 2019-05-13 19:15 | disposition home or self-care (01) ==
PROVIDERS: Emergency Provider Emergency Medicine; PCP Family Medicine
DX: J44.1 Chronic obstructive pulmonary disease with (acute) exacerbation (principal); F41.9 Anxiety disorder, unspecified; F17.210 Nicotine dependence, cigarettes, uncomplicated
CPT/HCPCS: 36415; 80053; 87449; 93005; 94640; 96374; 99285; 71046; 83735; 83880; 84484; 85025; 85610; 85730; 93010; 99284; J2930; J7620

== ENCOUNTER 2019-05-21 18:20 | Emergency (ER) | payer MEDICARE, SELFPAY ==
[2019-05-21] VITALS (12 sets, daily range): BP systolic 114–123; BP diastolic 86–97; PULSE 95–119; RESP 18–31; TEMP 36.7; O2SAT 93–96
--- NOTE | 2019-05-21 18:23 | NUR.NOTE ---
Addendum entered by Darlene Batista 05/21/19 18:26: Family present and state that her medication list has not changed since last ED visit on 05/13 Original Note: Nursing Note: patient was recently in the ED, states she has not taken any medications today & does not believe anything has changed.
--- NOTE | 2019-05-21 18:32 | W.ED.GENAD ---
Discharge Plan Disposition Patient Disposition: HOME Condition: Improving Discharge Details Chief Complaint: SOB Clinical Impression: COPD (chronic obstructive pulmonary disease), Bronchitis Primary Care Provider: Calvin Rios ED Provider: Kevin Ordaz Home Meds and New Rx's Prescriptions: New prednisone 10 mg tablet See Rx Instructions .ROUTE .COMPLEX Qty: 45 RF: 0 sulfamethoxazole-trimethoprim [Bactrim DS] 800-160 mg tablet 1 tab PO BID 7 Days Qty: 14 RF: 0 Continued albuterol sulfate [ProAir HFA] 90 mcg/actuation HFA aerosol inhaler 2 puff Inhalation Q4H PRN RF: 0 ranitidine HCl 150 mg tablet 150 mg PO DAILY Qty: 90 RF: 1 lidocaine 5 % ointment 1 applic Topical Q4H Qty: 37.5 RF: 5 triamcinolone acetonide 0.1 % cream 1 applic TP BID PRN (Reason: leg rash) Qty: 30 RF: 1 metoprolol tartrate 25 mg tablet 12.5 mg PO BID Qty: 90 RF: 3 cyanocobalamin (vitamin B-12) 1,000 mcg/mL solution 1,000 mcg IM .q 2 months RF: 0 aspirin [Aspirin Low-Strength] 81 MG tablet,chewable 81 mg PO DAILY Qty: 90 RF: 4 ipratropium-albuterol 0.5 mg-3 mg(2.5 mg base)/3 mL solution for nebulization 3 ml Inhalation Q6H PRN Qty: 90 RF: 4 gabapentin 400 mg capsule 800 mg PO TID Qty: 180 RF: 5 guaifenesin [Mucinex] 600 mg tablet extended release 12hr 600 mg PO BID PRN (Reason: cold symptoms) Qty: 30 RF: 2 Breo Ellipta 100-25 mcg/dose blister with device 1 inh IH Q24H Qty: 28 RF: 5 alprazolam 0.25 mg tablet 0.25 mg PO DAILY Qty: 30 RF: 0 Discontinued prednisone 50 mg tablet 50 mg PO DAILY Qty: 3 RF: 0 No Action (DME) Compact Compressor Nebulizer 1 EACH kit 1 ea Miscellaneous Q6H PRN Qty: 1 RF: 0 (DME) Aerochamber Plus Flow-Vu Spacer 1 ea Miscellaneous BID Qty: 1 RF: 0 Discharge Instructions Instructions: COPD (Chronic Obstructive Pulmonary Disease) (ED) Additional Instructions: Please follow-up with palliative care as planned on May 30. I have asked our care management team to make you a follow-up appointment in clinic for recheck as well. Take prednisone and antibiotics as prescribed. Return to the emergency department for any acute concerns. Medical Decision Making 84-year-old female with history of COPD on 1 L home oxygen presents with family via EMS. She is had 2 days of progressive shortness of breath but somewhat worse with exertion. It improved with a DuoNeb en route. She will endorse a chronic cough but no subsequent change in sputum. She has not had a fever. Notes some worsening after stopping prednisone approximately 1 week ago. She is afebrile, blood pressure 123/86, 98% sat on 1 L oxygen. Speaking in full sentences and not in distress. Given Solu-Medrol, DuoNeb updraft, referred for chest x-ray and laboratory testing. Chest x-ray with fibrosis and scarring bilaterally, blunting of the posterior costophrenic angles bilaterally. Labs show white blood cell count of 11, hematocrit 47, platelets 191. Chemistries notable for bicarb of 35, normal renal function. Patient is improved. Consistent with COPD exacerbation. We will treat her with Bactrim as she has not had antibiotics in the recent weeks. She will benefit from being placed on steroids again, but I will taper her off slowly. We will ask for a follow-up in primary care clinic for recheck. She has already made the decision to have a consultation with palliative care on May 30. Lab Data Lab results reviewed: Yes I reviewed the patient's lab results. Labs: Laboratory Results - last 24 hr 05/21/19 05/21/19 19:12 19:12 WBC 11.02 H RBC 4.88 Hgb 14.6 Hct 47.0 H MCV 96.3 H MCH 29.9 MCHC 31.1 L RDW 14.9 H Plt Count 191 MPV 10.3 Immature Gran % 0.3 Neutrophils % 76.1 Lymphocytes % 15.2 Monocytes % 7.1 Eosinophils % 1.2 Basophils % 0.1 Absolute Neutrophils 8.39 H Absolute Lymphocytes 1.68 Absolute Monocytes 0.78 H Absolute Eosinophils 0.13 Absolute Basophils 0.01 Sodium 142 Potassium 4.3 Chloride 103 Carbon Dioxide 35.2 H Anion Gap 3.8 BUN 15 Creatinine 0.69 Estimated GFR/1.73 m2 >= 60.00 Glucose 108 H Calcium 8.9 Magnesium 1.8 Total Bilirubin 0.3 AST 13 L ALT 30 Alkaline Phosphatase 86 Total Protein 6.8 Albumin 3.0 L HPI General Mode of arrival: EMS. Date/Time Provider Initiated Documentation: 05/21/19 19:39. Limitations to Documentation: no limitations. Information obtained by: patient, family and EMS. History of Present Illness 84 year old F presents to the emergency department with the chief complaint of Short of breath at home for 2 days, improved with DuoNeb on route with EMS., described as similar to prior episodes, and is localized to the chest. Patient reports no radiation. Patient started experiencing this day(s) and it has been constant. Rest improves symptom(s), Movement worsens symptoms . Patient notes cough; denies chest pain, fever/chills and syncope. Patient did receive the following treatments prior to arrival, other (DuoNeb) Related Data Home Medications Medication Instructions Recorded Confirmed aspirin [Aspirin Low-Strength] 81 mg PO DAILY #90 tab-cap 08/07/13 05/21/19 Compact Compressor Nebulizer #1 kit 03/11/15 05/21/19 lidocaine 5 % topical ointment 1 applic TOPICAL Q4H #37.5 gm 05/17/18 05/21/19 triamcinolone acetonide 0.1 % 1 applic TP BID PRN #30 gm 11/24/18 05/21/19 topical cream ranitidine HCl 150 mg tablet 150 mg PO DAILY #90 tab 01/17/19 05/21/19 gabapentin 400 mg capsule 800 mg PO TID #180 cap 02/21/19 05/21/19 guaifenesin 600 mg tablet, 600 mg PO BID PRN #30 tab 02/21/19 05/21/19 extended release 12 hr inhalational spacing device #1 misc 02/21/19 05/21/19 ipratropium-albuterol 0.5 mg-3 3 ml INHALATION Q6H PRN #90 ml 02/21/19 05/21/19 mg(2.5 mg base)/3 mL nebulization soln metoprolol tartrate 25 mg tablet 12.5 mg PO BID #90 tab 03/06/19 05/21/19 albuterol sulfate 90 mcg/actuation 2 puff INHALATION Q4H PRN inhaler 05/08/19 05/21/19 aerosol inhaler cyanocobalamin (vitamin B-12) 1,000 mcg IM .q 2 months vial 05/08/19 05/21/19 1,000 mcg/mL injection solution fluticasone furoate 100 1 inh IH Q24H #28 each 05/09/19 05/21/19 mcg-vilanterol 25 mcg/dose inhalation powder alprazolam 0.25 mg tablet 0.25 mg PO DAILY #30 tab 05/16/19 05/21/19 prednisone See Rx Instructions .ROUTE 05/21/19 .COMPLEX #45 tab sulfamethoxazole-trimethoprim 1 tab PO BID 7 Days #14 tab 05/21/19 [Bactrim DS] Previous Rx's Medication Instructions Recorded lidocaine 5 % topical ointment 1 applic TOPICAL Q4H #37.5 gm 05/17/18 triamcinolone acetonide 0.1 % 1 applic TP BID PRN #30 gm 11/24/18 topical cream ranitidine HCl 150 mg tablet 150 mg PO DAILY #90 tab 01/17/19 gabapentin 400 mg capsule 800 mg PO TID #180 cap 02/21/19 guaifenesin 600 mg tablet, 600 mg PO BID PRN #30 tab 02/21/19 extended release 12 hr inhalational spacing device #1 misc 02/21/19 ipratropium-albuterol 0.5 mg-3 3 ml INHALATION Q6H PRN #90 ml 02/21/19 mg(2.5 mg base)/3 mL nebulization soln metoprolol tartrate 25 mg tablet 12.5 mg PO BID #90 tab 03/06/19 fluticasone furoate 100 1 inh IH Q24H #28 each 05/09/19 mcg-vilanterol 25 mcg/dose inhalation powder alprazolam 0.25 mg tablet 0.25 mg PO DAILY #30 tab 05/16/19 prednisone See Rx Instructions .ROUTE 05/21/19 .COMPLEX #45 tab sulfamethoxazole-trimethoprim 1 tab PO BID 7 Days #14 tab 05/21/19 [Bactrim DS] Allergies Allergy/AdvReac Type Severity Reaction Status Date / Time Penicillins Allergy Intermediate Unverified 05/21/19 18:22 roflumilast [From Dalires] AdvReac Severe H/, Unverified 05/21/19 18:22 STOMACH PAIN, COLD tramadol AdvReac Severe Nausea, Unverified 05/21/19 18:22 dizziness amitriptyline AdvReac Intermediate DROWSINESS Unverified 05/21/19 18:22 fluticasone propionate AdvReac Intermediate EPISTAXIS Unverified 05/21/19 18:22 [From Flonase] hydrocodone AdvReac Intermediate Nausea Unverified 05/21/19 18:22 lorazepam AdvReac Intermediate decreased Unverified 05/21/19 18:22 mental status imipramine AdvReac Mild INSOMNIA Unverified 05/21/19 18:22 clarithromycin AdvReac Unknown INTOLERANT Unverified 05/21/19 18:22 tetracycline AdvReac Unknown INTOLERANT Unverified 05/21/19 18:22 General Stated Complaint: SOB MARCIAL: 3 Review of Systems Narrative: 6 systems reviewed and otherwise negative [facility] Medical History Cataract Closed fracture of clavicle Complex regional pain syndrome i of lower limb, bilateral COPD (chronic obstructive pulmonary disease) Degenerative disc disease, cervical Headache Hearing loss History of shingles Idiopathic peripheral neuropathy Perforation of tympanic membrane Peripheral neuralgia Peripheral vascular disease Pulmonary hypertension (Acute ~09/25/18) echocardiogram normal LVEF 65-70%, normal diastolic parameters, mild , mild MR, RV size and function normal, PAP 50-60, mod. TR Seborrheic keratosis Skin lesion of face Smoker Tinea unguium Social History Smoking/Tobacco Use Status: Current-Occasional Tobacco Type: cigarettes Years smoked: 50 Alcohol Intake: never Drug use: Never Substance use type: does not use Do you feel safe at home: Yes Do you feel safe in your relationship?: Yes Exam Narrative Exam Narrative: GEN: awake, alert, oriented 3. Pleasant, well groomed, interactive. HEAD: Normocephalic, atraumatic ENT: Mucous membranes moist, oropharynx unremarkable, External ear exam unremarkable EYES: PERRL, EOMI NECK: Full ROM, no ARTURO, no menigismus CHEST/RESP: Nontender, diminished throughout with scant end expiratory wheeze. CARDIOVASCULAR: RRR, no murmur, rub vinnie. 2+ Rad pulse bilateral ABDOMEN: Soft, nontender, no mass. +Bowel sounds EXT: Full ROM, no edema, no rash Neuro: Grossly normal neurologic exam, conversant, interactive. Psych: Speech fluent, thoughts congruent, affect normal Course Vital Signs Vital signs: Vital Signs Temperature 36.7 C 05/21/19 18:16 Pulse 105 H 05/21/19 18:16 Respiratory Rate 18 05/21/19 18:16 Blood Pressure 123/86 05/21/19 18:16 Pulse Oximetry 94 L 05/21/19 18:16 Temperature 36.7 C 05/21/19 18:16 Temperature Source Skin 05/21/19 18:16 Pulse 105 H 05/21/19 18:16 Respiratory Rate 18 05/21/19 18:16 Respiratory Effort 05/21/19 18:24 Blood Pressure 123/86 05/21/19 18:16 Blood Pressure Position Sitting 05/21/19 18:16 Pulse Oximetry 94 L 05/21/19 18:16 Oxygen Delivery Method Nasal Cannula 05/21/19 18:16 Oxygen Flow Rate 1 05/21/19 18:16 Pain Level 0 05/21/19 18:16
[2019-05-21] MEDS: methylPREDNISolone SUCC 125 MG VIAL IVP (18:48)
[2019-05-21] MEDS: Normal Saline Flush 10 ML SYR IVP (18:48)
[2019-05-21] MEDS: Albuterol/Ipratropium 3 ML UPD VIAL UPD (18:48)
--- NOTE | 2019-05-21 19:38 | DI.RAD_ITS ---
EXAM: XR CHEST 2V PA LATERAL INDICATION: SOB, COPD. COMPARISON: XR CHEST 2V PA LATERAL from 05/05/2019 XR CHEST 2V PA LATERAL from 05/13/2019 TECHNIQUE: 2D digital imaging was performed. FINDINGS: The heart size and pulmonary vasculature are stable and within normal limits. There is atheroscleros is of the thoracic aorta. The lungs are hyperinflated with flattened diaphragms suggesting underlyin g COPD. There is blunting of the posterior costophrenic angles suggesting small pleural effusions. There is pleural and parenchymal scarring throughout the lungs, right greater than left. There is a question of increased lung markings in the right upper lobe. A superimposed pneumonia cannot be excl uded. No focal consolidating infiltrates are present. No pneumothorax is identified. Degenerative changes are seen in the spine. IMPRESSION: 1. Question of small pleural effusions. 2. COPD and pulmonary fibrosis. 3. Question of increased lung markings in the right apex. Superimposed atelectasis or pneumonia frank ot be excluded.
[2019-05-21 19:42] LABS: ALT 30 U/L (14-59); AST 13 U/L (15-37); Alkaline Phosphatase 86 U/L (46-116); Anion Gap 3.8 mmol/L (3-11); BUN 15 mg/dL (7-18); Bilirubin, Total 0.3 mg/dL (0.2-1.0); CO2 35.2 mmol/L (21.0-32.0); CREATININE 0.69 mg/dL (0.55-1.02); Calcium 8.9 mg/dL (8.5-10.1); Chloride 103 mmol/L (98-107); Glucose 108 mg/dL (74-106); Magnesium 1.8 mg/dL (1.8-2.4); Potassium 4.3 mmol/L (3.5-5.1); Sodium 142 mmol/L (136-145); Total Protein 6.8 g/dL (6.4-8.2)
[2019-05-21 19:46] LABS: Abs Immature Grans 0.03 k/cumm (0.0-0.09); Absolute Basophil Count 0.01 k/cumm (0.0-0.2); Absolute Eosinophil Count 0.13 k/cumm (0.0-0.7); Absolute Lymphocyte Count 1.68 k/cumm (1.2-3.4); Absolute Monocyte Count 0.78 k/cumm (0.11-0.7); Absolute Neutrophil Count 8.39 k/cumm (1.2-6.7); Basophils % 0.1; Eosinophils % 1.2; HGB 14.6 g/dL (12.0-15.5); Immature Grans % 0.3; Lymphocytes % 15.2; Mean Corp. HGB Concentration 31.1 g/dL (32.0-36.0); Mean Corpuscular Hemoglobin 29.9 pg (27.0-33.0); Mean Corpuscular Volume 96.3 fL (80-95); Mean Platelet Volume 10.3 fL (8.0-11.0); Monocytes % 7.1; Neutrophils % 76.1; Platelet Count 191 x1000/uL (130-400); RBC 4.88 m/cumm (4.00-5.20); RBC Distribution Width 14.9 % (11.7-14.6); White Blood Cell Count 11.02 k/cumm (4.4-10.8)
--- NOTE | 2019-05-21 19:53 | DI.VRAD_ITS ---
PROCEDURE INFORMATION: Exam: XR Chest, 2 Views Exam date and time: 05/21/2019 6:32 PM Age: 84 years old Clinical history: Shortness of breath; Patient HX: SOB, copd TECHNIQUE: Imaging protocol: XR of the chest Views: 2 views. COMPARISON: CR XR CHEST 2V PA LATERAL 05/13/2019 6:17 PM FINDINGS: Lungs: There is fibrosis and scarring within the lungs bilaterally. The right lung is slightly more affected than the left. Pleural space: There is blunting of the posterior costophrenic angles bilaterally. This is suspicious for bilateral pleural effusions. Heart/Mediastinum: Unremarkable. No cardiomegaly. Vasculature: There are arteriosclerotic changes of the aorta. Bones/joints: There is osteopenia. IMPRESSION: Arteriosclerotic changes of the aorta. Fibrosis and scarring within the lungs bilaterally. Suspect bilateral pleural effusions. Osteopenia. Dictated and Authenticated by: Sukhwinder Kumar MD. Ordering:SHANTELLE Brown MD
--- NOTE | 2019-05-22 06:56 | NUR.NOTE ---
Referral faxed to [facility] Dr. Rios.Nursing Note:
--- NOTE | 2019-05-22 10:44 | NUR.NOTE ---
Nursing Note: Received call from Pts daughter Estefania with a question regarding patients new prednisone prescription. Estefania states 65 tabs are needed to take prednisone as prescribed- only [address] Griffith ok to call [facility] to correct script, per [facility] they are out straight and can not take a verbal order at this time- received fax # and hard copy to be sent per their request. Dr. Griffith made aware, hard copy to be sent to fax # [phone] [facility] and patient will be updated.
== END 2019-05-21 20:40 | disposition home or self-care (01) ==
PROVIDERS: Emergency Provider Emergency Medicine; PCP Family Medicine
DX: J44.1 Chronic obstructive pulmonary disease with (acute) exacerbation (principal); F17.210 Nicotine dependence, cigarettes, uncomplicated; Z99.81 Dependence on supplemental oxygen
CPT/HCPCS: 36415; 80053; 94640; 96374; 99284; 71046; 83735; 85025; J2930; J7620

== ENCOUNTER 2019-06-01 00:49 | Outpatient (CLI) | payer MEDICARE, SELFPAY ==
--- NOTE | 2019-06-01 | PFT_ITS ---
PULMONARY FUNCTION TEST REPORT Patient - Rosemarie Burgess DATE OF SERVICE June 01, 2019 REQUESTING PROVIDER Brigid Phillips M.D. INTERPRETATION OF STUDY Spirometry shows severe obstructive airways disease with some, but not significant bronchodilator response. LUNG VOLUMES - Lung volumes show no evidence of restriction. There is mild to moderate hyperinflation and air trapping. DIFFUSION CAPACITY- Not measured the patient unable to carry out acceptable DLCO maneuver. AIRWAY RESISTANCE - Elevated. IMPRESSION Severe obstructive airways disease with some, but not significant bronchodilator response. This is associated with mild to moderate hyperinflation and air trapping. The patient was unable to carry out acceptable DLCO maneuver. For comparison purposes, when this study is compared to previous one from 11/23/2017, the patient has a total of 190 cc decline in FVC. FEV1 has remained stable. Eufemia Felix M.D. JU/ T- 06/06/2019
[2019-06-01] MEDS: Inhaler, Assist Device 1 EACH MC (16:10)
[2019-06-01] MEDS: Albuterol HFA 18 GM 200 PUFF INH IH (16:10)
== END 2019-06-01 01:09 ==
PROVIDERS: PCP Family Medicine; Visit Provider Family Medicine
DX: J44.9 Chronic obstructive pulmonary disease, unspecified (principal); R06.09 Other forms of dyspnea; F17.210 Nicotine dependence, cigarettes, uncomplicated
CPT/HCPCS: 94060; 94726

== ENCOUNTER 2019-06-06 12:23 | Outpatient (CLI) | payer MEDICARE, SELFPAY ==
--- NOTE | 2019-06-06 13:48 | DI.RAD_ITS ---
EXAM: XR HIP RT AP LAT ONLY INDICATION: s/p fall one week ago with rt hip and low back pain, M25.551, M54.9. COMPARISON: No exams were available for comparison TECHNIQUE: 2D digital imaging was performed. FINDINGS: No fracture or dislocation is seen. The hip joint space is well maintained. There is mild acetabula r spurring. IMPRESSION: Mild degenerative changes.
--- NOTE | 2019-06-06 13:51 | DI.RAD_ITS ---
EXAM: XR LUMBAR SPINE COMPLETE INDICATION: s/p fall one week ago with rt hip and low back pain, M25.551, M54.9. COMPARISON: MRI - LUMBAR SPINE WO CONTRAST from 11/22/2014 CT CHEST PE CTA from 04/28/2019 TECHNIQUE: 2D digital imaging was performed. FINDINGS: There is a mild declivity in the superior endplate of L2. There are endplate osteophytes at this lev el. The L1-2 disc space is well maintained. There is moderate narrowing of the L5-S1 disc space. T he remaining disc spaces are well maintained. There is no scoliosis, spondylolysis or spondylolisthe sis. There are facet degenerative changes at L5-S1. IMPRESSION: Slight compression fracture of the superior endplate of L2. This appears old due to presence of endp late osteophytes. Degenerative disc changes and facet degenerative changes at L5-S1.
== END 2019-06-06 12:43 ==
PROVIDERS: PCP Family Medicine; Visit Provider Family Medicine
DX: M25.551 Pain in right hip (principal); M16.11 Unilateral primary osteoarthritis, right hip; M54.5 Low back pain; M48.56XA Collapsed vertebra, not elsewhere classified, lumbar region, initial encounter for fracture; M47.817 Spondylosis without myelopathy or radiculopathy, lumbosacral region
CPT/HCPCS: 72110; 73502

== ENCOUNTER 2019-07-12 16:05 | Inpatient (IN) | payer MEDICARE, SELFPAY ==
[2019-07-12] VITALS (20 sets, daily range): BP systolic 112–179; BP diastolic 63–127; PULSE 86–111; RESP 8–34; TEMP 36.4–38.1; O2SAT 80–99
[2019-07-12] MEDS: Albuterol/Ipratropium 3 ML UPD VIAL UPD (16:25)
--- NOTE | 2019-07-12 16:47 | ED.GENADUL_ITS ---
Discharge Plan Disposition Patient Disposition: [facility] INPATIENT Condition: Stable Discharge Details Chief Complaint: GenMedical Clinical Impression: Adult failure to thrive Admit Date/Time: 07/12/19 21:14 Admit Provider: Tim Singer Attending Provider: Tim Singer Primary Care Provider: Calvin Rios ED Provider: Teodoro Mg Discharge Data Discharge Date/Time-TO BE ENTERED AT DEPARTURE: 07/12/19 22:20 Medical Decision Making Elderly female, palliative care, failure to thrive at home, unable to stand or walk well, notably unstable at baseline but this is worsening. Likely secondary to malnutrition in general and failure to thrive secondary to decreased appetite, initially patient was refusing inpatient admission, outpatient care facility, and just wanted to be comfortable. CT scan results demonstrate no evidence of significant acute process aside for evidence of an age-indeterminate third rib fracture on the right, which is age-indeterminate. No evidence of acute fracture for the hips chest abdomen or pelvis otherwise. Patient stable. Patient now requesting admission to a rehab facility. Discussed case with care management, recommend admission with obbs, discussed case with hospitalist. Will admit for qualifying stay. Discussed the case with , I have extensively reviewed the treatment plan with the patient. I have addressed all patient concerns at this time. I have also discussed the plan with the admitting physician and they agree with the current assessment and plan and have agreed to assume responsibility for the patient. All parties demonstrate verbal un derstanding and agreement with our assessment and plan at this time. EKG 16: 28 Rate 98, intervals normal, sinus rhythm, slightly shortened NE at 112, however no evidence of delta wave. No evidence of STEMI, no other significant abnormalities. FINDINGS: Brain: Moderate generalized atrophy with moderate periventricular white matter ischemic changes consistent with the patient's advanced age. No extra-axial fluid collections. No evidence of acute intracranial hemorrhage. Denis-white differentiation is well maintained. No evidence of acute or subacute intracranial ischemia/infarct. No intracranial mass lesions. Midline shift: No midline shift or herniation. Ventricles: Ventricles normal. Bones/joints: The calvarium and visualized facial bones are intact. Sinuses: Partially aerated secretions in the left sphenoid sinus lateral pterygoid recess suggesting mild sinus inflammatory disease. The other paranasal sinuses are clear. Mastoid air cells: Chronic appearing sclerosis in the left mastoid air cell distribution suggesting changes of remote prior mastoiditis. The right mastoid air cells are clear. Orbits: Orbital contents demonstrate no evidence of acute abnormality. Soft tissues: The scalp and visualized soft tissues demonstrate no acute abnormality. Vasculature: Moderate atherosclerotic calcific plaque is identified in the visualized proximal intracranial arterial segments. No asymmetric vascular hyperdensities suggestive of thrombosis are identified. Other findings: The IACs are grossly normal. The sella is grossly normal. IMPRESSION: No acute intracranial process. FINDINGS: Vertebrae: The odontoid is intact. Slight 1-2 mm degenerative retrolisthesis C4- C5 and C5-C6. Slight 1 mm degenerative anterolisthesis C7-T1. Discs/Spinal canal/Neural foramina: The occipital condyles are intact. Minimal degenerative sclerosis and spurring at the atlantodens interval. No jumped or perched facets. Disc space heights are well-maintained. No compressive soft disc protrusion or extrusion is evident by CT. No evidence of significant central canal stenosis. Mild left foraminal stenosis C5-C6. Other bones/joints: Osteopenia. No fractures. No blastic or lytic lesions. Soft tissues: See Vasculature Finding. Thyroid: 1.2 cm low-density nodule in the right thyroid lobe. No further imaging evaluation is required. Lungs: Moderate emphysematous changes in the pulmonary apices, with moderate bilateral apical pleural/parenchymal scarring, left greater than right. Vasculature: Moderate atherosclerotic calcific plaque in the carotid bulbs. Visualized paraspinous soft tissues are otherwise unremarkable. Other findings: Mild motion artifact. IMPRESSION: 1. No evidence of fracture or acute traumatic subluxation. 2. Osteopenia and mild degenerative changes as described. Thank you for allowing us to participate in the care of your patient. Dictated and Authenticated by: Isai Adams MD 07/12/2019 6:37 PM Eastern Time ([place] & [place]) FINDINGS: Thyroid: 12 mm low-density nodule in the right thyroid lobe. No further imaging evaluation is required. Lungs: No acute tracheobronchial abnormalities. Moderate-severe bilateral diffuse emphysematous changes, most pronounced in the basilar distributions. No infiltrates or edema. Peripheral reticular nodular densities are present in the posterolateral right upper lobe and left lower lobe superior segment. These are nonspecific in nature and could relate to chronic reticulonodular scarring, chronic small airways disease, or atypical infection. Pleural space: Severe bilateral apical pleural/parenchymal scarring. No pleural effusions. No pneumothorax. Heart: Heart size normal. Moderate coronary artery calcification. Mediastinum: The esophagus is largely contracted without gross abnormality. Pulmonary arteries: The pulmonary arteries demonstrate no gross abnormality. Aorta: Moderate aortic ectasia/tortuosity and moderate calcific atherosclerosis. No mediastinal hematoma. Lymph nodes: No supraclavicular or axillary adenopathy. No mediastinal or hilar adenopathy Bones/joints: Mildly displaced fracture of the right anterolateral 3rd rib, age indeterminate. Moderate respiratory motion artifact at several thoracic levels produces mild-moderate overall limitation to the evaluation for nondisplaced fractures. Soft tissues: Soft tissues of the thoracic wall demonstrate no gross abnormality. IMPRESSION: 1. There is a mildly displaced fracture involving the right anterolateral 3rd rib, which is age indeterminate. 2. Diffuse osteopenia. 3. No other fractures are identified in the thorax. Respiratory motion produces mild-moderate limitation. 4. Severe emphysematous changes. 5. Severe bilateral apical pleural/parenchymal scarring. 6. Patchy areas of mild peripheral reticular nodular density in the right upper lobe and left lower lobe. These are nonspecific and may relate to chronic reticulonodular scarring, chronic small airways disease, or possibly atypical infection. No amy consolidations. FINDINGS: Mediastinum: The visualized distal esophagus is normal. Liver: Normal size and contour. No mass lesions. No intrahepatic biliary ductal dilatation. Respiratory motion limits the liver assessment somewhat. Gallbladder and bile ducts: Gallbladder is moderately distended but otherwise unremarkable. Nondilated biliary ducts for the patient's age. Pancreas: Mild pancreatic atrophy without acute abnormality. No pancreatic ductal dilatation. Spleen: Normal. No splenomegaly. Adrenals: Normal. No adrenal mass. Kidneys and ureters: Respiratory motion artifact limits the renal assessment. No hydronephrosis or hydroureter. No urinary tract stones are identified. 13 mm probable cyst in the lower pole of the right kidney. There are 3 small peripheral hyperdense foci in the posterior cortex of the left kidney measuring up to 6 mm in size and 63 Hounsfield units in density. Another similar focus is seen in the peripheral mid pole of the right kidney measuring 4 mm. These are nonspecific and most likely represent incidental hemorrhagic or proteinaceous cysts. The lack of adjacent inflammatory and multifocal bilateral nature stranding goes against acute renal injury. If there is strong clinical suspicion for acute renal injury, consider multiphasic post-contrast CT assessment. Stomach and bowel: The stomach is grossly normal. The small bowel is normal with no evidence of obstruction. No acute colonic abnormalities. Appendix: The appendix is not identified. No secondary signs of appendicitis. Intraperitoneal space: No free fluid or air. Vasculature: Moderate atherosclerotic aortic calcification. Mild aneurysmal dilatation of the mid abdominal aortic segment measuring 2.7 cm transverse. Lymph nodes: No adenopathy. Bladder: Unremarkable as visualized. Reproductive: Hysterectomy. Bones/joints: There is mild superior endplate compression deformity of L2 with about 15% loss of vertebral body height. This demonstrates associated sclerosis and anterior spurring with no acute fracture lines or paraspinous edema, favoring chronic fracture. Bilateral sacral insufficiency fractures noted, with medullary sclerosis in the sacral norbert. There is anterior cortical disruption on the left. Sclerosis extends across the midline at the S2 sacral segment. Soft tissues: Small fatty bilateral inguinal hernias with no asociated bowel herniation or bowel obstruction. IMPRESSION: 1. No acute intra-abdominal/intrapelvic injuries are identified. 2. Assessment limited by gross respiratory motion artifact at multiple levels. 3. There are a few small subcentimeter foci of cortical hyperdensity early posterior margin of the left kidney and the lateral margin of the right kidney. These are most consistent with small hemorrhagic or proteinaceous cysts, however respiratory motion limits the renal assessment some what. If there is strong clinical concern for acute renal injury, multiphasic post-contrast CT of the kidneys could be helpful in further assessment. 4. Diffuse osteopenia. 5. Mild superior endplate compression deformity of L2 demonstrating chronic features. 6. Sacral insufficiency fractures demonstrating chronic features as described. Thank you for allowing us to participate in the care of your patient. Dictated and Authenticated by: Isai Adams MD 07/12/2019 6:59 PM Eastern Time ([place] & [place]) HPI General Date/Time Provider Initiated Documentation: 07/12/19 16:17 . HPI Narrative: This is an 84-year-old female with past medical history of COPD, palliative care, peripheral vascular disease, pulmonary hypertension, who presents today for evaluation of pain. Per the patient's daughter 2 days ago she fell, and this was unwitnessed. Uncertain about what happened as it was unwitnessed. However since then over the last 2 days she has been complaining of right hip pain and left rib pain. She has been short of breath starting this morning, and the pain and the shortness of breath have gradually been increasing throughout the day requiring additional doses of morphine and Ativan which she has prescribed for her palliative care. The patient has maintained good oxygen saturations at home as measured by her daughter. After multiple dosings of her medications the daughter did contact her primary care provider who recommended that the patient come in to be evaluated with the increased need for pain control. At this time there is no additional complaints, the patient denies hitting her head but she is uncertain about many things. She denies cough vomiting diarrhea. Her primary request is to be comfortable. Related Data Home Medications Medication Instructions Recorded Confirmed aspirin [Aspirin Low-Strength] 81 mg PO DAILY #90 tab-cap 08/07/13 07/12/19 Compact Compressor Nebulizer #1 kit 03/11/15 07/12/19 lidocaine 5 % topical ointment 1 applic TOPICAL Q4H #37.5 gm 05/17/18 07/12/19 triamcinolone acetonide 0.1 % 1 applic TP BID PRN #30 gm 11/24/18 07/12/19 topical cream inhalational spacing device #1 misc 02/21/19 07/12/19 ipratropium 0.5 mg-albuterol 3 mg 3 ml INHALATION Q6H PRN #90 ml 02/21/19 07/12/19 (2.5 mg base)/3 mL nebulization soln metoprolol tartrate 25 mg tablet 12.5 mg PO BID #90 tab 03/06/19 07/12/19 albuterol sulfate 90 mcg/actuation 2 puff INHALATION Q4H PRN inhaler 05/08/19 07/12/19 aerosol inhaler tiotropium bromide 18 mcg capsule 1 cap IH DAILY #90 inh 05/31/19 07/12/19 with inhalation device prednisone 10 mg tablet 10 mg PO DAILY #30 tab 06/05/19 07/12/19 cyanocobalamin (vitamin B-12) 250 mcg SC .q 2 months ml 06/22/19 07/12/19 1,000 mcg/mL injection solution famotidine 20 mg tablet 20 mg PO BID #180 tab 06/22/19 07/12/19 gabapentin 800 mg tablet 800 mg PO TID #90 tab 06/22/19 07/12/19 morphine concentrate 100 mg/5 mL See Rx Instructions SL Q1H PRN PRN 06/27/19 07/12/19 (20 mg/mL) oral solution #30 ml MDD 2ml alprazolam 0.25 mg tablet 0.25 mg PO TID PRN #90 tab 07/04/19 07/12/19 Previous Rx's Medication Instructions Recorded lidocaine 5 % topical ointment 1 applic TOPICAL Q4H #37.5 gm 05/17/18 triamcinolone acetonide 0.1 % 1 applic TP BID PRN #30 gm 11/24/18 topical cream inhalational spacing device #1 misc 02/21/19 ipratropium 0.5 mg-albuterol 3 mg 3 ml INHALATION Q6H PRN #90 ml 02/21/19 (2.5 mg base)/3 mL nebulization soln metoprolol tartrate 25 mg tablet 12.5 mg PO BID #90 tab 03/06/19 tiotropium bromide 18 mcg capsule 1 cap IH DAILY #90 inh 05/31/19 with inhalation device prednisone 10 mg tablet 10 mg PO DAILY #30 tab 06/05/19 famotidine 20 mg tablet 20 mg PO BID #180 tab 06/22/19 gabapentin 800 mg tablet 800 mg PO TID #90 tab 06/22/19 morphine concentrate 100 mg/5 mL See Rx Instructions SL Q1H PRN PRN 06/27/19 (20 mg/mL) oral solution #30 ml MDD 2ml alprazolam 0.25 mg tablet 0.25 mg PO TID PRN #90 tab 07/04/19 Allergies Allergy/AdvReac Type Severity Reaction Status Date / Time Penicillins Allergy Intermediate Verified 07/12/19 22:25 roflumilast [From Daliresp] AdvReac Severe H/, Verified 07/12/19 22:25 STOMACH PAIN, COLD tramadol AdvReac Severe Nausea, Verified 07/12/19 22:25 dizziness amitriptyline AdvReac Intermediate DROWSINESS Verified 07/12/19 22:25 fluticasone propionate AdvReac Intermediate EPISTAXIS Verified 07/12/19 22:25 [From Flonase] hydrocodone AdvReac Intermediate Nausea Verified 07/12/19 22:25 lorazepam AdvReac Intermediate decreased Verified 07/12/19 22:25 mental status imipramine AdvReac Mild INSOMNIA Verified 07/12/19 22:25 clarithromycin AdvReac Unknown INTOLERANT Verified 07/12/19 22:25 tetracycline AdvReac Unknown INTOLERANT Verified 07/12/19 22:25 General Stated Complaint: GenMedical MARCIAL: 2 Review of Systems All systems reviewed & are unremarkable except as noted in HPI and below PFSH Medical History (Updated 07/12/19 @ 22:49 by Tim Singer) Cataract Closed fracture of clavicle Complex regional pain syndrome i of lower limb, bilateral COPD (chronic obstructive pulmonary disease) (Chronic) Degenerative disc disease, cervical Headache Hearing loss History of shingles Idiopathic peripheral neuropathy Perforation of tympanic membrane Peripheral neuralgia Peripheral vascular disease Pulmonary hypertension (Acute ~09/25/18) echocardiogram normal LVEF 65-70%, normal diastolic parameters, mild , mild MR, RV size and function normal, PAP 50-60, mod. TR Seborrheic keratosis Skin lesion of face Smoker Tinea unguium Surgical History (Updated 07/12/19 @ 22:47 by Tim Singer) Abdominal hysterectomy (~1975) Appendectomy Extraction of cataract O.D. History of cataract removal with insertion of prosthetic lens (Inactive) Status post abdominal hysterectomy (Inactive) Status post appendectomy (Inactive) Social History Smoking/Tobacco Use Status: Current, status unknown Tobacco Type: cigarettes Years smoked: 50 Alcohol Intake: never Drug use: Never Substance use type: does not use Do you feel safe at home: No (frequent falls) Do you feel safe in your relationship?: Yes Exam Narrative Exam Narrative: 1.Const: Well-nourished, Well-developed, appearing stated age 2.Eyes: PERRL, no conjunctival injection, and symmetrical lids. 3.ENT: Atraumatic external nose and ears. Moist MM. Neck: Symmetric, trachea midline, No thyromegaly. There is no evidence of raccoon eyes, donaldson sign, CSF rhinorrhea, mastoid tenderness, cranial crepitus, hemotympanum, exophthalmos, or hyphema. Patient demonstrates intact dentition with no signs of tooth avulsion or fracture, no signs of jaw deformity, no evidence of a LeFort's fracture, with an intact palate, nose and orbital region. There is no evidence of a nasal septal hematoma. No proptosis. Jaw closes symmetrically. Airway is clear. 4.CVS: +S1/S2, No murmurs or gallops. Peripheral pulses 2+ and equal in all extremities. Brisk capillary refill in all extremities. 5.RESP: Small inspirations, decreased respiratory effort in general. Minimal wheezes in the bases. Decreased air movement throughout 6.GI: Soft, Nontender/Nondistended, No hepatosplenomegaly. No guarding or rebound. 7.MSK: Normocephalic/Atraumatic, Extremities w/o deformity or ttp No cyanosis or clubbing, Normal movement of all extremities. Left ribs are slightly tender in the lateral anterior aspect, right ASIS is also slightly tender for the pelvis. No pain with logroll of the legs, no significant pain with movement of the extremities. No other evidence of significant bony deformity or tenderness. No midline cervical thoracic or lumbar spine tenderness. 8.Skin: Warm, Dry. No rashes or lesions. 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 Sensation grossly intact, no focal neurologic deficits. 10.Psych: (AAO) x3. Appropriate mood and affect Course Vital Signs Vital signs: Vital Signs Temperature 38.1 C H 07/12/19 16:23 Pulse 110 H 07/12/19 16:23 Respiratory Rate 24 07/12/19 16:23 Blood Pressure 155/85 H 07/12/19 16:23 Pulse Oximetry 97 07/12/19 16:23 Temperature 38.1 C H 07/12/19 16:23 Temperature Source Skin 07/12/19 16:23 Pulse 110 H 07/12/19 16:23 Respiratory Rate 24 07/12/19 16:23 Blood Pressure 155/85 H 07/12/19 16:23 Blood Pressure Position Supine 07/12/19 16:23 Pulse Oximetry 97 07/12/19 16:23 Oxygen Delivery Method Nasal Cannula 07/12/19 16:23 Pain Level 8 07/12/19 16:23
[2019-07-12] MEDS: Normal Saline 500 ML IV (16:55)
[2019-07-12 17:14] LABS: Abs Immature Grans 0.04 k/cumm (0.0-0.09); Absolute Basophil Count 0.02 k/cumm (0.0-0.2); Absolute Eosinophil Count 0.02 k/cumm (0.0-0.7); Absolute Lymphocyte Count 0.49 k/cumm (1.2-3.4); Absolute Monocyte Count 0.34 k/cumm (0.11-0.7); Basophils % 0.2; Eosinophils % 0.2; HCT 42.9 % (36.0-46.0); HGB 13.5 g/dL (12.0-15.5); Immature Grans % 0.5 %; Lymphocytes % 6.1; Mean Corp. HGB Concentration 31.5 g/dL (32.0-36.0); Mean Corpuscular Hemoglobin 31.5 pg (27.0-33.0); Mean Platelet Volume 9.9 fL (8.0-11.0); Monocytes % 4.2; Neutrophils % 88.8; Platelet Count 187 x1000/uL (130-400); RBC 4.29 m/cumm (4.00-5.20); RBC Distribution Width 14.7 % (11.7-14.6); White Blood Cell Count 8.01 k/cumm (4.4-10.8)
[2019-07-12 17:25] LABS: ALT 23 U/L (14-59); AST 13 U/L (15-37); Albumin 3.1 g/dL (3.4-5.0); Alkaline Phosphatase 166 U/L (46-116); Anion Gap 8.7 mmol/L (3-11); BUN 16 mg/dL (7-18); Bilirubin, Total 0.5 mg/dL (0.2-1.0); CO2 30.3 mmol/L (21.0-32.0); CREATININE 0.85 mg/dL (0.55-1.02); Calcium 9.3 mg/dL (8.5-10.1); Chloride 102 mmol/L (98-107); Glucose 142 mg/dL (74-106); Potassium 5.1 mmol/L (3.5-5.1); Sodium 141 mmol/L (136-145); Total Protein 6.9 g/dL (6.4-8.2); Troponin I < 0.05 ng/Ml (<0.06)
--- NOTE | 2019-07-12 17:47 | CMPROGNOTE_ITS ---
- If Service Date Differs Date of service: 07/12/19 Time of Service: 17:47 Care Management Progress Note S/O: Rosemarie's daughter, Estefania, brings her to the ED due to difficulty breathing and inability to care for herself at home. Daughter reports that Rosemarie lives alone in senior housing in [place]. She expresses concerns about her mom's safety as she frequently falls, is not eating properly, and does not take her medication as prescribed. Daughter would like to obtain 24 hour care for her mother but currently Rosemarie is unwilling to consider going to a SNF placement. Home Health nursing and [facility] services are already in place, as is Palliative Care and [facility]. Daughter states she has an application for [facility] but has not had the time to complete it yet. A: Rosemarie is an 84 year old female who presents in the ED for failure to thrive. P: Rosemarie is being admitted for observation. Anticipate she will discharge home when medically cleared with resumption of Home Health RN and [facility], Palliative Care, and [facility] services. Daughter will transport her home via private vehicle upon discharge.
--- NOTE | 2019-07-12 17:54 | DI.CT_ITS ---
EXAM: CT HEAD CERVICAL SPINE WO CLINICAL HISTORY: fall, hit head COMPARISON: No exams were available for comparison FINDINGS: CT examination of the cervical spine was performed utilizing multi slice acquisition and multiplanar reconstruction. Images obtained through the lung apices show severe pulmonary emphysematous change a nd pulmonary and pleural scarring. Tracheolaryngeal structures appear intact. No cervical mass or a denopathy. No evidence of acute cervical spine fracture. No facet dislocation. Moderate degenerati ve changes and exaggerated lordosis noted. Noncontrast cranial CT was performed. Moderate generalized cerebral atrophy noted. No evidence of a cute intracranial hemorrhage, mass effect or midline shift. No calvarial fracture seen. Paranasal s inuses appear well aerated as visualized. Orbital structures appear intact. Slight sclerosis and fl uid in mastoid air cells on the left, consider chronic mastoiditis without evidence of erosive proces s. IMPRESSION: No evidence of acute intracranial process. No evidence of acute cervical spine fracture.
--- NOTE | 2019-07-12 18:10 | DI.CT_ITS ---
EXAM: CT CHEST/ABD/PEL WO CLINICAL HISTORY: fall, pain left chest and right hip TECHNIQUE: CT examination of the chest, abdomen and pelvis was performed without contrast administra tion. COMPARISON: CT CHEST PE CTA from 04/28/2019 FINDINGS: Minimal old superior L2 endplate compression fracture noted. Evaluation of ribs is limited by motio n artifact, possible old versus acute right 3rd rib fracture anterolaterally, no associated hematoma, pneumothorax or subcutaneous air. No gross mediastinal hematoma. No hemo thorax. Severe centrilo bular pulmonary emphysematous changes, reticulo nodular radiodensities noted in multiple areas consis tent with fibrotic change. Focal area of abnormality pleural based left upper lobe, this is most lik ace to represent an area of atelectasis and scarring but a cavitary lung lesion is not entirely exclu ded. Similar findings were present on chest CT of 04/28/2019, no obvious progression. Liver, spleen and pancreas grossly unremarkable by noncontrast criteria. No evidence of acute vascul ar injury of the abdomen. No free air or free fluid. Kidneys and adrenals grossly unremarkable by n oncontrast criteria with question small bilateral renal cortical cysts. No focal bowel injury seen. . IMPRESSION: Limited scan due to patient motion, no gross acute injury seen. Follow-up chest CT recommended in 6 m [facility] to re-evaluate probably chronic changes of left lung apex, please see above discussion.
--- NOTE | 2019-07-12 18:37 | DI.VRAD_ITS ---
PROCEDURE INFORMATION: Exam: CT Head Without Contrast Exam date and time: 07/12/2019 5:59 PM Age: 84 years old Clinical indication: Other: Fall, pain, hit head TECHNIQUE: Imaging protocol: Computed tomography of the head without contrast. Radiation optimization: All CT scans at this facility use at least one of these dose optimization techniques: automated exposure control; mA and/or kV adjustment per patient size (includes targeted exams where dose is matched to clinical indication); or iterative reconstruction. COMPARISON: No relevant prior studies available. FINDINGS: Brain: Moderate generalized atrophy with moderate periventricular white matter ischemic changes consistent with the patient's advanced age. No extra-axial fluid collections. No evidence of acute intracranial hemorrhage. Denis-white differentiation is well maintained. No evidence of acute or subacute intracranial ischemia/infarct. No intracranial mass lesions. Midline shift: No midline shift or herniation. Ventricles: Ventricles normal. Bones/joints: The calvarium and visualized facial bones are intact. Sinuses: Partially aerated secretions in the left sphenoid sinus lateral pterygoid recess suggesting mild sinus inflammatory disease. The other paranasal sinuses are clear. Mastoid air cells: Chronic appearing sclerosis in the left mastoid air cell distribution suggesting changes of remote prior mastoiditis. The right mastoid air cells are clear. Orbits: Orbital contents demonstrate no evidence of acute abnormality. Soft tissues: The scalp and visualized soft tissues demonstrate no acute abnormality. Vasculature: Moderate atherosclerotic calcific plaque is identified in the visualized proximal intracranial arterial segments. No asymmetric vascular hyperdensities suggestive of thrombosis are identified. Other findings: The IACs are grossly normal. The sella is grossly normal. IMPRESSION: No acute intracranial process. PROCEDURE INFORMATION: Exam: CT Cervical Spine Without Contrast Exam date and time: 07/12/2019 5:59 PM Age: 84 years old Clinical indication: Other: Fall, pain, hit head TECHNIQUE: Imaging protocol: Computed tomography images of the cervical spine without contrast. Radiation optimization: All CT scans at this facility use at least one of these dose optimization techniques: automated exposure control; mA and/or kV adjustment per patient size (includes targeted exams where dose is matched to clinical indication); or iterative reconstruction. COMPARISON: No relevant prior studies available. FINDINGS: Vertebrae: The odontoid is intact. Slight 1-2 mm degenerative retrolisthesis C4-C5 and C5-C6. Slight 1 mm degenerative anterolisthesis C7-T1. Discs/Spinal canal/Neural foramina: The occipital condyles are intact. Minimal degenerative sclerosis and spurring at the atlantodens interval. No jumped or perched facets. Disc space heights are well-maintained. No compressive soft disc protrusion or extrusion is evident by CT. No evidence of significant central canal stenosis. Mild left foraminal stenosis C5-C6. Other bones/joints: Osteopenia. No fractures. No blastic or lytic lesions. Soft tissues: See Vasculature Finding. Thyroid: 1.2 cm low-density nodule in the right thyroid lobe. No further imaging evaluation is required. Lungs: Moderate emphysematous changes in the pulmonary apices, with moderate bilateral apical pleural/parenchymal scarring, left greater than right. Vasculature: Moderate atherosclerotic calcific plaque in the carotid bulbs. Visualized paraspinous soft tissues are otherwise unremarkable. Other findings: Mild motion artifact. IMPRESSION: 1. No evidence of fracture or acute traumatic subluxation. 2. Osteopenia and mild degenerative changes as described. Dictated and Authenticated by: Isai Adams MD. Ordering:FRANSISCO Valerio MD
[2019-07-12] MEDS: MORPHine 10 MG/ML VIAL ×2 (18:53→22:13)
--- NOTE | 2019-07-12 18:59 | DI.VRAD_ITS ---
PROCEDURE INFORMATION: Exam: CT Chest Without Contrast Exam date and time: 07/12/2019 4:39 PM Age: 84 years old Clinical indication: Other: Fall, pain left chest TECHNIQUE: Imaging protocol: Computed tomography of the chest without contrast. Radiation optimization: All CT scans at this facility use at least one of these dose optimization techniques: automated exposure control; mA and/or kV adjustment per patient size (includes targeted exams where dose is matched to clinical indication); or iterative reconstruction. COMPARISON: No relevant prior studies available. FINDINGS: Thyroid: 12 mm low-density nodule in the right thyroid lobe. No further imaging evaluation is required. Lungs: No acute tracheobronchial abnormalities. Moderate-severe bilateral diffuse emphysematous changes, most pronounced in the basilar distributions. No infiltrates or edema. Peripheral reticular nodular densities are present in the posterolateral right upper lobe and left lower lobe superior segment. These are nonspecific in nature and could relate to chronic reticulonodular scarring, chronic small airways disease, or atypical infection. Pleural space: Severe bilateral apical pleural/parenchymal scarring. No pleural effusions. No pneumothorax. Heart: Heart size normal. Moderate coronary artery calcification. Mediastinum: The esophagus is largely contracted without gross abnormality. Pulmonary arteries: The pulmonary arteries demonstrate no gross abnormality. Aorta: Moderate aortic ectasia/tortuosity and moderate calcific atherosclerosis. No mediastinal hematoma. Lymph nodes: No supraclavicular or axillary adenopathy. No mediastinal or hilar adenopathy. Bones/joints: Mildly displaced fracture of the right anterolateral 3rd rib, age indeterminate. Moderate respiratory motion artifact at several thoracic levels produces mild-moderate overall limitation to the evaluation for nondisplaced fractures. Soft tissues: Soft tissues of the thoracic wall demonstrate no gross abnormality. IMPRESSION: 1. There is a mildly displaced fracture involving the right anterolateral 3rd rib, which is age indeterminate. 2. Diffuse osteopenia. 3. No other fractures are identified in the thorax. Respiratory motion produces mild-moderate limitation. 4. Severe emphysematous changes. 5. Severe bilateral apical pleural/parenchymal scarring. 6. Patchy areas of mild peripheral reticular nodular density in the right upper lobe and left lower lobe. These are nonspecific and may relate to chronic reticulonodular scarring, chronic small airways disease, or possibly atypical infection. No amy consolidations. PROCEDURE INFORMATION: Exam: CT Abdomen And Pelvis Without Contrast Exam date and time: 07/12/2019 4:39 PM Age: 84 years old Clinical indication: Other: Fall, pain left chest TECHNIQUE: Imaging protocol: Computed tomography of the abdomen and pelvis without contrast. Radiation optimization: All CT scans at this facility use at least one of these dose optimization techniques: automated exposure control; mA and/or kV adjustment per patient size (includes targeted exams where dose is matched to clinical indication); or iterative reconstruction. COMPARISON: No relevant prior studies available. FINDINGS: Mediastinum: The visualized distal esophagus is normal. Liver: Normal size and contour. No mass lesions. No intrahepatic biliary ductal dilatation. Respiratory motion limits the liver assessment somewhat. Gallbladder and bile ducts: Gallbladder is moderately distended but otherwise unremarkable. Nondilated biliary ducts for the patient's age. Pancreas: Mild pancreatic atrophy without acute abnormality. No pancreatic ductal dilatation. Spleen: Normal. No splenomegaly. Adrenals: Normal. No adrenal mass. Kidneys and ureters: Respiratory motion artifact limits the renal assessment. No hydronephrosis or hydroureter. No urinary tract stones are identified. 13 mm probable cyst in the lower pole of the right kidney. There are 3 small peripheral hyperdense foci in the posterior cortex of the left kidney measuring up to 6 mm in size and 63 Hounsfield units in density. Another similar focus is seen in the peripheral mid pole of the right kidney measuring 4 mm. These are nonspecific and most likely represent incidental hemorrhagic or proteinaceous cysts. The lack of adjacent inflammatory and multifocal bilateral nature stranding goes against acute renal injury. If there is strong clinical suspicion for acute renal injury, consider multiphasic post-contrast CT assessment. Stomach and bowel: The stomach is grossly normal. The small bowel is normal with no evidence of obstruction. No acute colonic abnormalities. Appendix: The appendix is not identified. No secondary signs of appendicitis. Intraperitoneal space: No free fluid or air. Vasculature: Moderate atherosclerotic aortic calcification. Mild aneurysmal dilatation of the mid abdominal aortic segment measuring 2.7 cm transverse. Lymph nodes: No adenopathy. Bladder: Unremarkable as visualized. Reproductive: Hysterectomy. Bones/joints: There is mild superior endplate compression deformity of L2 with about 15% loss of vertebral body height. This demonstrates associated sclerosis and anterior spurring with no acute fracture lines or paraspinous edema, favoring chronic fracture. Bilateral sacral insufficiency fractures noted, with medullary sclerosis in the sacral norbert. There is anterior cortical disruption on the left. Sclerosis extends across the midline at the S2 sacral segment. Soft tissues: Small fatty bilateral inguinal hernias with no asociated bowel herniation or bowel obstruction. IMPRESSION: 1. No acute intra-abdominal/intrapelvic injuries are identified. 2. Assessment limited by gross respiratory motion artifact at multiple levels. 3. There are a few small subcentimeter foci of cortical hyperdensity early posterior margin of the left kidney and the lateral margin of the right kidney. These are most consistent with small hemorrhagic or proteinaceous cysts, however respiratory motion limits the renal assessment somewhat. If there is strong clinical concern for acute renal injury, multiphasic post-contrast CT of the kidneys could be helpful in further assessment. 4. Diffuse osteopenia. 5. Mild superior endplate compression deformity of L2 demonstrating chronic features. 6. Sacral insufficiency fractures demonstrating chronic features as described. Dictated and Authenticated by: Isai Adams MD. Ordering:FRANSISCO Valerio MD
[2019-07-12] MEDS: Ondansetron 4 MG/2 ML VIAL IVP (21:25)
[2019-07-12] MEDS: Lidocaine 5% Patch 1 PATCH (22:15)
--- NOTE | 2019-07-12 22:31 | W.PM.HP.N ---
Date of service: 07/12/19 Time of Service: 22:31 Assessment and Plan Assessment and plan (1) Right rib fracture: Status: Acute Assessment and plan: Topical Lidoderm patches, PRN PO morphine, Consider nerve block Qualifiers: Encounter type: initial encounter Fracture type: closed Rib fracture type: single rib Qualified Code(s): S22.31XA - Fracture of one rib, right side, initial encounter for closed fracture (2) Frequent falls: Status: Acute Assessment and plan: Physical therapy consult (3) COPD (chronic obstructive pulmonary disease): Status: Chronic Assessment and plan: Supplemental oxygen, continue her home nebulizers, continue her home dose of prednisone. Qualifiers: COPD type: emphysema Emphysema type: panlobular Qualified Code(s): J43.1 - Panlobular emphysema (4) Failure to thrive in adult: Status: Acute Assessment and plan: Obtain physical therapy And occupational therapy consult as well as a nutritional consult. We will ask palliative care to consult on her case for continuity of care as well as assisting the patient and her daughter in making long-term plans for continued care. We will also asked palliative care to assist with pain management (5) Decreased activities of daily living (ADL): Status: Acute Assessment and plan: Obtain physical therapy and Occupational Therapy consults in the morning. Arrange transfer to a long-term facility for continued rehabilitation as tolerated. History of Present Illness History of Present Illness Chief Complaint: Right hip pain, chest pain, dyspnea, frequent falls Narrative: 84-year-old female with past medical history of COPD, peripheral vascular disease, pulmonary hypertension, currently under the care of palliative care and has been receiving home health services including home health aide, nursing, [employer] but despite this is been failing at home. She has had frequent falls and and not been eating properly and is not taking her medications as prescribed. Patient's daughter request 24-hour home care for mother but due to financial constraints has not been able to provide that. Her daughter has been given a form to fill out for choices of care but has not completed that as of yet. Patient was offered long-term facility placement but declined this initially but when she failed to be able to ambulate out of the emergency department after a thorough evaluation by Dr. Mg patient change her mind decided that she would be willing to enter a long-term facility. Work-up in the emergency department included a CMP that showed normal electrolytes and BUN and creatinine. Glucose was slightly elevated at 142. LFTs were normal except for alkaline phosphatase 166. Troponin is less than 0.05. Albumin is low at 3.1. CBC showed a chronic macrocytosis with MCV of 100 otherwise no anemia no leukocytosis. CT of the chest without contrast was performed and shows a mildly displaced fracture involving the right anterolateral third rib of indeterminate age. She has diffuse osteopenia. She has severe emphysematous changes with severe bilateral apical pleural/parenchymal scarring. Patchy areas of mild peripheral reticular nodular density in the right upper lobe and left lower lobe of nonspecific nature possibly chronic reticulonodular scarring. There is no amy consolidation. CT of the head without contrast showed no acute intracranial process. EKG demonstrated normal sinus rhythm rate of 98 bpm with occasional PACs. There is evidence of cor pulmonale and right atrial enlargement. Treatment in the emergency department included morphine 4 mg IV for her rib pain x2 doses. She was given Zofran for nausea and given a DuoNeb updraft. Patient is now admitted under observation status for treatment of her right rib fracture, acute dyspnea, and failure to thrive. Referrals been made to case management for long-term facility placement. She will be treated with morphine for her pain as well as Lidoderm patch. Review of Systems All systems reviewed & are unremarkable except as noted in HPI and below PFSH Medical History (Updated 07/12/19 @ 22:49 by Tim Singer) Cataract Closed fracture of clavicle Complex regional pain syndrome i of lower limb, bilateral COPD (chronic obstructive pulmonary disease) (Chronic) Degenerative disc disease, cervical Headache Hearing loss History of shingles Idiopathic peripheral neuropathy Perforation of tympanic membrane Peripheral neuralgia Peripheral vascular disease Pulmonary hypertension (Acute ~09/25/18) echocardiogram normal LVEF 65-70%, normal diastolic parameters, mild , mild MR, RV size and function normal, PAP 50-60, mod. TR Seborrheic keratosis Skin lesion of face Smoker Tinea unguium Surgical History (Updated 07/12/19 @ 22:47 by Tim Singer) Abdominal hysterectomy (~1975) Appendectomy Extraction of cataract O.D. History of cataract removal with insertion of prosthetic lens (Inactive) Status post abdominal hysterectomy (Inactive) Status post appendectomy (Inactive) Social History Smoking/Tobacco Use Status: Current, status unknown Tobacco Type: cigarettes Years smoked: 50 Alcohol Intake: never Drug use: Never Substance use type: does not use Do you feel safe at home: No (frequent falls) Do you feel safe in your relationship?: Yes Meds Home Medications and Allergies Home Medications Medication Instructions Recorded Confirmed Type aspirin [Aspirin Low-Strength] 81 mg PO DAILY #90 tab-cap 08/07/13 07/12/19 History Compact Compressor Nebulizer #1 kit 03/11/15 07/12/19 History lidocaine 5 % topical ointment 1 applic TOPICAL Q4H #37.5 gm 05/17/18 07/12/19 Rx triamcinolone acetonide 0.1 % 1 applic TP BID PRN #30 gm 11/24/18 07/12/19 Rx topical cream inhalational spacing device #1 misc 02/21/19 07/12/19 Rx ipratropium 0.5 mg-albuterol 3 mg 3 ml INHALATION Q6H PRN #90 ml 02/21/19 07/12/19 Rx (2.5 mg base)/3 mL nebulization soln metoprolol tartrate 25 mg tablet 12.5 mg PO BID #90 tab 03/06/19 07/12/19 Rx albuterol sulfate 90 mcg/actuation 2 puff INHALATION Q4H PRN inhaler 05/08/19 07/12/19 History aerosol inhaler tiotropium bromide 18 mcg capsule 1 cap IH DAILY #90 inh 05/31/19 07/12/19 Rx with inhalation device prednisone 10 mg tablet 10 mg PO DAILY #30 tab 06/05/19 07/12/19 Rx cyanocobalamin (vitamin B-12) 250 mcg SC .q 2 months ml 06/22/19 07/12/19 History 1,000 mcg/mL injection solution famotidine 20 mg tablet 20 mg PO BID #180 tab 06/22/19 07/12/19 Rx gabapentin 800 mg tablet 800 mg PO TID #90 tab 06/22/19 07/12/19 Rx morphine concentrate 100 mg/5 mL See Rx Instructions SL Q1H PRN PRN 06/27/19 07/12/19 Rx (20 mg/mL) oral solution #30 ml MDD 2ml alprazolam 0.25 mg tablet 0.25 mg PO TID PRN #90 tab 07/04/19 07/12/19 Rx Allergies Allergy/AdvReac Type Severity Reaction Status Date / Time Penicillins Allergy Intermediate Verified 07/12/19 22:25 roflumilast [From Daliresp] AdvReac Severe H/, Verified 07/12/19 22:25 STOMACH PAIN, COLD tramadol AdvReac Severe Nausea, Verified 07/12/19 22:25 dizziness amitriptyline AdvReac Intermediate DROWSINESS Verified 07/12/19 22:25 fluticasone propionate AdvReac Intermediate EPISTAXIS Verified 07/12/19 22:25 [From Flonase] hydrocodone AdvReac Intermediate Nausea Verified 07/12/19 22:25 lorazepam AdvReac Intermediate decreased Verified 07/12/19 22:25 mental status imipramine AdvReac Mild INSOMNIA Verified 07/12/19 22:25 clarithromycin AdvReac Unknown INTOLERANT Verified 07/12/19 22:25 tetracycline AdvReac Unknown INTOLERANT Verified 07/12/19 22:25 Exam Narrative Exam Narrative: Cachectic appearing elderly female lying in bed in semi-montalvo position. She is very hard of hearing. HEENT is remarkable for hematoma over her right chin Neck is supple without JVD normal carotid pulses no bruits. Lungs reveal diffuse expiratory wheezes no rhonchi or rales. Heart is regular without murmur rub or gallop. Chest wall is tender over the right lower chest. Abdomen is scaphoid soft and nontender. No organomegaly no bruits. Extremities without peripheral cyanosis or edema. Neuro exam is nonfocal no gross cranial nerve abnormalities no focal motor deficits. Results Labs Result diagrams: 07/12/19 17:03 07/12/19 17:03 Labs: Laboratory Results - last 24 hr 07/12/19 07/12/19 17:03 17:03 WBC 8.01 RBC 4.29 Hgb 13.5 Hct 42.9 MCV 100.0 H MCH 31.5 MCHC 31.5 L RDW 14.7 H Plt Count 187 MPV 9.9 Immature Gran % 0.5 Neutrophils % 88.8 Lymphocytes % 6.1 Monocytes % 4.2 Eosinophils % 0.2 Basophils % 0.2 Absolute Neutrophils 7.10 H Absolute Lymphocytes 0.49 L Absolute Monocytes 0.34 Absolute Eosinophils 0.02 Absolute Basophils 0.02 Sodium 141 Potassium 5.1 Chloride 102 Carbon Dioxide 30.3 Anion Gap 8.7 BUN 16 Creatinine 0.85 Estimated GFR/1.73 m2 >= 60.00 Glucose 142 H Calcium 9.3 Total Bilirubin 0.5 AST 13 L ALT 23 Alkaline Phosphatase 166 H Troponin I < 0.05 Total Protein 6.9 Albumin 3.1 L Last Vital Signs Temp 38.1 C H 07/12/19 16:23 Pulse 96 H 07/12/19 17:46 Resp 17 07/12/19 17:46 BP 144/69 H 07/12/19 17:46 Pulse Ox 97 07/12/19 17:46
[2019-07-13] VITALS (12 sets, daily range): BP systolic 104–170; BP diastolic 60–86; PULSE 73–106; RESP 5–22; TEMP 36.5–37.1; O2SAT 96–100
[2019-07-13] MEDS: Acetaminophen 325 MG TAB PO (01:55)
[2019-07-13] MEDS: Ondansetron 4 MG/2 ML VIAL IVP ×2 (03:06→12:46)
[2019-07-13] MEDS: Milk of Magnesia 30 ML CUP PO (03:38)
--- NOTE | 2019-07-13 09:09 | OT.INIE ---
Occupational Therapy Notes Inpatient Occupational Therapy Evaluation Date: 07/13/19 Referring Doctor:Annie Peguero MD OT Orders: Non-Urgent- Limited Ability Precautions: Fall, Standard PATIENT PROFILE/ADMITTING DIAGNOSIS: Pt is an 84 year old female who was admitted through the ER on 07/12/19 for Adult Failure to Thrive. Pt is seen per MD request for occupational therapy services for assessment of pt's functional abilities and (I) in ADL/IADL routines. Pt was admitted with the following dx- (R) rib fx, COPD, frequent falls. Past Medical History- Medical History (Updated 07/12/19 @ 22:49 by Tim Singer) Cataract Closed fracture of clavicle Complex regional pain syndrome i of lower limb, bilateral COPD (chronic obstructive pulmonary disease) (Chronic) Degenerative disc disease, cervical Headache Hearing loss History of shingles Idiopathic peripheral neuropathy Perforation of tympanic membrane Peripheral neuralgia Peripheral vascular disease Pulmonary hypertension (Acute ~09/25/18) echocardiogram normal LVEF 65-70%, normal diastolic parameters, mild , mild MR, RV size and function normal, PAP 50-60, mod. TR Seborrheic keratosis Skin lesion of face Smoker Tinea unguium Surgical History (Updated 07/12/19 @ 22:47 by Tim Singer) Abdominal hysterectomy (~1975) Appendectomy Extraction of cataract O.D. History of cataract removal with insertion of prosthetic lens (Inactive) Status post abdominal hysterectomy (Inactive) Status post appendectomy (Inactive) Social History/Home Situation: Pt states that she lives alone and that her daughter (A) her when needed. She states that she showers 1x/week when her daughter is available. She notes that she is unsure about how she does some things,although pt was having a difficult time hearing OT during consult. Pt also notes that she has a shower seat, she states that she performs all of her ADLs slowly but this is difficult for her. She is receptive to SNF for short term stay per discussion with OT during session. Pt states that she falls a lot at home and that she would like more (A) at home because her daughter is doing a lot for her. Equipment owned/DME: Shower seat, grab bars SUBJECTIVE: Pt was sitting in chair when OT arrived. She notes that she is tired and states that she has pain in her chest and underarm pointing to her medicated patches on her body. She is agreeable to OT session. OBJECTIVE: General Observation: Pleasant, hard of hearing, medicated patches on pt's chest Mental Status: A&Ox2 Pain: c/o pain in back and chest due to rib fx. ROM: RUE Shoulder flexion limited to 110*, elbow WNL, theatre director and hand WNL L UE Shoulder flexion limited to 100*, elbow WNL, theatre director and hand WNL STRENGTH: RUE Shoulder flexion 4-/5, bicep 3-/5, tricep 3/5, theatre director is weak and symmetrical LUE Shoulder flexion 4-/5, bicep 3-/5, tricep 3/5, theatre director is weak and symmetrical FUNCTIONAL MOBILITY/ADLS: BATHING Pt denies. She does wash her face but states that she had a shower yesterday and is not interested in this at this time. DRESSING Sitting in chair Dressing LE Mod vc pt was able to don and doff (B) socks with increased performance time. GROOMING Sitting in chair (I) with brushing hair TOILETING NT EATING Sitting in chair with max (A) opening containers, (I) with hand to mouth translation. BALANCE: Static sitting Normal Dynamic Sitting Good SPECIAL TESTS: Daily Activity Limitations Standardized Measure [facility] AM -PAC ?6 clicks? Daily Activity Inpatient Short Form: Raw score: 16 Standardized score: 35.96 CMS score: 53.32% INFORMED CONSENT/EDUCATION: Pt instructed in purpose of OT Consult and plan of care. ASSESSMENT: Patient is a 84-year-old female referred to occupational therapy services with diagnosis of dx- (R) rib fx, COPD, frequent falls and failure to thrive. Patient presents with clinical signs and symptoms consistent with dx, as demonstrated by the following impairment level findings: Pain in sitting position, pain with functional activities, decreased functional activity tolerance, decreased gross and fine motor control of (B) UE, decreased performance of functional mobility, increased fall risk. Impairments are contributing to the following functional limitations: Decreased performance of ADLS/IADLs, mal nutritioned, decreased functional mobility. AMPAC score 16 Patient is assessed as a Moderate 74995 complexity based on the following: History: See above Examination: See above Presentation: Evolving Decision Making: AMPAC score 16 GOALS Goals x1 week 1. Transfers with FWW (S) 2. Dressing sitting in chair mod (I) with use of adaptive equipment 3. Bathing Sitting in chair (I) (B) UE/LE 4. Toileting on toilet 5. Eating (I) PLAN OF CARE/TREATMENT PLAN: 1x/day, 5 days/ week x 1week Initiate Occupational Therapy Services for bathing, dressing, grooming, toileting, eating, transfer training. DISCHARGE RECOMMENDATIONS OT recommends that pt go to SNF due to decreased performance of ADL/IADL routines and decreased ability to care for herself in home setting. TREATMENT TIME/MINUTES/CODES 32164, 18235, 15 minutes (08:10) Yulia Shipley OTR/L [facility] [place]
--- NOTE | 2019-07-13 10:27 | PT.INIE ---
Date of service: 07/13/19 Time of Service: 09:34 PT Notes Visit Reasons: FAILURE TO THRIVE Physical Therapy Inpatient Initial Evaluation Date: 07/13/2019 Referring Doctor: Tim Wiggins MD PT Orders: PT CONSULT: Limited ability Precautions: Fall. Standard. Activity as tolerated. Hard of hearing. Patient Profile/Admitting Diagnosis: Patient is an 84-year-old female who presented to the ED on 07/12/2019 due to failure to thrive and malnutrition. Patient is diagnosed with a right displaced third rib fracture, frequent falls, decreased ADL performance, and failure to thrive with referral to physical therapy in order to address impairments in strength, balance, and mobility level. PMHX: Medical History (Updated 07/12/19 @ 22:49 by Tim Singer) Cataract Closed fracture of clavicle Complex regional pain syndrome i of lower limb, bilateral COPD (chronic obstructive pulmonary disease) (Chronic) Degenerative disc disease, cervical Headache Hearing loss History of shingles Idiopathic peripheral neuropathy Perforation of tympanic membrane Peripheral neuralgia Peripheral vascular disease Pulmonary hypertension (Acute ~09/25/18) echocardiogram normal LVEF 65-70%, normal diastolic parameters, mild , mild MR, RV size and function normal, PAP 50-60, mod. TR Seborrheic keratosis Skin lesion of face Smoker Tinea unguium Surgical History (Updated 07/12/19 @ 22:47 by Tim Singer) Abdominal hysterectomy (~1975) Appendectomy Extraction of cataract O.D. History of cataract removal with insertion of prosthetic lens (Inactive) Status post abdominal hysterectomy (Inactive) Status post appendectomy (Inactive) Social History/Home Situation: Patient lives alone in an apartment in [place] with no steps to enter. She claims that daughter lives half a mile from her and that she also has a son who lives in [place] but is not well himself. Equipment Owned/DME: None Subjective: Patient reports being tired and winded. She reports pain on her right chest area. Objective: General Observation: Patient seen sitting on chair. Oxygen supplementation at 1 L/min via NC. Lidocaine patches on bilateral pectoral areas. Mental Status: Patient is alert and oriented as to person. She is able to follow simple step commands when spoken at a close distance to her as she is hard of hearing. Pain: Pain on bilateral pectoral areas aggravated with movement Vital Signs: Oxygen saturation ranged from 88% through 94% throughout PT session ROM: Right Upper Extremity: Shoulder Flexion WFL. Shoulder abduction WFL. Elbow flexion WFL. Wrist flexion WFL. Opening and closing of hand WFL. Left Upper Extremity: Shoulder Flexion WFL. Shoulder abduction WFL. Elbow flexion WFL. Wrist flexion WFL. Opening and closing of hand WFL. Right Lower Extremity: Hip flexion WFL. Hip abduction WFL. Knee flexion WFL. Ankle dorsiflexion WFL. Ankle plantarflexion WFL. Left Lower Extremity: Hip flexion WFL. Hip abduction WFL. Knee flexion WFL. Ankle dorsiflexion WFL. Ankle plantarflexion WFL. Strength: Right Upper Extremity: Shoulder flexors 3-/5. Shoulder abductors 3-/5. Elbow flexors 4+/5. Elbow extensors 3/5. Automatic Dry Starch Operator strong. Left Upper Extremity: Shoulder flexors 3-/5. Shoulder abductors 3-/5. Elbow flexors 4+/5. Elbow extensors 3/5. Automatic Dry Starch Operator strong. Right Lower Extremity: Hip flexors 4/5. Hip abductors 4/5. Knee flexors 4/5. Knee extensors 4/5. Ankle dorsiflexors 3+/5. Ankle plantarflexors 3+/5. Left Lower Extremity:Hip flexors 4/5. Hip abductors 4/5. Knee flexors 4/5. Knee extensors 4/5. Ankle dorsiflexors 3+/5. Ankle plantarflexors 3+/5. Sensation: Intact as to pain and pressure on bilateral lower extremities. Bed Mobility/Transfers: Sit to stand moderate assist Stand to sit moderate assist Bed to chair moderate assist Chair to bed moderate assist Gait: Patient tolerated short distance ambulation of 25 feet +5 feet +5 feet using front wheeled walker with FWB and minimal assist of PT as well as wheelchair follow student PT. Decreased manish. Decreased height and length. Patient desaturated to 88% on 1 L during ambulation activity but re-saturated back to 92% with rest. Balance: Static Sitting: Good Dynamic Sitting: Good Static Standing: Fair Dynamic Standing: Fair Special Tests: Mobility Limitations Standardized Measure [facility] AM-PAC 6 clicks Basic Mobility Inpatient Short Form: Raw Score: 16 CMS Score: 54% deficit Informed Consent/Education: Patient instructed in purpose of PT consult and plan of care. Assessment: Patient is currently limited with pain on bilateral pectoral area with right more affected than the left, decreased activity tolerance, and generalized weakness from malnutrition. Patient is an 84-year-old female who presented to the ED on 07/12/2019 due to failure to thrive and malnutrition. Patient is diagnosed with a right displaced third rib fracture, frequent falls, decreased ADL performance, and failure to thrive with referral to physical therapy in order to address impairments in strength, balance, and mobility level. Patient presents with clinical signs and symptoms consistent with current/admitting diagnoses that have resulted to mobility limitations, gait instability, generalized weakness, and impairment of motor control as demonstrated by the following impairment level findings: 1. Decreased strength to B LE major muscle groups 2. Impaired sitting/standing balance 3. Impaired activity tolerance Impairments are contributing to the following functional limitations: 1. Dependent bed mobility skills 2. Increased dependence with transfers 3. Inability to safely ambulate without assistive device and physical assistance 4. Increase completion time for mobility ADL performance 5. Increased fall risk 6. Inability to negotiate steps alone safely Patient is assessed as a 96233 moderate complexity based on the following: History: 84-year-old female with past medical history, impairment level findings, functional limitations, and [facility] AM PAC deficits score of 54% Examination: Demonstrable impairment in strength, balance, and range of motion with underlying impairments and functional limitations as documented above Presentation: Evolving Decision Makin moderate complexity Goals: Goals X1 week 1. Supine-Sit independent 2. Sit-Supine independent 3. Sit-Stand independent 4. Stand-Sit independent 5. Bed-Chair independent 6. Chair-Bed independent 7. Independent gait on level surface with use of least restrictive device for at least 300 feet without report of pain nor dyspnea 8. Independent with home exercise program 9. Good static and dynamic standing balance/tolerance Plan of Care/Treatment Plan: 1-2x/day, 7 days/week x 1 week. Plan of care has been reviewed with the GRAILS WEB APPLICATION DEVELOPER providing the service under Physical Therapy direction. Initiate Physical Therapy intervention for strengthening, bed mobility, transfers, gait, stairs, balance training, use of assistive device. DISCHARGE RECOMMENDATIONS: Patient will benefit from intermediate facility placement for continued skilled physical therapy services in order to progress mobility level, strength, and balance in preparation for a safe discharge to home. TREATMENT CODE/TIME: 9716 2 x 36 minutes beginning at 9:34 AM. Thank you very much for this referral. Eileen Parra PT, DPT, CLT [facility] [place], [place]
[2019-07-13] MEDS: Albuterol/Ipratropium 3 ML UPD VIAL UPD ×3 (11:09→19:42)
[2019-07-13] MEDS: Enoxaparin 40 MG/0.4 ML SYR SC (11:17)
--- NOTE | 2019-07-13 11:48 | W.PM.PROGNOT ---
Date of Service Date of service: 07/13/19 Time of Service: 11:48 Assessment and Plan Assessment and plan (1) Right rib fracture: Status: Acute Assessment and plan: pain seems well managed on current pain regimen. will continue to monitor closely and adjust as needed. continue I/S and pulmonary toileting. continue home oxygen. Qualifiers: Encounter type: initial encounter Fracture type: closed Rib fracture type: single rib Qualified Code(s): S22.31XA - Fracture of one rib, right side, initial encounter for closed fracture (2) Frequent falls: Status: Acute Assessment and plan: fall precautions. PT consult. check UA (3) COPD (chronic obstructive pulmonary disease): Status: Chronic Assessment and plan: stable. will schedule duonebs and continue home medications. is oxygen dependant. keep home oxygen flow. continue to monitor. Qualifiers: COPD type: emphysema Emphysema type: panlobular Qualified Code(s): J43.1 - Panlobular emphysema (4) Failure to thrive in adult: Status: Acute Assessment and plan: palliative care consult for tomorrow. poor po intake, will give a liter of NS. (5) Ambulatory dysfunction: Status: Acute Assessment and plan: PT consult (6) Decreased activities of daily living (ADL): Status: Acute Assessment and plan: OT consult, routine evaluation and treatment (7) Discharge planning issues: Status: Acute Assessment and plan: case management following for discharge planning. have services in place. Subjective Subjective Patient reports: no new complaints and still having pain Interval history since last seen: was having some symptoms of respiratory distress which daughter attributed to anxiety, at home takes alprazalam 0.25 mg po qid. she received a dose with improvement in her symptoms. she has had no fevers, is having chest wall pain from her fall which she reports is well managed. her appetite and intake is poor, and baseline. Exam Const General: frail appearing and ill appearing chronically Nutritional Appearance: thin Orientation: alert, awake, oriented to person and other (poor historian with some memory deficit) HENPR Head: normal to inspection, normocephalic and hematoma (right lower jaw) Mouth: moist mucous membranes abnormal (dry, no exudates) Resp Effort & Inspection: normal respiratory effort Auscultation: diminished lung sounds (throughout) bilaterally, no rales, no rhonchi and no wheezes Cardio Rate: regular rate Rhythm: regular rhythm GI Inspection: normal to inspection Palpation: soft Auscultation: normal bowel sounds Skin General skin exam: ecchymosis Neuro General: alert, awake and oriented Patient Orientation: Person Extrem General: normal to inspection, full ROM and no pedal edema Objective Objective Clinical Data: Abnormal lab results 07/12/19 07/12/19 Range/Units 17:03 17:03 MCV 100.0 H (80-95) fL MCHC 31.5 L (32.0-36.0) g/dL RDW 14.7 H (11.7-14.6) % Absolute Neutrophils 7.10 H (1.2-6.7) k/cumm Absolute Lymphocytes 0.49 L (1.2-3.4) k/cumm Glucose 142 H (74-106) mg/dL AST 13 L (15-37) U/L Alkaline Phosphatase 166 H (46-116) U/L Albumin 3.1 L (3.4-5.0) g/dL Vital Signs Temperature 36.8 C 07/13/19 07:45 Temperature Source Tympanic 07/13/19 07:45 Pulse 106 H 07/13/19 11:10 Pulse Rhythm Regular 07/13/19 11:18 Pulse 98 H 07/12/19 17:46 Respiratory Rate 22 07/13/19 11:10 Respiratory Effort Labored 07/13/19 11:18 Respiratory Depth Shallow 07/13/19 11:18 Respiratory Pattern Tachypnea 07/13/19 11:18 Blood Pressure 156/81 H 07/13/19 07:45 Blood Pressure Mean 88 07/12/19 17:46 Blood Pressure Position Supine 07/12/19 16:23 Pulse Oximetry 100 07/13/19 11:10 Oxygen Delivery Method Nasal Cannula 07/13/19 11:09 Oxygen Flow Rate 1 07/13/19 11:09 Pain Level 0 07/13/19 07:45 Intake & Output 07/12/19 07/12/19 07/13/19 11:59 23:59 11:59 Intake Total 500 / 500 Output Total 350 / 350 Balance 150 / 150 Weight 39.5 kg 39.8 kg Intake: IV 500 / 500 Output: Urine 350 / 350 Other: Urine Color Yellow Urine Appearance Clear Clear Urine Odor Normal Voiding Methods Bedside Commode Laboratory Results WBC 8.01 k/cumm (4.4-10.8) 07/12/19 17:03 RBC 4.29 m/cumm (4.00-5.20) 07/12/19 17:03 Hgb 13.5 g/dL (12.0-15.5) 07/12/19 17:03 Hct 42.9 % (36.0-46.0) 07/12/19 17:03 MCV 100.0 fL (80-95) H 07/12/19 17:03 MCH 31.5 pg (27.0-33.0) 07/12/19 17:03 MCHC 31.5 g/dL (32.0-36.0) L 07/12/19 17:03 RDW 14.7 % (11.7-14.6) H 07/12/19 17:03 Plt Count 187 x1000/uL (130-400) 07/12/19 17:03 MPV 9.9 fL (8.0-11.0) 07/12/19 17:03 Immature Gran % 0.5 % 07/12/19 17:03 Neutrophils % 88.8 07/12/19 17:03 Lymphocytes % 6.1 07/12/19 17:03 Monocytes % 4.2 07/12/19 17:03 Eosinophils % 0.2 07/12/19 17:03 Basophils % 0.2 07/12/19 17:03 Absolute Neutrophils 7.10 k/cumm (1.2-6.7) H 07/12/19 17:03 Absolute Lymphocytes 0.49 k/cumm (1.2-3.4) L 07/12/19 17:03 Absolute Monocytes 0.34 k/cumm (0.11-0.7) 07/12/19 17:03 Absolute Eosinophils 0.02 k/cumm (0.0-0.7) 07/12/19 17:03 Absolute Basophils 0.02 k/cumm (0.0-0.2) 07/12/19 17:03 Sodium 141 mmol/L (136-145) 07/12/19 17:03 Potassium 5.1 mmol/L (3.5-5.1) 07/12/19 17:03 Chloride 102 mmol/L (98-107) 07/12/19 17:03 Carbon Dioxide 30.3 mmol/L (21.0-32.0) 07/12/19 17:03 Anion Gap 8.7 mmol/L (3-11) 07/12/19 17:03 BUN 16 mg/dL (7-18) 07/12/19 17:03 Creatinine 0.85 mg/dL (0.55-1.02) 07/12/19 17:03 Estimated GFR/1.73 m2 >= 60.00 (mL/min/1.73m2) 07/12/19 17:03 Glucose 142 mg/dL (74-106) H 07/12/19 17:03 Calcium 9.3 mg/dL (8.5-10.1) 07/12/19 17:03 Total Bilirubin 0.5 mg/dL (0.2-1.0) 07/12/19 17:03 AST 13 U/L (15-37) L 07/12/19 17:03 ALT 23 U/L (14-59) 07/12/19 17:03 Alkaline Phosphatase 166 U/L (46-116) H 07/12/19 17:03 Troponin I < 0.05 ng/Ml (<0.06) 07/12/19 17:03 Total Protein 6.9 g/dL (6.4-8.2) 07/12/19 17:03 Albumin 3.1 g/dL (3.4-5.0) L 07/12/19 17:03 Glomerular Base Mem IgG Cancelled 07/13/19 05:35
[2019-07-13] MEDS: ALPRAZolam 0.25 MG TAB PO ×3 (12:41→19:42)
[2019-07-13] MEDS: Normal Saline Flush 10 ML SYR IVP (12:46)
[2019-07-13] MEDS: Normal Saline 1,000 ML 100 ML IV (13:51)
--- NOTE | 2019-07-13 13:53 | W.NUTCONSULT ---
Date of service: 07/13/19 Time of Service: 13:53 Nutritional Consult ASSESSMENT: 84 year old female admitted with COPD, right rib fracture, frequent falls and Adult Failure to Thrive. BMI of 16 indicates underweight status however weight has been in this range for > 12 months. Met with Osiel and she said she has no appetite since starting continous 02 last year. Niece present and states that Rosemarie's daughter provides meals daily to her mother/father. Rosemarie refused all of her lunch and states she does not want to eat. She is willing to drink a milk shake daily and dietary will provide extra gravy and sauces with meals for increased acceptance. At high nutritional risk and at risk for skin breakdown. Estimated Needs: [id number] kcal, 40-50 g protein, 1600 ml fluid. Will follow per high risk protocol and provide meals/beverages and supplements for optimal intake. Time Spent in Nutritional Counseling and Treatment: 20 minutes
[2019-07-13] MEDS: Lidocaine Patch Removal 2 EACH TP (13:57)
--- NOTE | 2019-07-13 14:08 | PHARADMIT ---
Addendum entered by Lisa Waddell 07/14/19 13:39: Pharmacy Note Subjective acute severe abdominal pain. CT abd distended gallbladder. pericholecystic fluid per progress report Objective VS-okay Assessment ciprofloxacin started IV Q12H nystatin suspension ordered TID IVP morphine ordered, PO morphine put on hold Plan surgical consult gallbladder ultrasound Tuesday (possible gallbladder wall thickness and possible gallstones) Original Note: Admission Pharmacy Clinical Review failure to thrive Code Status DNR/DNI Current Weight 39.8 kg Renally Cleared and Narrow Therapeutic Index Meds Crcl ~31.5 mL/min -alprazolam: use caution -start low/titrate slow; consider alternative with baseline renal impairment or rapidly changing renal function QTc Value / Action Taken QTc 454 BP Control, Fever BP 156/81 afebrile Electrolytes reviewed within normal limits DVT Prophylaxis enoxaparin Opiate Usage / Scheduled Bowel Regimen Ordered prn/prn Plt/SCr for Heparin / Enoxaparin plt 187 SCr 0.85 INR for Warfarin n/a H/H stable, WBC/Bands h/h 13.5/42.9 wbc 8.01 Antibiotic appropriateness none Cultures and Sensitivities none Surgical ABX d/c within 24 hr n/a DM control / Insulin Dosing BG 142 none Heart Failure (Check EF%) (IDA's, B-Block, Diuretics) none IV to PO Switch n/a Home Meds Reviewed -multiple anticholinergic meds (tiotropim, ipratropium/albuterol): enhances anticholinergic effects of each other, recommended to avoid concurrent use -multiple HASH SLINGER depressants (morphine, gabapentin, alprazolam) Home Meds Not Ordered aspirin, cyanocobalamin, famotidine, gabapentin, metoprolol, prednisone, triotropium Comments watch renal function/enoxaparin dosing palliative consult ordered
--- NOTE | 2019-07-13 15:43 | PT.INTREAT ---
Date of service: 07/13/19 Time of Service: 15:45 PT Notes Visit Reasons: FAILURE TO THRIVE Inpatient Physical Therapy Treatment Note [facility] Date: 07/13/19 PRECAUTIONS: Fall SUBJECTIVE: Rosemarie states that she is tired, but she would like to get up and sit in the chair. OBJECTIVE: PAIN: No c/o pain BED MOBILITY/TRANSFERS Supine-sit: I Sit-stand: SBA Stand-sit: SBA GAIT Assistive Device: FWW Weight bearing: Full Assist: CGA Distance: 30' Deviation: Increased fatigue, no SOB THEREX: Patient completed a LE strengthening and stabilization program, in a seated position, as per flow sheet. ASSESSMENT: Patient tolerated session with c/o increased fatigue. She was able to tolerate a progression in gait distance without requiring seated rest. She would benefit from continued gait and transfer training, as well as general conditioning for improved mobility and activity tolerance. PLAN: Continue with PT's POC TREATMENT CODE/TIME: 30 minutes; 65647, [id number]
--- NOTE | 2019-07-13 18:31 | PDOC.CMIN ---
- If Service Date Differs Date of service: 07/13/19 Time of Service: 18:31 Care Management Initial Assess REASON FOR HOSPITALIZATION:: Failure to thrive PAST MEDICAL HISTORY/PAST SURGICAL HISTORY:: Medical History (Updated 07/12/19 @ 22:49 by Tim Singer). Cataract. Closed fracture of clavicle. Complex regional pain syndrome i of lower limb, bilateral. COPD (chronic obstructive pulmonary disease) (Chronic). Degenerative disc disease, cervical. Headache. Hearing loss. History of shingles. Idiopathic peripheral neuropathy. Perforation of tympanic membrane. Peripheral neuralgia. Peripheral vascular disease. Pulmonary hypertension (Acute ~09/25/18). echocardiogram normal LVEF 65-70%, normal diastolic parameters, mild , mild MR, RV size and function normal, PAP 50-60, mod. TR. Seborrheic keratosis. Skin lesion of face. Smoker. Tinea unguium. Surgical History (Updated 07/12/19 @ 22:47 by Tim Singer). Abdominal hysterectomy (~1975). Appendectomy. Extraction of cataract. O.D. History of cataract removal with insertion of prosthetic lens (Inactive). Status post abdominal hysterectomy (Inactive). Status post appendectomy (Inactive) PREVIOUS FUNCTIONAL STATUS/SOCIAL/FAMILY SUPPORTS:: Rosemarie lives at [facility] in [place], [facility]. Her daughter, Estefania, lives nearby, and is identified as a support by Rosemarie. Her son, Bucky, is also supportive. 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. She has been for many years. She has recently been struggling with her ADL's, and has had frequent falls. CURRENT FUNCTIONAL STATUS:: Rosemarie was sitting up in her chair when CM met with her. She was pleasant in conversation, but had some difficulty interacting. She reported that her daughter, Estefania helps her at home, and CM could contact her if she had any questions. Estefania's phone number is [phone]. Rosemarie was not aware of her plan going forward, and was not sure if she would be able to return home. CM will continue to follow. ADVANCE DIRECTIVES:: None on file. Has patient been provided with information about the portal?: No Did the patient sign up for the portal?: No CODE STATUS:: DNR/DNI INSURANCE COVERAGE / FINANCIAL ISSUES:: [facility]/Fin assist 100% CURRENT HOME/COMMUNITY SERVICES/EQUIPMENT:: Rosemarie has had HH support, unknown if she currently has services. She has a FWW and home O2. PRIMARY CARE PHYSICIAN:: Calvin Rios POTENTIAL DISCHARGE NEEDS:: Resume community based supports. Follow up appointments with PCP. PATIENT/FAMILY EDUCATION NEEDS:: Review of discharge instructions, discuss Ask Me Three. ANTICIPATED BARRIERS TO DISCHARGE:: None identified. TRANSPORTATION:: Anticipate Estefania will drive her home via private vehicle. PLAN:: Anticipate Rosemarie will return home when medically cleared with HH services vs SNF placement prior to returning home. Estefania will drive her home via private vehicle. She will follow up with her PCP, as recommended. CM will continue to follow.
[2019-07-13 20:33] LABS: Bilirubin Negative (Negative); Blood Negative (Negative); Clarity Clear (Clear); Glucose Negative (Negative); Ketones Negative (Negative); Leukocyte Esterase Negative (Negative); Nitrite Negative (Negative); Urobilinogen 0.2 EU/dL (Up TO 0.2)
[2019-07-14] VITALS (16 sets, daily range): BP systolic 105–140; BP diastolic 61–85; PULSE 77–128; RESP 2–24; TEMP 36.6–38; O2SAT 85–100
[2019-07-14] MEDS: Albuterol 2.5 MG/3 ML INH SOLN VIAL UPD ×2 (01:38→04:54)
--- NOTE | 2019-07-14 08:01 | W.PALLCONSUL ---
Date of service: 07/14/19 Time of Service: 08:02 History of Present Illness Narrative: Patient is an 84-year-old palliative care patient of mine. She has had significant worsening of status, multiple falls, and severe COPD. Her daughter visits her anywhere from 4-8 times per day. She often calls because of anxiety. She has had frequent ER visits a few months ago. She was in her usual baseline which is not good when she became more short of breath. She had fallen recently. She was brought to the emergency room. Her daughter states that she in no way can take care of her anymore that her needs have greatly ask exceeded what she herself can can do. Rosemarie initially refused to go to a residential but is in the contemplative stage at this point. Her cat is very important to her she would like her To go with her wherever she does. Consults Consult date: 07/14/19 Requesting physician: Annie Peguero Assessment and Plan Assessment and plan (1) Ambulatory dysfunction: Status: Acute (2) Frequent falls: Status: Acute (3) Failure to thrive in adult: Status: Acute (4) Right rib fracture: Status: Acute Qualifiers: Encounter type: initial encounter Fracture type: closed Rib fracture type: single rib Qualified Code(s): S22.31XA - Fracture of one rib, right side, initial encounter for closed fracture (5) Anxiety: Status: Chronic (6) COPD (chronic obstructive pulmonary disease): Status: Chronic Assessment and plan: I spoke with Rosemarie at length. She agrees she can no longer live on her own with her daughter coming multiple times daily. She agrees to go to a facility. (She says that while I am in the room. Uncertain if she will after I leave). I called Estefania, her daughter and left a message. I will touch base again Later today. Unfortunately I do not have a cell phone number. Weakness - this is a major problem. She has multiple bruises and a broken rib. She definitely needs strengthening and help with her COPD to enable her to ambulate properly - if possible. Hopefully she will qualify for a rehab stay. Without this, I think she will continue to return to the ER as her daughter cannot continue almost 24/7 care of her mom. Lung sounds are diminished. Improving her COPD status would be helpful in improving her function. I will continue to follow. I will discuss with Hospitalist team. CODE STATUS- we reviewed this outpatient. SHe does not want CPR. Spoke with Estefania: She has filed the paperwork for [facility] for care. She cannot take care of her mom's needs at this point. Her mom is not safe at home and requires 24 hr caregiving. Qualifiers: COPD type: emphysema Emphysema type: panlobular Qualified Code(s): J43.1 - Panlobular emphysema Review of Systems Narrative: She has had increasing problems with shortness of breath. She was receiving some liquid morphine at home, we were titrating the dose to allow her not to be somnolent but at the same time have relief from both anxiety and dyspnea. She has had numerous falls. She cannot remember these. She states that she is not hungry. She really cannot tell me much about her bowels or abdominal pain. She knows she has not had any chest pain. [facility] Medical History Cataract Closed fracture of clavicle Complex regional pain syndrome i of lower limb, bilateral COPD (chronic obstructive pulmonary disease) (Chronic) Degenerative disc disease, cervical Headache Hearing loss History of shingles Idiopathic peripheral neuropathy Perforation of tympanic membrane Peripheral neuralgia Peripheral vascular disease Pulmonary hypertension (Acute ~09/25/18) echocardiogram normal LVEF 65-70%, normal diastolic parameters, mild , mild MR, RV size and function normal, PAP 50-60, mod. TR Seborrheic keratosis Skin lesion of face Smoker Tinea unguium Surgical History (Updated 07/12/19 @ 22:47 by Tim Singer) Abdominal hysterectomy (~1975) Appendectomy Extraction of cataract O.D. History of cataract removal with insertion of prosthetic lens (Inactive) Status post abdominal hysterectomy (Inactive) Status post appendectomy (Inactive) Social History Smoking/Tobacco Use Status: Current, status unknown Tobacco Type: cigarettes Years smoked: 50 Alcohol Intake: never Drug use: Never Substance use type: does not use Do you feel safe at home: No (frequent falls) Do you feel safe in your relationship?: Yes Exam Narrative Exam Narrative: Rosemarie is laying in bed. She looks at me and think she remembers me but I am not certain that she does. She has multiple bruises on her right chin shins and extremities. These all look consistent with someone who has been falling. Her heart is regular. Her lungs very little air movement there were some rales in the right lower lung. She states that she is anxious. She looks it. Abdomen good bowel sounds mildly tender throughout. Results Last Vital Signs Temp 98.6 F 07/13/19 23:47 Pulse 89 07/13/19 23:47 Resp 18 07/13/19 23:47 BP 104/60 07/13/19 23:47 Pulse Ox 96 07/14/19 01:55 Labs Result diagrams: 07/15/19 06:30 07/15/19 06:30 Labs: Laboratory Results - last 24 hr 07/13/19 18:15 Urine Color Yellow Urine Clarity Clear Urine pH 7.0 Ur Specific [place] 1.020 Urine Protein Negative Urine Ketones Negative Urine Blood Negative Urine Nitrite Negative Urine Bilirubin Negative Urine Urobilinogen 0.2 Ur Leukocyte Esterase Negative Urine Glucose Negative
--- NOTE | 2019-07-14 08:27 | PTTR_ITS ---
Date of service: 07/14/19 Time of Service: 08:27 PT Notes Visit Reasons: FAILURE TO THRIVE 07/14/19 SUBJECTIVE: Rosemarie stating that she is fatigued. She did not sleep well last night due to pain in the right ribs. OBJECTIVE: Pt is supine in bed. She is agreeable to get up and walk and sit up for breakfast. TRANSFERS Supine to sit: I Sit to stand: SBA Stand to sit: SBA GAIT Device: FWW Weight bearing: Full Assist: CGA Distance: 30' Deviation: Slow, cautious gait, grunting due to pain in the right ribs. ASSESSMENT: Pt transfers well today although with increased time to perform due to pain in the ribs. She demonstrates weakness throughout with limited distance ambulation. She would benefit from continued strengthening to improve her mobility and safety. PLAN: Continue current POC progressing as her pain allows. Treatment time: 15 Micaela Henning, INSTRUMENT MAINTENANCE SUPERVISOR
[2019-07-14] MEDS: Enoxaparin 40 MG/0.4 ML SYR SC (08:37)
[2019-07-14] MEDS: ALPRAZolam 0.25 MG TAB PO ×4 (08:37→21:09)
[2019-07-14] MEDS: Albuterol/Ipratropium 3 ML UPD VIAL UPD ×4 (08:41→21:09)
[2019-07-14] MEDS: Acetaminophen 325 MG TAB PO (09:50)
--- NOTE | 2019-07-14 10:34 | DI.CT_ITS ---
EXAM: CT ABDOMEN W CLINICAL HISTORY: RUQ PAIN TECHNIQUE: After IV and without oral contrast. Exam is again mildly limited by patient motion in th e midportion of the scan. COMPARISON: CT CHEST/ABD/PEL WO from 07/12/2019 FINDINGS: Severe emphysematous changes are again noted at the lung bases. There is no evidence of solid organ injury. A distended gallbladder is again noted; the inferior portion of the gallbladder is not inclu ded on the scan. There is a suggestion of pericholecystic fluid. Clinical correlation is recommende d. There are multiple bilateral renal cysts. There is no bowel dilatation or free air. There is si gnificant mural thrombus in the mid abdominal aorta and heavy calcification of the proximal iliac art eries. There is a stable mild compression fracture of L1. IMPRESSION: Limited exam due to patient motion. The gallbladder appears distended and there is a question of nati e pericholecystic fluid. The gallbladder is not fully included on the exam. An ultrasound could be performed if clinically indicated. The liver appears intact.
[2019-07-14] MEDS: Omnipaque 350 MG/ML 100 ML BTL IJ (10:45)
--- NOTE | 2019-07-14 11:01 | DI.VRAD_ITS ---
Addendum created by Ryne Pollard MD on 07/14/2019 11:05:02 AM EST THIS REPORT CONTAINS FINDINGS THAT MAY BE CRITICAL TO PATIENT CARE. The findings were verbally communicated via telephone conference with Lynne Olivera at 11:04 AM EST on 07/14/2019. The findings were acknowledged and understood. Initial report created on 07/14/2019 11:00:48 AM EST PROCEDURE INFORMATION: Exam: CT Abdomen With Contrast Exam date and time: 07/14/2019 10:39 AM Age: 84 years old Clinical indication: Abdominal pain; Patient HX: Ruq pain; Additional info: PT unable to follow breathing instructions TECHNIQUE: Imaging protocol: Computed tomography images of the abdomen with intravenous contrast. Contrast material: OMNI 350; Contrast volume: 50 ml; Contrast route: RAC 20G; Other contrast: Route: Catheter; COMPARISON: CT CHEST/ABD/PEL WO 07/12/2019 6:05 PM FINDINGS: Liver: Normal. No mass. Gallbladder and bile ducts: Distended gallbladder. Pericholecystic fluid. There may be gallbladder wall thickness Possible gallstones in the gallbladder. Recommend gallbladder ultrasound. Common duct measures 7 mm. Pancreas: Pancreatic atrophy Spleen: Normal. No splenomegaly. Adrenals: Normal. No mass. Kidneys and ureters: Low-attenuation masses in both kidneys. Some are cysts. Some measure up to 50 Hounsfield units. Recommend further evaluation. Stomach and bowel: A few loops of dilated bowel may represent obstruction or ileus. Intraperitoneal space: Unremarkable. No free air. No significant fluid collection. Lymph nodes: Unremarkable. No enlarged lymph nodes. Vasculature: Unremarkable. No abdominal aortic aneurysm. Bones/joints: Compression fracture of unknown age L1. was present on the prior study Soft tissues: Unremarkable. Other findings: Moderate panlobular emphysematous changes IMPRESSION: 1. Distended gallbladder. Pericholecystic fluid. There may be gallbladder wall thickness Possible gallstones in the gallbladder. Recommend gallbladder ultrasound. 2. Low-attenuation masses in both kidneys. Some are cysts. Some measure up to 50 Hounsfield units. Recommend further evaluation. 3. Common duct measures 7 mm. 4. A few loops of dilated bowel may represent obstruction or ileus. Dictated and Authenticated by: Ryne Pollard MD. Ordering:MARYAM Batista MD
[2019-07-14 11:54] LABS: HCT 41.3 % (36.0-46.0); HGB 13.1 g/dL (12.0-15.5); Mean Corp. HGB Concentration 31.7 g/dL (32.0-36.0); Mean Corpuscular Hemoglobin 31.6 pg (27.0-33.0); Mean Corpuscular Volume 99.5 fL (80-95); Mean Platelet Volume 9.7 fL (8.0-11.0); Platelet Count 191 x1000/uL (130-400); RBC 4.15 m/cumm (4.00-5.20); RBC Distribution Width 14.3 % (11.7-14.6); White Blood Cell Count 7.63 k/cumm (4.4-10.8)
[2019-07-14 12:00] LABS: Anion Gap 7.2 mmol/L (3-11); BUN 13 mg/dL (7-18); CO2 29.8 mmol/L (21.0-32.0); CREATININE 0.66 mg/dL (0.55-1.02); Calcium 8.7 mg/dL (8.5-10.1); Chloride 102 mmol/L (98-107); Glucose 87 mg/dL (74-106); Potassium 4.3 mmol/L (3.5-5.1); Sodium 139 mmol/L (136-145)
--- NOTE | 2019-07-14 12:23 | SCONE_ITS ---
Date of service: 07/14/19 Time of Service: : Assessment and Plan Assessment and plan (1) Acute cholecystitis: Status: Acute Assessment and plan: The patient is a very poor surgical candidate with w eakness, COPD, pulmonary HTN, recent rib fractures. Her WBC count is normal today. I advised non-operative management with initial treatment with antibiotics. She can have clear liquids. If her symptoms do not improve, then percutaneous cholecystostomy tube placement with IR is an option. Will check CBC, CMP in the am. An US when available may be helpful to assess for stones. History of Present Illness Narrative: This patient was admitted on 07/12 with failure to thrive, COPD, frequent falls and a right rib fracture. She is a poor historian due to being hard of hearing and some underlying cognitive change. She reports RLQ pain as of today. CT abdomen was obtained as US is not available. I have reviewed to day's CT as well as her admission CT. This does show increased thickening of the gallbladder wall and inflammation. The patient denies any prior issues with her gallbladder. It is noted in her history that she has not been eating well. She reports some SOB with ambulating from bed to bathroom. She wears oxygen at home some of the time. Review of Systems Unobtainable due to mental condition [facility] Medical History (Updated 07/14/19 @ 12:29 by Kaylin Gee MD) Cataract Closed fracture of clavicle Complex regional pain syndrome i of lower limb, bilateral COPD (chronic obstructive pulmonary disease) (Chronic) Degenerative disc disease, cervical Headache Hearing loss History of shingles Idiopathic peripheral neuropathy Perforation of tympanic membrane Peripheral neuralgia Peripheral vascular disease Pulmonary hypertension (Acute ~09/25/18) echocardiogram normal LVEF 65-70%, normal diastolic parameters, mild , mild MR, RV size and function normal, PAP 50-60, mod. TR Seborrheic keratosis Skin lesion of face Smoker Tinea unguium Surgical History (Updated 07/12/19 @ 22:47 by Tim Sinegr) Abdominal hysterectomy (~1975) Appendectomy Extraction of cataract O.D. History of cataract removal with insertion of prosthetic lens (Inactive) Status post abdominal hysterectomy (Inactive) Status post appendectomy (Inactive) Social History Smoking/Tobacco Use Status: Current, status unknown Tobacco Type: cigarettes Years smoked: 50 Alcohol Intake: never Drug use: Never Substance use type: does not use Do you feel safe at home: No (frequent falls) Do you feel safe in your relationship?: Yes Exam Narrative Exam Narrative: Alert, not restless Lungs with decreased breath sounds and faint bilateral wheezes Heart RRR Abdomen soft, nondistended. Tender in RLQ and LLQ Results Last Vital Signs Temp 98.4 F 07/14/19 11:17 Pulse 96 H 07/14/19 11:17 Resp 24 07/14/19 11:17 BP 136/79 07/14/19 11:17 Pulse Ox 96 07/14/19 11:17 Labs Result diagrams: 07/14/19 11:45 07/14/19 11:45 Labs: Laboratory Results - last 24 hr 07/13/19 07/14/19 07/14/19 18:15 11:45 11:45 WBC 7.63 RBC 4.15 Hgb 13.1 Hct 41.3 MCV 99.5 H MCH 31.6 MCHC 31.7 L RDW 14.3 Plt Count 191 MPV 9.7 Sodium 139 Potassium 4.3 Chloride 102 Carbon Dioxide 29.8 Anion Gap 7.2 BUN 13 Creatinine 0.66 Estimated GFR/1.73 m2 >= 60.00 Glucose 87 D Calcium 8.7 Urine Color Yellow Urine Clarity Clear Urine pH 7.0 Ur Specific [place] 1.020 Urine Protein Negative Urine Ketones Negative Urine Blood Negative Urine Nitrite Negative Urine Bilirubin Negative Urine Urobilinogen 0.2 Ur Leukocyte Esterase Negative Urine Glucose Negative
--- NOTE | 2019-07-14 12:49 | W.PM.PROGNOT ---
Date of Service Date of service: 07/14/19 Time of Service: 12:50 Assessment and Plan Assessment and plan (1) Acute cholecystitis: Start date: 07/14/19 Start time: 12:57 Status: Acute Assessment and plan: Acute severe abdominal pain. CT abd Distended gallbladder. Pericholecystic fluid. There may be gallbladder wall thickness Possible gallstones in the gallbladder. Recommend gallbladder ultrasound. U/S unavailable today will place for Tuesday. Surgery consulted recommend clears, antbx, pain control and percutanous cholecysetomoy tube if symptoms do not improve. poor surgical candidate. No fevers, or white count at this time. Will make inpatient and acute choley. (2) Renal mass: Start date: 07/14/19 Start time: 12:59 Status: Acute Assessment and plan: Found on CT Low-attenuation masses in both kidneys. Some are cysts. Some measure up to 50 Hounsfield units. Recommend further evaluation. Will need further eval as an outpatient. (3) Ambulatory dysfunction: Start date: 07/14/19 Start time: 12:59 Status: Acute Assessment and plan: PT consult, would benefit from snif placement. (4) Right rib fracture: Start date: 07/14/19 Start time: 14:50 Status: Acute Assessment and plan: Pain regimen was managing pain, until severe acute worsening pain to right side from cholecystitis. Will change PO morphine to IV. Continue I/S pulmonary toileting and home oxygen. Qualifiers: Encounter type: initial encounter Fracture type: closed Rib fracture type: single rib Qualified Code(s): S22.31XA - Fracture of one rib, right side, initial encounter for closed fracture (5) Anxiety: Start date: 07/14/19 Start time: 14:51 Status: Chronic Assessment and plan: from COPD, continue QID dosing of xanax. (6) SOB (shortness of breath): Start date: 07/14/19 Start time: 14:52 Status: Acute Assessment and plan: COPD underlying not exacerbated at this time. Continue scheduled duonebs, home medications. Monitor. Above case discussed with dr. kim who is in agreement. Subjective Subjective Patient reports: still having pain Interval history since last seen: Sudden onset RUQ/RLQ pain this morning. Patient moaning grimacing. CT abd ordered revealing gallbladder wall thickening, possible gallstones, pericholecystic fluid. Surgery consulted, Dr Gee recommends Clears at this time, antibiotics and pain control, with possible percutaneious cholecystostomy tube placement by IR if does not improve. Will trend WBC, temps and patient pain. Exam Narrative Exam Narrative: Cachectic appearing elderly female lying in bed moaning in pain HEENT is remarkable for hematoma over her right chin Neck is supple without JVD normal carotid pulses no bruits. Lungs reveal diminished lung sounds. Heart is regular without murmur rub or gallop. Chest wall is tender over the right lower chest. Abdomen is scaphoid soft and tender with palpation. Crying out in pain Extremities without peripheral cyanosis or edema. Neuro exam is nonfocal no gross cranial nerve abnormalities no focal motor deficits. Objective Objective Clinical Data: Abnormal lab results 07/14/19 Range/Units 11:45 MCV 99.5 H (80-95) fL MCHC 31.7 L (32.0-36.0) g/dL Vital Signs Temperature 36.9 C 07/14/19 11:17 Temperature Source Tympanic 07/14/19 11:17 Pulse 88 07/14/19 12:39 Pulse Rhythm Irregular 07/14/19 08:35 Pulse 98 H 07/12/19 17:46 Respiratory Rate 20 07/14/19 12:39 Respiratory Effort Incrsd Work of Breathing 07/14/19 08:35 Respiratory Depth Shallow 07/14/19 08:35 Respiratory Pattern Irregular 07/14/19 08:35 Blood Pressure 136/79 07/14/19 11:17 Blood Pressure Mean 88 07/12/19 17:46 Blood Pressure Position Supine 07/12/19 16:23 Pulse Oximetry 100 07/14/19 12:39 Oxygen Delivery Method Nasal Cannula 07/14/19 12:32 Oxygen Flow Rate 1 07/14/19 12:32 Pain Level 5 07/14/19 11:17 Intake & Output 07/13/19 07/14/19 07/14/19 23:59 11:59 23:59 Intake Total 380 / 380 1010 / 1010 Output Total 1150 / 1150 700 / 700 Balance -770 / -770 310 / 310 Weight 39.8 kg Intake: IV 1010 / 1010 Oral 360 / 360 Output: Urine 1150 / 1150 700 / 700 Other: Urine Color Yellow Yellow Urine Appearance Clear Clear Urine Odor Normal None Voiding Methods Bedside Commode Bedside Commode Laboratory Results WBC 7.63 k/cumm (4.4-10.8) 07/14/19 11:45 RBC 4.15 m/cumm (4.00-5.20) 07/14/19 11:45 Hgb 13.1 g/dL (12.0-15.5) 07/14/19 11:45 Hct 41.3 % (36.0-46.0) 07/14/19 11:45 MCV 99.5 fL (80-95) H 07/14/19 11:45 MCH 31.6 pg (27.0-33.0) 07/14/19 11:45 MCHC 31.7 g/dL (32.0-36.0) L 07/14/19 11:45 RDW 14.3 % (11.7-14.6) 07/14/19 11:45 Plt Count 191 x1000/uL (130-400) 07/14/19 11:45 MPV 9.7 fL (8.0-11.0) 07/14/19 11:45 Immature Gran % 0.5 % 07/12/19 17:03 Neutrophils % 88.8 07/12/19 17:03 Lymphocytes % 6.1 07/12/19 17:03 Monocytes % 4.2 07/12/19 17:03 Eosinophils % 0.2 07/12/19 17:03 Basophils % 0.2 07/12/19 17:03 Absolute Neutrophils 7.10 k/cumm (1.2-6.7) H 07/12/19 17:03 Absolute Lymphocytes 0.49 k/cumm (1.2-3.4) L 07/12/19 17:03 Absolute Monocytes 0.34 k/cumm (0.11-0.7) 07/12/19 17:03 Absolute Eosinophils 0.02 k/cumm (0.0-0.7) 07/12/19 17:03 Absolute Basophils 0.02 k/cumm (0.0-0.2) 07/12/19 17:03 Sodium 139 mmol/L (136-145) 07/14/19 11:45 Potassium 4.3 mmol/L (3.5-5.1) 07/14/19 11:45 Chloride 102 mmol/L (98-107) 07/14/19 11:45 Carbon Dioxide 29.8 mmol/L (21.0-32.0) 07/14/19 11:45 Anion Gap 7.2 mmol/L (3-11) 07/14/19 11:45 BUN 13 mg/dL (7-18) 07/14/19 11:45 Creatinine 0.66 mg/dL (0.55-1.02) 07/14/19 11:45 Estimated GFR/1.73 m2 >= 60.00 (mL/min/1.73m2) 07/14/19 11:45 Glucose 87 mg/dL (74-106) D 07/14/19 11:45 Calcium 8.7 mg/dL (8.5-10.1) 07/14/19 11:45 Total Bilirubin 0.5 mg/dL (0.2-1.0) 07/12/19 17:03 AST 13 U/L (15-37) L 07/12/19 17:03 ALT 23 U/L (14-59) 07/12/19 17:03 Alkaline Phosphatase 166 U/L (46-116) H 07/12/19 17:03 Troponin I < 0.05 ng/Ml (<0.06) 07/12/19 17:03 Total Protein 6.9 g/dL (6.4-8.2) 07/12/19 17:03 Albumin 3.1 g/dL (3.4-5.0) L 07/12/19 17:03 Urine Color Yellow (Yellow) 07/13/19 18:15 Urine Clarity Clear (Clear) 07/13/19 18:15 Urine pH 7.0 (5-8) 07/13/19 18:15 Ur Specific [place] 1.020 (1.005-1.025) 07/13/19 18:15 Urine Protein Negative mg/dL (Negative) 07/13/19 18:15 Urine Ketones Negative mg/dL (Negative) 07/13/19 18:15 Urine Blood Negative (Negative) 07/13/19 18:15 Urine Nitrite Negative (Negative) 07/13/19 18:15 Urine Bilirubin Negative (Negative) 07/13/19 18:15 Urine Urobilinogen 0.2 EU/dL (Up TO 0.2) 07/13/19 18:15 Ur Leukocyte Esterase Negative (Negative) 07/13/19 18:15 Urine Glucose Negative mg/dL (Negative) 07/13/19 18:15 Glomerular Base Mem IgG Cancelled 07/13/19 05:35
[2019-07-14] MEDS: Normal Saline Flush 10 ML SYR IVP ×3 (13:33→23:29)
[2019-07-14] MEDS: CIPROFLOXACIN 400 MG/200 ML BAG 200 MG IVPB ×2 (13:40→23:29)
[2019-07-14] MEDS: Normal Saline 1,000 ML 50 ML IV (13:40)
[2019-07-14] MEDS: Nystatin 500000 UNITS/5 ML SUSP 5ML CUP PO ×2 (14:19→21:09)
--- NOTE | 2019-07-14 18:42 | CMPROGNOTE_ITS ---
- If Service Date Differs Date of service: 07/14/19 Time of Service: 18:42 Care Management Progress Note S/O: Rosemarie was sitting up in a chair when CM met with her. She was grimacing in pain and hugging a warming pad that was on her abdomen. When asked if she was in pain, she moaned and nodded yes. Estefania, her daughter was there, and had questions about discharge plans. CM explained that Rosemarie had been changed from Observation to inpatient due to the newly diagnosed cholecystitis identif ied on CT scan. She was seen by surgery and will need an ultrasound on Tuesday. This will likely result in a a 3 night qualifying stay, making it possible for her to go to a SNF, with Medicare reimbursement, for short term rehab while she awaits LTM approval. CM will provide her with a list of area facilities tomorrow when she visits, as requested. A: Rosemarie is an 84 year old woman admitted on 07/12/19 with failure to thrive. P: Rosemarie will likely need SNF placement post hospitalization. Her daughter and DPOA Estefania will be provided with information about area facilities and assisted with the process. CM will continue to support patient, family and discharge planning needs.
[2019-07-15 00:10] VITALS: PULSE 127; O2SAT 89
--- NOTE | 2019-07-15 01:17 | NUR.NOTE ---
Patient noted with elevated temperature, tachycardia, blood pressure trending down. Same reported to the charge nurse. After consulting with the doctor ordered made for hinds insertion, and medication changes.
[2019-07-15] MEDS: metroNIDAZOLE 500 MG/100 ML BAG 100 MG IVPB ×2 (01:42→08:17)
[2019-07-15 01:43] VITALS: TEMP 38
[2019-07-15] MEDS: Acetaminophen 650 MG SUPP PR (01:43)
[2019-07-15] MEDS: Normal Saline 1,000 ML 150 ML IV ×2 (01:43→06:38)
[2019-07-15] MEDS: Normal Saline Flush 10 ML SYR IVP ×2 (03:17→09:22)
[2019-07-15 03:26] VITALS: BP 96/60; PULSE 114; RESP 24; TEMP 36.6; O2SAT 93
[2019-07-15 03:29] LABS: Procalcitonin 5.3 ng/mL
[2019-07-15 04:49] VITALS: O2SAT 93
[2019-07-15 05:20] VITALS: BP 123/83; PULSE 69; RESP 20; TEMP 36.6; O2SAT 93
[2019-07-15 07:01] LABS: HCT 39.7 % (36.0-46.0); Mean Corp. HGB Concentration 32.7 g/dL (32.0-36.0); Mean Corpuscular Hemoglobin 32.2 pg (27.0-33.0); Mean Corpuscular Volume 98.3 fL (80-95); Platelet Count 210 x1000/uL (130-400); RBC 4.04 m/cumm (4.00-5.20); RBC Distribution Width 14.4 % (11.7-14.6)
[2019-07-15 07:16] LABS: ALT 21 U/L (14-59); AST 20 U/L (15-37); Albumin 2.4 g/dL (3.4-5.0); Alkaline Phosphatase 130 U/L (46-116); BUN 16 mg/dL (7-18); Bilirubin, Total 1.1 mg/dL (0.2-1.0); CREATININE 0.77 mg/dL (0.55-1.02); Calcium 8.3 mg/dL (8.5-10.1); Chloride 103 mmol/L (98-107); Glucose 109 mg/dL (74-106); Potassium 4.5 mmol/L (3.5-5.1); Sodium 139 mmol/L (136-145); Total Protein 5.6 g/dL (6.4-8.2)
[2019-07-15 07:30] VITALS: BP 105/68; PULSE 93; RESP 21; TEMP 36.6; O2SAT 93
[2019-07-15 07:36] LABS: Absolute Lymphocyte Count 0.97 k/cumm (1.2-3.4); Absolute Monocyte Count 0.97 k/cumm (0.11-0.7); Absolute Neutrophil Count 17.46 k/cumm (1.2-6.7); Atypical Lymphocytes % 3
[2019-07-15 07:37] LABS: Diff Comment Manual Differential; RBC Morphology Normal
--- NOTE | 2019-07-15 08:31 | PCPN_ITS ---
Date of service: 07/15/19 Time of Service: 08:31 Assessment and Plan Assessment and plan (1) SOB (shortness of breath): Status: Acute (2) Acute cholecystitis: Status: Acute Assessment and plan: After discussion with Estefania her daughter at [id number] due to severe COPD, failure to thrive and need to be placed in an institution following discharge along with questions regarding the patient being able to survive the operation and eventual extubation, the daughter Estefania made the loving decision to make Lorriane PRINT MANAGER, comfort measures only. Estefania is aware her mother will probably soon. I have relayed this information to ROSE Browning and her nurse. D/C all antibiotics and IVF. When I came in and saw that Rosemarie was uncomfortable I did asked Lynne to give an extra dose of Dilaudid as well as Ativan. The family is starting to gather. They know that the end is near Addendum I was called at about noon. Rosemarie had passed comfortably with famil y surrounding her. (3) Frequent falls: Status: Acute (4) Failure to thrive in adult: Status: Acute Subjective Subjective Interval history since last seen: Rosemarie has had a eventful 24 hours. Her pain was poorly controlled. A CT scan was obtained and she has some acute cholecystitis. There is concerned that because of her breathing she should not have the operation at [facility] and would need to be transferred to [facility]. She herself is spoken to her daughter in the recent past and states that she does not want any operation. Her brother had on the table while doing an emergency operation. He too had bad breathing. She wanted none of that and had stated to her daughter who is her D POA that she does not want an operation Rosemarie has been receiving morphine and unfortunately her pain, dyspnea, and discomfort have all exceeded what they have given her. I was called by Lynne ROSE to determine if the family thought that the patient would want to go PRINT MANAGER versus transport to [facility]. I called Estefania her daughter who is her D POA. Estefania again reiterated that Rosemarie did not want operations. She did not want to go through something that might result in her dying on the table. Estefania definitely understood that even if Rosemarie made it through an operation that she may not be able to be extubated due to her poor respiratory status. Estefania was very comfortable that Rosemarie if in her right mind would choose comfort measures only and no transport. Rosemarie met me at the hospital about 1/2-hour later. She was with her son Johny. They both wanted the best for Rosemarie but realized that with her recent baseline being so low, function worsening every day, and severe COPD that their wish was that she be comfortable Exam Narrative Exam Narrative: When I arrived Rosemarie was moaning. Her eyes were backwards in her head. She had significant amount of wrinkles in her forehead. Her hands were not clenched. There was no mottling. Her heart was regular. Shallow breathing. CT SCAN : IMPRESSION: 1. Distended gallbladder. Pericholecystic fluid. There may be gallbladder wall thickness Possible gallstones in the gallbladder. Recommend gallbladder ultrasound. 2. Low-attenuation masses in both kidneys. Some are cysts. Some measure up to 50 Hounsfield units. Recommend further evaluation. 3. Common duct measures 7 mm. 4. A few loops of dilated bowel may represent obstruction or ileus. Objective Objective Clinical Data: Abnormal lab results 07/14/19 07/15/19 07/15/19 Range/Units 11:45 06:30 06:30 WBC 19.40 H D (4.4-10.8) k/cumm MCV 99.5 H 98.3 H (80-95) fL MCHC 31.7 L (32.0-36.0) g/dL Absolute Neutrophils 17.46 H (1.2-6.7) k/cumm Absolute Lymphocytes 0.97 L (1.2-3.4) k/cumm Absolute Monocytes 0.97 H (0.11-0.7) k/cumm Glucose 109 H (74-106) mg/dL Calcium 8.3 L (8.5-10.1) mg/dL Total Bilirubin 1.1 H (0.2-1.0) mg/dL Alkaline Phosphatase 130 H (46-116) U/L Total Protein 5.6 L (6.4-8.2) g/dL Albumin 2.4 L (3.4-5.0) g/dL Vital Signs Temperature 97.9 F 07/15/19 05:20 Temperature Source Tympanic 07/15/19 05:20 Pulse 69 07/15/19 05:20 Pulse Rhythm Irregular 07/15/19 01:14 Pulse 98 H 07/12/19 17:46 Respiratory Rate 20 07/15/19 05:20 Respiratory Effort Grunting 07/15/19 01:14 Respiratory Depth Shallow 07/15/19 01:14 Respiratory Pattern Irregular 07/14/19 13:30 Blood Pressure 123/83 07/15/19 05:20 Blood Pressure Mean 88 07/12/19 17:46 Blood Pressure Position Supine 07/12/19 16:23 Pulse Oximetry 93 L 07/15/19 05:20 Oxygen Delivery Method Nasal Cannula 07/15/19 05:20 Oxygen Flow Rate 3 07/15/19 05:20 Pain Level 10 07/15/19 05:20 Comment 07/14/19 23:00 Intake & Output 07/14/19 07/14/19 07/15/19 11:59 23:59 11:59 Intake Total 1010 / 1210 200 / 1210 1287.5 / 1287.5 Output Total 700 / 700 Balance 310 / 510 200 / 510 1287.5 / 1287.5 Weight 87 lb 11.904 oz 84 lb 14.047 oz Intake: IV 1010 / 1210 200 / 1210 1287.5 / 1287.5 Output: Urine 700 / 700 Other: Urine Color Yellow Light Cynthia Urine Appearance Clear Clear Urine Odor None Voiding Methods Bedside Commode Laboratory Results WBC 19.40 k/cumm (4.4-10.8) H D 07/15/19 06:30 RBC 4.04 m/cumm (4.00-5.20) 07/15/19 06:30 Hgb 13.0 g/dL (12.0-15.5) 07/15/19 06:30 Hct 39.7 % (36.0-46.0) 07/15/19 06:30 MCV 98.3 fL (80-95) H 07/15/19 06:30 MCH 32.2 pg (27.0-33.0) 07/15/19 06:30 MCHC 32.7 g/dL (32.0-36.0) 07/15/19 06:30 RDW 14.4 % (11.7-14.6) 07/15/19 06:30 Plt Count 210 x1000/uL (130-400) 07/15/19 06:30 MPV 10.0 fL (8.0-11.0) 07/15/19 06:30 Immature Gran % 0.0 % 07/15/19 06:30 Neutrophils % 83.0 07/15/19 06:30 Band Neutrophils % 7.0 % 07/15/19 06:30 Lymphocytes % 2.0 07/15/19 06:30 Atypical Lymphs % 3 07/15/19 06:30 Monocytes % 5.0 07/15/19 06:30 Eosinophils % 0.0 07/15/19 06:30 Basophils % 0.0 07/15/19 06:30 Absolute Neutrophils 17.46 k/cumm (1.2-6.7) H 07/15/19 06:30 Absolute Lymphocytes 0.97 k/cumm (1.2-3.4) L 07/15/19 06:30 Absolute Monocytes 0.97 k/cumm (0.11-0.7) H 07/15/19 06:30 Absolute Eosinophils 0.00 k/cumm (0.0-0.7) 07/15/19 06:30 Absolute Basophils 0.00 k/cumm (0.0-0.2) 07/15/19 06:30 Differential Comment Manual differential 07/15/19 06:30 RBC Morphology Normal 07/15/19 06:30 Sodium 139 mmol/L (136-145) 07/15/19 06:30 Potassium 4.5 mmol/L (3.5-5.1) 07/15/19 06:30 Chloride 103 mmol/L (98-107) 07/15/19 06:30 Carbon Dioxide 28.0 mmol/L (21.0-32.0) 07/15/19 06:30 Anion Gap 8.0 mmol/L (3-11) 07/15/19 06:30 BUN 16 mg/dL (7-18) 07/15/19 06:30 Creatinine 0.77 mg/dL (0.55-1.02) 07/15/19 06:30 Estimated GFR/1.73 m2 >= 60.00 (mL/min/1.73m2) 07/15/19 06:30 Glucose 109 mg/dL (74-106) H 07/15/19 06:30 Calcium 8.3 mg/dL (8.5-10.1) L 07/15/19 06:30 Total Bilirubin 1.1 mg/dL (0.2-1.0) H 07/15/19 06:30 AST 20 U/L (15-37) 07/15/19 06:30 ALT 21 U/L (14-59) 07/15/19 06:30 Alkaline Phosphatase 130 U/L (46-116) H 07/15/19 06:30 Troponin I < 0.05 ng/Ml (<0.06) 07/12/19 17:03 Total Protein 5.6 g/dL (6.4-8.2) L 07/15/19 06:30 Albumin 2.4 g/dL (3.4-5.0) L 07/15/19 06:30 Procalcitonin 5.3 ng/mL 07/15/19 02:55 Urine Color Yellow (Yellow) 07/13/19 18:15 Urine Clarity Clear (Clear) 07/13/19 18:15 Urine pH 7.0 (5-8) 07/13/19 18:15 Ur Specific [place] 1.020 (1.005-1.025) 07/13/19 18:15 Urine Protein Negative mg/dL (Negative) 07/13/19 18:15 Urine Ketones Negative mg/dL (Negative) 07/13/19 18:15 Urine Blood Negative (Negative) 07/13/19 18:15 Urine Nitrite Negative (Negative) 07/13/19 18:15 Urine Bilirubin Negative (Negative) 07/13/19 18:15 Urine Urobilinogen 0.2 EU/dL (Up TO 0.2) 07/13/19 18:15 Ur Leukocyte Esterase Negative (Negative) 07/13/19 18:15 Urine Glucose Negative mg/dL (Negative) 07/13/19 18:15 Glomerular Base Mem IgG Cancelled 07/13/19 05:35
[2019-07-15] MEDS: HYDROmorphone 2 MG/ML VIAL IVP ×2 (08:45→09:24)
[2019-07-15] MEDS: fentaNYL 12 MCG PATCH TD (08:48)
--- NOTE | 2019-07-15 08:55 | PDOC.CMPRO ---
- If Service Date Differs Date of service: 07/15/19 Time of Service: 08:55 Care Management Progress Note S/O: Rosemarie was sitting up in a chair when CM met with her. She was grimacing in pain and hugging a warming pad that was on her abdomen. When asked if she was in pain, she moaned and nodded yes. Estefania, her daughter was there, and had questions about discharge plans. CM explained that Rosemarie had been changed from Observation to inpatient due to the newly diagnosed cholecystitis identified on CT scan. She was seen by surgery and will need an ultrasound on Tuesday. This will likely result in a a 3 night qualifying stay, making it possible for her to go to a SNF, with Medicare reimbursement, for short term rehab while she awaits LTM approval. CM will provide her with a list of area facilities tomorrow when she visits, as requested. A: Rosemarie is an 84 year old woman admitted on 07/12/19 with failure to thrive. P: Rosemarie will likely need SNF placement post hospitalization. Her daughter and DPOA Estefania will be provided with information about area facilities and assisted with the process. CM will continue to support patient, family and discharge planning needs.
--- NOTE | 2019-07-15 08:56 | W.PM.PROGNOT ---
Date of Service Date of service: 07/15/19 Time of Service: 08:56 Assessment and Plan Assessment and plan (1) Comfort measures only status: Start date: 07/15/19 Start time: 09:16 Status: Acute Assessment and plan: Turning septic evidenced by WBC, febrile, hypotension likely due to gallbladder. 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 Will continue to monitor comfort status. Subjective Subjective Patient reports: other Interval history since last seen: Not doing well overnight. Appears septic from choleysistitis with elevated WBC, hypotension, febrile unrelenting pain despite morphine every hour. Dr. Cobian called spoke with daughter and decision was made to make patient SLEEPING CAR SERVICE ATTENDANT. Hydromorphone drip started, fentanyl patch applied, will schedule ativan with prn ativan so she does not go through withdrawal. Exam Narrative Exam Narrative: Patient is writhing in bed moaning at this time. LS diminished. Guarding abd. Will work on making comfortable through out the day Objective Objective Clinical Data: Abnormal lab results 07/14/19 07/15/19 07/15/19 Range/Units 11:45 06:30 06:30 WBC 19.40 H D (4.4-10.8) k/cumm MCV 99.5 H 98.3 H (80-95) fL MCHC 31.7 L (32.0-36.0) g/dL Absolute Neutrophils 17.46 H (1.2-6.7) k/cumm Absolute Lymphocytes 0.97 L (1.2-3.4) k/cumm Absolute Monocytes 0.97 H (0.11-0.7) k/cumm Glucose 109 H (74-106) mg/dL Calcium 8.3 L (8.5-10.1) mg/dL Total Bilirubin 1.1 H (0.2-1.0) mg/dL Alkaline Phosphatase 130 H (46-116) U/L Total Protein 5.6 L (6.4-8.2) g/dL Albumin 2.4 L (3.4-5.0) g/dL Vital Signs Temperature 36.6 C 07/15/19 05:20 Temperature Source Tympanic 07/15/19 05:20 Pulse 69 07/15/19 05:20 Pulse Rhythm Irregular 07/15/19 01:14 Pulse 98 H 07/12/19 17:46 Respiratory Rate 20 07/15/19 05:20 Respiratory Effort Grunting 07/15/19 01:14 Respiratory Depth Shallow 07/15/19 01:14 Respiratory Pattern Irregular 07/14/19 13:30 Blood Pressure 123/83 07/15/19 05:20 Blood Pressure Mean 88 07/12/19 17:46 Blood Pressure Position Supine 07/12/19 16:23 Pulse Oximetry 93 L 07/15/19 05:20 Oxygen Delivery Method Nasal Cannula 07/15/19 05:20 Oxygen Flow Rate 3 07/15/19 05:20 Pain Level 10 07/15/19 05:20 Comment 07/14/19 23:00 Intake & Output 07/14/19 07/14/19 07/15/19 11:59 23:59 11:59 Intake Total 1010 / 1210 200 / 1210 1337.5 / 1337.5 Output Total 700 / 700 Balance 310 / 510 200 / 510 1337.5 / 1337.5 Weight 39.8 kg 38.5 kg Intake: IV 1010 / 1210 200 / 1210 1337.5 / 1337.5 Output: Urine 700 / 700 Other: Urine Color Yellow Light Cynthia Urine Appearance Clear Clear Urine Odor None Voiding Methods Bedside Commode Laboratory Results WBC 19.40 k/cumm (4.4-10.8) H D 07/15/19 06:30 RBC 4.04 m/cumm (4.00-5.20) 07/15/19 06:30 Hgb 13.0 g/dL (12.0-15.5) 07/15/19 06:30 Hct 39.7 % (36.0-46.0) 07/15/19 06:30 MCV 98.3 fL (80-95) H 07/15/19 06:30 MCH 32.2 pg (27.0-33.0) 07/15/19 06:30 MCHC 32.7 g/dL (32.0-36.0) 07/15/19 06:30 RDW 14.4 % (11.7-14.6) 07/15/19 06:30 Plt Count 210 x1000/uL (130-400) 07/15/19 06:30 MPV 10.0 fL (8.0-11.0) 07/15/19 06:30 Immature Gran % 0.0 % 07/15/19 06:30 Neutrophils % 83.0 07/15/19 06:30 Band Neutrophils % 7.0 % 07/15/19 06:30 Lymphocytes % 2.0 07/15/19 06:30 Atypical Lymphs % 3 07/15/19 06:30 Monocytes % 5.0 07/15/19 06:30 Eosinophils % 0.0 07/15/19 06:30 Basophils % 0.0 07/15/19 06:30 Absolute Neutrophils 17.46 k/cumm (1.2-6.7) H 07/15/19 06:30 Absolute Lymphocytes 0.97 k/cumm (1.2-3.4) L 07/15/19 06:30 Absolute Monocytes 0.97 k/cumm (0.11-0.7) H 07/15/19 06:30 Absolute Eosinophils 0.00 k/cumm (0.0-0.7) 07/15/19 06:30 Absolute Basophils 0.00 k/cumm (0.0-0.2) 07/15/19 06:30 Differential Comment Manual differential 07/15/19 06:30 RBC Morphology Normal 07/15/19 06:30 Sodium 139 mmol/L (136-145) 07/15/19 06:30 Potassium 4.5 mmol/L (3.5-5.1) 07/15/19 06:30 Chloride 103 mmol/L (98-107) 07/15/19 06:30 Carbon Dioxide 28.0 mmol/L (21.0-32.0) 07/15/19 06:30 Anion Gap 8.0 mmol/L (3-11) 07/15/19 06:30 BUN 16 mg/dL (7-18) 07/15/19 06:30 Creatinine 0.77 mg/dL (0.55-1.02) 07/15/19 06:30 Estimated GFR/1.73 m2 >= 60.00 (mL/min/1.73m2) 07/15/19 06:30 Glucose 109 mg/dL (74-106) H 07/15/19 06:30 Lactate Cancelled 07/15/19 Unknown Calcium 8.3 mg/dL (8.5-10.1) L 07/15/19 06:30 Total Bilirubin 1.1 mg/dL (0.2-1.0) H 07/15/19 06:30 AST 20 U/L (15-37) 07/15/19 06:30 ALT 21 U/L (14-59) 07/15/19 06:30 Alkaline Phosphatase 130 U/L (46-116) H 07/15/19 06:30 Troponin I < 0.05 ng/Ml (<0.06) 07/12/19 17:03 Total Protein 5.6 g/dL (6.4-8.2) L 07/15/19 06:30 Albumin 2.4 g/dL (3.4-5.0) L 07/15/19 06:30 Procalcitonin 5.3 ng/mL 07/15/19 02:55 Urine Color Yellow (Yellow) 07/13/19 18:15 Urine Clarity Clear (Clear) 07/13/19 18:15 Urine pH 7.0 (5-8) 07/13/19 18:15 Ur Specific [place] 1.020 (1.005-1.025) 07/13/19 18:15 Urine Protein Negative mg/dL (Negative) 07/13/19 18:15 Urine Ketones Negative mg/dL (Negative) 07/13/19 18:15 Urine Blood Negative (Negative) 07/13/19 18:15 Urine Nitrite Negative (Negative) 07/13/19 18:15 Urine Bilirubin Negative (Negative) 07/13/19 18:15 Urine Urobilinogen 0.2 EU/dL (Up TO 0.2) 07/13/19 18:15 Ur Leukocyte Esterase Negative (Negative) 07/13/19 18:15 Urine Glucose Negative mg/dL (Negative) 07/13/19 18:15 Glomerular Base Mem IgG Cancelled 07/13/19 05:35
[2019-07-15] MEDS: LORazepam 2 MG/ML VIAL 1 MG IVP (09:23)
[2019-07-15] MEDS: HYDROmorphone 100 MG in Normal Saline 240 ML IV (09:51)
--- NOTE | 2019-07-15 12:25 | W.PM.DDS ---
Date of service: 07/15/19 Time of Service: 12:25 Discharge Sum: Prov Provider Consults: 07/12/19 21:56 Palliative Care Consult [CONS] Routine Consultation Status:: Follow-up needed Clarification:: Manage/follow per spec. Reason for consult:: evaluate patient and guide patient in top lift trimmer care solutions; patient is failing at home despite maximal home medical services; recommendations for pain control 07/14/19 11:06 Surgical Consult [CONS] Routine Consulting Provider: Kaylin Gee Consultation Status:: Follow-up needed Clarification:: Manage/follow per spec. Reason for consult:: Acute choley by CT with symptoms, severe pain. Discharge Sum: Diag PCOD Cause of : Sepsis due to coagulase-negative staphylococcal infection Contributing Factors (1) SOB (shortness of breath): (2) Acute cholecystitis: Contributing factors: Sepsis likely from ?perforated or gangrenous gallbladder. (3) Frequent falls: (4) Failure to thrive in adult:
--- NOTE | 2019-07-15 17:42 | CMDISCH_ITS ---
- If Service Date Differs Date of service: 07/15/19 Time of Service: 17:43 Care Management Discharge Reason for Hospitalization: Failure to thrive Discharge Plan: Rosemarie this morning at 11:05 am. Patient/Family Education Needs: [facility] in [facility] will provide services.
--- NOTE | 2019-07-16 15:14 | INDS_ITS ---
Date of service: 07/16/19 Time of Service: 15:14 PT Notes Visit Reasons: FAILURE TO THRIVE Inpatient Physical Therapy Discharge Summary Dates: 07/16/2019 Dates of Service: 07/13/2019 through 07/14/2019 This is a clinical summary of care provided on the duration of dates listed above. No charge was made in the completion of this documentation. Referring Doctor: Tim Wiggins MD PT Orders: PT CONSULT: Limited ability Precautions: Fall. Standard. Activity as tolerated. Hard of hearing. Patient Profile/Admitting Diagnosis: Patient on 07/15/2019. Patient was an 84-year-old female who presented to the ED on 07/12/2019 due to failure to thrive and malnutrition. Patient was diagnosed with a right displaced third rib fracture, frequent falls, decreased ADL performance, and failure to thrive. PMHX: Medical History (Updated 07/12/19 @ 22:49 by Tim Singer) Cataract Closed fracture of clavicle Complex regional pain syndrome i of lower limb, bilateral COPD (chronic obstructive pulmonary disease) (Chronic) Degenerative disc disease, cervical Headache Hearing loss History of shingles Idiopathic peripheral neuropathy Perforation of tympanic membrane Peripheral neuralgia Peripheral vascular disease Pulmonary hypertension (Acute ~09/25/18) echocardiogram normal LVEF 65-70%, normal diastolic parameters, mild , mild MR, RV size and function normal, PAP 50-60, mod. TR Seborrheic keratosis Skin lesion of face Smoker Tinea unguium Surgical History (Updated 07/12/19 @ 22:47 by Tim Singer) Abdominal hysterectomy (~1975) Appendectomy Extraction of cataract O.D. History of cataract removal with insertion of prosthetic lens (Inactive) Status post abdominal hysterectomy (Inactive) Status post appendectomy (Inactive) Social History/Home Situation: Patient lived alone in an apartment in [place] with no steps to enter. She claimed that daughter lives half a mile from her and that she also has a son who lives in [place] but is not well himself. Equipment Owned/DME: None Subjective: NT Objective: General Observation: NT Pain: NT ROM: N/A Strength: N/A Sensation: Intact as to pain and pressure on bilateral lower extremities. Bed Mobility/Transfers: N/A Gait: N/A Balance: N/A Assessment: Patient on 07/15/2019. Patient is an 84-year-old female who presented to the ED on 07/12/2019 due to failure to thrive and malnutrition. Patient is diagnosed with a right displaced third rib fracture, frequent falls, decreased ADL performance, and failure to thrive with referral to physical therapy in order to address impairments in strength, balance, and mobility level. Patient presented with clinical signs and symptoms consistent with current/admitting diagnoses that have resulted to mobility limitations, gait instability, generalized weakness, and impairment of motor control as demonstrated by the following impairment level findings: 1. Decreased strength to B LE major muscle groups 2. Impaired sitting/standing balance 3. Impaired activity tolerance Impairments contributed to the following functional limitations: 1. Dependent bed mobility skills 2. Increased dependence with transfers 3. Inability to safely ambulate without assistive device and physical assistance 4. Increase completion time for mobility ADL performance 5. Increased fall risk 6. Inability to negotiate steps alone safely Goals: N/A. Patient on 07/15/2019. DISCHARGE RECOMMENDATIONS: N/A. Patient on 07/15/2019. TREATMENT CODE/TIME: BASILIA. Eileen Parra PT, DPT, CLT [facility] [place], [place]
== END 2019-07-15 13:34 | disposition expired | DRG 640 ==
LOC: ER 21:01 → MS 22:27
PROVIDERS: Family Medicine; Nurse Practitioner Acute Care; Nurse Practitioner Family; Surgery; Admitting Provider Internal Medicine; Emergency Provider Student in an Organized Health Care Education/Training Program; PCP Family Medicine; Visit Provider Internal Medicine
DX: R62.7 Adult failure to thrive (principal); A41.1 Sepsis due to other specified staphylococcus; Z68.1 Body mass index [BMI] 19.9 or less, adult; S22.31XA Fracture of one rib, right side, initial encounter for closed fracture; K81.0 Acute cholecystitis; R64 Cachexia; X58.XXXA Exposure to other specified factors, initial encounter; Z51.5 Encounter for palliative care; R07.81 Pleurodynia; J43.9 Emphysema, unspecified; R06.00 Dyspnea, unspecified; R06.02 Shortness of breath; N28.89 Other specified disorders of kidney and ureter; N28.1 Cyst of kidney, acquired; I27.20 Pulmonary hypertension, unspecified; I73.9 Peripheral vascular disease, unspecified; R29.6 Repeated falls; Z73.89 Other problems related to life management difficulty; F41.9 Anxiety disorder, unspecified; Z60.2 Problems related to living alone; R53.1 Weakness; F17.210 Nicotine dependence, cigarettes, uncomplicated
CPT/HCPCS: 36415; 51701; 71250; 80048; 80053; 84145; 85027; 87040; 93005; 94640; 96361; 96374; 96375; 96376; 97110; 97162; 97530; 99220; 99222; 99232; 99233; 99239; 99253; 99255; 99285; J1650; 70450; 72125; 74160; 74176; 81003; 83520; 84484; 85025; 87086; 93010; 99219; 99225; G0378; J0744; J1170; J2060; J2270; J2405; J3490; J7613; J7620